=== PATIENT | female | born 1970 | race Two or more races ===

== ENCOUNTER 2024-01-09 12:38 | Outpatient (AMB) | payer OTHER, SELFPAY ==
[2024-01-09 12:57] VITALS: BP 124/70; PULSE 89; O2SAT 99; BMI 28.7
--- NOTE | 2024-01-09 12:57 | MHC.OFFVIS ---
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 The patient is a 53-year-old lady with asthma and HIV on retroviral therapy, presenting with worsening cough and shortness of breath. The patient states that she was in her usual state health until several months ago she developed COVID. She actually did not have any respiratory complaints while having COVID just epistaxis. Afterwards though the patient started developing shortness breath in addition to right-sided pleuritic chest discomfort. It was very uncomfortable for her with moderate to severe pain. The patient was evaluated in the ER. She did have a CTA back in 10/19/2023 that ruled out any parenchymal or pleural-based disease. Denied any pulmonary vascular disease. No active disease noted although she did have some minimal emphysema. She has been on Flovent in addition to that she has been rescue inhaler. She is required multiple courses of prednisone and she does have diabetes she is concerned that her sugars have been very elevated. The patient also states that she has been having this dry cough. Mainly affects her at nighttime. Very uncomfortable. She has been on lisinopril now for many yearr, even prior to her cough. Although, she states every time she does take the lisinopril she describes a scratchy sensation in the back of the throat and therefore dangerous for the possibility of development of lisinopril induced angioedema which can happen any time. The patient will be switched from an ROSEY inhibitor to an ARB at this time. In addition to that the patient has been prescribed amlodipine for her blood pressure but she does not use it because of lower extremity edema. 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 Chronic cough Asthma Social History (Updated 01/09/24 @ 13:03 by OLGA Gutierrez) Patient Tobacco Use Status: Current everyday Tobacco user Tobacco use type: Cigarette Review of Systems Const Denies fever(s) Eyes Reports no additional complaints ENT Reports nasal congestion, Denies throat swelling and Denies tongue swelling Card Denies chest pain Resp Reports cough and Reports wheezing GI Reports no additional complaints Musc Reports no additional complaints Skin/Breast Denies rash Aller/Immun Denies throat swelling, Denies tongue swelling and Reports wheezing Physical Exam Vital Signs: Last Vital Signs Pulse 89 01/09/24 12:57 BP 124/70 01/09/24 12:57 Pulse Ox 99 01/09/24 12:57 Oxygen Delivery Method Room Air 01/09/24 12:57 BMI result Body Mass Index 28.7 Const General: comfortable HEENT Head: Yes normocephalic Neck Neck: Yes supple Chest Chest palpation & inspection: normal inspection of the chest Resp Effort & Inspection: normal respiratory effort and prolonged expiratory phase Auscultation: wheezes Cardio Heart sounds: S1 normal heart sound present and S2 normal heart sound present GI Palpation (GI): Soft to palpation Skin General skin exam: no rashes or lesions noted Extrem General: Yes no clubbing, cyanosis or edema Assessment & Plan Assessment & Plan (1) Asthma: Code(s): J45.909 - Unspecified asthma, uncomplicated Category: Medical Qualifiers: Asthma severity: moderate Asthma persistence: persistent Asthma complication type: uncomplicated Qualified Code(s): J45.40 - Moderate persistent asthma, uncomplicated (2) Chronic cough: Code(s): R05.3 - Chronic cough Category: Medical (3) 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, unspecified Category: Medical Plan stop Flovent start Trelegy MEEK as needed stop Lisinopril due to scratchy throat while taking it start Losartan benzonates as needed F/U 2-3 months Medications: New losartan 50 mg PO DAILY 30 tabs 5RF 30 days albuterol sulfate 2.5 mg (3 mL) inhalation Q6H PRN 180 mL 11RF shortness of breath or wheezing 30 days albuterol sulfate 90 mcg/actuation 2 inhalations inhalation Q6H PRN 18 grams 12RF shortness of breath or wheezing 30 days J44.9 - Chronic obstructive pulmonary disease, unspecified bhveuwqvwah-[id number]-bfhotklh 200-62.5-25 mcg (Trelegy Ellipta) 1 inh inhalation DAILY 60 ea 12RF 30 days benzonatate 200 mg PO BID PRN 60 caps 3RF cough 30 days Patient Instructions: Coding Level of Care Code New Pt Level 4 (20730) Diagnoses Moderate persistent asthma without complication J45.40 Asthma severity: moderate Asthma persistence: persistent Asthma complication type: uncomplicated Chronic cough R05.3 [id number] syndrome U09.9 Time Spent (min) 38
== END 2024-01-09 13:22 | disposition home or self-care (01) ==
PROVIDERS: PCP Internal Medicine; Visit Provider Hospitalist
DX: J45.40 Moderate persistent asthma, uncomplicated (principal); R05.3 Chronic cough; U09.9 Post COVID-19 condition, unspecified
CPT/HCPCS: 99204

== ENCOUNTER → 2024-01-09 12:38 | Outpatient (BNVA) | payer OTHER, SELFPAY | PROVIDERS: PCP Internal Medicine; Visit Provider Hospitalist | DX: J45.40 Moderate persistent asthma, uncomplicated (principal); R05.3 Chronic cough; U09.9 Post COVID-19 condition, unspecified | CPT/HCPCS: 99202 ==

== ENCOUNTER 2024-04-13 14:50 | Outpatient (AMB) | payer OTHER, SELFPAY ==
--- NOTE | 2024-04-13 15:29 | MHC.OFFVIS ---
Vital Signs 04/13/24 15:31 Height 5 ft 2 in Weight 158 lb BMI 28.9 BP 124/70 Blood Pressure Location Lt brachial Position Sitting Pulse 88 Pulse Source Pulse Oximeter Pulse Oximetry (%) 98 Oxygen Delivery Method Room Air Intake Visit Reasons: Asthma [employer] Head Required: No Allergies No Known Allergies [No Known Allergies*] Allergy (Unverified 04/13/24 15:33) HPI Comments Details: The patient is a 53-year-old lady with asthma and HIV on retroviral therapy, presenting with worsening cough and shortness of breath. The patient states that she was in her usual state health until several months ago she developed COVID. She actually did not have any respiratory complaints while having COVID just epistaxis. Afterwards though the patient started developing shortness breath in addition to right-sided pleuritic chest discomfort. It was very uncomfortable for her with moderate to severe pain. The patient was evaluated in the ER. She did have a CTA back in 10/19/2023 that ruled out any parenchymal or pleural-based disease. Denied any pulmonary vascular disease. No active disease noted although she did have some minimal emphysema. She has been on Flovent in addition to that she has been rescue inhaler. She is required multiple courses of prednisone and she does have diabetes she is concerned that her sugars have been very elevated. The patient also states that she has been having this dry cough. Mainly affects her at nighttime. Very uncomfortable. She has been on lisinopril now for many yearr, even prior to her cough. Although, she states every time she does take the lisinopril she describes a scratchy sensation in the back of the throat and therefore dangerous for the possibility of development of lisinopril induced angioedema which can happen any time. The patient will be switched from an ROSEY inhibitor to an ARB at this time. In addition to that the patient has been prescribed amlodipine for her blood pressure but she does not use it because of lower extremity edema. 04/13/2024 the patient is here for a pulmonary follow-up visit. Overall she is doing a lot better. Her cough has significantly improved after stopping days inhibitor. The additional inhaler therapy also has been affecting beneficial. She has not been having as much as chest tightness wheezing. She has not had to use her rescue inhaler often. Typically less than 2 times a week. She did well with the stopping the ROSEY inhibitor. She needs to make sure she gets her blood pressure medications controlled and taking care of managed by her primary care. She will continue with the current respiratory therapy follow-up sometime in the spring to make sure that her asthma symptoms continued to be controlled. We can also consider decreasing or deescalating her inhaler therapy then. [facility] Medical History (Updated 01/09/24 @ 22:46 by Jorje Chavez MD) HIV (human immunodeficiency virus infection) [id number] syndrome Chronic cough Asthma Social History (Updated 01/09/24 @ 13:03 by OLGA Gutierrez) Patient Tobacco Use Status: Current everyday Tobacco user Tobacco use type: Cigarette Review of Systems Const Denies fever(s) Eyes Reports no additional complaints ENT Reports nasal congestion, Denies throat swelling and Denies tongue swelling Card Denies chest pain Resp Reports cough and Denies wheezing GI Reports no additional complaints Musc Reports no additional complaints Skin/Breast Denies rash Aller/Immun Denies throat swelling, Denies tongue swelling and Denies wheezing Physical Exam Vital Signs: Last Vital Signs Pulse 88 04/13/24 15:31 BP 124/70 04/13/24 15:31 Pulse Ox 98 04/13/24 15:31 Oxygen Delivery Method Room Air 04/13/24 15:31 BMI result Body Mass Index 28.9 Const General: comfortable HEENT Head: Yes normocephalic Neck Neck: Yes supple Chest Chest palpation & inspection: normal inspection of the chest Resp Effort & Inspection: normal respiratory effort and No prolonged expiratory phase Auscultation: clear to auscultation bilaterally and no wheezes Cardio Heart sounds: S1 normal heart sound present and S2 normal heart sound present GI Palpation (GI): Soft to palpation Skin General skin exam: no rashes or lesions noted Extrem General: Yes no clubbing, cyanosis or edema Assessment & Plan Assessment & Plan (1) Asthma: Code(s): J45.909 - Unspecified asthma, uncomplicated Category: Medical Qualifiers: Asthma complication type: uncomplicated Asthma persistence: persistent Asthma severity: moderate Qualified Code(s): J45.40 - Moderate persistent asthma, uncomplicated (2) Chronic cough: Code(s): R05.3 - Chronic cough Category: Medical (3) [id number] syndrome: 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
[2024-04-13 15:31] VITALS: BP 124/70; PULSE 88; O2SAT 98; BMI 28.9
== END 2024-04-13 15:54 | disposition home or self-care (01) ==
PROVIDERS: PCP Internal Medicine; Visit Provider Hospitalist
DX: J45.40 Moderate persistent asthma, uncomplicated (principal); R05.3 Chronic cough; U09.9 Post COVID-19 condition, unspecified
CPT/HCPCS: 99214

== ENCOUNTER → 2024-04-13 14:50 | Outpatient (BNVA) | payer OTHER, SELFPAY | PROVIDERS: PCP Internal Medicine; Visit Provider Hospitalist | DX: J45.40 Moderate persistent asthma, uncomplicated (principal); R05.3 Chronic cough; U09.9 Post COVID-19 condition, unspecified; B20 Human immunodeficiency virus [HIV] disease | CPT/HCPCS: 99212 ==

== ENCOUNTER 2024-10-16 15:03 | Outpatient (AMB) | payer OTHER, SELFPAY ==
--- NOTE | 2024-10-16 15:15 | A.OFFVIS_ITS ---
Vital Signs 10/16/24 15:16 Height 5 ft 2 in Weight 157 lb 10.088 oz BMI 28.8 BP 128/76 Blood Pressure Location Rt brachial Position Sitting Pulse 104 H Pulse Source Pulse Oximeter Pulse Oximetry (%) 98 Oxygen Delivery Method Room Air Intake Visit Reasons: Asthma Allergies amlodipine Allergy (Mild, Verified 10/16/24 15:20) Swelling lisinopril Allergy (Mild, Verified 10/16/24 15:20) Cough HPI Comments Details: The patient is a 54-year-old lady with asthma and HIV on retroviral therapy, presenting with worsening cough and shortness of breath. The patient states that she was in her usual state health until several months ago she developed COVID. She actually did not have any respiratory complaints while having COVID just epistaxis. Afterwards though the patient started developing shortness breath in addition to right-sided pleuritic chest discomfort. It was very uncomfortable for her with moderate to severe pain. The patient was evaluated in the ER. She did have a CTA back in 10/19/2023 that ruled out any parenchymal or pleural-based disease. Denied any pulmonary vascular disease. No active disease noted although she did have some minimal emphysema. She has been on Flovent in addition to that she has been rescue inhaler. She is required multiple courses of prednisone and she does have diabetes she is concerned that her sugars have been very elevated. The patient also states that she has been having this dry cough. Mainly affects her at nighttime. Very uncomfortable. She has been on lisinopril now for many yearr, even prior to her cough. Although, she states every time she does take the lisinopril she describes a scratchy sensation in the back of the throat and therefore dangerous for the possibility of development of lisinopril induced angioedema which can happen any time. The patient will be switched from an ROSEY inhibitor to an ARB at this time. In addition to that the patient has been prescribed amlodipine for her blood pressure but she does not use it because of lower extremity edema. 04/13/2024 the patient is here for a pulmonary follow-up visit. Overall she is doing a lot better. Her cough has significantly improved after stopping days inhibitor. The additional inhaler therapy also has been affecting beneficial. She has not been having as much as chest tightness wheezing. She has not had to use her rescue inhaler often. Typically less than 2 times a week. She did well with the stopping the ROSEY inhibitor. She needs to make sure she gets her blood pressure medications controlled and taking care of managed by her primary care. She will continue with the current respiratory therapy follow-up sometime in the spring to make sure that her asthma symptoms continued to be controlled. We can also consider decreasing or deescalating her inhaler therapy then. 10/16/2024 the patient is here for a pulmonary follow-up visit. She is doing significantly better since she stopped the ROSEY inhibitor. She continues on the Breo and the Incruse with good effect. She has not required her rescue inhaler nor any prednisone. She has not had any even Lizeth studies at this time but at this point she does not need any. The patient also improved from her chest discomfort as she was having issues with costochondritis. That also has improved. She continues with allergy medicine. She should continue for now. And will follow-up in a year's time. When she returns in a year will plan to do a chest x-ray. If she has any issues prior to the next year's appointment she will call for an earlier assessment. [facility] Medical History (Updated 01/09/24 @ 22:46 by Jorje Chavez MD) HIV (human immunodeficiency virus infection) [id number] syndrome Chronic cough Asthma Social History (Updated 10/16/24 @ 15:18 by Genevieve Alas CMA) Patient Tobacco Use Status: Current everyday Tobacco user Tobacco use type: Cigarette Cigarettes Per Day: 8 Review of Systems Const Denies fever(s) Eyes Reports no additional complaints ENT Reports nasal congestion, Denies throat swelling and Denies tongue swelling Card Denies chest pain Resp Reports cough and Denies wheezing GI Reports no additional complaints Musc Reports no additional complaints Skin/Breast Denies rash Aller/Immun Denies throat swelling, Denies tongue swelling and Denies wheezing Physical Exam Vital Signs: Last Vital Signs Pulse 104 H 10/16/24 15:16 BP 128/76 10/16/24 15:16 Pulse Ox 98 10/16/24 15:16 Oxygen Delivery Method Room Air 10/16/24 15:16 BMI result Body Mass Index 28.8 Const General: comfortable HEENT Head: Yes normocephalic Neck Neck: Yes supple Chest Chest palpation & inspection: normal inspection of the chest Resp Effort & Inspection: normal respiratory effort and No prolonged expiratory phase Auscultation: clear to auscultation bilaterally and no wheezes Cardio Heart sounds: S1 normal heart sound present and S2 normal heart sound present GI Palpation (GI): Soft to palpation Skin General skin exam: no rashes or lesions noted Extrem General: Yes no clubbing, cyanosis or edema Assessment & Plan Assessment & Plan (1) Asthma: Code(s): J45.909 - Unspecified asthma, uncomplicated Category: Medical Qualifiers: Asthma complication type: uncomplicated Asthma persistence: persistent Asthma severity: moderate Qualified Code(s): J45.40 - Moderate persistent asthma, uncomplicated (2) Chronic cough: Code(s): R05.3 - Chronic cough Category: Medical Plan continue Breo/Incruse MEEK as needed benzonates as needed CXR next year F/U 12 months Coding Level of Care Code Est Pt Level 4 (57420) Diagnoses Moderate persistent asthma without complication J45.40 Asthma complication type: uncomplicated Asthma persistence: persistent Asthma severity: moderate Chronic cough R05.3 Time Spent (min) 16
[2024-10-16 15:16] VITALS: BP 128/76; PULSE 104; O2SAT 98; BMI 28.8
--- OUTSIDE RECORDS SUMMARY | 2024-10-16 17:58 | XMS_ITS | Data Portability ---
Author Organization [facility] Address [address] [place] [address] Assessment No assessment recorded. Plan of Treatment Reminders Order Date Submit Date Provider Last Modified By Organization Details Last Modified Time Details Appointments None recorded. Lab None recorded. Referral None recorded. Procedures None recorded. Surgeries None recorded. Imaging None recorded. Medication Orders azithromyci n 250 mg tablet 2022 023 SHEA [id number], [address] [place], [address], 3 08:39:54 prednisone 20 mg tablet 2022 023 [email or web address] [id number], [address] [place], [address], 3 09:59:58 Patient TargetsNo targets recorded. Patient Instructions Encounter Date Encounter Id Patient Instructions Last Modified By Organization Details Last Modified Time 12/07/2022 [id number] walking pneumonia: care instructions Not available 12/07/2022 10:03:33 asthma attack: care instructions Not available 12/07/2022 10:03:33 Reason for Referral None Reported. Problems Name Problem SNOMED Code Status Onset Date Resolution Date Notes Provider Name and Address Organization Details Recorded Time Asthma 479770931 Active 2022 Asha Razia null, PA - [facility] 3 08:17:51 Hypertensive disorder 65880917 Active 2022 Asha Needham null, PA - [facility] 3 08:18:21 Diabetes mellitus 35149602 Active 2022 Asha Razia null, PA - [facility] 3 08:18:25 Environmental allergy 238369648 Active 2022 STEVEN Johnston [facility] 3 08:18:35 Problem Notes None recorded. Procedures Surgical History Date Name Laterality Status Provider Name and Address Organization Details Recorded Time hysterectomy completed Asha HARRIS - [facility] 12/07/2022 08:19:11 Imaging Results None recorded. Procedure Notes None recorded. Medical Equipment None Reported. Allergies No known drug allergies Medications Name Sig Start Date Stop Date Status Note LastModified by Organization Details LastModified Time prednisone 10 mg tablet PLEASE SEE ATTACHED FOR DETAILED DIRECTIONS active Not Available Not Available N ot Available ammonium lactate 12 % lotion APPLY TO SOLES OF FEET DAILY. AT NIGHT WEAR SOCKS TO BED active Not Available Not Available No t Available azithromycin 250 mg tablet TAKE 2 TABLETS (500 MG) BY ORAL ROUTE ONCE DAILY FOR 1 DAY THEN 1 TABLET (250 MG) BY ORAL ROUTE ONCE DAILY FOR 4 DAYS 2022 active Not Available Not Available Not Avai lable prednisone 20 mg tablet Take 2 tablets every day by oral route for 5 days. 2022 active Not Available Not Available Not Avai lable sulfamethoxa zole 800 mg-trimethop rim 160 mg tablet TAKE 1 TABLET BY MOUTH THREE TIMES PER WEEK active Not Available Not Available No t Available peg-electrol yte solution 420 gram oral solution MIX AND DRINK 1 GLASS DIRECTED EVERY 15 TO 30 MINUTES UNTIL FINISHED active Not Available Not Available No t Available lisinopril 10 mg tablet TAKE 1 TABLET BY MOUTH EVERY DAY active Not Available Not Available No t Available polymyxin B sulfate 10,000 unit-trimeth oprim 1 mg/mL eye drops INSTILL 1 DROP INTO AFFECTED EYE EVERY 6 HOURS active Not Available Not Available No t Available montelukast 10 mg tablet TAKE 1 TABLET BY MOUTH EVERYDAY AT BEDTIME active Not Available Not Available No t Available pravastatin 20 mg tablet TAKE 1 TABLET BY MOUTH EVERY DAY IN THE EVENING active Not Available Not Available No t Available fluticasone propionate 50 mcg/actuatio n nasal spray,suspen karyna USE 2 SPRAYS IN EACH NOSTRIL DAILY NEEDED active Not Available Not Available No t Available doxycycline hyclate 100 mg tablet TAKE 1 TABLET BY MOUTH TWICE A DAY WITH FOOD active Not Available Not Available No t Available loratadine 10 mg tablet TAKE 1 TABLET BY MOUTH EVERY DAY active Not Available Not Available No t Available amoxicillin 875 mg-potassium clavulanate 125 mg tablet TAKE 1 TABLET BY MOUTH EVERY 12 HOURS FOR 10 DAYS active Not Available Not Available Not Available rosuvastatin 40 mg tablet TAKE 1 TABLET BY MOUTH EVERY DAY active Not Available Not Available No t Available Flovent HFA 110 mcg/actuatio n aerosol inhaler TAKE 1 PUFF BY MOUTH TWICE A DAY active Not Available Not Available Not Available Claritin active Not Available Not Avai lable Not Available Singulair active Not Available Not Gillian ilable Not Available lisinopril active Not Available Not Av ailable Not Available metformin active Not Available Not Gillian ilable Not Available gabapentin active Not Available Not Av ailable Not Available FreeStyle Lite Strips USE DIRECTED 3 TIMES A DAY active Not Available Not Available Not Available Flovent Diskus 100 mcg/actuatio n powder for inhalation Inhale 1 puff twice a day by inhalation route. active Not Available Not Available No t Available Invokamet 150 mg-1,000 mg tablet TAKE 1 TABLET TWICE A DAY BY ORAL ROUTE FOR 90 DAYS. active Not Available Not Available No t Available Triumeq 600 mg-50 mg-300 mg tablet TAKE 1 TABLET BY MOUTH EVERY DAY active Not Available Not Available No t Available Trulicity 1.5 mg/0.5 mL subcutaneous pen injector INJECT 0.5ML (1 PEN) INTO THE SKIN EVERY WEEK active Not Available Not Available N ot Available Trulicity 0.75 mg/0.5 mL subcutaneous pen injector Inject by subcutaneou s route. active Not Available Not Available No t Available Tresiba FlexTouch U-100 insulin 100 unit/mL (3 mL) subcutaneous pen INJECT 15 UNITS EVERY DAY BY SUBCUTANEOU S ROUTE FOR 30 DAYS. active Not Available Not Available No t Available BD Page 2nd Gen Pen Needle 32 gauge x 5/32 ONCE PER DAY SC INJECTIONS. E11.65 active Not Available Not Available No t Available Proair Digihaler 90 mcg/actuatio n aerosol powder breath act, sensor Inhale 2 puffs every 4 hours by inhalation route. active Not Available Not Available No t Available Flowflex COVID-19 Antigen Home Test kit USE DIRECTED active Not Available Not Available No t Available albuterol 90 mcg-budesoni de 80 mcg/actuatio n HFA aerosol inhaler Inhale by inhalation route. active Not Available Not Available No t Available Vitals Date Recorded Body height Body mass index (BMI) Body weight Oxygen saturation Oxygen saturation in Arterial blood by Pulse oximetry Heart rate Respiratory rate Pain severity - 0-10 verbal numeric rating [Score] - Reported Body temperature Systolic blood pressure Diastolic blood pressure Provider Name and Address Organization Details Last Updated DateTime 3 149.86 cm 31.1 kg/m2 89053.2 2 g 100 % 100 % 86 /min 20 /min 8 98 [degF] 123 mm[Hg] 62 mm[Hg] Asha Randle PA - [facility] 3 08:21:13 Social History Question Answer Notes LastModified by Organizat ion Details LastModified Time Tobacco Smoking Status Never Smoker STEVEN Johnston [facility] 12/07/2022 08:18:49 What Is Your Level Of Alcohol Consumption? None Information not available 12/07/2022 Have You Had Direct Contact, Or Contact During Intimacy, With Monkeypox Rash, Scabs, Or Body Fluids From A Person With Monkeypox? No Information not available 12/07/2022 Do You Use Any Illicit Or Recreational Drugs? No Information not available 12/07/2022 Have You Recently Traveled Abroad? No Information not available 12/07/2022 Do You Or Have You Ever Used Any Other Forms Of Tobacco Or Nicotine? No Information not available 12/07/2022 Sex: Unknown Functional Status None recorded. Mental Status None recorded. Family History Relationship Description Onset Age of this Age Resolved Age Notes LastModified by Organization Details LastModified Time Father No current problems or disability Not available 12/07 08:18:43 Mother No current problems or disability Not available 12/07 08:18:43 Medical History No medical history recorded. Gynecological History Statement/Question Response Date of LMP Is there any chance of ? No Obstetrics History GPAL:G 0 P 0 0 0 0 Immunizations Vaccine Type Date Status Note Provider Nam e and Address Organization Details Recorded Time Influenza, split virus, quadrivalent, preservative 0 completed Asha riggs PA Ramya [facility] 12/07/2022 08:16:07 MMR 9 completed Asha Razia null, PA - [facility] 12/07/2022 08:16:07 COVID-19, mRNA, LNP-S, PF, 100 mcg/0.5mL dose or 50 mcg/0.25mL dose 2 completed Asha Razia null, PA - [facility] 12/07/2022 08:16:07 COVID-19, mRNA, LNP-S, PF, 100 mcg/0.5mL dose or 50 mcg/0.25mL dose 1 completed Asha Razia null, PA - [facility] 12/07/2022 08:16:07 pneumococcal polysaccharide PPV23 8 completed Asha Needham null, PA - [facility] 12/07/2022 08:16:07 Tdap 8 completed Asha Razia null, PA - [facility] 12/07/2022 08:16:07 Tdap 8 completed Asha Needham null, PA - [facility] 12/07/2022 08:16:07 Pneumococcal conjugate PCV 13 6 completed Asha Razia null, PA - [facility] 12/07/2022 08:16:07 Influenza, split virus, trivalent, preservative 2 completed Asha Razia null, PA - [facility] 12/07/2022 08:16:07 Influenza, split virus, trivalent, preservative 6 completed Asha Razia null, PA - [facility] 12/07/2022 08:16:07 Influenza, split virus, trivalent, preservative 4 completed Asha Razia null, PA - [facility] 12/07/2022 08:16:07 Influenza, split virus, trivalent, preservative 2 completed Asha Razia null, PA - [facility] 12/07/2022 08:16:07 Influenza, split virus, trivalent, preservative 3 completed Asha Needham null, PA - [facility] 12/07/2022 08:16:07 Influenza, split virus, trivalent, PF 5 completed Asha Razia null, PA - [facility] 12/07/2022 08:16:07 Td (adult), 2 Lf tetanus toxoid, preservative free, adsorbed 7 completed Asha Needham null, PA - [facility] 12/07/2022 08:16:07 Hep B, adolescent or pediatric 5 completed Asha Razia null, PA - [facility] 12/07/2022 08:16:07 Hep B, adolescent or pediatric 5 completed Asha Needham null, PA - [facility] 12/07/2022 08:16:07 Hep B, adolescent or pediatric 5 completed Asha Needham null, PA - [facility] 12/07/2022 08:16:07 Influenza, split virus, quadrivalent, PF 7 completed Asha Razia null, PA - [facility] 12/07/2022 08:16:07 Influenza, split virus, quadrivalent, PF 1 completed Asha Razia null, PA - [facility] 12/07/2022 08:16:07 Influenza, split virus, quadrivalent, PF 2 completed Asha Razia null, PA - [facility] 12/07/2022 08:16:07 Influenza, split virus, quadrivalent, PF 5 completed Asha Needham null, PA - [facility] 12/07/2022 08:16:07 Past Encounters Encounter ID Performer Location Encounter Start Date Encounter Closed Date Diagnosis/Indication Diagnosis SNOMED-CT Code Diagnosis ICD10 Code Diagnosis Note [id number] [facility] [address] [place] [address] 02/28/2020 15:46:43 02/28/2020 16:49:59 [id number] [address] [address] [place] [address] 01/15/2020 08:12:55 01/15/2020 09:13:49 [id number] [address] [facility] [place] [address] 09/02/2020 15:51:24 09/02/2020 17:50:48 [id number] Theron Alfred [place] [address] [address] [place] [address] 12/07/2022 08:10:02 12/07/2022 08:45:01 Community acquired pneumonia 050634744 J18.9 Concerning for pneumonia, . will treat based on clinical presentati on.Startin сергей streroids. Aware that she is Diabetic but benefits outweight the risks and she is aware that she will need to monitor blood sugars.Stefanie ble to give Albuterol neb in office , advised to use Albuterol inhaler at home. Or can use the albuterol nebulizer you have You are being prescribed a Steroid. You must take this with food. While on a Steroid, you should not take Ibuprofen or any other NSAID because this will cause stomach irritation . Please follow up with PCP or Urgent Care in 3-5 days if no improvemen t or if any new symptoms occur that are concerning .Call 911 or go to nearest ER if you develop any shortness of breath, chest pain, severe headache, dizziness, or other concerning symptoms Health Concerns Section Related Observation LastModified by Organization Detai ls LastModified Time None Recorded Concern Status LastModified by Organization Details LastModified Time None Recorded Advance Directives Directive None Recorded Payers Encounter Date Sequence Insurance Name Policy Number Policy James Covered Member ID James Member ID Guarantor Name 01/15/2020 1 [facility]MEDICAID HMO) [id number] Maame I Kev [id number] Maame Kev 02/28/2020 1 [facility]MEDICAID HMO) [id number] Maame I Kev [id number] Maame Kev 09/02/2020 1 [facility] (MEDICAID HMO) [id number] Maame I Kev [id number] Maame Kev 12/07/2022 1 [facility] (MEDICAID HMO) [id number] Maame I Kev [id number] Maame Angulo Notes Date Note Type Note Provider Name and Address Organization Details Recorded Time 12/07/2022 text/html CoughReported bypatient.Quality:p roductive cough Severity:pain with cough; moderate Duration:constant Timing:worsening Context:history of asthma Associated Symptoms:chills;adriane st pain;wheezing;post nasal drip;hurts to breathNotes:Has history asthma. using at home Albuterol. Chest is congested an dhas pain in the lower posterior rib cage. Theron Alfred MD [address] [place], [address], [place] - [facility] 12/07/2022 10:03:37 OBGyn Episode No OBEpisode recorded.
--- OUTSIDE RECORDS SUMMARY | 2024-10-16 17:58 | XMS_ITS | Continuity of Care Document ---
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 Available [facility] 4 07:42:44 Spasm of skeletal muscle of thorax 803692068 Active 2023 Not Available [facility] 4 07:42:44 Neck pain 15497355 Active 2023 RECORDED 02/11/20 12 3:05PM BY AMISHA ROBERTS MA, ANNOTATI ON/ADDEN DUM Not Available [facility] 4 07:42:44 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 Procedures Surgical History Date Name Laterality Status Provider Name and Address Organization Details Recorded Time 08/29/19 25 Diabetic Foot Exam (Monofilament) completed Emma HARRIS-C [address], [place], [address], [facility] 08/29/2024 16:24:35 05/12/20 24 Most Recent Mammogram completed Shani Veliz [facility] 05/15/2024 11:08:09 10/11/19 24 diabetic retinopathy screening completed Shani Veliz [facility] 10/12/2023 08:29:28 05/07/20 23 Mammogram screening completed Angela Honeycutt [facility] 05/10/2023 09:00:40 03/02/20 22 Date of Last Colonoscopy completed Lyla Mccartney [facility] 03/04/2022 10:24:49 03/02/20 22 Colonoscopy completed Lyla Mccartney [facility] 03/04/2022 10:24:39 04/28/20 21 Diabetic Foot Exam (Monofilament) completed UtiliDataden PA-C [address] [facility], [place], [address], [facility] 04/28/2021 16:39:35 02/12/20 21 Diabetic Foot Exam (Monofilament) completed Natacha Connie [facility] 02/11/2021 16:19:55 08/28/19 20 Diabetic Foot Exam (Monofilament) completed Omaira Kenroy [facility] 08/28/2019 16:15:58 02/21/20 19 Diabetic Foot Exam (Monofilament) completed PT PAL PA-C [address] [facility] [address] [facility], [place], [address], [facility] 02/20/2019 16:00:13 05/02/20 17 Colposcopy completed Reina Giraldo [facility] 07/19/2017 14:41:16 05/02/20 17 Colposcopy completed Reina Giraldo [facility] 07/19/2017 14:41:33 Caesarean Section completed Dipika Uriarte [facility] 05/10/2014 15:42:08 Imaging Results None recorded. Procedure Notes None recorded. Medical Equipment None Reported. Allergies Allergen ID Allergen Name Allergen Category Reaction Reaction Severity Criticality Documentation Date Start Date Code Code System Note Provider Name and Address Organization Details Recorded Time 05036 amlodipin e medicatio n edema Not available Not available 02/01/2024 59963 RxNorm swell ing of ankle s TERRI Izquierdo, [facility] 4 11:18:46 26602 lisinopri l medicatio n anaphylax is Not available Not available 10/15/2024 73381 RxNorm Emma Yanez PA-C [address] [address], [place], [address], [facility] 5 14:30:07 Medications Name Sig Start Date Stop Date Status Note LastModified by Organization Details LastModified Time losartan 50 mg tablet Take 1 tablet every day by oral route for 90 days. 2024 active Not Available Not Available Not Avai lable carisopro dol 350 mg tablet Take by oral route for 7 days. 09/09 completed Not Available Not Available Not Available amoxicill in 500 mg capsule TAKE 1 CAPSULE BY MOUTH THREE TIMES A DAY UNTIL GONE 12/11 completed Not Available Not Available Not Available azithromy blanca 250 mg capsule QD X 1 DAY, THEN 1 TAB PO QD X 4 DAYS 03/30 completed RECORDED 03/30/20 12 6:28AM BY ZEE Choudhury MD, MEDICATI ON AUTO-GENESIS CTIVATIO N; Not Available Not Available Not Available fluconazo le 100 mg tablet 07/14 completed Not Available Not Available Not Available clotrimaz ole 10 mg alena FOUR TIMES DAILY 10/13 completed RECORDED 10/14/19 11 1:21PM BY AMISHA ROBERTS MA, OFFICE VISIT; Not Available Not Available Not Available Kristalos e 20 gram oral packet MIX 1 PACKET(S ) EVERY DAY BY ORAL ROUTE FOR 30 DAYS 09/30 completed Not Available Not Available Not Available prednison e 10 mg tablet PLEASE SEE ATTACHED FOR DETAILED DIRECTIO NS 08/31 completed Not Available Not Available Not Available nitrofura ntoin macrocrys ken 50 mg capsule TAKE 1 CAPSULE BY MOUTH EVERY DAY 01/07 completed Not Available Not Available Not Available doxycycli ne hyclate 100 mg capsule TWO TIMES DAILY 01/09 completed RECORDED 01/14/20 10 1:51PM BY ROSS HA PA-C, MEDICATI ON AUTO-GENESIS CTIVATIO N; Not Available Not Available Not Available albuterol sulfate 2.5 mg/3 mL (0.083 %) solution for nebulizat ion USE 1 VIAL VIA NEBULIZE R EVERY 6 HOURS NEEDED FOR SHORTNES S OF BREATH OR WHEEZING FOR 30 DAYS active Not Available Not Available No t Available ammonium lactate 12 % lotion APPLY TO SOLES OF FEET DAILY. AT NIGHT WEAR SOCKS TO BED active Not Available Not Available No t Available cetirizin e 10 mg tablet Take 1 tablet every day by oral route. 04/16 completed Not Available Not Available Not Available azithromy blanca 250 mg tablet TAKE 2 TABLETS BY MOUTH TODAY, THEN TAKE 1 TABLET DAILY FOR 4 DAYS 12/31 completed Not Available Not Available Not Available ibuprofen 800 mg tablet TAKE 1 TABLET BY MOUTH EVERY 8 HOURS NEEDED FOR PAIN 05/29 completed Not Available Not Available Not Available Glucagon Emergency Kit 1 mg solution for injection TAKE 1 MG NEEDED BY INJECTIO N ROUTE FOR 90 DAYS. active Not Available Not Available No t Available tizanidin e 4 mg tablet TAKE 0.5 TABLETS TWICE A DAY BY ORAL ROUTE FOR 30 DAYS, FOR MUSCLE SPASMS. 08/29 completed Not Available Not Available Not Available fluconazo le 150 mg tablet TAKE 1 TABLET BY MOUTH NEEDED FOR ACTIVE VAGINAL INFECTIO N 09/09 completed Not Available Not Available Not Available benzonata te 200 mg capsule take 1 capsule three times daily by mouth as needed 11/22 completed Not Available Not Available Not Available albuterol sulfate 1.25 mg/3 mL solution for nebulizat ion USE 1 VIAL VIA NEBULIZE R EVERY 4 HOURS (SHORTNE SS OF BREATH OR WHEEZING ) FOR 5 DAYS 01/22 completed Not Available Not Available Not Available fluocinon elaine 0.05 % topical gel 1 APPLICAT ION TWICE A DAY TO SCALP 01/07 completed Not Available Not Available Not Available fluconazo le 200 mg tablet TAKE 1 TABLET EVERY WEEK BY ORAL ROUTE FOR 30 DAYS. active Not Available Not Available No t Available glipizide ER 10 mg tablet, extended release 24 hr Take 1 tablet twice a day by oral route for 30 days. 2013 active Not Available Not Available Not Avai labkiana FreeStyle Lancets 28 gauge USE 1 LANCET 3 TIMES A DAY active Not Available Not Available No t Available ondansetr on HCl 4 mg tablet Take 1 tablet every 8 hours by oral route as needed. 10/10 completed for nausea Not Available Not Available Not Available prednison e 20 mg tablet TAKE 3 TABLETS BY MOUTH EVERY DAY X3 DAYS THEN TAKE 2 TABLETS X3 DAYS THEN TAKE 1 TABLET X3 DAYS 09/09 completed Not Available Not Available Not Available naproxen 250 mg tablet 09/09 completed Not Available Not Available Not Available permethri n 5 % topical cream Apply 1 applicat ion every day by topical route as directed . 02/06 completed Not Available Not Available Not Available penicilli n V potassium 500 mg tablet Take 1 tablet every 12 hours by oral route for 10 days. 04/05 completed Not Available Not Available Not Available Advair Diskus 100 mcg-50 mcg/dose powder for inhalatio n Inhale 1 puff every day by inhalati on route. 12/05 completed Not Available Not Available Not Available metronida zole 500 mg tablet TAKE 1 TABLET BY MOUTH TWICE A DAY 12/24 completed Not Available Not Available Not Available amlodipin e 5 mg tablet TAKE 1 TABLET BY MOUTH EVERY DAY 01/31 completed Not Available Not Available Not Available ciproflox acin 500 mg tablet TAKE 1 TABLET BY MOUTH TWICE A DAY FOR 7 DAYS active Not Available Not Available No t Available Tamiflu 75 mg capsule Take 1 capsule twice a day by oral route for 5 days. 11/09 completed Not Available Not Available Not Available sulfameth oxazole 800 mg-trimet hoprim 160 mg tablet TAKE 1 TABLET BY MOUTH THREE TIMES A WEEK 07/13 completed Not Available Not Available Not Available peg-elect rolyte solution 420 gram oral solution MIX AND DRINK 1 GLASS DIRECTED EVERY 15 TO 30 MINUTES UNTIL FINISHED 04/30 completed Not Available Not Available Not Available omeprazol e 40 mg capsule,d elayed release TAKE 1 CAPSULE( S) EVERY DAY BY ORAL ROUTE FOR 30 DAYS. 06/16 completed Not Available Not Available Not Available tramadol 50 mg tablet TAKE 1 TABLET EVERY 6 HOURS BY ORAL ROUTE DIRECTED FOR 4 DAYS. 08/31 completed Not Available Not Available Not Available triamcino lone acetonide 0.1 % topical cream APPLY THIN COAT TO AFFECTED AREA TWICE A DAY 07/13 completed Not Available Not Available Not Available amoxicill in 500 mg tablet TAKE 1 CAPSULE BY MOUTH THREE TIMES A DAY 01/19 completed Not Available Not Available Not Available lamivudin e 150 mg-zidovu dine 300 mg tablet BID 10/13 completed RECORDED 10/14/19 11 1:21PM BY AMISHA ROBERTS MA, OFFICE VISIT; Not Available Not Available Not Available oxycodone -acetamin ophen 5 mg-325 mg tablet TAKE 1 TABLET BY MOUTH EVERY 6 HOURS NEEDED FOR 7 DAYS 08/31 completed Not Available Not Available Not Available terbinafi ne HCl 250 mg tablet TAKE 1 TABLET BY MOUTH EVERY DAY 05/29 completed Not Available Not Available Not Available ofloxacin 0.3 % ear drops INSTILL 10 DROPS (1.5 MG) INTO AFFECTED EAR(S) BY OTIC ROUTE 2 TIMES PER DAY 2013 active Not Available Not Available Not Avai lable Fluticaso ne Propionat e (Inhal) 50 mcg/BLIST inhl powd Inhale 2 puffs every day by inhalati on route. 2012 active Not Available Not Available Not Avai lable prednisol one acetate 1 % eye drops,xiao pension 02/11 completed Not Available Not Available Not Available metoclopr amide 5 mg tablet Take 1 tablet twice a day by oral route for 30 days. 04/30 completed Not Available Not Available Not Available methocarb deepali 750 mg tablet TAKE 1 TABLET BY MOUTH EVERY 6 HOURS NEEDED FOR 14 DAYS 11/07 completed Not Available Not Available Not Available imiquimod 5 % topical cream packet PLEASE SEE ATTACHED FOR DETAILED DIRECTIO NS active Not Available Not Available No t Available diazepam 2 mg tablet THREE TIMES DAILY 10/13 completed RECORDED 10/14/19 11 1:21PM BY AMISHA ROBERTS MA, OFFICE VISIT; Not Available Not Available Not Available benzonata te 100 mg capsule Take 1 capsule 3 times a day by oral route as needed for 5 days. 07/14 completed Not Available Not Available Not Available econazole nitrate 1 % topical cream APPLY TO THE AFFECTED AND SURROUND ING AREAS OF SKIN BY TOPICAL ROUTE 2 TIMES PER DAY 10/02 completed Not Available Not Available Not Available erythromy blanca 5 mg/gram (0.5 %) eye ointment APPLY 1 CM RIBBON INTO THE LOWER CONJUNCT IVAL SAC(S) IN THE AFFECTED EYE(S) BY OPHTHALM IC ROUTE 3 TIMES PER DAY 02/11 completed Not Available Not Available Not Available mirtazapi ne 30 mg tablet QHS / HS 02/23 completed RECORDED 02/24/20 11 9:18AM BY AMISHA ROBERTS MA, OFFICE VISIT; Not Available Not Available Not Available Banophen 25 mg tablet TAKE 1 TO 2 TABLETS BY MOUTH AT BEDTIME NEEDED active Not Available Not Available No t Available neomycin- polymyxin -dexameth 3.5 mg/mL-10, 000 unit/mL-0 .1% eye drops INSTILL 1 DROP INTO BOTH EYES 4 TIMES A DAY 10/15 completed Not Available Not Available Not Available nitrofura ntoin macrocrys ken 100 mg capsule TAKE 1 CAPSULE BY MOUTH TWICE A DAY 06/20 completed Not Available Not Available Not Available clotrimaz ole-betam ethasone 1 %-0.05 % topical cream APPLY TO THE AFFECTED AND SURROUND ING AREAS OF SKIN BY TOPICAL ROUTE 2 TIMES PER DAY IN THE MORNING AND EVENING FOR 2 WEEKS. DO NOT USE ON FACE active Not Available Not Available No t Available lisinopri l 10 mg tablet TAKE 1 TABLET BY MOUTH EVERY DAY 01/22 completed Not Available Not Available Not Available prednison e 50 mg tablet Take 1 tablet every day by oral route for 5 days. 11/09 completed Not Available Not Available Not Available naproxen sodium 220 mg tablet Take 2 tablets every 4-6 hours by oral route as needed. 12/08 completed OTC for costalco ndritis Not Available Not Available Not Available polymyxin B sulfate 10,000 unit-trim ethoprim 1 mg/mL eye drops INSTILL 1 DROP INTO AFFECTED EYE EVERY 6 HOURS 04/30 completed Not Available Not Available Not Available nystatin- triamcino lone 100,000 unit/g-0. 1 % topical cream APPLY TO THE AFFECTED AREA(S) BY TOPICAL ROUTE 2 TIMES PER DAY IN THEMORNI NG AND EVENING 2014 active Not Available Not Available Not Avai lable Advair Diskus 500 mcg-50 mcg/dose powder for inhalatio n TWO TIMES DAILY 2014 active RECORDED 11/20/19 14 4:13PM BY STEVEN ZHAO, OFFICE VISIT; Not Available Not Available Not Available hydrocodo ne-homatr opine 5 mg-1.5 mg/5 mL oral syrup Take 5 mL as needed by oral route at bedtime. 2014 active Not Available Not Available Not Avai lable betametha sone dipropion ate 0.05 % topical cream APPLY SPARINGL Y TO AFFECTED AREA EVERY DAY active Not Available Not Available No t Available docusate sodium 100 mg capsule TAKE 1 CAPSULE BY MOUTH 2 TIMES A DAY NEEDED FOR CONSTIPA TION 09/09 completed Not Available Not Available Not Available gabapenti n 300 mg capsule TAKE 1 CAPSULE BY MOUTH EVERY DAY FOR 90 DAYS active Not Available Not Available No t Available sertralin e 25 mg tablet Take 1 tablet twice a day by oral route. active Not Available Not Available No t Available Banophen 25 mg capsule TAKE 2 CAPS BY MOUTH AT BEDTIME 04/28 completed Not Available Not Available Not Available Cortispor in 3.5 mg/mL-10, 000 unit/mL-1 % ear solution INSTILL 4 DROPS INTO AFFECTED EAR(S) BY OTIC ROUTE 4 TIMES PER DAY 2013 active Not Available Not Available Not Avai lable monteluka st 10 mg tablet Take 1 tablet every day by oral route as needed for 90 days. active 08/29/24 pt states she has not needed this due to well controll ed asthma Not Available Not Available Not Available ammonium lactate 12 % topical cream APPLY 1 APPLICAT ION TWICE A DAY BY TOPICAL ROUTE NEEDED FOR 14 DAYS. 02/11 completed Not Available Not Available Not Available pravastat in 20 mg tablet Take 1 tablet every day by oral route for 90 days. 06/09 completed Not Available Not Available Not Available lisinopri l 5 mg tablet TAKE 1 TABLET BY MOUTH EVERY DAY 2014 active Not Available Not Available Not Avai lable Nasonex 50 mcg/actua tion [place] DAILY 01/28 completed Not Available Not Available Not Available ibuprofen 600 mg tablet TAKE 1 TABLET BY MOUTH 4 TIMES A DAY WITH FOOD 01/07 completed Not Available Not Available Not Available polyethyl jacki glycol 3350 17 gram/dose oral powder 17 grams two times daily. Hold dose for diarrhea . 06/16 completed Not Available Not Available Not Available levofloxa blanca 750 mg tablet Take 1 tablet every day by oral route for 5 days. 07/14 completed Not Available Not Available Not Available methylpre dnisolone 4 mg tablets in a dose pack TAKE 6 TABLETS ON DAY 1 DIRECTED ON PACKAGE AND DECREASE BY 1 TAB EACH DAY FOR A TOTAL OF 6 DAYS 01/18 completed Not Available Not Available Not Available ondansetr on 4 mg disintegr ating tablet PLACE 1 TABLET UNDER THE TONGUE 3 TIMES A DAY DIRECTED FOR 3 DAYS. 03/25 completed Not Available Not Available Not Available fluticaso ne propionat e 50 mcg/actua tion nasal spray,xiao pension USE 2 SPRAYS IN EACH NOSTRIL DAILY NEEDED 2022 active Not Available Not Available Not Avai lable metformin ER 500 mg tablet,ex tended release 24 hr TAKE 4 TABLETS BY MOUTH EVERY DAY 07/28 completed Not Available Not Available Not Available doxycycli ne hyclate 100 mg tablet TAKE 1 TABLET BY MOUTH TWICE A DAY WITH FOOD 12/31 completed Not Available Not Available Not Available loratadin e 10 mg tablet Take 1 tablet as needed by oral route for 30 days. active Not Available Not Available No t Available fluticaso ne propionat e 110 mcg/actua tion HFA aerosol inhaler TAKE 1 PUFF BY MOUTH TWICE A DAY active Not Available Not Available No t Available naproxen 500 mg tablet TAKE 1 TABLET BY MOUTH TWICE A DAY NEEDED FOR 14 DAYS 05/29 completed Not Available Not Available Not Available diazepam 5 mg tablet TAKE 1 TABLET BY MOUTH THREE TIMES A DAY NEEDED 08/16 completed Not Available Not Available Not Available metoclopr amide 10 mg tablet AT BEDTIME active RECORDED 11/24/19 14 3:44PM BY AMISHA ROBERTS MA, OFFICE VISIT;DR BETAHNY Liu Not Available Not Available Not Available amoxicill in 875 mg-potass ium clavulana te 125 mg tablet TAKE 1 TABLET BY MOUTH EVERY 12 HOURS FOR 14 DAYS 12/22 completed Not Available Not Available Not Available AcipHex 20 mg tablet,de layed release Take 1 tablet every day by oral route. 02/06 completed Not Available Not Available Not Available Ventolin HFA 90 mcg/actua tion aerosol inhaler TAKE 2 PUFFS BY MOUTH EVERY 6 HOURS NEEDED SHORTNES S OF BREATH OR WHEEZING active Not Available Not Available No t Available oxycodone 5 mg tablet TAKE 1 TABLET BY MOUTH EVERY 6 HOURS NEEDED 06/17 completed Not Available Not Available Not Available albuterol (refill) 90 mcg/actua tion aerosol inhaler Inhale 2 puffs every 4-6 hours by inhalati on route as needed. 2013 active Not Available Not Available Not Avai lable Actonel 35 mg tablet Take 1 tablet every week by oral route. 05/13 completed Not Available Not Available Not Available insulin lispro (U-100) 100 unit/mL subcutane ous pen Inject 5 units 3 times a day by subcutan eous route with meal(s). 2023 active Not Available Not Available Not Avai lable Mucinex 600 mg tablet, extended release Take 1 tablet every 12 hours by oral route as needed for 10 days. 05/24 completed Not Available Not Available Not Available azithromy blanca 500 mg tablet QD 02/25 completed RECORDED 03/01/20 07 9:41AM BY FIONA CORREA, MEDICATI ON AUTO-GENESIS CTIVATIO N; Not Available Not Available Not Available cyclobenz aprine 5 mg tablet PLEASE TAKE ONE TABLE DAILY NEEDED FOR 15 DAYS 01/31 completed Not Available Not Available Not Available atazanavi r 200 mg capsule QD active RECORDED 11/24/19 14 3:44PM BY AMISHA ROBERTS MA, OFFICE VISIT; Not Available Not Available Not Available Senna Plus 8.6 mg-50 mg tablet 06/16 completed Not Available Not Available Not Available rosuvasta tin 40 mg tablet TAKE 1 TABLET BY MOUTH EVERY DAY active Not Available Not Available No t Available tiotropiu m bromide 18 mcg capsule with inhalatio n device Inhale 1 capsule every day by inhalati on route for 30 days. 2014 active Not Available Not Available Not Avai lable metformin ER 500 mg tablet,ex tended release 24hr (osmotic) Take 4 tablets every day by oral route for 30 days. 2013 active Not Available Not Available Not Avai lable nitrofura ntoin monohydra te/macroc rystals 100 mg capsule Take 1 capsule twice a day by oral route for 7 days. 12/04 completed Not Available Not Available Not Available abacavir 600 mg-lamivu dine 300 mg tablet Take 1 tablet every day by oral route. active Not Available Not Available No t Available Flovent HFA 220 mcg/actua tion aerosol inhaler TAKE 1 PUFF TWICE A DAY active Not Available Not Available No t Available Tinactin 1 % topical spray APPLY TO AFFECTED AREA TWICE A DAY (OVER THE COUNTER NOT COVERED) active Not Available Not Available No t Available Asmanex Twisthale r 220 mcg/actua tion(60 doses) breath activated inhalr INHALE 2 PUFFS BY MOUTH DAILY active changed to Flovent HFA Not Available Not Available Not Available Asmanex Twisthale r 220 mcg/actua tion(14 doses) breath activated inhalr BID 05/13 completed Not Available Not Available Not Available omeprazol e DAILY 07/15 completed Not Available Not Available Not Available hydroxyzi ne HCl ONE TO TWO TIMES DAILY, NEEDED FOR ITCHINES S 11/19 completed RECORDED 11/20/19 14 3:04PM BY JEREMY PARKER, OFFICE VISIT;W[facility] CAUSE SEDATION . Not Available Not Available Not Available Tylenol as needed 09/09 completed Not Available Not Available Not Available Hycotuss Expectora nt Q6 HRS PRN COUGH 02/06 completed RECORDED 02/07/20 10 3:07PM BY OJ ALAN, ANNOTATI ON/HÉCTOR DUM;THIS ORDER DISCONTI NUED PER MEDI-SPA N. Not Available Not Available Not Available FreeStyle Lancets THREE TIMES DAILY 2013 active RECORDED 11/24/19 14 4:28PM BY EVENS CHINO MD, OFFICE VISIT; Not Available Not Available Not Available Freestyle System DAILY 06/04 completed RECORDED 06/16/20 10 3:48PM BY EVENS CHINO MD, MEDICATI ON AUTO-GENESIS CTIVATIO N; Not Available Not Available Not Available FreeStyle Test THREE TIMES DAILY 2013 active RECORDED 11/24/19 14 4:28PM BY EVENS CHINO MD, OFFICE VISIT; Not Available Not Available Not Available Levemir U-100 Insulin 100 unit/mL subcutane ous solution Inject 10 units by subcutan eous route.In crease by 5 units every 3 days for fasting blood sugar >120. 02/08 completed Not Available Not Available Not Available olopatadi ne 0.2 % eye drops Instill 1 drop twice a day by ophthalm ic route. 02/06 completed Not Available Not Available Not Available Pulmicort Flexhaler 180 mcg/actua tion breath activated TAKE 1 PUFF TWICE A DAY DIRECTED active changed to Flovent HFA Not Available Not Available Not Available FreeStyle Lite Strips USE 1 STRIP 3 TIMES A DAY active Not Available Not Available No t Available FreeStyle Lite Meter DIRECTED 04/30 completed RECORDED 05/06/20 11 1:22PM BY AMISHA ROBERTS MA, MEDICATI ON AUTO-GENESIS CTIVATIO N; Not Available Not Available Not Available FreeStyle Shapleigh Lite kit USE DIRECTED . *NOT COVERED* active Not Available Not Available No t Available diclofena c 1 % topical gel APPLY 2 GRAMS TO THE AFFECTED AREA(S) BY TOPICAL ROUTE 4 TIMES PER DAY active Not Available Not Available No t Available naproxen sodium ER (CR) 500 mg tablet,ex tended release 24 hr mphase Take 2 tablets twice a day by oral route as needed. 10/13 completed Not Available Not Available Not Available lactulose 20 gram/30 mL oral solution Take 15 mL every day by oral route. 02/24 completed Not Available Not Available Not Available Invokana 100 mg tablet TAKE 1 TABLET(S ) EVERY DAY BY ORAL ROUTE FOR 30 DAYS. 2015 active Not Available Not Available Not Avai lable Invokana 300 mg tablet TAKE 1 TABLET BY MOUTH EVERY DAY 07/28 completed Not Available Not Available Not Available Invokamet 50 mg-1,000 mg tablet 12/15 completed Not Available Not Available Not Available Invokamet 150 mg-1,000 mg tablet TAKE 1 TABLET TWICE A DAY BY ORAL ROUTE FOR 90 DAYS. active Not Available Not Available No t Available Triumeq 600 mg-50 mg-300 mg tablet TAKE 1 TABLET BY MOUTH EVERY DAY active Not Available Not Available No t Available Trulicity 1.5 mg/0.5 mL subcutane ous pen injector INJECT 0.5ML (1 PEN) INTO THE SKIN EVERY WEEK active Not Available Not Available No t Available Trulicity 0.75 mg/0.5 mL subcutane ous pen injector INJECT 0.5 ML EVERY WEEK BY SUBCUTAN EOUS 05/13 completed Not Available Not Available Not Available Arnuity Ellipta 200 mcg/actua tion powder for inhalatio n 11/19 completed Not covered by insuranc e Not Available Not Available Not Available Incruse Ellipta 62.5 mcg/actua tion powder for inhalatio n Inhale 1 puff twice a day by inhalati on route for 30 days. 08/29 completed Not Available Not Available Not Available Breo Ellipta 200 mcg-25 mcg/dose powder for inhalatio n INHALE 1 PUFF EVERY DAY *RINSE MOUTH AFTER EACH USE* active Not Available Not Available No t Available Spiriva Respimat 1.25 mcg/actua tion solution for inhalatio n Inhale 2 puffs every day by inhalati on route. 06/16 completed Not Available Not Available Not Available Tresiba FlexTouch U-100 insulin 100 unit/mL (3 mL) subcutane ous pen INJECT 25 UNITS EVERY DAY BY SUBCUTAN EOUS ROUTE IN THE MORNING FOR 90 DAYS, FOR DIABETES . active Not Available Not Available No t Available BD Page 2nd Gen Pen Needle 32 gauge x 5/32 USE WITH TRESIBA FLEX PEN ONCE DAILY. E11.65 active Not Available Not Available No t Available Trulicity 3 mg/0.5 mL subcutane ous pen injector INJECT 0.5 ML SUBCUTAN EOUSLY EVERY WEEK FOR 84 DAYS 01/19 completed has not filled this consiste ntly due to national shortage Not Available Not Available Not Available Athlete's Foot 2 % topical spray APPLY 1 APPLICAT ORFUL TOPICALL Y DAILY FOR 90 DAYS.*OT C N/C* active Not Available Not Available No t Available Ozempic 1 mg/dose (4 mg/3 mL) subcutane ous pen injector INJECT 1 MG EVERY WEEK BY SUBCUTAN EOUS ROUTE DIRECTED FOR 28 DAYS, FOR DM2. active Not Available Not Available No t Available Flowflex COVID-19 Antigen Home Test kit USE DIRECTED 01/18 completed Not Available Not Available Not Available Paxlovid 300 mg (150 mg x 2)-100 mg tablets in a dose pack TAKE 3 TABLETS BY MOUTH TWICE A DAY DIRECTED FOR 5 DAYS 05/29 completed Not Available Not Available Not Available FreeStOmnigy Catrachita 3 Sensor device USE DIRECTED . 01/31 completed kept getting snagged and coming off Not Available Not Available Not Available Ozempic 0.25 mg or 0.5 mg (2 mg/3 mL) subcutane ous pen injector INJECT 0.5 MG EVERY WEEK BY SUBCUTAN EOUS ROUTE FOR 28 DAYS. active Not Available Not Available No t Available Vitals Date Recorded Body height Provider Name an d Address Organization Details Last Updated DateTime 10/15/2024 157.48 cm Emma Yanez PA-C [address] [facility] [address], [place], [address], [facility] 10/15/2024 14:26:25 Social History Question Answer Notes LastModified by Organizat ion Details LastModified Time Tobacco Smoking Status Current Some Day Smoker has not been smoking the past month November 2022 Jeremy Parker MA null, [facility] 12/31/2022 09:55:36 Do You Have An Advance Directive? Yes HCP [email or web address] Information not available 04/28/2021 What Is Your Level Of Alcohol Consumption? None Information not available 02/03/2015 Is Blood Transfusion Acceptable In An Emergency? Yes Information not available 05/22/2015 What Is Your Level Of Caffeine Consumption? Moderate 1 Serving Of Coffee Daily Information not available 02/03/2015 How Much Tobacco Do You Chew? None Information not available 05/22/2015 Are You Currently Employed? Yes Full-time Information not available 02/03/2015 What Type Of Diet Are You Following? REGULAR Rice Only 1 X Week; Has Increased Water Intake Information not available 08/29/2024 Which Illicit Or Recreational Drugs Have You Used? None Information not available 05/22/2015 Do You Or Have You Ever Used E-cigarettes Or Vape? 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 1-5yearssince [email or web address] Information not available 06/16/2020 Live Alone Or With Others? With Others [email or web address] Information not available 04/30/2022 Do You Take Precautions To Prevent Distracted Driving? Yes Information not available 05/22/2015 How Often Do You Need To Have Someone Help You When You Read Instructions, Pamphlets, Or Other Written Material From Your Doctor Or Pharmacy? Sometimes Due To Language Barrier Information not available 05/22/2015 Have You Served In The ? No Information not available 06/14/2016 Have You Or Anyone In Your Household Had Any Of The Following Symptoms In The Last 14 Days: Sore Throat, Cough, Chills, Body Aches For Unknown Reasons, Shortness Of Breath For Unknown Reasons, Loss Of Smell, Loss Of Taste, Fever At Or Greater Than 100 Degrees Fahrenheit? No Information not available 06/16/2020 Are You Or Anyone In Your Household A Health Care Provider Or Emergency Responder? No Information not available 06/16/2020 To The Best Of Your Knowledge Have You Been In Close Proximity To Any Individual Who Tested Positive For COVID-19? No [email or web address] Information not available 01/07/2021 Have You Recently Traveled To A COVID-19 High Risk Area Or Gathering In The Last 10 Days? No [email or web address] Information not available 10/02/2020 What Was The Date Of Your Most Recent Tobacco Screening? 08/29/2024 Information not available 08/29/2024 How Many Children Do You Have? 2 Maame And Jose Information not available 08/29/2024 What Is Your Current Pack Years? 20-29packyear s Information not available 08/29/2024 Do You Use Protection During Sex? Usually [email or web address] Information not available 04/28/2021 Do You Use Your Seat Belt Or Car Seat Routinely? Yes [email or web address] Information not available 04/28/2021 Seat Belts Used Routinely Yes Information not available 04/28/2021 Are You Sexually Active? Yes Jose Information not available 08/29/2024 Smoke Alarm In Home Yes [email or web address] Information not available 04/28/2021 Do You Have Smoke And Carbon Monoxide Detectors In Your Home? No [email or web address] Information not available 04/28/2021 At What Age Did You Start Smoking Tobacco? 29 Information not available 06/20/2020 Are You Passively Exposed To Smoke? No Information not available 05/22/2015 Do You Or Have You Ever Used Smokeless Tobacco? Never Used Smokeless Tobacco Information not available 06/16/2020 How Much Tobacco Do You Smoke? 0.5 PPD Information not available 08/29/2024 Do You Use Any Illicit Or Recreational Drugs? No Information not available 04/30/2022 Do You Use Sunscreen Routinely? No Information not available 05/22/2015 How Many Years Have You Smoked Tobacco? 15 Information not available 05/22/2015 Do You Or Have You Ever Used Any Other Forms Of Tobacco Or Nicotine? No Information not available 01/20/2024 Sex: Unknown Functional Status Question Answer Note LastModified by Organizat ion Details LastModified Time Are you able to walk? YESWOREST [email or web address] Information not available 04/30/2022 Are you able to care for yourself? Yes Information not available 02/03/2015 What is your exercise level? Moderate daily walking at home on treadmill Information not available 08/29/2024 Mental Status None recorded. Family History Relationship Description Onset Age of this Age Resolved Age Notes LastModified by Organization Details LastModified Time Sister Human immunodefici ency virus infection deceas ed Not available 04/28/2021 15:48:21 Unspecified Relation Malignant tumor of breast mother side [email or web address] Not available 01/07/2016 15:33:08 Brother Diabetes mellitus [email or web address] Not available 03/2016 15:33:08 Brother Hypertensive disorder [email or web address] Not available 03/2016 15:33:08 Brother Primary malignant neoplasm of prostate 59 Not available 2020 15:48:21 Unspecified Relation Malignant tumor of prostate dad side Not available 04/28/2021 15:48:21 Mother Hypertensive disorder [email or web address] Not available 03/2016 15:33:08 Medical History Condition Response Coronary Artery Disease N Gout N Other N Blood Diseases N Kidney Stones N Hyperthyroidism N Breast Cancer N mrsa exposure N Lung Disease N COPD N Depression N Hypothyroidism N Defects or Inherited Disease N Developmental or Behavioral Disorders N Breast Problem N Anesthesia Complications N Headaches/Migraines N Anxiety Disorder N Varicose Veins N Muscle, Joint, or Bone Problems N Obesity N Vision or Eye Problems N Arthritis N Head Injury/Concussion N Polyps N Infertility N Mental Disorder N Congenital Anomalies N Acid Reflux (GERD) N Cancer N Stroke N ADHD N Endometriosis N High Cholesterol N Liver Disease N Fibromyalgia N Headaches N Kidney Disease N Heart Problems N Ear or Hearing Problems N Hospitalizations N Thyroid Problems N GI Problems N Developmental Delay N Acne N Eating Disorder N Skin Problems N Anemia N Constipation N Bladder Problems N Mental Illness N Diabetes Y Ovarian Cancer N Bedwetting N Blood Transfusions N Heart Problems/Murmur N Seizures/Epilepsy N Tuberculosis N AIDS/HIV N Congestive Heart Failure (CHF) N Eczema N Abuse/Domestic Violence N Diverticulitis N Asthma Y Allergies N Reflux/GERD N Hepatitis N Heart Disease N Pulmonary Embolism N Hypertension N Chicken Pox N Autism Spectrum Disorder (ASD) N Osteoporosis N Gynecological History Statement/Question Response If Post Menopausal, Age at Menopause 48 Date of Last Colonoscopy 03/02/2022 Most Recent Bone Density Menses Monthly N Colposcopy 05/02/2017 Date of Last Pap Smear Most Recent Mammogram 05/12/2024 Obstetrics History GPAL:G 0 P 0 0 0 0 Immunizations Vaccine Type Date Status Note Provider Nam e and Address Organization Details Recorded Time Influenza, split virus, trivalent, preservative 6 completed Shani riggs [facility] 08/22/2023 09:54:33 Influenza, split virus, quadrivalent, preservative 0 completed Shani riggs [facility] 08/22/2023 09:54:32 COVID-19, mRNA, LNP-S, PF, 100 mcg/0.5mL dose or 50 mcg/0.25mL dose 1 completed Shani L Veliz null, [facility] 08/22/2023 09:54:33 COVID-19, mRNA, LNP-S, PF, 100 mcg/0.5mL dose or 50 mcg/0.25mL dose 2 completed Shani L Veliz null, [facility] 08/22/2023 09:54:33 Influenza, split virus, trivalent, PF 5 completed Shani L Veliz null, [facility] 08/22/2023 09:54:33 Influenza, split virus, quadrivalent, PF 7 completed Shani L Veliz null, [facility] 08/22/2023 09:54:33 Pneumococcal conjugate PCV 13 6 completed Shani L Veliz null, [facility] 08/22/2023 09:54:33 Influenza, split virus, quadrivalent, PF 2 completed Shani L Veliz null, [facility] 08/22/2023 09:54:33 Tdap 8 completed Shani L Veliz null, [facility] 08/22/2023 09:54:33 Influenza, split virus, quadrivalent, PF 5 completed Shani L Veliz null, [facility] 08/22/2023 09:54:33 Influenza, split virus, quadrivalent, PF 1 completed Shani L Veliz null, [facility] 08/22/2023 09:54:33 zoster recombinant 3 completed Shani L Veliz null, [facility] 08/22/2023 09:54:32 Influenza, split virus, quadrivalent, PF 3 completed Shani L Veliz null, [facility] 08/22/2023 09:54:33 zoster recombinant 4 completed TERRI Meadows, [facility] 09/29/2023 09:57:05 Influenza, MDCK, trivalent, PF 4 completed Erika Wesley LPN null, [facility] 04/18/2024 14:28:24 Pneumococcal conjugate PCV20, polysaccharide [id number] conjugate, adjuvant, PF 4 completed Amisha aponte MA null, [facility] 08/29/2024 14:54:59 Td (adult), 2 Lf tetanus toxoid, preservative free, adsorbed 7 completed Shani Veliz null, [facility] 08/22/2023 09:54:33 MMR 9 completed Shani Veliz null, [facility] 08/22/2023 09:54:32 Influenza, split virus, trivalent, preservative 2 completed Shani Veliz null, [facility] 08/22/2023 09:54:33 Influenza, split virus, trivalent, preservative 3 completed Shani Veliz null, [facility] 08/22/2023 09:54:33 Influenza, split virus, trivalent, preservative 4 completed Shani Veliz null, [facility] 08/22/2023 09:54:33 Hep B, adolescent or pediatric 5 completed Shani Veliz null, [facility] 08/22/2023 09:54:33 Hep B, adolescent or pediatric 5 completed Shani Veliz null, [facility] 08/22/2023 09:54:33 Hep B, adolescent or pediatric 5 completed Shani Veliz null, [facility] 08/22/2023 09:54:33 pneumococcal polysaccharide PPV23 8 completed Shani Veliz null, [facility] 08/22/2023 09:54:33 Tdap 8 completed Shani Veliz null, [facility] 08/22/2023 09:54:33 Influenza, split virus, trivalent, preservative 2 completed Shani Veliz [facility] 08/22/2023 09:54:33 Past Encounters Encounter ID Performer Location Encounter Start Date Encounter Closed Date Diagnosis/Indication Diagnosis SNOMED-CT Code Diagnosis ICD10 Code Diagnosis Note [id number] Emma Yanez PA-C [facility] [address] [place] [address] 10/15/2024 13:00:21 10/15/2024 15:10:53 Essential hypertension 58232112 I10 Uncontroll ed blood pressure due to discontinu ing lisinopril 2 weeks ago. Pt. developed a delayed reaction to med with respirator y symptoms.R ecommend to start ARB , losartan 50 mg daily and test blood pressure at home. If after 2 weeks. still above 140 systolic, go to 100 mg. Pt. has f/u in office in 1 m. Continue DASH diet. Have labs done fasting. Health Concerns Section Related Observation LastModified by Organization Detai ls LastModified Time None Recorded Concern Status LastModified by Organization Details LastModified Time None Recorded Payers Encounter Date Sequence Insurance Name Policy Number Policy James Covered Member ID James Member ID Guarantor Name 10/15/2024 1 [facility] - HEALTH NET PLAN (MEDICAID HMO) [id number] Maame Anguol [id number] Maame Angulo 10/15/2024 2 [place] [facility] Maame Angulo [id number] Maame Angulo Notes Date Note Type Note Provider Name and Address Organization Details Recorded Time 10/15/2024 text/html Hypertension F/UReported bypatient.Associat ed Symptoms:no chest pain; no shortness of breath; no palpitations; no edema; no calf pain with exertion;lighthead edness Lifestyle:limiting /avoiding salt Medications:taking medications as directed; lisinopril was discontinued by pulmonary due to allergic reaction. Pt. was recommended to start ARB, but pulm did not prescribed.Notes:P t. reports blood pressure at home is ranging up to 160s range systolic and high also diastolic. Emma Yanez PA-C [address], [place], [address], [facility] 10/15/2024 14:35:41 OBGyn Episode No OBEpisode recorded.
--- OUTSIDE RECORDS SUMMARY | 2024-10-16 17:59 | XMS_ITS | Data Portability ---
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 [id number] autoEComm erce [address] [facility],[address] [place] [address] 2 12/26/2009 00:00:00 [id number] autoEComm erce [address] [facility],[address] [place] [address] 01/22/2010 00:00:00 [id number] auto[facility]Comm erce [address] [facility],[address] [place] [address] 2 01/27/2010 00:00:00 [id number] autoEComm erce [address] [facility],[address] [place] [address] 2 01/27/2010 00:00:00 [id number] autoEComm erce [address] [facility],[address] [place] [address] 2 01/27/2010 00:00:00 [id number] autoEComm erce [address] [facility],[address] [place] [address] 2 01/27/2010 00:00:00 [id number] auto[facility]Comm erce [address] [facility],[address] [place] [address] 02/03/2010 00:00:00 [id number] autoEComm erce [address] [facility],[address] [place] [address] 2 02/03/2010 00:00:00 [id number] auto[facility]Comm erce [address] [place] [address] 02/03/2010 00:00:00 [id number] autoEComm erce [address] [place] [address] 2 02/03/2010 00:00:00 [id number] auto[facility]Comm erce [address] [place] [address] 2 04/07/2010 00:00:00 [id number] auto[facility]Comm erce [address] [place] [address] 2 04/07/2010 00:00:00 [id number] autoEComm erce [address] [facility] [address] [place] [address] 2 05/04/2010 00:00:00 [id number] autoEComm erce [address] [facility] [address] [place] [address] 2 05/04/2010 00:00:00 [id number] autoEComm erce [address] [facility],[address] [place] [address] 2 07/22/2010 00:00:00 [id number] autoEComm erce [address] [facility] [address] [place] [address] 2 07/22/2010 00:00:00 [id number] autoEComm erce [address] [facility] [address] [place] [address] 2 10/13/2010 00:00:00 [id number] autoEComm erce [address] [place] [address] 2 10/20/2010 00:00:00 [id number] autoEComm erce [address] [facility] [address] [place] [address] 2 10/20/2010 00:00:00 [id number] auto[facility]Comm erce [address] [facility] [address] [place] [address] 2 10/20/2010 00:00:00 [id number] auto[facility]Comm erce [address] [place] [address] 2 11/13/2010 00:00:00 [id number] autoEComm erce [address] [place] [address] 2 11/13/2010 00:00:00 [id number] autoEComm erce [address] [place] [address] 2 11/13/2010 00:00:00 [id number] auto[facility]Comm erce [address] [place] [address] 2 11/13/2010 00:00:00 [id number] autoEComm erce [address] [place] [address] 2 02/23/2011 00:00:00 [id number] autoEComm erce [address] [facility] [address] [place] [address] 2 02/23/2011 00:00:00 [id number] autoEComm erce [address] [facility] [address] [place] [address] 2 02/23/2011 00:00:00 [id number] autoEComm erce [address] [facility] [address] [place] [address] 2 05/06/2011 00:00:00 [id number] autoEComm erce [address] [facility] [address] [place] [address] 2 05/06/2011 00:00:00 [id number] autoEComm erce [address] [facility] [address] [place] [address] 2 05/19/2011 00:00:00 [id number] autoEComm erce [address] [place] [address] 2 05/19/2011 00:00:00 [id number] autoEComm erce [address] [place] [address] 2 06/15/2011 00:00:00 [id number] autoEComm erce [address] [place] [address] 2 06/15/2011 00:00:00 [id number] autoEComm erce [address] [place] [address] 2 06/21/2011 00:00:00 [id number] autoEComm erce [address] [place] [address] 2 06/21/2011 00:00:00 [id number] autoEComm erce [address] [facility] [address] [place] [address] 2 09/29/2011 00:00:00 [id number] autoEComm erce [address] [place] [address] 2 09/29/2011 00:00:00 [id number] autoEComm erce [address] [facility] [address] [place] [address] 2 02/11/2012 00:00:00 [id number] autoEComm erce [address] [facility] [address] [place] [address] 2 02/11/2012 00:00:00 [id number] autoEComm erce [address] [facility] [address] [place] [address] 2 02/11/2012 00:00:00 [id number] autoEComm erce [address] [facility] [address] [place] [address] 2 02/11/2012 00:00:00 [id number] autoEComm erce [address] [facility] [address] [place] [address] 2 03/25/2012 00:00:00 [id number] autoEComm erce [address] [facility] [address] [place] [address] 2 03/25/2012 00:00:00 [id number] autoEComm erce [address] [facility] [address] [place] [address] 2 06/02/2012 00:00:00 [id number] autoEComm erce [address] [facility] [address] [place] [address] 2 06/02/2012 00:00:00 [id number] autoEComm erce [address] [place] [address] 2 09/15/2012 00:00:00 [id number] autoEComm erce [address] [place] [address] 2 09/15/2012 00:00:00 [id number] autoEComm erce [address] [place] [address] 2 12/18/2012 00:00:00 [id number] autoEComm erce [address] [place] [address] 2 12/18/2012 00:00:00 [id number] autoEComm erce [address] [place] [address] 2 12/18/2012 00:00:00 [id number] autoEComm erce [address] [facility] [address] [place] [address] 2 03/19/2013 00:00:00 [id number] autoEComm erce [address] [facility],[address] [place] [address] 2 11/19/2013 00:00:00 [id number] autoEComm erce [address] [facility],[address] [place] [address] 11/19/2013 00:00:00 [id number] autoEComm erce [address] [facility],[address] [place] [address] 11/19/2013 00:00:00 [id number] autoEComm erce [address] [facility],[address] [place] [address] 11/23/2013 00:00:00 [id number] AMBER So Main Office [address] [place] [address] 04/09/2014 11:33:07 04/09/2014 12:00:15 Acute pharyngitis [id number] rapid strep neg. Acute otitis externa 40666243 [id number] Evens Chino MD Main Office [address] [place] [address] 04/25/2014 15:32:29 04/25/2014 16:22:11 Uncontrolled type 2 diabetes mellitus 883637409 Tobacco de pendence syndrome 60369473 Acute otitis externa 39847820 Chronic constipation [id number] Main Office [address] [address] [place] [address] 05/10/2014 15:34:28 05/10/2014 16:18:23 Acute otitis externa [id number] Follow-up encounter [id number] Gail Silva MA Main Office [address] [address] [place] [address] 06/18/2014 10:37:18 06/18/2014 11:07:56 Acute asthma 487774862 Sinusitis 52088273 [id number] Evens Chino MD Main Office [address] [address] [place] [address] 08/02/2014 10:25:35 08/02/2014 11:00:45 Acute asthma 934103749 Cough 72831556 Given ri sk factors (HIV and DM) will cover for bacterial process. Has tolerated and responded well to azithro in the past. Would consider CXR and broader coverage if persistent /worse. Cough syrup provided to help with sleep. Common/ser ious side effects discussed. [id number] Kassie oscar MA Main Office [address] [address] [place] [address] 08/06/2014 09:40:01 08/06/2014 10:16:24 Uncontrolled type 2 diabetes mellitus 596537078 Essential hypertension 73354228 Acute asthma 540863990 Needs infl uenza immunization 999574771 Body mass index 30+ - obesity 199678723 [id number] Kassie oscar MA Main Office [address] [address] [place] [address] 11/01/2014 15:15:39 11/01/2014 16:10:46 Uncontrolled type 2 diabetes mellitus 834552035 Tinea pedis 7778437 [id number] Annette Green Main Office [address] [address] [place] [address] 02/03/2015 15:54:37 02/03/2015 16:45:26 Uncontrolled type 2 diabetes mellitus 823502302 Essential hypertension 54717145 Tinea pedis 6453971 Body mass index 30+ - obesity 681439328 [id number] Evens Chino MD Main Office [address] [address] [place] [address] 04/30/2015 09:58:17 04/30/2015 10:44:30 Acute asthma 136128389 Asthma exacerbati on due to viral infection. Updraft given in the office. Advised to do updrafts with Albuterol every 4-6 hrs at . Start Prednisone taper at 40 mg for 3 days, 30 for 3 days, 20 for 3 days and 10 for 2 days. Pulmicort inhaler at 180 mg 1 puff BID. Return for asthma and reg f/u with PCP next week. Uncontroll ed type 2 diabetes mellitus 830341899 Uncontroll ed DM and viral infection with asthma exacerbati on. Hold Metformin until nausea and vomiting resolve. Test glucose TID. Increase Levemir to 25 u daily if glucose gets above 200 premeal. Nausea and vomiting 32718304 Pepto Bismol. Replace electrolyt es with Gatorade or lemon water as tolerated. If vomiting worsens and weakness and dizziness, go to the ER for IV hydration. [id number] Evens Chino MD Main Office [address] [address] [place] [address] 05/22/2015 15:29:52 05/22/2015 16:16:20 Uncontrolled type 2 diabetes mellitus 713309573 E11.65 Essential hypertension 16182341 I10 Needs infl uenza immunization 270089521 Z23 Acute asthma 648508535 J 45.901 Allergic rhinitis 576615 04 J30.9 [id number] Evens Chino MD Main Office [address] [address] [place] [address] 07/01/2015 15:20:27 07/01/2015 16:00:10 Uncontrolled type 2 diabetes mellitus 870955673 E11.65 Marginaly improved DM since the last visit. Goal A1c is under 7%. Will start Trulicity 0.75 mcg weekly SC injections . Continue Metformin 500 mg 2 BID and Levemir at 12 u daily. PLan on discontinu ing insulin after Trulicity takes an effect. F/u 6 weeks. Continue seeing nutritioni st. Pt. will try to eat 3 small wel balanced meals per day. [id number] Evens Chino MD Main Office [address] [address] [place] [address] 08/13/2015 15:54:04 08/13/2015 16:56:50 Uncontrolled type 2 diabetes mellitus 944407706 E11.65 Improved DM since the last visit. Goal A1c is under 7%. Will try to get Trulicity 0.75 mcg weekly SC injections approved or use Victoza instead. Continue Metformin 500 mg 2 BID and Levemir increase to 20 u daily for now. Plan on discontinu ing insulin after Trulicity takes an effect. F/u 6 weeks. Continue seeing nutritioni st. Pt. will try to eat 3 small well balanced meals per day. Peripheral nerve disease 998900775 G64 Painful peripheral neuropathy due to diabetes. Start Gabapentin at 300 mg daily at HS. F/u 6 weeks. [id number] Evens Chino MD Main Office [address] [address] [place] [address] 09/24/2015 15:18:33 09/24/2015 15:55:32 Uncontrolled type 2 diabetes mellitus 483121242 E11.65 Improving overall diabetic control. Goal A1c is under 7%. Pt. is aware and will continue low rena diet , exercise. Log glucose BID and return in 6 weeks. Trulicity will be resend to pharmacy to start. PLan on discontinu ing Levemir if TRulicity is on board. Disorder o f nervous system due to type 2 diabetes mellitus 242315363 E11.40 Diabetic peripheral neuropathy . Increase Gabapentin to 300 mg BID. F/u 6 weeks. [id number] Evens Chino MD Main Office [address] [place] [address] 11/07/2015 15:17:17 11/07/2015 16:21:32 Disorder of nervous system due to type 2 diabetes mellitus 407959336 E11.40 Diabetic peripheral neuropathy . Continue Gabapentin at 300 mg BID. Uncontroll ed type 2 diabetes mellitus 822222831 E11.65 Improving overall diabetic control. Goal A1c is under 7%. Pt. is aware and will continue low rena diet , exercise. Log glucose BID and return in 8 weeks. Trulicity will be increased to 1.5 mg/0.5 Ml SC injections weekly. Levemir to be discontinu ed at this point. Continue Metformin. SChedule with PCP for f/u. [id number] Evens Chino MD Main Office [address] [address] [place] [address] 12/09/2015 15:24:17 12/09/2015 16:27:12 Essential hypertension 61176934 I10 Depressive disorder 3548 9007 F32.9 Uncontroll ed type 2 diabetes mellitus 433467877 E11.65 Acute sinusitis 37813429 J01.90 [id number] Evens Chino MD Main Office [address] [address] [place] [address] 01/07/2016 15:29:32 01/07/2016 16:03:02 Uncontrolled type 2 diabetes mellitus 035673786 E11.65 Improving overall diabetic control. Goal A1c is under 7%. Pt. is aware and will continue low rena diet , exercise. Log glucose BID and return in 8 weeks. Continue Trulicity 1.5 mg/0.5 Ml SC injections weekly and Metformin. Start INvokana 100 mg daily. Possible side effects reviewed. Continue exercise and lower total calories as per 1500 rena ADA diet. F/u 2 months. Disorder o f nervous system due to type 2 diabetes mellitus 639254696 E11.40 Diabetic peripheral neuropathy symptoms much improved. Continue Gabapentin at 300 mg BID. Body mass index 30+ - obesity 765736410 Z68.30 [id number] Evens Chino MD Main Office [address] [address] [place] [address] 02/09/2016 15:50:38 02/09/2016 17:08:05 Depressive disorder 83191603 F32.9 Disorder o f nervous system due to type 2 diabetes mellitus 428497736 E11.40 [id number] Kj Man MD Main Office [address] [address] [place] [address] 03/03/2016 10:20:07 03/03/2016 11:18:38 Nausea and vomiting 86755430 R11.2 Acute asthma 005827706 J 45.901 25 minute office visit with greater than 50% of the visit face-to-fa ce with the patient and/or family providing counseling and/or coordinati on of care. Cough 24101548 R05 h/o pna -- will check cxr to r/o Essential hypertension 54640978 I10 [id number] Evens Chino MD Main Office [address] [facility] [address] [place] [address] 03/08/2016 15:30:13 03/08/2016 16:03:05 Acute asthma 502406790 J45.901 Asthmatic bronchitis . PT. was started on Z-pack and is doing musch better. Recommend to continue asthma meds and complete Rx for Abx. Disorder o f nervous system due to type 2 diabetes mellitus 382951323 E11.40 Diabetic peripheral neuropathy symptoms much improved. Continue Gabapentin at 300 mg BID. Uncontroll ed type 2 diabetes mellitus 796091692 E11.65 Increase Invokana to 300 mg daily. Continue Metformin and Trulicity the same. Continue diabetic portion control and increase exercise activity. Goal A1c is under 7%. Continue BID glucose testing. BMP prior to next visit. F/u 2 m. [id number] Evens Chino MD Main Office [address] [facility] [address] [place] [address] 05/24/2016 15:23:42 05/24/2016 17:01:31 Disorder of nervous system due to type 2 diabetes mellitus 756893816 E11.40 Diabetic peripheral neuropathy symptoms improved. Continue Gabapentin at 300 mg BID. Uncontroll ed type 2 diabetes mellitus 037693308 E11.65 Continue Invokana at 300 mg daily. Continue Metformin and Trulicity the same. Continue diabetic portion control and increase exercise activity. Goal A1c is under 7%. Continue BID glucose testing. F/u 3 m. [id number] Drea Greenfield Main Office [address] [place] [address] 06/14/2016 15:29:43 06/14/2016 16:18:13 Adult health examination 958305769 Z00.00 Russian as a second language 925350813 Z60.8 Body mass index 25-29 - overweight 584466068 E66.3 Disorder o f nervous system due to type 2 diabetes mellitus [id number] E11.40 Essential hypertension 67450232 I10 Peripheral nerve disease 217175527 G64 Stable on gabapentin Human immunodeficiency virus infection 79995590 B20 Administra tion of pneumococcal vaccine 45366335 Z23 [id number] Mino Neil Main Office 36[address] [facility] [address] [place] [address] 06/22/2016 10:27:58 06/22/2016 10:59:34 Acute pharyngitis 146484196 J02.9 negative rapid strep. Cough 04672906 R05 Influenza- like symptoms 487198877 R68.89 Symptomati c tx, will call with results. Hydration, rest, tylenol/ib uprofen as needed. [id number] Evens Chino MD Main Office [address] [place] [address] 08/13/2016 15:37:57 08/13/2016 16:35:20 Uncontrolled type 2 diabetes mellitus 297255530 E11.65 Continue Invokana at 300 mg daily. Continue Metformin and Trulicity . Restart diabetic portion control and increase exercise activity. Goal A1c is under 7%. Continue BID glucose testing. F/u 3 m. Body mass index 25-29 - overweight 696181157 E66.3 [id number] Fabrice Jimenes MD Main Office [address] [address] 09/30/2016 09:42:58 09/30/2016 11:06:49 Asthma 252076544 J45.31 cont inhalers as dir, will give longer course of steroids d/t tight lungs Sinusitis 22319023 J32.9 Gastroesop hageal reflux disease 084627183 K21.9 Influenza 3632941 J11.1 finish tamiflu as dir Nausea and vomiting 1693 2000 R11.2 hopefully less on ppi, cont prn zofran [id number] Evens Chino MD Main Office [address] [address] 10/04/2016 10:57:28 10/04/2016 12:07:32 Sinusitis 81439441 J32.9 finish abx as dir Asthma 111257084 J45.31 finish pred as dir 25 minute office visit with greater than 50% of the visit face-to-fa ce with the patient and/or family providing counseling and/or coordinati on of care. Gastroesop hageal reflux disease 371484429 K21.9 better on ppi - no more htbn, n/v Influenza 5670211 J11.1 finished tamiflu [id number] Evens Chino MD Main Office [address] [place] [address] 11/09/2016 15:23:48 11/09/2016 16:09:15 Disorder of nervous system due to type 2 diabetes mellitus 218020923 E11.40 Diabetic peripheral neuropathy symptoms improved. Continue Gabapentin at 300 mg qd. Overall diabetic control is on target now. Pt. needs to set up diabetic eye exam. Diabetic p eripheral neuropathy 504953229 E11.40 Body mass index 25-29 - overweight 495804659 E66.3 Z68.25 [id number] Evens Chino MD Main Office [address] [address] [place] [address] 02/09/2017 15:25:42 02/09/2017 16:01:40 Diabetic peripheral neuropathy 569866816 E11.40 stable on Gabapentin . Disorder o f nervous system due to type 2 diabetes mellitus 603293058 E11.40 Diabetic peripheral neuropathy symptoms improved. Continue Gabapentin at 300 mg qd. Overall diabetic control is on target now. Continue current meds. Labs are up to date. F/u 3 m. Body mass index 25-29 - overweight 598286815 E66.3 Z68.25 [id number] Kj Man MD Main Office [address] [address] [place] [address] 03/05/2017 09:54:49 03/05/2017 11:08:53 Acute pharyngitis 534309465 J02.9 Based on symptom score will cover empiricall y for strep. D/C abx if culture is negative. Supportive /symptomat ic tx otherwise advised. [id number] Evens Chino MD Main Office [address] [address] [place] [address] 04/05/2017 15:24:42 04/05/2017 16:19:22 Needs influenza immunization 504564134 Z23 Acute exac erbation of moderate persistent asthma 8231938321 71198 J45.41 [id number] Evens Chino MD Main Office [address] [address] [place] [address] 05/11/2017 15:21:43 05/11/2017 16:19:56 Diabetic peripheral neuropathy 920013517 E11.40 Neuropathy controlled with gabapentin and is stable. F/u 2 m. Body mass index 25-29 - overweight 383027725 Z68.29 Educated to continue proper lifestyle and dietary modificati ons Disorder o f nervous system due to type 2 diabetes mellitus 233087784 E11.40 A1c is not at goal. Increase Trulicity to a higher dose and continue metformin and invokana. [id number] Evens Chino MD Main Office [address] [facility] [address] [place] [address] 07/12/2017 15:14:04 07/12/2017 16:02:19 Essential hypertension 26063212 I10 stable on meds. Upper resp iratory infection 29460485 J06.9 Disorder o f nervous system due to type 2 diabetes mellitus 113798482 E11.40 Trulicity was increased to higher dose and is working better , also helping with weight loss. Continue current therapy and continue weight loss. F/u 3 m. Diabetic p eripheral neuropathy 330209480 E11.40 Neuropathy controlled with gabapentin and is stable. Acute asthma 227723890 J 45.901 exacerbati on due to viral URI. start Prednisone taper as directed. Continue all inhalers as prescribed and nebulizer treatments at every 4-6 hrs. F/u 1-2 weeks. Body mass index 25-29 - overweight 407130777 Z68.29 Educated to continue proper lifestyle and dietary modificati ons. Continue Trulicity as directed. [id number] Sherie flanagan Main Office [address] [address] [place] [address] 07/18/2017 16:26:14 07/18/2017 17:13:25 Pneumonia 806984982 J18.9 see hx, on prednisone but cough and sputum progressin g, has HIV but viral load suppressed , tx as below, if not improving pt to get CXR done, return or to Er if any worsening Acute asthma 113149815 J 45.901 needs longer steroid course, will do sloer taper, 30mg for 3 days then 20 mg for 3-4 days then 10mg, pt is comfortabl e doing this Human immunodeficiency virus infection 68088605 B20 on meds, virus is suppressed [id number] Evens Chino MD Main Office 36[address] [facility] [address] [place] [address] 10/10/2017 15:20:04 10/10/2017 16:21:35 Uncontrolled type 2 diabetes mellitus 758413985 E11.65 Continue Invokana at 300 mg daily. Continue Metformin and Trulicity . Restart diabetic portion control and increase exercise activity. Needs to lose gained weight. F/u 6-8 weeks with log. If A1c persists above 7%, will add small dose of Glimepirid e. Body mass index 25-29 - overweight 534008639 E66.3 Z68.29 Educated to continue proper lifestyle and dietary modificati ons. Continue Trulicity as directed. [id number] Evens Chino MD Main Office 3640 [facility] [address] [place] [address] 12/12/2017 15:16:16 12/12/2017 16:22:54 Disorder of nervous system due to type 2 diabetes mellitus 994772680 E11.40 Continue current therapy (metformin , invokana, and trulicity) and continue weight loss through exercise and dieting. F/u 3 m. Renal diso rder due to type 2 diabetes mellitus 900245864 E11.22 Continue with Lisinopril and complete labs below. Pure hypercholesterolemia 527118231 E78.00 Continue with statin therapy, exercise, and dieting, avoid high lipid diet. Complete labs below. Body mass index 25-29 - overweight 890415942 E66.3 Z68.28 Educated to continue proper lifestyle and dietary modificati ons. Continue Trulicity as directed. [id number] Evens Chino MD Main Office 36[address] [facility] [address] [place] [address] 02/24/2018 15:09:32 02/24/2018 16:33:39 Adult health examination 472823839 Z00.00 Administra tion of viral vaccine 16684416 Z23 Tinea pedis 9321939 B35. 3 Disorder o f nervous system due to type 2 diabetes mellitus 388575345 E11.40 Human immunodeficiency virus infection 17322748 B20 Body mass index 25-29 - overweight 642484368 E66.3 Z68.25 Diabetic p eripheral neuropathy 489355097 G62.9 [id number] Drea Greenfield Main Office 3640 [facility] [address] [place] [address] 09/22/2018 10:55:35 09/22/2018 11:39:18 Disorder of nervous system due to type 2 diabetes mellitus 428479970 E11.40 Continue current therapy (metformin , invokana, and trulicity) and continue weight loss through exercise and dieting. F/u 3 m. 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 is cleared for surgery. Essential hypertension 59460839 I10 stable on meds. Pt. is advised to take BP meds on the am of the procedure. Pre-surger y evaluation 935070093 Z01.818 [id number] Sascha Yanez PA-C Main Office [address] [address] 11/22/2018 15:23:01 11/22/2018 15:49:34 Disorder of nervous system due to type 2 diabetes mellitus 830974585 E11.40 Continue current therapy (metformin , invokana, and trulicity) and continue weight loss through exercise and dieting. Pt. will continue gabapentin at current strength. F/u 3 m. [id number] Drea Greenfield Main Office [address] [address] 02/20/2019 15:21:11 02/20/2019 16:14:55 Disorder of nervous system due to type 2 diabetes mellitus 151379846 E11.40 Stable diabetes. Pt. will have complete labs next week for the ID and microalbum in will be repeated today. Continue current therapy (metformin , invokana, and trulicity) and continue weight loss through exercise and dieting. Pt. will continue gabapentin at current strength. F/u 3 m. Body mass index 25-29 - overweight 246179313 Z68.28 Educated to continue proper lifestyle and dietary modificati ons. Continue Trulicity as directed. Overweight 950691343 E66 .3 [id number] Evens Chino MD Main Office [address] [address] 04/16/2019 15:10:30 04/16/2019 16:31:06 Adult health examination 215090862 Z00.00 Disorder o f nervous system due to type 2 diabetes mellitus 965013230 E11.40 followed by Sascha Yanez PA-C Essential hypertension 72267662 I10 Human immunodeficiency virus infection 52065383 B20 Stable follow by ID Moderate p ersistent asthma 139215801 J45.40 Stable on controller medication s Body mass index 25-29 - overweight 723393675 E66.3 Z68.25 Diabetic p eripheral neuropathy 911596030 G62.9 [id number] Sascha Yanez PA-C Main Office [address] [place] [address] 05/21/2019 15:45:04 05/21/2019 16:20:58 Disorder of nervous system due to type 2 diabetes mellitus 213760285 E11.40 Stable diabetes. Stable labs and microalbum in. Continue current medication s. Continue glucose testing daily. F/u 3 m. Diabetic eye exam scheduled for July. Tinea pedis 8279047 B35. 3 Body mass index 25-29 - overweight 385298215 E66.3 Z68.27 Educated to continue proper lifestyle and dietary modificati ons. Continue Trulicity as directed. [id number] Sascha Yanez PA-C Main Office [address] [place] [address] 08/28/2019 15:55:02 08/28/2019 16:34:28 Disorder of nervous system due to type 2 diabetes mellitus 608297952 E11.40 Stable diabetes with hemoglobin A1C at 7.1%. Stable lab work and microalbum in. Continue current medication s. Continue glucose testing daily. F/u 3 m. Ulcer of right foot 1066 816900 1824841 L97.519 fungal foot ulcer persisting after use of topical antifungal . Will refer to the healthcare representative . [id number] Sascha Yanez PA-C [facility] [address] [address] 12/25/2019 13:37:50 12/25/2019 15:50:46 Disorder of nervous system due to type 2 diabetes mellitus 208932567 E11.40 Possibly worsened diabetic control due to surgery in July and inactivity due to pandemic. We will test A1c again . Pt. is advised to test glucose more than once daily. Asthma 737064445 J45.90 9 stable on current med. [id number] Fabrice Jimenes MD Main Office [address] [place] [address] 02/01/2020 09:01:25 02/05/2020 09:44:24 Urinary tract infectious disease 54445967 N39.0 [id number] Chasity Trujillo Main Office 3640 [facility] [address] [place] [address] 06/16/2020 15:18:39 06/16/2020 16:27:38 Essential hypertension 92468421 I10 BP elevated today, will advise her to come back for BP check with in less pain. Taking meds Lumbago with sciatica 20 2439927 M54.42 Rest, stretching at home, start PT program once a week. Can use otc pain reliever as needed. Reast with pillow under knees or between knees. Likely muscular, call if not better with PT and medication s. Human immunodeficiency virus infection 90763542 B20 followed by ID, stable with supressed VL [id number] Evens Chino MD Tele[facility] [address] [address] [place] [address] 06/20/2020 08:53:11 06/20/2020 10:31:12 Acute exacerbation of moderate persistent asthma 6922947845 26441 J45.41 Exposure t o viral disease 7656995170 67507 Z03.818 [id number] AMBER So Main Office [address] [address] [place] [address] 07/18/2020 08:05:34 07/18/2020 11:10:38 Exposure to viral disease 7275466894 75649 Z03.818 Patient exposed 2 days ago, has runny nose but otherwise asymptomat ic. Explained that recommenda tion is to be tested 5-7 days after exposure if asx. Will get her scheduled for testing on Tuesday. Quarantine until results back no errands or exposure to others. Should she develop resp distress, fever that does not go down with antipyreti cs please go to ED. [id number] Chasity Trujillo Main Office [address] [facility] [address] [place] [address] 10/02/2020 15:19:04 10/02/2020 16:35:03 Tinea corporis 17956353 B35.4 ? xlear patches tinea, will treat topically in spot locations with steroid to reduce itching and oral med once a week If not better pt to call back and would refer to dermatolog y. Severe dry skin 87397187 2 L85.3 will try this moisturize r for 2 weeks to see if this helps, can use prn if helpful [id number] AMBER So [facility] [address] [place] [address] 01/07/2021 12:55:10 01/08/2021 10:51:40 Hordeolum externum of upper eyelid of left eye 2919574101 64303 H00.014 warm compresses , erythromyc in cream and rub into upper lid TID x 7 days. call/. return for worsening or concerns or if not better next week. Continue lubricatin g drops as needed, May use an antihistam ine to help with swelling as needed. Russian as a second language 342783985 Z60.8 video visit conducted in persian [id number] Sascha Yanez PA-C Main Office [address] [place] [address] 02/11/2021 15:30:36 02/11/2021 16:43:37 Uncontrolled type 2 diabetes mellitus 869836665 E11.65 A1C today of 8.5%- worsened since last visit and not within goal. Due to increased stress at home and increased total calories.W ill increase Trulicity to 3.0mg weekly. Patient advised to take fasting blood sugars in additon to post-meal Continue Metformin and Invokana. Restart diabetic portion control, diet, and exercise.F ollow up in 6 weeks with log for the PE. . Essential hypertension 92951660 I10 BP is a bit up today. Possibly due to stress and increased sodium. Advised to lower sodium and return in 6 weeks for retest. Continue acei. Pure hypercholesterolemia 089385088 E78.00 Continue with statin therapy, exercise, and dieting, avoid high lipid diet. Complete labs below. [id number] [facility] [address] [place] [address] 03/18/2021 08:41:50 03/20/2021 15:25:59 Russian as a second language 806907430 Z60.8 phone visit conducted in persian Human immunodeficiency virus infection 69334143 B20 Exposure t o viral disease 3666776688 07095 Z03.818 Quarantine until results back no errands or exposure to others. Should she develop resp distress, fever that does not go down with antipyreti cs please go to ED. Nausea and vomiting 1691999 R11.2 zofran as needed, hydrate as much as possible. [id number] Sascha Yanez PA-C Main Office 3640 [facility] [address] [place] [place] [address] 03/25/2021 13:01:15 03/25/2021 13:51:09 Disorder of nervous system due to type 2 diabetes mellitus 959070649 E11.40 A1c is not on target. Pt. is advised to try harder with her diet and increase physical activity to daily walking over 30 minutes. Repeat A1c in 6-8 weeks. If still over 7%, add basal insulin. Pt. agrees. [id number] Sascha Yanez PA-C Main Office [address] [facility] [address] [place] [address] 04/28/2021 15:47:56 04/28/2021 16:35:52 Adult health examination 668967747 Z00.00 recommend strongly to get COVID vaccine. Updated flu vaccine. Needs infl uenza immunization 490110632 Z23 Screening for malignant neoplasm of colon 221207000 Z12.11 Body mass index 25-29 - overweight 009163871 E66.3 Z68.27 Educated to continue proper lifestyle and dietary modificati ons. Trulicity increased to max dose to help weight loss. Disorder o f nervous system due to type 2 diabetes mellitus 048041544 E11.40 A1c is not on target. Pt. is advised to try harder with her diet and increase physical activity to daily walking over 30 minutes. Goal A1c is under 7%. She did not start trulicity at 3 mg yet. F/u 3 m. Human immunodeficiency virus infection 33230280 B20 continue current meds. F/u with ID. Essential hypertension 59896120 I10 stable on meds, but feels anxious today. Advised to test daily for 2 weeks at and;let me know if over 135/85. Continue lisinopril 10 mg. Moderate p ersistent asthma 268064433 J45.40 stable on current medication s. Overweight 565427400 E66 .3 Diabetic p eripheral neuropathy 737669167 E11.40 Neuropathy controlled with gabapentin and is stable. Pure hypercholesterolemia 906423016 E78.00 Continue with statin therapy, exercise, and dieting, avoid high lipid diet. Complete labs below. [id number] Sascha Yanez PA-C Main Office 3640 [facility] [address] [place] [address] 07/28/2021 15:49:32 07/28/2021 16:18:33 Disorder of nervous system due to type 2 diabetes mellitus 606383780 E11.40 A1c is not on target. We will add basal insulin , Tresiba at 15 u daily and continue the rest of other antidiabet ics. invokana and metformin we will put in fixed combinatio n to decrease pill burden. Pt. will continue trying to lower total calories. Repeat BMP and f/u 3 m. [id number] Kj Man MD Tele[facility] 3640 [facility] [address] [facility] [place] [address] 12/11/2021 10:28:22 12/14/2021 08:26:30 Moderate persistent asthma 472907293 J45.41 Appears to be having an asthma flare precipitat ed by allergies rather than infection at this time. Will increase allergy therapy options and try a short prednisone taper which she reports responding to and tolerating well in the past. Advised to monitor blood sugar closely and call if >300 consistent ly. Allergic rhinitis 318448 04 J30.9 Diabetic p eripheral neuropathy 295981518 E11.40 Continiue current regime and increase insulin dosing should sugars spike with prednisone . Overdue for f/u with will arrange [facility]. [id number] Sherie flanagan Main Office 3640 [facility] [address] [facility] [place] [address] 01/22/2022 09:02:45 01/22/2022 10:03:01 Cellulitis of periorbital region of right eye 5016502113 41000 L03.213 day 2 of symptoms, treat with augmentin as well as eyedrops. normal eye movements, if worse or not improving in 48 hours need reevaluati on. Acute conjunctivitis 537 65558 H10.31 Allergic rhinitis 335483 04 J30.9 start a daily allergy med [id number] AMBER So Main Office 3640 [facility] [address] [place] [address] 04/30/2022 14:25:43 04/30/2022 15:27:51 Adult health examination 424728656 Z00.00 UTD. Needs infl uenza immunization 596579593 Z23 Body mass index 25-29 - overweight 389669286 E66.3 Z68.27 Educated to continue proper lifestyle and dietary modificati ons. Trulicity increased to max dose to help weight loss. Disorder o f nervous system due to type 2 diabetes mellitus 022544571 E11.40 A1c is not on target. Pt. is advised to try harder with her diet and increase physical activity to daily walking over 30 minutes. Goal A1c is under 7%. She did not start trulicity at 3 mg yet. F/u 3 m. Human immunodeficiency virus infection 97604761 B20 continue current meds. F/u with ID. Essential hypertension 27297831 I10 stable on meds, but feels anxious today. Advised to test daily for 2 weeks at and;let me know if over 135/85. Continue lisinopril 10 mg. Moderate p ersistent asthma 341065413 J45.40 stable on current medication s. Overweight 285953080 E66 .3 Diabetic p eripheral neuropathy 691371497 E11.40 Neuropathy controlled with gabapentin and is stable. Pure hypercholesterolemia 591505934 E78.00 Continue with statin therapy, exercise, and dieting, avoid high lipid diet. Complete labs below. Peripheral nerve disease 029171648 G64 [id number] Sascha Yanez PA-C Main Office 3640 [facility] [address] [place] [address] 06/09/2022 14:51:51 06/09/2022 15:43:16 Diabetic peripheral neuropathy 495651383 E11.40 Neuropathy controlled with gabapentin and is stable. Disorder o f nervous system due to type 2 diabetes mellitus 422024619 E11.40 A1c is not on target. A1c is 9%. Pt. had a lot of persona; stress in the past couple of months. Travelled to [place] and did not take her meds regularly . Now back home and is eating better and is taking her meds. Increase Tresiba to 15 u daily , continue Invokamet, increase Trulicity to 3 mg weekly. F/u A1c in 6 weeks. Essential hypertension 22876253 I10 stable on meds, but feels anxious today. Advised to test daily for 2 weeks at and;let me know if over 135/85. Continue lisinopril 10 mg. Pure hypercholesterolemia 175323383 E78.00 Switch to rosuvastat in 40 mg. [id number] Sascha Yanez PA-C Main Office 3640 [facility] [address] [place] [address] 07/23/2022 13:39:46 07/23/2022 14:07:52 Disorder of nervous system due to type 2 diabetes mellitus 207150581 E11.40 stable mild neuropathy , pt. sees new healthcare representative in September. Essential hypertension 57818463 I10 stable on meds, continue low sodium diet. Uncontroll ed type 2 diabetes mellitus 877990645 E11.65 Glucose control improving . Pt. will continue current meds and have repeat A1c in 6-8 weeks. F/u 3m. Mixed hyperlipidemia 267 092611 E78.2 continue current meds, low fat low carb diet and repeat lipids after holidays. Long-term current use of insulin 377328677 Z79.4 [id number] Drea Searsvedo Main Office 3640 [facility] [address] [place] [address] 12/31/2022 09:23:49 12/31/2022 11:02:53 Transition of care from emergency department to self-care 0998250828 38079 Z76.89 Pneumonia 194600019 J18. 9 She has HIV, she tells me she had lab work done last week and is undetectab le with good CD4 count.Give n high risk will tx with levaquin. Unlikely PCP given good viral load per pt. Will get CXR given how long she has had sx.Advise Tylenol otc per package instructio n for pain or fever q6h. Throat Lozenges, salt water gargle, adequate hydration enforced, saline sprays, humidifier use enforced.R est advised. Exacerbati on of intermittent asthma 824670510 J45.21 Will have to start medrol, benefit out weigh risk, advised to monitor glucose due to DM.Cw flovent. advised nebulizer every 4hr for 1-2 days till she can kick this. Discussed it can cause tachy/jitt eriness.ED precaution discussed. Cough 77838116 R05.9 Advises she can do honey but be cautious due to DM. Impacted c erumen of bilateral ears 2833098133 267886 H61.23 Asthma 890395292 J45.90 9 Will start montelukas t as well.Follo w up in 2 weeks. [id number] AMBER So Main Office [address] [place] [address] 01/18/2023 10:27:08 01/18/2023 11:08:24 Moderate persistent asthma 042601760 J45.40 sx improved, using nebs, inhalers and singulair, finished medrol dose pack. she is feeling better Pneumonia 452071379 J18. 9 sx improved, took levaquin as directed Abnormal a nal Papanicolaou smear 559328862 R85.619 biopsy on tuesday. Human immunodeficiency virus infection 50562881 B20 continue current meds. F/u with ID. [id number] Sascha Yanez PA-C Main Office [address] [place] [address] 03/23/2023 15:19:01 03/23/2023 16:14:42 Disorder of nervous system due to type 2 diabetes mellitus 522402834 E11.40 stable mild neuropathy , pt. sees healthcare representative . Check all labs fasting plus urine and return in 6 weeks for PE and DM. Lower invokamet to one tab daily due to nausea. Consider Mounjaro to replace Trulicity if A1c is still high, particular ly 8 or over. continue gabapentin . Essential hypertension 44754892 I10 stable on meds, continue low sodium diet. Mixed hyperlipidemia 267 438661 E78.2 continue current meds, low fat low carb diet and repeat lipids. Screening for malignant neoplasm of breast 000609626 Z12.39 [id number] Sascha Yanez PA-C Main Office [address] [place] [address] 05/11/2023 14:20:02 05/11/2023 15:15:44 Adult health examination 719874066 Z00.00 Vaccines UTD including new COVID booster and flu. Recommend Prevnar 20 and Shingrix, pt will contact [facility] pharmacy. Disorder o f nervous system due to type 2 diabetes mellitus 728220497 E11.40 HgbA1c is 7.7% today, down from 8.3% in 2021. Well controlled on meds. Continue Trulicity, Invokamet, and Tresiba as directed. Continue low carb/low fat diet, reduce fatty foods and processed foods. Increased exercise 3-4x/week as tolerated. Diabetic p eripheral neuropathy 821487762 E11.40 Stable mild neuropathy on Gabapentin , she is following podiatry. Human immunodeficiency virus infection 84788114 B20 Stable, continue current meds. F/u with ID. Long-term current use of insulin 601207298 Z79.4 Mixed hyperlipidemia 267 137446 E78.2 Elevated fasting lipids, continue Rosuvastat in as directed, encouraged to follow low fat diet and increase physical exercise. Will repeat lipids in 3 months. Moderate p ersistent asthma 770659468 J45.40 Stable on meds. Administra tion of pneumococcal vaccine 81848417 Z23 Varicella vaccination 68 784373 Z23 Essential hypertension 90155319 I10 elevated today and on last visit on lisinopril 10 mg. Add amlodipine 5 mg daily. Check blood pressure at home and return in 4-6 weeks with meter for f/u. [id number] Sascha Yanez PA-C Main Office [address] [facility] [address] [place] [address] 06/17/2023 14:56:57 06/17/2023 15:24:43 Essential hypertension 63769346 I10 Blood pressure is on target after addition of amlodipine . Continue low sodium diet , bp testing weekly. F/u with PCP in 3 m. Repeat bmp before next visit. Administra tion of pneumococcal vaccine 24788339 Z23 Mixed hyperlipidemia 267 726737 E78.2 Elevated fasting lipids, continue Rosuvastat in as directed, encouraged to follow low fat diet and increase physical exercise. Will repeat lipids in 3 months. repeat lipids prior to next visit. Disorder o f nervous system due to type 2 diabetes mellitus 812503115 E11.40 HgbA1c is 7.7% today, down from 8.3% in 2021. Well controlled on meds. Continue Trulicity, Invokamet, and Tresiba as directed. Continue low carb/low fat diet, reduce fatty foods and processed foods. Increased exercise 3-4x/week as tolerated. [id number] Yeison Yanez PA-C Main Office [address] [address] [place] [address] 07/07/2023 10:36:54 07/07/2023 11:56:22 Cough 83175571 R05.9 cont albuterol inhaler, nebulizerc ont herb or mucinexals o rec prn tessalonch sita cxrsee belownegat aria for flu Fatigue 17073567 R53.83 had f/c at home, but no temp taken - had n/v - ? dehydratio n - check labsrec push fluids Exacerbati on of moderate persistent asthma 089206114 J45.41 Pneumonia 661690701 J18. 9 recommend probiotics while on abx [id number] Yeison Yanez PA-C Main Office [address] [address] [place] [address] 07/14/2023 15:27:00 07/14/2023 16:26:12 Pneumonia 574003614 J18.9 resolved p abx Exacerbati on of moderate persistent asthma 457720289 J45.41 resolved p pred pulsecont meds, inhalers as dir [id number] AMBER So Main Office [address] [address] [place] [address] 08/16/2023 12:40:00 08/16/2023 13:29:42 Spasm of skeletal muscle of thorax 446344956 M62.838 visible rotation of torso and neck to the left with elevated right shoulder, + palpable muscle spasm and exquisite tenderness to palpation. Will rx prednisone burst x 10 days, soma TID as needed- no driving or alcohol with med, tramadol for severe pain- no driving or alcohol with med. Recommend taking meds, applying heating pad/ moist heat x 20 mins and then trying to gently stretch as tolerated. massage as tolerated, topical icy/ hot like med has been helpful initially. Will check thoracic spine XR Neck pain 53886207 M54.2 will check neck XR, she has pain, rotation to the left and cannot fully extend the neck. meds as above/ [id number] Sascha Yanez PA-C Main Office [address] [address] [place] [address] 08/24/2023 10:19:43 08/24/2023 11:04:22 Costal chondritis 17591341 M94.0 Unknown cause for costocondr itis with severe pain. Other acute etiologies were ruled out at [facility]. Start prednisone pulse pack 20 mg 2 daily for 5 days and check glucose 3-4 times daily Increase hydration. Repeat A1c. Cyclobenza angelica 5 mg 2-3 times daily, not recommende d to drive while on this medication . Heat, oxycodone. F/u if needed in 1-2 weeks. [id number] Andrew Painting MD Main Office [address] [address] [place] [address] 08/31/2023 13:31:05 08/31/2023 14:01:20 Costal chondritis 91546076 M94.0 x3 weeks of costal chondritis pain located in the neck, back, and under the breasts- has seen JT 08/16/23, VM 08/24/23, and was seen at [facility] 08/12/23- Unknown cause for costocondr itis with severe pain- was seen at [facility] and other acute etiologies were ruled out- has tried prednisone , gabapentin , cyclobenza angelica, and tramadol with little relief-daniel l refer to pain management and provide topical diclofenac as pt finds some relief [id number] Sascha Yanez PA-C Main Office [address] [address] [place] [address] 09/09/2023 14:40:34 09/09/2023 15:58:47 Mixed hyperlipidemia 679176255 E78.2 Elevated fasting lipids, continue Rosuvastat in as directed, encouraged to follow low fat diet and increase physical exercise. Will repeat lipids in 3 months. repeat lipids prior to next visit. Disorder o f nervous system due to type 2 diabetes mellitus 527165467 E11.40 HgbA1c is very high due to prednisone tapers and severe costochond ritis pain and back spasms.Rec om. to increase Tresiba to 20 u and begin premeal Humalog injections 8 u TID. Continue other medication s as previously . F/u 4 weeks. Increase hydration. Essential hypertension 67694301 I10 Blood pressure is on target after addition of amlodipine . Continue low sodium diet , bp testing weekly. F/u with PCP in 3 m. Repeat bmp before next visit. Neuropathy due to type 2 diabetes mellitus 0076651904 40556 E11.40 increase gabapentin to 600 mg at HS and continue 300 in the am. [id number] STEVEN BARONE Main Office [address] [place] [address] 09/29/2023 09:43:39 09/29/2023 10:40:13 Costal chondritis 84473626 M94.0 x2 months of costal chondritis pain located in the neck, back, and under the breasts- Unknown cause for costocondr itis with severe pain- cardiopulm onary work up was negative; was evaluated in the ED in prior hospital visit- has tried prednisone , oxycodone, gabapentin , cyclobenza angelica, and tramadol with no relief-tesha iment gel provides temporary relief Chest wall pain 64492887 6 R07.89 - recently seen by pain management ; does not qualify for steroid injections due to uncontroll ed diabetes-p ain triggers with elevation of upper extremitie s, sneezing, deep breaths, coughing, and light touch to the upper/mid back, neck, and chest-ekg; NSR-will further evaluate with CT of chest Multiple joint pain 3567 8005 M25.50 [id number] Sascha Yanez PA-C Main Office [address] [facility] [address] [place] [address] 10/07/2023 15:02:30 10/07/2023 15:57:05 Disorder of nervous system due to type 2 diabetes mellitus 752230205 E11.40 HgbA1c is very high due to prednisone tapers and severe costochond ritis pain and back spasms.Rec om. to increase Tresiba to 25 u and begin premeal Humalog injections 12 u TID. Continue other medication s as previously . F/u 4 weeks. Increase hydration. Costal chondritis 218657 04 M94.0 Pt continues to have severe pain in her R. neck, arms and chest. Unable to function. today pain is 10 out of 10 with high blood pressure and severe hyperglyce lucrecia. CT of the chest is not approved by the insurance. Pt previously evaluated by [facility] and were unable to identify etiology of pts pain. Also seen at [facility] ER for the same. Pt has ongoing 10/10 pain with uncontroll ed blood pressure in the 140's over 80's. Pts blood sugar uncontroll ed with A1C at 9.5% due to prednisone tapers to alleviate pain. Prednisone has not relived any of pts pain. CT ordered at last visit was denied by insurance. Pt has been on prednisone for the pain which has been increasing her blood sugars. Pt rec to go to the ER due to ongoing pain. [facility] ER notified of pts arrival. Pt at increased stroke risk due to elevated blood pressure, uncontroll ed pain, and uncontroll ed diabetes. Essential hypertension 11891514 I10 Blood pressure elevated in office at 148/83 likely due to ongoing pain. Pt reporting to [facility] ER. Pt at increased stroke risk due to elevated blood pressure. [facility] ER notified of pts arrival. [id number] STEVEN BARONE Main Office [address] [place] [address] 10/12/2023 11:53:40 10/13/2023 13:44:39 [id number] Drea Greenfield Main Office [address] [place] [address] 10/14/2023 08:31:26 10/14/2023 09:04:00 Transition of care from emergency department to self-care [id number] 13807 Z76.89 reviewed hospital documentat ion Essential hypertension 95185964 I10 BP in office initially elevated at 149/83 then 132/78-gabrielle n likely contributi ng to elevated BP reading Costal chondritis 491240 04 M94.0 -was evaluated at [facility]; CT scan was negative-x 2 months of constant pain along right side of ribs that radiated across to the left breast and to the back; was seen in office multiple dates since 08/2023-was discharged with naproxen and methocarba mol; pt reports of having significan t relief [id number] Sascha Yanez PA-C Main Office [address] [place] [address] 11/08/2023 14:43:04 11/08/2023 15:22:39 Disorder of nervous system due to type 2 diabetes mellitus 408380922 E11.40 Improving diabetic control since chest pain decreased few weeks ago. Recom to continue current treatment and return in 6 weeks with glucose log. Repeat A1c then. Essential hypertension 31660447 I10 Stable hypertensi on , continue low sodium diet and medication s. Diabetic p eripheral neuropathy 095140800 E11.40 Stable mild neuropathy on Gabapentin , she is following podiatry. Moderate p ersistent asthma 181682337 J45.40 Pt. still has cough variant asthma. Would like to see Dr. Chavez again for full PFTs. She will continue current medication s. [id number] Drea Greenfield Main Office [address] [facility] [address] [place] [address] 12/09/2023 14:34:10 12/09/2023 15:08:24 Peritonsillar cellulitis 925705524 J36 x4 days of sore throat L>R, left ear pain, muffled hearing, odynophagi a, left sided neck swelling-d enies of any trismus, fever, chest pain, or difficulty /changes in breathing- PE revealed, unilateral neck swelling (L), erythemato us posterior oropharynx , enlarged tonsils, lungs were CTA b/l-will provide x14 day course of augmentin- pt will call the office if no improvemen ts or worsening, pt understand s ED precaution s-in office strep test is negative [id number] Sascha Yanez PA-C Main Office [address] [address] [place] [address] 12/23/2023 12:56:03 12/23/2023 15:30:16 Disorder of nervous system due to type 2 diabetes mellitus 184314058 E11.40 Improving diabetic control . Pt. is advised to continue current treatment and repeat A1c. F/u 3 m. [id number] Kj Man MD Telehealt h [address] [facility] [address] [place] [address] 01/20/2024 14:03:16 01/20/2024 15:18:46 Disorder of nervous system due to type 2 diabetes mellitus 773821259 E11.40 Poor control secondary to recent steroid therapy and dulaglutid e 3mg not being available. Will transition to semaglutid e and titrate dose as tolerated. Has PCP follow up scheduled next week. Hopefully we can obtain insurance approval today. [id number] ANDRADE MARTIN MD Main Office [address] [address] [place] [address] 01/23/2024 08:40:52 01/23/2024 09:12:58 Thoracic back pain 654475055 M54.6 Rib pain 571017554 R07.8 1 - pt diagnosed with costochond ritis, located on the right side involving ribs 4 and 5- this is an on-going problem> cardiac work-up negative> neck and thoracic x-ray negative> CT chest negative- to help with the pain pt given naproxen 500mg BID for 2 weeks- will try cyclobenza angelica however if that does work will switch to metoclopra mide> pt has muscle spasm in right neck and this will help Neck pain 99122601 M54.2 Costal chondritis 312969 04 M94.0 [id number] Sascha Yanez PA-C Main Office [address] [address] [place] [address] 02/01/2024 11:03:20 02/01/2024 11:43:40 Disorder of nervous system due to type 2 diabetes mellitus 292220742 E11.40 Improving diabetic control . Pt. is advised to continue Ozempic 0.5 mg weekly and continue Tresiba 12 u and lispro lower to 5 u premeal. F/u 6 weeks. Hopefully if back pain improves, we will be able to stop insulin injections . Uncontroll ed type 2 diabetes mellitus 935929715 E11.65 see above Cervical radiculopathy 84225092 M54.12 Increase gabapentin to 300 mg TID, Tizanidine 4 mg half po PRN only. [id number] Sascha Yanez PA-C Main Office [address] [address] [place] [address] 03/16/2024 11:14:18 03/16/2024 11:55:21 Disorder of nervous system due to type 2 diabetes mellitus 179039535 E11.40 Slightly improved A1c, but pt is on;y o starting dose and has a lot of constipati on. Recommend to start metamucil , increase fluids and add MiraLax powder 17 gm daily. diabetic control . Pt. is advised to increase Ozempic to 0.5 mg weekly after she start moving bowels regularly. Tresiba 15 u and lispro lower to 5 u premeal. F/u 6 weeks. PT. is also not using Catrachita 3 as recommende d. ADvised to start using CGM regularly . Essential hypertension 31144943 I10 Stable hypertensi on , continue low sodium diet and medication s. [id number] Sascha Yanez PA-C Main Office [address] [address] [place] [address] 04/18/2024 14:17:27 04/18/2024 15:13:09 Disorder of nervous system due to type 2 diabetes mellitus 011679127 E11.40 Last A1c 8.9%. Increase Ozempic to 1 mg weekly. Continue Tresiba 18 u, lispro 8 u premeal, and Invokamet. Discussed decreasing lispro to 5 u if postmeal readings fall below 100. Patient does not want to use CGM. Advised her to test 6 times daily, before meals and 2 hours after meals. Recommend to increase fluids and continue MiraLax PRN to avoid constipati on. F/u in 6 weeks. Diabetic p eripheral neuropathy 782963677 E11.40 Stable mild neuropathy on Gabapentin , she is following podiatry. Long-term current use of insulin 772759246 Z79.4 Essential hypertension 43456019 I10 Stable hypertensi on , continue low sodium diet and medication s. Body mass index 25-29 - overweight 557070294 E66.3 Z68.27 Educated to continue proper lifestyle and dietary modificati ons. On Ozempic. [id number] Fabrice Jimenes MD Main Office [address] [facility] [address] [place] [address] 04/21/2024 09:50:46 04/21/2024 10:30:59 COVID-19 308016508 U07.1 We discussed SE's and she will stay home and OOW until next Tuesday. She can return to work on the as long as she is substantia lly better. [id number] Sascha Yanez PA-C Main Office [address] [place] [address] 05/29/2024 13:51:57 05/29/2024 14:40:42 Disorder of nervous system due to type 2 diabetes mellitus 610947347 E11.40 Improved diabetic control with the addition of Ozempic in place of trulicity. Pt. is advised to continue 0.5 mg weekly dose, lower tresiba to 12 u due to occasional mild hypoglycem ia. For now continue lispro at 8, but if glucose improves further, pt. can try 5 u premeal. F/u 3-4 m. Recheck all labs fasting prior to PE. Mixed hyperlipidemia 267 472905 E78.2 Elevated fasting lipids, continue Rosuvastat in as directed, encouraged to follow low fat diet and increase physical exercise. Will repeat lipids in 3 months. repeat lipids prior to next visit. Eczema 32233934 L30.9 [id number] Sascha Yanez PA-C Main Office [address] [facility] [address] [place] [address] 07/13/2024 14:50:53 07/13/2024 15:35:09 Disorder of nervous system due to type 2 diabetes mellitus 727210408 E11.40 Improved diabetic control with the addition of FuiexwrK0d is 6.5%. WE will increase Ozempic to 1 mg weekly and lower Tresiba to 10 u , lispro to 5 u TID. If glucose continues declining, d/c insulins and continue frequent testing. Pt. is back next month for the PE. Essential hypertension 55735746 I10 Stable hypertensi on , continue low sodium diet and medication s. Long-term current use of insulin 522747910 Z79.4 Mixed hyperlipidemia 267 020240 E78.2 Elevated fasting lipids, continue Rosuvastat in as directed, encouraged to follow low fat diet and increase physical exercise. Will repeat lipids in 3 months. repeat lipids prior to next visit. Vitamin D deficiency 347 73760 E55.9 Eczema 91117887 L30.9 begin using topical steroid cream and hypoallerg enic moisturize r twice daily. [id number] Sascha Yanez PA-C Main Office [address] [facility] [address] [place] [address] 08/29/2024 14:41:00 08/29/2024 16:10:44 Adult health examination 536058143 Z00.00 Vaccines UTD including new COVID booster, flu Prevnar 20 and Shingrix. UTD on all other age recommende d screenings . Disorder o f nervous system due to type 2 diabetes mellitus 983069060 E11.40 Improved diabetic control with the addition of Ozempic. A1c is 6.5%. Pt is currently taking Ozempic to 1 mg weekly and Tresiba 10u , lispro 5 u TID. If glucose continues declining, d/c insulins and continue frequent testing. Repeat labs ordered. F/u 3 m. Essential hypertension 74219880 I10 Stable hypertensi on, continue low sodium diet and medication s. Long-term current use of insulin 891395837 Z79.4 Continue Insulin. Mixed hyperlipidemia 267 252224 E78.2 Elevated fasting lipids, continue Rosuvastat in as directed, encouraged to follow low fat diet and increase physical exercise. Will repeat lipids in 3 months. repeat lipids prior to next visit. Moderate p ersistent asthma 936141182 J45.40 Pt. still has cough variant asthma. Would like to see Dr. Chavez again for full PFTs. She will continue current medication s. Human immunodeficiency virus infection 24756822 B20 Stable, continue current meds. F/u with ID. Patient has had two new flares of condylomat a looking to be removed Eczema 29624913 L30.9 begin using topical steroid cream and hypoallerg enic moisturize r twice daily. Diabetic p eripheral neuropathy 338403524 E11.40 Stable mild neuropathy on Gabapentin , she is following podiatry. Body mass index 25-29 - overweight 120947211 E66.3 Z68.27 Educated to continue proper lifestyle and dietary modificati ons. On Ozempic. Allergic rhinitis 083193 04 J30.9 Well controlled at this time. Cervical radiculopathy 52970316 M54.12 Gabapentin script refilled. Tizanidine 4 mg half po PRN only. Abnormal a nal Papanicolaou smear 700265438 R85.619 Patient is being scheduled for colposcopy due to recent abnormal pap smear findings. The office will reach out to her [employer] OPERATOR for the original pap smear results. She will continue monitoring with [employer] OPERATOR. [id number] Sascha Yanez PA-C [facility] [address] [address] 10/15/2024 13:00:21 10/15/2024 15:10:53 Essential hypertension 73601555 I10 Uncontroll ed blood pressure due to [...] LastModified Time None Recorded Advance Directives Directive Y: HCP Payers Encounter Date Sequence Insurance Name Policy Number Policy James Covered Member ID James Member ID Guarantor Name 04/21/2024 1 [facility] [employer] PLAN (MEDICAID HMO) [id number] Maame I Kev [id number] Maamesofie Angulo 04/21/2024 2 [place] Maame I Kev [id number] Maamesofie Angulo 05/29/2024 1 [facility] [employer] PLAN (MEDICAID HMO) [id number] Maame I Kev [id number] Maame Kev 05/29/2024 2 [place] Maame I Kev [id number] Maame Kev 07/13/2024 1 [facility] [employer] [facility] PLAN (MEDICAID HMO) [id number] Maame I Kev [id number] Maame Kev 07/13/2024 2 [place] Maame I Kev [id number] Maame Kev 08/29/2024 1 [facility] [employer] [facility] PLAN (MEDICAID HMO) [id number] Maame I Kev [id number] Maame Kev 08/29/2024 2 [place] Maame I Kev [id number] Maamesofie Angulo 10/15/2024 1 [facility] [employer] [facility] PLAN (MEDICAID HMO) [id number] Maame I Kev [id number] Maame Kev 10/15/2024 2 [place] Maame I Kev [id number] Maame Angulo Notes Date Note Type Note Provider Name and Address Organization Details Recorded Time 09/21/202 4 text/html Yesterday started feeling body aches when at work. Also had diarrhea, n/v. Also YUAN, sore throat. Had chills but no fever. She had COVID twice in the past but has never taken paxlovid. She had the initial COVID vaccines but no boosters. She lives with her who is well but works in a school so has exposures there. Fabrice Jimenes MD [address], [address], [facility] 04/21/2024 10:28:00 4 text/html Diabetes F/UReported bypatient.Review finger sticks:fastin-120 Context:seeing eye doctor regularly; checking feet regularly; not missing doses of medications; no side effects from medications;not taking aspirin daily Associated Symptoms:no weight gain; no weight loss; no dizziness; no sweats; no headaches; no increased thirst; no increased urination; no blurred visionNotes:HgA1c is 6.8%. Meds: Ozempic 0.5 mg weekly. Pt. had initially a lot of constipation. Now takes miralax daily and reports 1-2 normal consistency bowel movements daily. Tresiba 15 u , sipro 8 u before meals, Invokamet max dose. Pt. had blood sugar of 60 this afternoon. Reports no hypoglycemic symptoms with it. Most other readings are between 90s and 140 range premeal. Diabetic eye exam in September, no retinopathy.Went to healthcare representative last month, at [address] [place] [address] Yanez SHARMAINE [address] [address], [place], [address], [facility] 05/29/2024 15:13:29 4 text/html Diabetes F/UReported bypatient.Review finger sticks:fastin-120 Context:seeing eye doctor regularly; checking feet regularly; not missing doses of medications; no side effects from medications;not taking aspirin daily Associated Symptoms:no weight gain; no weight loss; no dizziness; no sweats; no headaches; no increased thirst; no increased urination; no blurred visionNotes:HgA1c is 6.6% today. Meds: Ozempic 0.5 mg weekly, Tresiba 20 u, lispro 8 u before meals. Gabapentin 300 mg TID for the neuropathy. Diabetic eye exam in September, no retinopathy.Went to healthcare representative last month, at [address] [place] [address] 54 year old female for DM f/u. C/o itchy rash in the back of her upper neck and buttock area. Usually happens in winter. Pt. responds to topical steroid cream and moisturizers. Sascha Yanez PA-C [address] [facility] [address], [place], [address], [facility] 07/13/2024 15:58:17 5 text/html 54 year old female for annual wellness visit. Feeling well overall with no new complaints. She reports 2 new anal condyloma that need to be surgically removed - in the works for scheduling, next visit in October. Her Dr wants to ensure sugars are controlled. She has a podiatry appointment upcoming in September and appointment in October. Denies any change in vision, N/V/D, abdominal pain, increase in thirst or urination or SOB. Last Pap Smear last was done 1 month ago -Abnormal findings; needs a colposcopyMammogram normal last year, next due in May.Colonoscopy was normal in 2021 with 10 year recall advised.Vaccines: Tdap is up to date. Pt. received flu vaccine. Has 2 pneumonia vaccines, shingrix. DM with peripheral neuropathy. Stable A1c at 6.5% last month.Stable hypertension and hyperlipidemia on medications.HIV, undetected on meds, followed by ID. H/o anal condyloma. Procedure in 2023 by uro/grain spouter.Moderate persistent asthma, stable on medications. Sascha Yanez PA-C [address] [facility] [address], [place], [id number], [facility] [place] 08/29/2024 16:25:54 5 text/html Hypertension F/UReported bypatient.Associated Symptoms:no chest pain; no shortness of breath; no palpitations; no edema; no calf pain with exertion;lightheadedness Lifestyle:limiting/avoid ing salt Medications:taking medications as directed; lisinopril was discontinued by pulmonary due to allergic reaction. Pt. was recommended to start ARB, but pulm did not prescribed.Notes:Pt. reports blood pressure at home is ranging up to 160s range systolic and high also diastolic. Sascha Yanez PA-C [address] [address], [place], [id number], [facility] [place] 14:35:41 OBGyn Episode No OBEpisode recorded.
--- OUTSIDE RECORDS SUMMARY | 2024-10-16 17:59 | XMS_ITS | Data Portability ---
Author Organization TERRI HERNANDEZ MD [facility], Main Office Address [address] [place] [address] Assessment No assessment recorded. Plan of Treatment Reminders Order Date Submit Date Provider Last Modified By Organization Details Last Modified Time Details Appointments B20 FOLLOW UP 2024 02:40P Derick Jonas MD Not available Not available Not available Lab CBC w/ diff 2023 024 [email or web address] [facility] (Centralized Electronic Ordering - All Locations), Patient Can Go To The Location Of Their Choice, [facility] 10/13/2023 12:19:13 electrol ytes panel, blood 2023 024 [email or web address] [facility] (Centralized Electronic Ordering - All Locations), Patient Can Go To The Location Of Their Choice, [facility] 10/13/2023 12:19:13 ALT (alanine aminotra nsferase ), serum or plasma 2023 024 [facility] (Centralized Electronic Ordering - All Locations), Patient Can Go To The Location Of Their Choice, [id number] 10/13/2023 12:19:13 AST/SGOT (asparta te aminotra nsferase ), serum or plasma 2023 024 [email or web address] [facility] (Centralized [facility] Ordering - All Locations), Patient Can Go To The Location Of Their Choice, [id number] 10/13/2023 12:19:14 CT + NG DNA, PCR, unspecif ied specimen 2023 024 [email or web address] [facility] (Centralized Electronic Ordering - All Locations), Patient Can Go To The Location Of Their Choice, [id number] 10/13/2023 12:19:14 creatini ne w/ estimate d GFR (eGFR), serum or plasma 2023 024 [facility] (Centralized Electronic Ordering - All Locations), Patient Can Go To The Location Of Their Choice, 10/13/2023 12:19:14 HIV-1 RNA, quantita tive, PCR, serum or plasma 2023 024 [email or web address] [facility] (Centralized Electronic Ordering - All Locations), Patient Can Go To The Location Of Their Choice, 10/13/2023 12:19:14 RPR (rapid plasma reagin), serum 2023 024 [email or web address] [facility] (Centralized Electronic Ordering - All Locations), Patient Can Go To The Location Of Their Choice, 10/13/2023 12:19:14 T-cell regulato ry subsets panel, blood 2023 024 [email or web address] [facility] (Centralized Electronic Ordering - All Locations), Patient Can Go To The Location Of Their Choice, 10/13/2023 12:19:14 HBsAg (hepatit is B surface Ag), serum 2023 024 [email or web address] [facility] (Centralized Electronic Ordering - All Locations), Patient Can Go To The Location Of Their Choice, 10/13/2023 12:19:14 hepatiti s C virus Ab, serum 2023 024 [email or web address] [facility] ([facility]ized [facility] Ordering - All Locations), Patient Can Go To The Location Of Their Choice, 10/13/2023 12:19:14 CBC w/ diff 2022 023 [facility] ([facility]ized [facility] Ordering - All Locations), Patient Can Go To The Location Of Their Choice, 07/18/2023 10:21:22 electrol ytes panel, blood 2022 023 [email or web address] [facility] (Centralized Electronic Ordering - All Locations), Patient Can Go To The Location Of Their Choice, 07/18/2023 10:21:22 ALT (alanine aminotra nsferase ), serum or plasma 2022 023 [email or web address] [facility] (Centralized Electronic Ordering - All Locations), Patient Can Go To The Location Of Their Choice, 07/18/2023 10:21:23 AST/SGOT (asparta te aminotra nsferase ), serum or plasma 2022 023 [email or web address] [facility] (Centralized Electronic Ordering - All Locations), Patient Can Go To The Location Of Their Choice, 07/18/2023 10:21:23 CT + NG DNA, PCR, unspecif ied specimen 2022 023 [employer]™ [facility] (Centralized Electronic Ordering - All Locations), Patient Can Go To The Location Of Their Choice, 07/18/2023 10:21:23 creatini ne w/ estimate d GFR (eGFR), serum or plasma 2022 023 [employer]™ [facility] (Centralized [facility] Ordering - All Locations), Patient Can Go To The Location Of Their Choice, 07/18/2023 10:21:23 HIV-1 RNA, quantita tive, PCR, serum or plasma 2022 023 [employer]™ [facility] ([facility]ized [facility] Ordering - All Locations), Patient Can Go To The Location Of Their Choice, 07/18/2023 10:21:24 RPR (rapid plasma reagin), serum 2022 023 [employer]™ [facility] (Centralized Electronic Ordering - All Locations), Patient Can Go To The Location Of Their Choice, 07/18/2023 10:21:24 T-cell regulato ry subsets panel, blood 2022 023 [employer]™ [facility] ([facility]ized [facility] Ordering - All Locations), Patient Can Go To The Location Of Their Choice, 07/18/2023 10:21:24 HBsAg (hepatit is B surface Ag), serum 2022 023 [email or web address] [facility] ([facility]ized [facility] Ordering - All Locations), Patient Can Go To The Location Of Their Choice, 07/18/2023 10:21:24 CBC w/ diff 2022 023 [email or web address] [facility] ([facility] Ordering - All Locations), Patient Can Go To The Location Of Their Choice, 07/11/2023 16:54:49 electrol ytes panel, blood 2022 023 [email or web address] [facility] ([facility] Ordering - All Locations), Patient Can Go To The Location Of Their Choice, 07/11/2023 16:54:49 ALT (alanine aminotra nsferase ), serum or plasma 2022 023 SHEA [facility] (Centralized Electronic Ordering - All Locations), Patient Can Go To The Location Of Their Choice, 04/09/2023 15:30:28 AST/SGOT (asparta te aminotra nsferase ), serum or plasma 2022 023 SHEA [facility] (Centralized Electronic Ordering - All Locations), Patient Can Go To The Location Of Their Choice, 04/09/2023 15:30:30 CT + NG DNA, PCR, unspecif ied specimen 2022 023 [employer]™ [facility] ([facility]ized [facility] Ordering - All Locations), Patient Can Go To The Location Of Their Choice, 07/11/2023 16:54:49 creatini ne w/ estimate d GFR (eGFR), serum or plasma 2022 023 [email or web address] [facility] ([facility] Ordering - All Locations), Patient Can Go To The Location Of Their Choice, 07/11/2023 16:54:50 hepatiti s C virus Ab, serum 2022 023 SHEA [facility] ([facility] Ordering - All Locations), Patient Can Go To The Location Of Their Choice, 04/14/2023 04:06:25 HIV-1 RNA, quantita tive, PCR, serum or plasma 2022 023 [email or web address] [facility] (Centralized Electronic Ordering - All Locations), Patient Can Go To The Location Of Their Choice, [id number] 07/11/2023 16:54:50 RPR (rapid plasma reagin), serum 2022 023 [email or web address] [facility] ([facility] Ordering - All Locations), Patient Can Go To The Location Of Their Choice, [id number] 07/11/2023 16:54:50 T-cell regulato ry subsets panel, blood 2022 023 [email or web address] [facility] (Centralized [facility] Ordering - All Locations), Patient Can Go To The Location Of Their Choice, [id number] 07/11/2023 16:54:50 Referral None recorded . Procedures None recorded . Surgeries None recorded . Imaging None recorded . Medication Orders Triumeq 600 mg-50 mg-300 mg tablet 2023 024 [id number] [address] [place], [address], 07/04/2024 15:16:05 Bactrim DS 800 mg-160 mg tablet 2023 024 [facility], [address] [place], [address], 07/04/2024 15:16:06 Benadryl Allergy 25 mg tablet 2023 024 [facility], [address] [place], [address], 07/04/2024 15:16:06 Triumeq 600 mg-50 mg-300 mg tablet 2023 024 [facility] #[facility], [address] [place], [address], 01/19/2024 12:34:55 Bactrim DS 800 mg-160 mg tablet 2023 024 [facility], [address] [place], [address], 01/19/2024 12:34:54 tizanidi ne 4 mg tablet 2023 024 [email or web address] [facility]acy #1291, [address] [place], [address], 10/28/2023 17:32:26 Triumeq 600 mg-50 mg-300 mg tablet 2023 024 [facility], [address] [place], [address], 10/06/2023 12:32:11 Bactrim DS 800 mg-160 mg tablet 2023 024 [facility], [address] [place], [address], 10/06/2023 12:32:10 fluconaz ole 150 mg tablet 2022 023 [facility], [address] [place], [address], 07/08/2023 15:11:33 fluconaz ole 100 mg tablet 2022 023 [facility] [address] [place], [address], 07/08/2023 15:11:33 Triumeq 600 mg-50 mg-300 mg tablet 2022 023 [facility] [address] [place], [address], 07/08/2023 15:01:50 Bactrim DS 800 mg-160 mg tablet 2022 023 [facility], [address] [place], [address], 07/08/2023 15:01:50 fluconaz ole 150 mg tablet 2022 023 [facility], [address] [place], [address], 04/08/2023 15:58:38 Triumeq 600 mg-50 mg-300 mg tablet 2022 023 [facility], [address] [place], [address], 04/08/2023 15:48:36 Bactrim DS 800 mg-160 mg tablet 2022 023 [facility], [address] [place], [address], 04/08/2023 15:54:04 Patient TargetsNo targets recorded. Patient InstructionsNo instructions recorded. Reason for Referral None Reported. Results Created Date Observation Date Name Description Value Unit Range Abnormal Flag Note LastModifiedBy Organization Detail LastModifiedTime 04/09/2004/09/2023 ALT ALT 17 U/L (0-33) Not Available [facility] (Centralized Electronic Ordering - All Locations) Patient Can Go To The Location Of Their Choice, [facility] 04/09/2023 15:30:22 04/09/20 23 04/09/2023 AST AST 17 U/L (0-32) Not Available [facility] (Centralized Electronic Ordering - All Locations) Patient Can Go To The Location Of Their Choice, [facility] 04/09/2023 15:30:30 04/09/2004/13/2023 HIV-1 RNA QUANT IFICA TION, PLASM A HIV-1 RNA quantificati on, plas <20 cp/mL (notde ) abnormal Less than 20 HIV-1 RNA is detec rochelle but the level is less than the lower quant ifica tion limit of this assay . Possi ble cause s inclu de: very low viral load (1-19 copie s/ml) , very early HIV-1 infec tion (less than 3 weeks from expos ure), or the absen ce of infec tion (limi tatio n of assay ). Clini rena corre latio n is recom jasmin d. Resul t repor rochelle to the PENDING [facility]. Testi ng perfo rmed by real time PCR utili zing CHAVEZ 6800 HIV-1 test. To preve nt error s in diagn osis, test resul ts shoul d be inter prete d in the archie xt of clini rena findi ngs and other labor atory data. Rare polym orphi sms exist that could lead to false -nega tive or false -posi tive resul ts. If resul ts obtai rony do not match the clini rena findi ngs, addit ional testi ng anabelle holliday be consi dered . Not Available [facility] (Centralized Electronic Ordering - All Locations) Patient Can Go To The Location Of Their Choice, 04/13/2023 12:39:56 04/09/2004/13/2023 HIV-1 RNA QUANT IFICA TION, PLASM A hivqts LOG value not calcul ated logcp /mL Not Available [facility] (Centralized Electronic Ordering - All Locations) Patient Can Go To The Location Of Their Choice, 04/13/2023 12:39:56 04/09/2004/14/2023 ANTI- HEPAT ITIS C anti-hepatit is C (neg) Non React aria Refer ence range : Non React aria (NOTE ) HCV antib cristel alone does not diffe renti ate betwe en previ ously resol alonso infec tion and activ e infec tion. Equiv ocal and React aria HCV antib cristel resul ts shoul d be follo wed up with an HCV RNA test to suppo rt the diagn osis of activ e HCV infec tion. Test perfo rmed by [facility], [address], [facility] [place] [address] Not Available [facility] (Centralized Electronic Ordering - All Locations) Patient Can Go To The Location Of Their Choice, 04/14/2023 04:06:22 01/17/2001/18/2024 T-KEVIN L ACTIV ATION , CD8 SUBSE TS absolute cd 3 3190 /uL 622-24 02 above high normal Not Available [facility] ([facility]) [address] [facility], [place], [address], 01/26/2024 12:06:33 01/17/20 24 01/18/2024 T-KEVIN L ACTIV ATION , CD8 SUBSE TS % cd 3 pos. lymph. 72.5 % 57.5-8 6.2 Not Available [facility] ([facility]) [address] [facility], [place], [address], 01/26/2024 12:06:33 01/17/20 24 01/18/2024 T-KEVIN L ACTIV ATION , CD8 SUBSE TS abs.cd8+hla- dr+lymph 906 /uL 0-117 above high normal This test was devel oped and its perfo rmanc e nirmal cteri stics deter mined by [facility]. It has not been clear ed or appro alonso by the Food and Drug Admin istra tion. Not Available [facility] ([facility]) [address] [facility], [place], [address], 01/26/2024 12:06:33 01/17/20 24 01/18/2024 T-KEVIN L ACTIV ATION , CD8 SUBSE TS % cd8+hla-dr+ lymphs 20.6 % 0.0-4. 9 above high normal This test was devel oped and its perfo rmanc e nirmal cteri stics deter mined by [facility]. It has not been clear ed or appro alonso by the Food and Drug Admin istra tion. Not Available [facility] ([facility]) [address] [facility], [place], [address], 01/26/2024 12:06:33 01/17/20 24 01/18/2024 T-KEVIN L ACTIV ATION , CD8 SUBSE TS % cd3+cd25+ lymphs 17.4 % 4.9-25 .9 This test was devel oped and its perfo rmanc e nirmal cteri stics deter mined by [facility]. It has not been clear ed or appro alonso by the Food and Drug Admin istra tion. Not Available [facility] ([facility]) [address] [facility], [place], [address], 01/26/2024 12:06:33 01/17/20 24 01/18/2024 T-KEVIN L ACTIV ATION , CD8 SUBSE TS abs.cd3+cd25 + lymphs 766 /uL 79-535 above high normal This test was devel oped and its perfo rmanc e nirmal cteri stics deter mined by [facility]. It has not been clear ed or appro alonso by the Food and Drug Admin istra tion. Not Available [facility] ([facility]) [address] [place], [address], 01/26/2024 12:06:33 01/17/20 24 01/18/2024 T-KEVIN L ACTIV ATION , CD8 SUBSE TS % cd8+cd38+ lymphs 9.4 % 0.0-17 .7 This test was devel oped and its perfo rmanc e nirmal cteri stics deter mined by [facility]. It has not been clear ed or appro alonso by the Food and Drug Admin istra tion. Not Available [facility] ([facility]) [address] [facility], [place], [address], 01/26/2024 12:06:33 01/17/20 24 01/18/2024 T-KEVIN L ACTIV ATION , CD8 SUBSE TS abs.cd8+cd38 + lymphs 414 /uL 0-381 above high normal This test was devel oped and its perfo rmanc e nirmal cteri stics deter mined by [facility]. It has not been clear ed or appro alonso by the Food and Drug Admin istra tion. Not Available [facility] ([facility]) [address] [facility], [place], [address], 01/26/2024 12:06:33 01/17/20 24 01/18/2024 T-KEVIN L ACTIV ATION , CD8 SUBSE TS WBC 8.9 x10e3 /uL 3.4-10 .8 Not Available [facility] ([facility]) [address] [place], [address], 01/26/2024 12:06:33 01/17/20 24 01/18/2024 T-KEVIN L ACTIV ATION , CD8 SUBSE TS RBC 4.48 x10e6 /uL 3.77-5 .28 Not Available [facility] ([facility]) [address] [place], [address], 01/26/2024 12:06:33 01/17/20 24 01/18/2024 T-KEVIN L ACTIV ATION , CD8 SUBSE TS hemoglobin 12.5 g/dL 11.1-1 5.9 Not Available [facility] ([facility]) [address] [facility], [place], [address], 01/26/2024 12:06:33 01/17/20 24 01/18/2024 T-KEVIN L ACTIV ATION , CD8 SUBSE TS hematocrit 39.0 % 34.0-4 6.6 Not Available [facility] ([facility]) [address] [place], [address], 01/26/2024 12:06:33 01/17/20 24 01/18/2024 T-KEVIN L ACTIV ATION , CD8 SUBSE TS MCV 87 fL 79-97 Not Available [facility] ([facility]) [address] [facility], [place], [address], 01/26/2024 12:06:33 01/17/20 24 01/18/2024 T-KEVIN L ACTIV ATION , CD8 SUBSE TS MCH 27.9 pg 26.6-3 3.0 Not Available [facility] ([facility]) [address] [place], [address], 01/26/2024 12:06:33 01/17/20 24 01/18/2024 T-KEVIN L ACTIV ATION , CD8 SUBSE TS MCHC 32.1 g/dL 31.5-3 5.7 Not Available [facility] ([facility]) [address] [place], [address], 01/26/2024 12:06:33 01/17/20 24 01/18/2024 T-KEVIN L ACTIV ATION , CD8 SUBSE TS RDW 13.2 % 11.7-1 5.4 Not Available [facility] ([facility]) [address] [place], [address], 01/26/2024 12:06:33 01/17/20 24 01/18/2024 T-KEVIN L ACTIV ATION , CD8 SUBSE TS platelets 312 x10e3 /uL 150-45 0 Not Available [facility] ([facility]) [address] [facility], [place], [address], 01/26/2024 12:06:33 01/17/20 24 01/18/2024 T-KEVIN L ACTIV ATION , CD8 SUBSE TS neutrophils 41 % not estab. Not Available [facility] ([facility]) [address] [facility], [place], [address], 01/26/2024 12:06:33 01/17/20 24 01/18/2024 T-KEVIN L ACTIV ATION , CD8 SUBSE TS lymphs 50 % not estab. Not Available [facility] ([facility]) [address] [facility], [place], [address], 01/26/2024 12:06:33 01/17/20 24 01/18/2024 T-KEVIN L ACTIV ATION , CD8 SUBSE TS monocytes 7 % not estab. Not Available [facility] ([facility]) [address] [facility], [place], [address], 01/26/2024 12:06:33 01/17/20 24 01/18/2024 T-KEVIN L ACTIV ATION , CD8 SUBSE TS eos 1 % not estab. Not Available [facility] ([facility]) [address] [facility], [place], [address], 01/26/2024 12:06:33 01/17/20 24 01/18/2024 T-KEVIN L ACTIV ATION , CD8 SUBSE TS basos 1 % not estab. 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 0 Not Available [facility] ([facility]) [address] [place], [address], 01/26/2024 12:06:33 01/17/20 24 01/18/2024 T-KEVIN L ACTIV ATION , CD8 SUBSE TS lymphs (absolute) 4.4 x10e3 /uL 0.7-3. 1 above high normal Not Available [facility] ([facility]) [address] [place], [address], 01/26/2024 12:06:33 01/17/20 24 01/18/2024 T-KEVIN L ACTIV ATION , CD8 SUBSE TS monocytes(ab solute) 0.7 x10e3 /uL 0.1-0. 9 Not Available [facility] ([facility]) [address] [place], [address], 01/26/2024 12:06:33 01/17/20 24 01/18/2024 T-KEVIN L ACTIV ATION , CD8 SUBSE TS eos (absolute) 0.1 x10e3 /uL 0.0-0. 4 Not Available [facility] ([facility]) [address] [place], [address], 01/26/2024 12:06:33 01/17/20 24 01/18/2024 T-KEVIN L ACTIV ATION , CD8 SUBSE TS baso (absolute) 0.1 x10e3 /uL 0.0-0. 2 Not Available [facility] ([facility]) [address] [place], [address], 01/26/2024 12:06:33 01/17/20 24 01/18/2024 T-KEVIN L ACTIV ATION , CD8 SUBSE TS immature granulocytes 0 % not estab. Not Available [facility] ([facility]) [address] [facility], [place], [address], 01/26/2024 12:06:33 01/17/20 24 01/18/2024 T-KEVIN L ACTIV ATION , CD8 SUBSE TS immature grans (abs) 0.0 x10e3 /uL 0.0-0. 1 Not Available [facility] ([facility]) [address] [facility], [place], [address], 01/26/2024 12:06:33 01/17/20 24 01/18/2024 T-KEVIN L ACTIV ATION , CD8 SUBSE TS NRBC COSTING MANAGER Not Available [facility] ([facility]) [address] [facility], [place], [address], 01/26/2024 12:06:33 01/17/20 24 01/18/2024 T-KEVIN L ACTIV ATION , CD8 SUBSE TS hematology comments: COSTING MANAGER Not Available [facility] ([facility]) [address] [facility], [place], [address], 01/26/2024 12:06:33 01/17/20 24 01/26/2024 T-KEVIN L ACTIV ATION , CD8 SUBSE TS absolute cd 4 helper COMMEN T /uL Unabl e to calcu late resul t since non-n umeri c resul t obtai rony for compo nent test. Not Available [facility] ([facility]) [address] [facility], [place], [address], 01/26/2024 12:06:33 01/17/20 24 01/26/2024 T-KEVIN L ACTIV ATION , CD8 SUBSE TS % cd 4 pos. lymph. COMMEN T % [facility] was unabl e to colle ct suffi cient speci men to perfo rm the follo wing test( s), and is provi ding the patie nt with re-co llect ion instr uctio ns. Not Available [facility] ([facility]) [address] [facility], [place], [address], 01/26/2024 12:06:33 01/17/20 24 01/26/2024 T-KEVIN L ACTIV ATION , CD8 SUBSE TS absolute cd 8 (supp) COMMEN T /uL Unabl e to calcu late resul t since non-n umeri c resul t obtai rony for compo nent test. Not Available [facility] ([facility]) [address] [facility], [place], [address], 01/26/2024 12:06:33 01/17/20 24 01/26/2024 T-KEVIN L ACTIV ATION , CD8 SUBSE TS % cd 8 pos. lymph. COMMEN T % [facility] was unabl e to colle ct suffi cient speci men to perfo rm the follo wing test( s), and is provi ding the patie nt with re-co llect ion instr uctio ns. Not Available [facility] ([facility]) [address] [facility], [place], [address], 01/26/2024 12:06:33 01/17/20 24 01/26/2024 T-KEVIN L ACTIV ATION , CD8 SUBSE TS cd4/cd8 ratio COMMEN T Unabl e to calcu late resul t since non-n umeri c resul t obtai rony for compo nent test. Not Available [facility] ([facility]) [address] [facility], [place], [address], 01/26/2024 12:06:33 01/17/20 24 01/18/2024 ELECT ROLYT E PANEL sodium 141 mmol/ L 134-14 4 Not Available [facility] ([facility]) [address] [facility], [place], [address], 01/26/2024 12:06:33 01/17/20 24 01/18/2024 ELECT ROLYT E PANEL potassium 3.7 mmol/ L 3.5-5. 2 Not Available [facility] ([facility]) [address] [place], [address], 01/26/2024 12:06:33 01/17/20 24 01/18/2024 ELECT ROLYT E PANEL chloride 104 mmol/ L 96-106 Not Available [facility] ([facility]) [address] [place], [address], 01/26/2024 12:06:33 01/17/20 24 01/18/2024 ELECT ROLYT E PANEL carbon dioxide, total 18 mmol/ L 20-29 below low normal Not Available [facility] ([facility]) [address] [facility], [place], [address], 01/26/2024 12:06:33 01/17/20 24 01/18/2024 CHLAM YDIA/ GC AMPLI FICAT ION chlamydia trachomatis, ROBERT Negati ve negati ve Not Available [facility] ([facility]) [address] [place], [address], 01/26/2024 12:06:33 01/17/20 24 01/18/2024 CHLAM YDIA/ GC AMPLI FICAT ION neisseria gonorrhoeae, ROBERT Negati ve negati ve Not Available [facility] ([facility]) [address] [place], [address], 01/26/2024 12:06:33 01/17/20 24 01/19/2024 HIV-1 /HIV- 2 QUALI TATIV E RNA HIV-1 RNA Non Reacti ve non reacti ve Not Available [facility] ([facility]) [address] [place], [address], 01/26/2024 12:06:34 01/17/20 24 01/19/2024 HIV-1 /HIV- 2 QUALI TATIV E RNA HIV-2 RNA Non Reacti ve non reacti ve Not Available [facility] ([facility]) [address] [facility], [place], [address], 01/26/2024 12:06:34 01/17/20 24 01/18/2024 HCV ANTIB CRISTEL hep C virus Ab Non Reacti ve non reacti ve HCV antib cristel alone does not diffe renti ate betwe en previ ously resol alonso infec tion and activ e infec tion. Equiv ocal and React aria HCV antib cristel resul ts shoul d be follo wed up with an HCV RNA test to suppo rt the diagn osis of activ e HCV infec tion. Not Available [facility] ([facility]) [address] [facility], [place], [address], 01/26/2024 12:06:34 01/17/20 24 01/18/2024 CREAT ININE creatinine 0.61 mg/dL 0.57-1 .00 Not Available [facility] ([facility] Lab) [address] [place], [address], 01/26/2024 12:06:34 01/17/20 24 01/18/2024 CREAT ININE eGFR 107 mL/mi n/1.7 3 >59 Not Available [facility] ([facility]) [address] [place], [address], 01/26/2024 12:06:34 01/17/20 24 01/18/2024 AST (SGOT ) AST (SGOT) 17 IU/L 0-40 Not Available [facility] ([facility]) [address] [place], [address], 01/26/2024 12:06:35 01/17/20 24 01/18/2024 ALT (SGPT ) ALT (SGPT) 12 IU/L 0-32 Not Available [facility] ([facility]) [address] [facility], [place], [address], 01/26/2024 12:06:35 01/17/20 24 01/18/2024 RPR RPR Non Reacti ve non reacti ve Not Available [facility] ([facility]) [address] [facility], [place], [address], 01/26/2024 12:06:35 01/17/20 24 01/18/2024 HBSAG SCREE N HBsAg screen Negati ve negati ve Not Available [facility] ([facility]) [address] [facility], [place], [address], 01/26/2024 12:06:36 01/17/20 24 01/26/[address] PROBL EM request problem COMMEN T [facility] was unabl e to colle ct suffi cient speci men to perfo rm the follo wing test( s), and is provi ding the patie nt with re-co llect ion instr uctio ns. TEST: 64103 6 % CD 4 Pos. Lymph . Panel : 33548 0 92018 8 % CD 8 Pos. Lymph . Panel : 95037 0 Not Available [facility] ([facility]) [address] [facility], [place], [address], 01/26/2024 12:06:36 07/03/20 24 07/04/2024 AST (SGOT ) AST (SGOT) 20 IU/L 0-40 normal Not Available [facility] ([facility]) [address] [facility], [place], [address], 07/04/2024 12:06:13 07/03/20 24 07/04/2024 ALT (SGPT ) ALT (SGPT) 15 IU/L 0-32 normal Not Available [facility] ([facility]) [address] [place], [address], 07/04/2024 12:06:14 07/03/20 24 07/04/2024 HBSAG SCREE N HBsAg screen Negati ve negati ve Not Available [facility] ([facility]) [address] [place], [address], 07/04/2024 12:06:14 10/07/19 24 08/16/2023 XR, cervi rena spine , 4 or 5 view No observ ation record ed. [email or web address] Not Available 10/06 16:28:03 10/14/19 24 08/12/2023 XR, chest , 2 view No observ ation record ed. [email or web address] Not Available 10/13 12:57:14 Result Notes None recorded. Problems Name Problem SNOMED Code Status Onset Date Resolution Date Notes Provider Name and Address Organization Details Recorded Time Gastroeso phageal reflux disease [id number] Active 2013 Esophageal reflux; snomeddesc ription: Gastroesop hageal reflux disease; Report Immunity to Registry: Yes; Gastroeso phageal reflux disease; snomeddesc ription: Gastroesop hageal reflux disease; Report Immunity to Registry: Yes; Not Available formerly [facility] 4 06:58:51 Asthma [id number] Active 2013 Asthma; snomeddesc ription: Asthma; Report Immunity to Registry: Yes; Not Available formerly [facility] 4 06:58:51 Smoker 36548078 Active 2013 Smoker; snomeddesc ription: Smoker; Report Immunity to Registry: Yes; Not Available formerly [facility] 4 06:58:51 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; snomeddesc ription: Gastropare sis syndrome; Report Immunity to Registry: Yes; Gastropar esis; snomeddesc ription: Gastropare sis syndrome; Report Immunity to Registry: Yes; Not Available formerly [facility] 4 06:58:51 Hypertens aria disorder [id number] Active 2015 Hypertensi ve disorder; snomeddesc ription: Hypertensi ve disorder; Report Immunity to Registry: Yes; Not Available formerly [facility] 4 06:58:51 Essential hypertens ion 13422952 Active 2015 Essential (primary) hypertensi on; snomeddesc ription: Hypertensi ve disorder; Report Immunity to Registry: Yes; Not Available formerly [facility] 4 06:58:51 Human immunodef iciency virus infection 11136506 Active 2021 Human immunodefi ciency virus [HIV] disease; snomeddesc ription: Human immunodefi ciency virus infection; Report Immunity to Registry: Yes; Notes: [id number] neg; 09/2021 genosure; Human immunodefi ciency virus infection; snomeddesc ription: Human immunodefi ciency virus infection; Report Immunity to Registry: Yes; Notes: [id number] neg; 09/2021 genosure; Not Available formerly [facility] 4 06:58:51 Herpes simplex 75797322 Active 2019 Herpes simplex without mention of complicati on; snomeddesc ription: Herpes simplex; Report Immunity to Registry: Yes; Notes: HSV 1 and 2 serology pos 2007; Herpes simplex; snomeddesc ription: Herpes simplex; Report Immunity to Registry: Yes; Notes: HSV 1 and 2 serology pos 2007; Not Available formerly [facility] 4 06:58:51 Tobacco dependenc e syndrome 15975185 Active 2013 Tobacco use disorder; snomeddesc ription: Smoker; Report Immunity to Registry: Yes; Not Available formerly [facility] 4 06:58:51 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; snomeddesc ription: Vaginal intraepith elial neoplasia grade 1; Report Immunity to Registry: Yes; Mild vaginal dysplasia; snomeddesc ription: Vaginal intraepith elial neoplasia grade 1; Report Immunity to Registry: Yes; Not Available formerly [facility] 4 06:58:52 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 Procedures Surgical History None recorded. Imaging Results Imaging Date Name Status LastModified by [facility] Details LastModified Time 08/16/2023 XR, cervical spine, 4 or 5 view completed Information not available 10/07/2023 16:28:03 08/12/2023 XR, chest, 2 view completed Information not available 10/14/2023 12:57:14 Procedure Notes None recorded. Medical Equipment None Reported. Allergies No known drug allergies Medications Name Sig Start Date Stop Date Status Note LastModified by Organization Details LastModified Time losartan 50 mg tablet TAKE 1 TABLET BY MOUTH EVERY DAY active Not Available Not Available No t Available amoxicill in 500 mg capsule 500 MG Quantity : 21; Duration : 7; 0 refill(s ) 11/24 completed Duration : 7; VACCINE_ IND: no; Not Available Not Available Not Available fluconazo le 100 mg tablet TAKE 1 TABLET BY MOUTH EVERY DAY FOR 7 DAYS active Not Available Not Available No t Available hydrocort isone 0.5 % topical cream apply in affected area daily as neede 08/24 completed VACCINE_ IND: no; SU_FULL_ NAME: Roshni Strongrachna thapa; Not Available Not Available Not Available prednison e 10 mg tablet PLEASE SEE ATTACHED FOR DETAILED DIRECTIO NS active Not Available Not Available No t Available nitrofura ntoin macrocrys ken 50 mg capsule 50 MG Quantity : 30; Duration : 30; 0 refill(s ) 03/03 completed Duration : 30; VACCINE_ IND: no; Not Available Not Available Not Available albuterol sulfate 2.5 mg/3 mL (0.083 %) solution for nebulizat ion USE 1 VIAL VIA NEBULIZE R EVERY 6 HOURS NEEDED FOR SHORTNES S OF BREATH OR WHEEZING FOR 30 DAYS active Not Available Not Available No t Available Remeron 30 mg tablet 30 mg Quantity : 30; 3 refill(s ) 02/07 completed Frequenc y: qd; VACCINE_ IND: no; SU_FULL_ NAME: Roshni Strongrachna l; Not Available Not Available Not Available ammonium lactate 12 % lotion APPLY TO SOLES OF FEET DAILY. AT NIGHT WEAR SOCKS TO BED active Not Available Not Available No t Available Pneumovax -23 25 mcg/0.5 mL injection solution - Quantity : 1; 0 refill(s ) 12/21 completed Frequenc y: x1; VACCINE_ IND: no; VACCINE_ NAME: pneumzain ccal polysacc haride PPV23; SU_FULL_ NAME: Roshni thapa; Not Available Not Available Not Available azithromy blanca 250 mg tablet TAKE 2 TABLETS BY MOUTH TODAY, THEN TAKE 1 TABLET DAILY FOR 4 DAYS active Not Available Not Available No t Available ibuprofen 800 mg tablet TAKE 1 TABLET BY MOUTH EVERY 8 HOURS NEEDED FOR PAIN active Not Available Not Available No t Available Glucagon Emergency Kit 1 mg solution for injection TAKE 1 MG NEEDED BY INJECTIO N ROUTE FOR 90 DAYS. active Not Available Not Available No t Available tizanidin e 4 mg tablet TAKE 0.5 TABLETS TWICE A DAY BY ORAL ROUTE FOR 30 DAYS, FOR MUSCLE SPASMS. active Not Available Not Available No t Available fluconazo le 150 mg tablet TAKE 1 TABLET BY MOUTH NEEDED FOR ACTIVE VAGINAL INFECTIO N active Not Available Not Available No t Available benzonata te 200 mg capsule TAKE ONE CAPSULE BY MOUTH 3 TIMES A DAY NEEDED 06/04 completed Duration : 10; VACCINE_ IND: no; Not Available Not Available Not Available valacyclo vir 1 gram tablet TAKE 1 TABLET BY MOUTH EVERY DAY 12/21 completed Duration : 30; VACCINE_ IND: no; Not Available Not Available Not Available albuterol sulfate 1.25 mg/3 mL solution for nebulizat ion USE 1 VIAL VIA NEBULIZE R EVERY 4 HOURS (SHORTNE SS OF BREATH OR WHEEZING ) FOR 5 DAYS active Not Available Not Available No t Available fluocinon elaine 0.05 % topical gel 0.05% Quantity : 60; Duration : 30; 0 refill(s ) 08/12 completed Duration : 30; VACCINE_ IND: no; Not Available Not Available Not Available FreeStyle Lancets 28 gauge USE 1 LANCET 3 TIMES A DAY active Not Available Not Available No t Available ondansetr on HCl 4 mg tablet TAKE 1 TABLET BY MOUTH EVERY 8 HOURS NEEDED FOR NAUSEA 11/15 completed Duration : 5; VACCINE_ IND: no; Not Available Not Available Not Available prednison e 20 mg tablet TAKE 3 TABLETS BY MOUTH EVERY DAY X3 DAYS THEN TAKE 2 TABLETS X3 DAYS THEN TAKE 1 TABLET X3 DAYS active Not Available Not Available No t Available naproxen 250 mg tablet TAKE 1-2 TABLETS BY MOUTH TWICE A DAY FOR MODERATE PAIN SCALE 4-6 active Not Available Not Available No t Available amlodipin e 5 mg tablet TAKE 1 TABLET BY MOUTH EVERY DAY active Not Available Not Available No t Available Tamiflu 75 mg capsule TAKE ONE CAPSULE BY MOUTH TWICE A DAY FOR 5 DAYS 03/08 completed Duration : 5; VACCINE_ IND: no; Not Available Not Available Not Available sulfameth oxazole 800 mg-trimet hoprim 160 mg tablet Take 1 tablet 3 times a week by oral route. active Not Available Not Available No t Available omeprazol e 40 mg capsule,d elayed release TAKE 1 CAPSULE( S) EVERY DAY BY ORAL ROUTE FOR 30 DAYS. 10/07 completed Duration : 30; VACCINE_ IND: no; Not Available Not Available Not Available tramadol 50 mg tablet TAKE 1 TABLET EVERY 6 HOURS BY ORAL ROUTE DIRECTED FOR 4 DAYS. active Not Available Not Available No t Available triamcino lone acetonide 0.1 % topical cream APPLY THIN COAT TO AFFECTED AREA TWICE A DAY active Not Available Not Available No t Available amoxicill in 500 mg tablet TAKE 1 CAPSULE BY MOUTH THREE TIMES A DAY active Not Available Not Available No t Available oxycodone -acetamin ophen 5 mg-325 mg tablet TAKE 1 TABLET BY MOUTH EVERY 6 HOURS NEEDED FOR 7 DAYS active Not Available Not Available No t Available terbinafi ne HCl 250 mg tablet TAKE 1 TABLET BY MOUTH EVERY DAY active Not Available Not Available No t Available metoclopr amide 5 mg tablet 5 MG TABLET; Quantity : 60; Duration : 30; 0 refill(s ) 02/23 completed Duration : 30; VACCINE_ IND: no; Not Available Not Available Not Available methocarb deepali 750 mg tablet TAKE 1 TABLET BY MOUTH EVERY 6 HOURS NEEDED FOR MUSCLE SPASM active Not Available Not Available No t Available imiquimod 5 % topical cream packet PLEASE SEE ATTACHED FOR DETAILED DIRECTIO NS active Not Available Not Available No t Available Flagyl 500 mg tablet 500 mg Quantity : 14; Duration : 7; 0 refill(s ) 02/10 completed Frequenc y: bid; Duration : 7; VACCINE_ IND: no; SU_FULL_ NAME: Roshni Gill l; Not Available Not Available Not Available benzonata te 100 mg capsule TAKE 1 CAPSULE BY MOUTH THREE TIMES A DAY FOR 5 DAYS active Not Available Not Available No t Available econazole nitrate 1 % topical cream 1% Quantity : 15; Duration : 30; 0 refill(s ) 05/13 completed Duration : 30; VACCINE_ IND: no; Not Available Not Available Not Available erythromy blanca 5 mg/gram (0.5 %) eye ointment 5 MG/GRAM Quantity : 3; Duration : 10; 0 refill(s ) 08/28 completed Duration : 10; VACCINE_ IND: no; Not Available Not Available Not Available Banophen 25 mg tablet 1-2 tablets po qhs PRN active Not Available Not Available No t Available nitrofura ntoin macrocrys ken 100 mg capsule macrocry stals 100 mg Quantity : 14; Duration : 7; 0 refill(s ) 08/12 completed Duration : 7; VACCINE_ IND: no; Not Available Not Available Not Available lisinopri l 10 mg tablet TAKE 1 TABLET BY MOUTH EVERY DAY active Not Available Not Available No t Available betametha sone dipropion ate 0.05 % topical cream active Not Available Not Available Not Available docusate sodium 100 mg capsule TAKE 1 CAPSULE BY MOUTH 2 TIMES A DAY NEEDED FOR CONSTIPA TION active Not Available Not Available No t Available gabapenti n 300 mg capsule TAKE 1 CAPSULE BY MOUTH THREE TIMES A DAY active Not Available Not Available No t Available Banophen 25 mg capsule 25 mg Quantity : 60; Duration : 30; 0 refill(s ) 08/12 completed Duration : 30; VACCINE_ IND: no; Not Available Not Available Not Available monteluka st 10 mg tablet TAKE 1 TABLET BY MOUTH EVERYDAY AT BEDTIME active Not Available Not Available No t Available pravastat in 20 mg tablet SODIUM 20 MG TAB; Quantity : 90; Duration : 90; 0 refill(s ) 08/25 completed Duration : 90; VACCINE_ IND: no; Not Available Not Available Not Available Pepcid 20 mg tablet 1 tab po qd 02/07 completed VACCINE_ IND: no; SU_FULL_ NAME: Roshni thapa; Not Available Not Available Not Available polyethyl jacki glycol 3350 17 gram/dose oral powder - Quantity : 238; Duration : 30; 0 refill(s ) 10/07 completed Duration : 30; VACCINE_ IND: no; Not Available Not Available Not Available levofloxa blanca 750 mg tablet TAKE 1 TABLET BY MOUTH EVERY DAY FOR 5 DAYS active Not Available Not Available No t Available methylpre dnisolone 4 mg tablets in a dose pack TAKE 6 TABLETS ON DAY 1 DIRECTED ON PACKAGE AND DECREASE BY 1 TAB EACH DAY FOR A TOTAL OF 6 DAYS active Not Available Not Available No t Available fluticaso ne propionat e 50 mcg/actua tion nasal spray,xiao pension USE 2 SPRAYS IN EACH NOSTRIL DAILY NEEDED active Not Available Not Available No t Available metformin ER 500 mg tablet,ex tended release 24 hr HCL ER 500 MG TABLET; Quantity : 240; Duration : 60; 0 refill(s ) 11/24 completed Duration : 60; VACCINE_ IND: no; Not Available Not Available Not Available doxycycli ne hyclate 100 mg tablet TAKE 1 TABLET BY MOUTH TWICE A DAY WITH FOOD active Not Available Not Available No t Available loratadin e 10 mg tablet 10 MG TABLET; Quantity : 30; Duration : 30; 0 refill(s ) 08/25 completed Duration : 30; VACCINE_ IND: no; Not Available Not Available Not Available fluticaso ne propionat e 110 mcg/actua tion HFA aerosol inhaler INHALE 1 PUFF BY MOUTH TWICE A DAY active Not Available Not Available No t Available naproxen 500 mg tablet TAKE 1 TABLET BY MOUTH TWICE A DAY NEEDED FOR 14 DAYS active Not Available Not Available No t Available diazepam 5 mg tablet TAKE 1 TABLET BY MOUTH THREE TIMES A DAY active Not Available Not Available No t Available metoclopr amide 10 mg tablet TAKE 1 TAB DAILY FOR NAUSEA AND VOMITING NEEDED 10/16 completed Duration : 30; VACCINE_ IND: no; Not Available Not Available Not Available amoxicill in 875 mg-potass ium clavulana te 125 mg tablet TAKE 1 TABLET BY MOUTH EVERY 12 HOURS FOR 14 DAYS active Not Available Not Available No t Available Ventolin HFA 90 mcg/actua tion aerosol inhaler TAKE 2 PUFFS BY MOUTH EVERY 6 HOURS NEEDED SHORTNES S OF BREATH OR WHEEZING active Not Available Not Available No t Available oxycodone 5 mg tablet TAKE 1 TABLET BY MOUTH EVERY 6 HOURS active Not Available Not Available No t Available insulin lispro (U-100) 100 unit/mL subcutane ous pen INJECT 8 UNITS 3 TIMES A DAY BY SUBCUTAN EOUS ROUTE FOR 30 DAYS. active Not Available Not Available No t Available cyclobenz aprine 5 mg tablet PLEASE TAKE ONE TABLE DAILY NEEDED FOR 15 DAYS active Not Available Not Available No t Available Reyataz 200 mg capsule 200 mg Quantity : 60; 3 refill(s ) 02/07 completed Frequenc y: qd; VACCINE_ IND: no; SU_FULL_ NAME: Roshni Strongrachna thapa; Not Available Not Available Not Available rosuvasta tin 40 mg tablet TAKE 1 TABLET BY MOUTH EVERY DAY active Not Available Not Available No t Available nitrofura ntoin monohydra te/macroc rystals 100 mg capsule TAKE 1 CAPSULE BY MOUTH TWICE A DAY FOR 7 DAYS 02/19 completed Duration : 7; VACCINE_ IND: no; Not Available Not Available Not Available Epzicom 600 mg-300 mg tablet 600 mg-300 mg Quantity : 30; 3 refill(s ) 02/07 completed VACCINE_ IND: no; SU_FULL_ NAME: Roshni Strongrachna thapa; Not Available Not Available Not Available Flovent HFA 220 mcg/actua tion aerosol inhaler 220 MCG Quantity : 12; Duration : 30; 0 refill(s ) 03/03 completed Duration : 30; VACCINE_ IND: no; Not Available Not Available Not Available albuterol Quantity : ; 0 refill(s ) 06/09 completed VACCINE_ IND: no; Not Available Not Available Not Available Singulair Quantity : ; 0 refill(s ) 06/09 completed VACCINE_ IND: no; Not Available Not Available Not Available lisinopri l Quantity : ; 0 refill(s ) 06/09 completed VACCINE_ IND: no; Not Available Not Available Not Available pravastat in Quantity : ; 0 refill(s ) 06/09 completed VACCINE_ IND: no; Not Available Not Available Not Available metformin Quantity : ; 0 refill(s ) 11/03 completed VACCINE_ IND: no; Not Available Not Available Not Available Chantix Quantity : ; 0 refill(s ) 04/09 completed VACCINE_ IND: no; Not Available Not Available Not Available FreeStyle Lite Strips USE 1 STRIP 3 TIMES A DAY active Not Available Not Available No t Available Engerix-B (PF) 20 mcg/mL intramusc ular suspensio n 20 mcg/mL Quantity : ; 0 refill(s ) 2017 active VACCINE_ IND: yes; VACCINE_ NAME: Hep B, adult; SU_FULL_ NAME: Roshni thapa; VIS_DATE : 20:59:16 .0; Not Available Not Available Not Available Havrix (PF) 1,440 NIELS unit/mL intramusc ular suspensio n 1440 units/mL preserva tive free Quantity : 1; 0 refill(s ) 02/24 completed VACCINE_ IND: no; VACCINE_ NAME: Hep A, adult; SU_FULL_ NAME: Roshni thapa; Not Available Not Available Not Available FreeStyle [place] Lite kit USE DIRECTED . *NOT COVERED* active Not Available Not Available No t Available diclofena c 1 % topical gel APPLY 2 GRAMS TO THE AFFECTED AREA(S) BY TOPICAL ROUTE 4 TIMES PER DAY active Not Available Not Available No t Available Prevnar 13 (PF) 0.5 mL intramusc ular syringe - Quantity : ; 0 refill(s ) 12/21 completed VACCINE_ IND: yes; VACCINE_ NAME: Pneumoco ccal conjugat e PCV 13; SU_FULL_ NAME: Roshni thapa; VIS_DATE : 19:00:45 .0; Not Available Not Available Not Available Flulaval 45 mcg (15 mcg x 3)/0.5 mL intramusc ular suspensio n - Quantity : ; Duration : 30; 0 refill(s ) 04/13 completed Duration : 30; VACCINE_ IND: yes; VACCINE_ NAME: Influenz a, seasonal , injectab le; SU_FULL_ NAME: Roshni Hannah; VIS_DATE : 04:00:00 .0; Not Available Not Available Not Available Chantix Starting Month Box 0.5 mg (11)-1 mg (42) tablets in dose pack 0.5 mg-1 mg Quantity : 30; 0 refill(s ) 08/07 completed Frequenc y: qd; VACCINE_ IND: no; SU_FULL_ NAME: Roshni thapa; Not Available Not Available Not Available BD Insulin Syringe Ultra-Fin e 1 mL 31 gauge x 5/16 USE DAILY 08/23 completed Duration : 30; VACCINE_ IND: no; Not Available Not Available Not Available Invokana 300 mg tablet 300 MG TABLET; Quantity : 30; Duration : 30; 0 refill(s ) 08/28 completed Duration : 30; VACCINE_ IND: no; Not Available Not Available Not Available Invokamet [...] 0.5 ML EVERY WEEK BY SUBCUTAN EOUS 03/08 completed Duration : 30; VACCINE_ IND: no; Not Available Not Available Not Available Arnuity Ellipta 200 mcg/actua tion powder for inhalatio n furoate 200 mcg Quantity : 90; Duration : 90; 0 refill(s ) 08/12 completed Duration : 90; VACCINE_ IND: no; Not Available Not Available Not Available Incruse Ellipta 62.5 mcg/actua tion powder for inhalatio n INAHLE ONCE DAILY FOR 30 DAYS active Not Available Not Available No t Available Breo Ellipta 200 mcg-25 mcg/dose powder for inhalatio n INHALE 1 PUFF EVERY DAY *RINSE MOUTH AFTER EACH USE* active Not Available Not Available No t Available Tresiba FlexTouch U-100 insulin 100 unit/mL (3 mL) subcutane ous pen INJECT 15 UNITS EVERY DAY BY SUBCUTAN EOUS ROUTE IN THE MORNING FOR 90 DAYS, FOR DIABETES . active Not Available Not Available No t Available Fluvirin 45 mcg (15 mcg x 3)/0.5 mL intramusc ular suspensio n trivalen t Quantity : ; 0 refill(s ) 2015 active VACCINE_ IND: yes; VACCINE_ NAME: Influenz a, seasonal , injectab le; SU_FULL_ NAME: Bridget thapa, Roshni; Not Available Not Available Not Available Shingrix (PF) 50 mcg/0.5 mL intramusc ular suspensio n, kit adjuvant ed Quantity : 1; Duration : 1; 1 refill(s ) 08/26 completed Frequenc y: x1; Duration : 1; VACCINE_ IND: no; VACCINE_ NAME: zoster recombin ant; SU_FULL_ NAME: Roshni thapa; Not Available Not Available Not Available Afluria Quad 60 mcg (15 mcg x 4)/0.5 mL IM suspensio n quadriva lent Quantity : ; 0 refill(s ) 2017 active VACCINE_ IND: yes; VACCINE_ NAME: influenz a, injectab le, quadriva lent; SU_FULL_ NAME: Roshni thapa; VIS_DATE : 04:00:00 .0; Not Available Not Available Not Available BD Page 2nd Gen Pen Needle 32 gauge x 5/32 USE WITH TRESIBA FLEX PEN ONCE DAILY. E11.65 active Not Available Not Available No t Available Afluria Quad 60 mcg (15 mcg x 4)/0.5 mL intramusc ular susp. quadriva lent Quantity : ; 0 refill(s ) 2018 active VACCINE_ IND: yes; VACCINE_ NAME: influenz a, injectab le, quadriva lent; SU_FULL_ NAME: Roshni thapa; VIS_DATE : 21:16:57 .0; Not Available Not Available Not Available Afluria Quad 60 mcg (15 mcg x 4)/0.5 mL intramusc ular susp. quadriva lent Quantity : ; 0 refill(s ) 2019 active VACCINE_ IND: yes; VACCINE_ NAME: influenz a, injectab le, quadriva lent; SU_FULL_ NAME: Roshni thapa; VIS_DATE : 19:31:21 .0; Not Available Not Available Not Available Trulicity 3 mg/0.5 mL subcutane ous pen injector INJECT 0.5 ML SUBCUTAN EOUSLY EVERY WEEK FOR 84 DAYS active Not Available Not Available No t Available Athlete's Foot 2 % topical spray APPLY 1 APPLICAT ORFUL TOPICALL Y DAILY FOR 90 DAYS.*OT C N/C* active Not Available Not Available No t Available Ozempic 1 mg/dose (4 mg/3 mL) subcutane ous pen injector active Not Available Not Available Not Available Prevnar 20 (PF) 0.5 mL intramusc ular syringe - Quantity : 1; Duration : 1; 0 refill(s ) 08/26 completed Frequenc y: x1; Duration : 1; VACCINE_ IND: no; VACCINE_ NAME: Pneumoco ccal conjugat e PCV20, polysacc haride [id number] conjugat e, adjuvant , PF; SU_FULL_ NAME: Roshni thapa; Not Available Not Available Not Available Flowflex COVID-19 Antigen Home Test kit USE DIRECTED active Not Available Not Available No t Available Paxlovid 300 mg (150 mg x 2)-100 mg tablets in a dose pack TAKE 3 TABLETS BY MOUTH TWICE A DAY DIRECTED FOR 5 DAYS active Not Available Not Available No t Available FreeStyle Catrachita 3 Sensor device USE DIRECTED . active Not Available Not Available No t Available Ozempic 0.25 mg or 0.5 mg (2 mg/3 mL) subcutane ous pen injector INJECT 0.5 MG EVERY WEEK BY SUBCUTAN EOUS ROUTE FOR 28 DAYS. active Not Available Not Available No t Available Vitals Date Recorded Body height Heart rate Respiratory rate Body temperature Body mass index (BMI) Body weight Systolic blood pressure Diastolic blood pressure Provider Name and Address Organization Details Last Updated DateTime 4 157.48 cm 104 /min 14 /min 98.3 [degF] 29.1 kg/m2 77003.1 9 g 146 mm[Hg] 86 mm[Hg] Julee JONAS MD [facility] 4 12:08:08 Date Recorded Body height Heart rate Respiratory rate Body temperature Body mass index (BMI) Body weight Oxygen saturation Oxygen saturation in Arterial blood by Pulse oximetry Systolic blood pressure Diastolic blood pressure Provider Name and Address Organization Details Last Updated DateTime 4 157.48 cm 97 /min 14 /min 98.5 [degF] 29.4 kg/m2 10026.3 7 g 98 % 98 % 136 mm[Hg] 78 mm[Hg] Julee JONAS MD [facility] 4 12:04:10 Date Recorded Body height Respiratory rate Heart rate Body temperature Body mass index (BMI) Body weight Oxygen saturation Oxygen saturation in Arterial blood by Pulse oximetry Systolic blood pressure Diastolic blood pressure Provider Name and Address Organization Details Last Updated DateTime 4 157.48 cm 14 /min 100 /min 98.6 [degF] 28.5 kg/m2 51146.4 1 g 98 % 98 % 132 mm[Hg] 78 mm[Hg] Julee JONAS MD [facility] 4 14:55:28 Date Recorded Body height Heart rate Body temperature Body mass index (BMI) Body weight Oxygen saturation Oxygen saturation in Arterial blood by Pulse oximetry Systolic blood pressure Diastolic blood pressure Provider Name and Address Organization Details Last Updated DateTime 3 157.48 cm 98 /min 98.3 [degF] 28.2 kg/m2 80391.2 2 g 98 % 98 % 130 mm[Hg] 82 mm[Hg] Jennifer JONAS MD [facility] 3 14:41:14 Date Recorded Body height Body mass index (BMI) Body weight Body temperature Heart rate Respiratory rate Systolic blood pressure Diastolic blood pressure Provider Name and Address Organization Details Last Updated DateTime 3 157.48 cm 29.1 kg/m2 63061.1 9 g 98.2 [degF] 95 /min 10 /min 120 mm[Hg] 82 mm[Hg] Gieska Beltran JONAS MD [facility] 15:30:58 Social History Question Answer Notes LastModified by Organizat ion Details LastModified Time Tobacco Smoking Status Former Smoker Jennifer TERRI Duran MD [facility] 04/08/2023 15:32:14 What Type Of Diet Are You Following? REGULAR [email or web address] Information not available 04/08/2023 What Is Your Current Pack Years? 10packyears [email or web address] Information not available 04/08/2023 What Is Your Relationship Status? [email or web address] Information not available 04/08/2023 At What Age Did You Start Smoking Tobacco? 30 [email or web address] Information not available 04/08/2023 Have You Recently Traveled Abroad? No [email or web address] Information not available 04/08/2023 Do You Have Any Dietary Restrictions? No [email or web address] Information not available 04/08/2023 Sex: Female Functional Status None recorded. Mental Status None recorded. Family History Nothing Reported Notes:Diabetes, Response Pro perty: Yes; , Heart disease (CAD), Response Property: Yes; , Hypertension, Response Property: Yes; Medical History Condition Response AIDS/HIV Y High Cholesterol Y Gynecological HistoryNo gynecological history recorded. Obstetrics History GPAL:G 0 P 0 0 0 0 Immunizations Vaccine Type Date Status Note Provider Nam e and Address Organization Details Recorded Time Hep B, adult 8 completed Not Available formerly [facility] 09/21/2023 06:54:25 Influenza, split virus, quadrivalent, preservative 8 completed Not Available formerly [facility] 09/21/2023 06:54:25 Influenza, split virus, quadrivalent, preservative 0 completed Not Available formerly [facility] 09/21/2023 06:54:25 Influenza, split virus, quadrivalent, preservative 9 completed Not Available formerly [facility] 09/21/2023 06:54:25 Past Encounters Encounter ID Performer Location Encounter Start Date Encounter Closed Date Diagnosis/Indication Diagnosis SNOMED-CT Code Diagnosis ICD10 Code Diagnosis Note [id number] Roshni Jonas MD Main Office [address] [place] [id number] 04/08/2023 15:28:55 04/21/2023 06:02:12 Human immunodeficiency virus infection 14701287 B20 HIV Continue Triumeq 1 tab po qd. compliance reviewed to keep viral suppressio n, prevent viral resistance and prevent transmissi on. will keep same regimen. Continue Bactrim DS TIW for OI prophylaxi s in setting of low CD4. She is aware of new regimens. labs: HIV VL needs to be repeated; she reports she is not vomiting; off metformin. She will discuss DM management and meds with PCP.flu vaccine prescribed ;shingrix vaccine prescribed .COVID19 booster recommende d plan of care reviewed. question and concerns reviewed Candidal vulvovaginitis 24087448 B37.31 episodic. fluconazol e 150mg po x1 PRN. if recurrent, she could consider suppressio n tx with qw fluconazol e 100mg. DM control reviewed. [id number] Roshni Jonas MD Main Office [address] [place] [phone] 07/08/2023 14:05:08 07/08/2023 15:12:28 Human immunodeficiency virus infection 99056293 B20 HIV Continue Triumeq 1 tab po qd. compliance reviewed to keep viral suppressio n, prevent viral resistance and prevent transmissi on. will keep same regimen.Co ntinue Bactrim DS TIW for OI prophylaxi s in setting of low CD4.labsSh e will discuss DM management and meds with PCP.prevna r 20 recommende d.COVID19 booster recommende dplan of care reviewed. question and concerns reviewed Candidal vulvovaginitis 15969778 B37.31 episodic. fluconazol e 100 mg po x3-7 days prn for active infection. suppressio n tx with qw fluconazol e 150DM control reviewed.a void ETOH [id number] Roshni Jonas MD Main Office [address] [place] [id number] 10/06/2023 11:57:48 10/06/2023 12:44:33 Human immunodeficiency virus infection 33096033 B20 HIVContinu e Triumeq 1 tab po qd. compliance reviewed to keep viral suppressio n, prevent viral resistance and prevent transmissi on. will keep same regimen.Co ntinue Bactrim DS TIW for OI prophylaxi s in setting of low CD4.labspl an of care reviewed. question and concerns reviewed Spasm of back muscles 20 7549829 M62.830 hydrationt izanidine 4mg 1/2 tab po qidwatch for sedation.w arm compresses sf/u [place]CP [place] [id number] Roshni Jonas MD Main Office [address] [place] [address] 01/19/2024 11:49:26 01/19/2024 12:29:42 Human immunodeficiency virus infection 06233859 B20 HIVContinu e Triumeq 1 tab po qd. compliance reviewed to keep viral suppressio n, prevent viral resistance and prevent transmissi on. will keep same regimen.Co ntinue Bactrim DS TIW for OI prophylaxi s in setting of low CD4. will discontinu e if it goes above 200.labs done 12/2023; awaiting resultspla n of care reviewed. question and concerns reviewed Costal chondritis 620367 04 M94.0 costochond ritis.hydr ationtylen ol or NSAIDStiza nidine prnwatch for sedation.w arm compresses sf/u PCP for further workup and instructio ns [id number] Roshni Jonas MD Main Office [address] [place] [address] 07/04/2024 14:42:15 07/04/2024 15:35:28 Human immunodeficiency virus infection 85693733 B20 HIVContinu e Triumeq 1 tab po qd. compliance reviewed to keep viral suppressio n, prevent viral resistance and prevent transmissi on. will keep same regimen for now.abacav ir data and and cardiac data reviewed. she would be willing to switch regimen at some point. she will keep same regimen now; willing to consider clinical trials; Cabenuva reviewed as an option.jose ht need resistance test.Shalonda nue Bactrim DS TIW for OI prophylaxi s in setting of low CD4. will discontinu e if it goes above 200.awaiti ng lab resultspla n of care reviewed. question and concerns reviewedpn eumonia vaccine recommende dwill review on next appointmen tdeclines COVID19 vaccine. Dry skin dermatitis 4939 49149 L85.3 skin hydrationl ubriderm Health Concerns Section Related Observation LastModified by Organization Detai ls LastModified Time None Recorded Concern Status LastModified by Organization Details LastModified Time None Recorded Advance Directives Directive None Recorded Payers Encounter Date Sequence Insurance Name Policy Number Policy James Covered Member ID James Member ID Guarantor Name 04/08/2023 1 [facility] (HMO) [id number] Maame I Kev [id number] Maame I Kev 07/08/2023 1 [facility] (MEDICAID REPLACEMENT - HMO) [id number] Maame I Kev [id number] Maame I Kev 10/06/2023 1 [facility] (MEDICAID REPLACEMENT - HMO) [id number] Maame I Kev [id number] Maame I Ekv 01/19/2024 1 [facility] (MEDICAID REPLACEMENT - HMO) [id number] Maame I Kev [id number] Maame I Kev 07/04/2024 1 [facility] (MEDICAID REPLACEMENT - HMO) [id number] Maame I Kev [id number] Maame I Kev Notes Date Note Type Note Provider Name and Address Organization Details Recorded Time 04/08/2023 text/html F/u HIV. on Triumeq 1 tab po qdcompliant.no concerns. denies missing doses.happy w regimendetected VL due to chronic vomiting which she associates to metformin; she stopped metformin 2 months ago, and she has stopped vomiting, so will repeat HIV VL06/2022 HIV PE=981 while she was taking a MTV which she stopped.11/2022 HIV VL 89 YZ2=686tidd repeat HIV VL on Bactrim DS tiw for OI prophylaxis which has been below 200; CD4 220 (5%) med list reviewed Followed at [facility] for [facility]; removal of abnormal cells; being followed.has been struggling with DM management, and some issues with compliance with DM tx; she is thinking about changing provider. Roshni Jonas MD [address] [place] [address], [phone], TERRI - ROSHNI JONAS MD [facility] 04/08/2023 21:29:10 07/08/2023 text/html F/u HIV.on Trium eq 1 tab po qdcompliant.no concerns. denies missing doses.04/2023 HIV VL nondetceted. AST/aLt wnl. HCV neg06/2022 HIV OT=360 while she was taking a MTV which she stopped.11/2022 HIV VL 89 MO6=528na n/v/d w triumeq.on Bactrim DS tiw for OI prophylaxis which has been below 200; CD4 220 (5%)med list reviewedDM. stopped metformin by choice , and she has stopped vomiting. followed by PCP. she is certain n/v is from Metformin.she is checking her blood sugar which is about 100-130. AiC 7.1.started prednisone for asthma flare uphad shingles and flu vaccinedeclines COVID. Roshni Jonas MD [address] [place] [address], [phone], TERRI JONAS MD [facility] 07/09/2023 00:15:23 10/06/2023 text/html F/u HIV.on Trium eq 1 tab po qdcompliant.no concerns. denies missing doses.04/2023 HIV VL nondetceted. AST/aLt wnl. HCV neg06/2022 HIV JA=186 while she was taking a MTV which she stopped.11/2022 HIV VL 89 DI9=047vo n/v/d w triumeq.on Bactrim DS tiw for OI prophylaxis which has been below 200; CD4 220 (5%)med list reviewedDM. not controlled.muscle spams on pupper back on has been with back/chest pain since aug 2023; treated by PCP and ER; was referred to pain management, but was not seen. was on 3 doses of prednisone as well. has been on lidocaine patch, NSAIDS, opiates. BLANCA nl; x ray nl per report. tender on palpation chest and back. no trauma hx. no herniated discs per her report. PCP evaluation, and pt says she might be referred for cardiology or MRI. no PE hx. no SOB. no palipitations.on reglan for vomiting. Roshni Jonas MD [address] [place] [address], [phone], TERRI JONAS MD [facility] 10/06/2023 13:04:00 01/19/2024 text/html F/u HIV.on Trium eq 1 tab po qdcompliant.no concerns. denies missing doses.lab drawn 2 days ago at [facility]. pending04/2023 HIV VL nondetceted. AST/aLt wnl. HCV neg06/2022 HIV FQ=391 while she was taking a MTV which she stopped.11/2022 HIV VL 89 XD2=078mj n/v/d w triumeq.on Bactrim DS tiw for OI prophylaxis which has been below 200; CD4 220 (5%)med list reviewednausea and vomiting improved off metformin.DM. not controlled. off metformin due to side effects; she will re-start lower dose; trulicity not taken due to shortage.muscle spams on upper back on ; muscle spasm used. MRI ok per pt report. dx costochondritis.on losartan for BP. tolerating ok.has gained some weight. Roshni Jonas MD [address] [place] [address], [phone], TERRI JONAS MD [facility] 01/19/2024 12:35:02 07/04/2024 text/html F/u HIV.on Trium eq 1 tab po qdcompliant.no concerns. denies missing doses.no hx of SC nor CAD. HBP.lab drawn yesterday; labs pending.med list [id number] HBV s ag neg; AST/ALT wnl ; creatinine04/2023 HIV VL nondetceted. AST/aLt wnl. HCV neg06/2022 HIV MD=292 while she was taking a MTV which she stopped.11/2022 HIV VL 89 TV9=423su n/v/d w triumeq.on Bactrim DS tiw for OI prophylaxis which has been below 200; CD4 220 (5%)med list reviewedon ozempic for DM; followed by EndocrinologyCostocho nditis improved on tx.off steroid since November 2023had COVID19 last month: had vomiting/ diarrhea. she was tx.had flu and shingles vaccineskin itchiness. has had before when it gets cold. scratching. benadryl has helped in the past; she has been using a cream which is not working; she cannot remember the cream's name Roshni Jonas MD [address] [place] [address], [phone], TERRI JONAS MD [facility] 07/04/2024 18:28:18 OBGyn Episode No OBEpisode recorded.
--- OUTSIDE RECORDS SUMMARY | 2024-10-16 18:00 | XMS_ITS | Clinical Summary ---
Author Organization [address] [place] [address] Address [address] [place] [address] Phone Care Team Providers Care Board Certified Behavioral Analyst Name Role Phone Evens Chino MD Primary Care Provider [phone] Allergies No known active allergies Medications ammonium lactate (LAC-HYDRIN) 12 % lotion Apply to soles of feet daily. At night wear socks to bed 3 Active albuterol sulfate (ProAir RespiClick) 90 mcg/actuation aerosol powdr breath activated Inhale into the lungs. Active diphenhydrAMINE (BENADRYL) 25 mg tablet Take 1 tablet (25 mg total) by mouth every 8 (eight) hours if needed. Active fluticasone HFA (FLOVENT HFA) 110 mcg/actuation inhaler Inhale 1 Puff into the lungs 2 times daily. Active gabapentin (NEURONTIN) 300 mg capsule Take 1 capsule (300 mg total) by mouth 2 (two) times a day. Active canagliflozin-m etformin (Invokamet) 150-1,000 mg tablet Take by mouth. Activ e lisinopriL (PRINIVIL,ZESTR IL) 10 mg tablet Take 1 tablet (10 mg total) by mouth 1 (one) time each day. Active loratadine (CLARITIN) 10 mg tablet Take 1 tablet (10 mg total) by mouth 1 (one) time each day. Active montelukast (SINGULAIR) 10 mg tablet Take 1 Tablet by mouth at bedtime. Active pravastatin (PRAVACHOL) 20 mg tablet Take 1 tablet (20 mg total) by mouth 1 (one) time each day. Active insulin degludec (Tresiba FlexTouch U-100) 100 unit/mL (3 mL) injection pen Inject into the skin. Active dulaglutide (Trulicity) 1.5 mg/0.5 mL pen injector injection Inject into the skin. Active tolnaftate (Tinactin) 1 % spray Apply topically 2 (two) times a day. 130 g 5 11/02/19 Active Active Problems Problem Noted Date Diagnosed Date Allergic rhinitis 07/30/2022 Chronic constipation 07/30/2022 Depressive disorder 07/30/2022 Diabetic peripheral neuropathy 07/30/2022 Disorder of nervous system due to type 2 diabete s mellitus 07/30/2022 Essential hypertension 07/30/2022 Human immunodeficiency virus 07/30/2022 Moderate persistent asthma 07/30/2022 Over weight 07/30/2022 Peripheral nerve disease 07/30/2022 Pure hypercholesterolemia 07/30/2022 Tinea pedis 07/30/2022 Ulcer of right foot 07/30/2022 Encounters Date Type Department Care Team Description 10/02/2024 2:45 PM EST Office Visit Orthopedic Surgery - [address] [phone] Demetrius Horton DPM Controlled type 2 diabetes with neuropathy (CMS/HCC) (Primary Dx); Pain in both feet; Hammertoes of both feet; Tinea pedis of both feet; Dermatophytosis, nail from Last 3 Months Medical History Medical History Date Comments Tinea pedis 07/30/2022 DX:Tinea pedis Diabetic peripheral neuropat hy (CMS/HCC) 07/30/2022 DX:Diabetic peripheral neuro ranjana (HCC) Disorder of nervous system d ue to type 2 diabetes mellitus (CMS/HCC) 07/30/2022 DX:Disorder of nerv ous system due to type 2 diabetes mellitus (HCC) Pure hypercholesterolemia 07/30/2022 DX:Pur e hypercholesterolemia Over weight 07/30/2022 DX:Over weight Depressive disorder 07/30/2022 DX:Depressiv e disorder Peripheral nerve disease 07/30/2022 DX:Elvira pheral nerve disease Essential hypertension 07/30/2022 DX:Essent ial hypertension Allergic rhinitis 07/30/2022 DX:Allergic rh initis Moderate persistent asthma 07/30/2022 DX:Mo derate persistent asthma Chronic constipation 07/30/2022 DX:Chronic constipation Human immunodeficiency virus (CMS/HCC) 07/30/2022 DX:Human immunodeficiency vi sharee (HCC) Ulcer of right foot (CMS/HCC) 07/30/2022 DX :Ulcer of right foot (HCC) Social History Tobacco Use Types Packs/Day Years Used Date Smoking Tobacco: Never Assessed Comments Unknown Sex and Gender Information Value Date Recorded Sex Assigned at Not on file Legal Sex Female 5:41 PM EST Gender Identity Not on file Sexual Orientation Not on file Obstetrics History Last Filed Vital Signs Vital Sign Reading Time Taken Comments Blood Pressure - - Pulse - - Temperature - - Respiratory Rate - - Oxygen Saturation - - Inhaled Oxygen Concentration - - Weight 73 kg (161 lb) 05/31/2024 2:49 PM EDT Height 157.5 cm (5' 2 ) 05/31/2024 2:49 PM EDT Body Mass Index 29.45 05/31/2024 2:49 PM EDT Plan of Treatment Upcoming Encounters Date Type Department Care Team (Late st Contact Info) Description 12/04/2024 2:30 PM EDT Office Visit Orthopedic Surgery - [place] [address] [phone] Demetrius Horton, SUSY [address] [address] Health Maintenance Due Date Last Done Comments Breast Cancer Screening 1971 Diabetes: Annual GFR (Glomerular Filtration Rate) 1971 Meningococcal ACWY Vaccine (1 - Risk 2-dose series) 1973 Diabetes: Annual Foot Exam 1981 Diabetes: Annual Retina Eye Exam 1981 Hepatitis A Vaccines (1 of 2 - Risk 2-dose series) 1990 Hepatitis B Vaccines (1 of 3 - 19+ 3-dose series) 1990 05/07/2005, 12/18/2004, 11/19/2004 Cervical Cancer Screening: Pap Smear 1992 MMR Vaccines (2 of 2 - Risk 2-dose series) 08/25/1999 07/28/1999 COVID-19 Vaccine (3 - Moderna risk series) 09/22/2021 08/25/2021, 07/28/2021 Cholesterol Screening (Lipid Panel) 07/03/2022 Colorectal Cancer Screening: Colonoscopy 07/03/2022 Depression Screening 07/03/2022 Hepatitis C Screening 07/03/2022 Social Influencers of Health Screening 07/03/2022 Diabetes: Annual Urine Albumin-Creatinine Ratio (uACR) 08/31/2023 Diabetes: Blood Sugar Control Test (HGBA1C) 08/31/2023 Hypertension/CHF/CAD Annual BMP Blood Test 09/14/2023 DTaP,Tdap,and Td Vaccines (4 - Td or Tdap) 02/25/2028 02/24/2018, 03/18/2008, 12/20/1996 Zoster Vaccines Completed 08/18/2023, 05/13/2023 Influenza Vaccine Completed 03/30/2024, , 04/30/2022, Additional history exists Pneumococcal Vaccine: 50+ Years Completed 07/27/2024, 06/14/2016, 03/18/2008 Pneumococcal Vaccine: Pediatrics (0 to 5 Years) and At-Risk Patients (6 to 64 Years) Completed 07/27/2024, 06/14/2016, 03/18/2008 HIB Vaccines Aged Out No longer eligi ble based on patient's age to complete this topic HPV Vaccines Aged Out No longer eligi ble based on patient's age to complete this topic IPV Vaccines Aged Out No longer eligi ble based on patient's age to complete this topic Meningococcal B Vacine Aged Out No lo nger eligible based on patient's age to complete this topic RSV Immunization Patients Under 20 months Aged Out No longer eligible based on patient's age to complete this topic Varicella Vaccines Aged Out No longer eligible based on patient's age to complete this topic Insurance [facility] Care Teams Board Certified Behavioral Analyst Relationship Specialty Start Date End Date Evens Chino MD [address] [place] [address] PCP - General 06/30/22
--- OUTSIDE RECORDS SUMMARY | 2024-10-16 18:00 | XMS_ITS | Encounter Summary ---
Author Organization [facility] Address [id number] [place] [id number] Care Team Providers Care Belt Back Operator Name Role Phone Evens Chino MD Primary Care Provider [phone] Reason for Visit * Reason Comments DM Foot Care Encounter Details Date Type Department Care Team (Late st Contact Info) Description 10/02/2024 2:45 PM EST Office Visit Orthopedic Surgery [place] [address] [phone] Demetrius Horton DPM [address] [id number] Controlled type 2 diabetes with neuropathy (CMS/HCC) (Primary Dx); Pain in both feet; Hammertoes of both feet; Tinea pedis of both feet; Dermatophytosis, nail Social History Tobacco Use Types Packs/Day Years Used Date Smoking Tobacco: Never Assessed Comments Unknown Sex and Gender Information Value Date Recorded Sex Assigned at Not on file Legal Sex Female 5:41 PM EST Gender Identity Not on file Sexual Orientation Not on file documented as of this encounter Ordered Prescriptions Prescription Sig Dispense Quantity Refills Last Filled Start Date End Date tolnaftate (Tinactin) 1 % spray Apply topically 2 (two) times a day. 130 g 10/02/2024 documented in this encounter Progress Notes * Demetrius Horton DPM - 10/02/2024 2:45 PM ESTAddended by: DEMETRIUS HORTON on: 10/02/2024 06:40 PM Modules accepted: Orders * Demetrius Horton DPM - 10/02/2024 2:45 PM EST Referring MD: Matti Last PCP visit: 07/14/2024 IDENTIFIER: @TITLE@ Kev is a 54 y.o. year old female who presents for consultation. CC: Bilateral foot pain HPI: 53-year-old diabetic female returns office chief complaint of ulcerations bilateral feet. Patient continues to have a breakdown of skin between the toes. Patient notes her feet continually sweat and she has continued blistering and scaliness to the bottoms of the feet. Patient notes that she has been having some itchiness between the toes as well as the plantar aspect of the foot. Patient notes her nails continue be thickened misshapened discolored and causing pain with and without shoe gear. Patient's FBS this AM was 104 Recent A1C is %. 6.8 ROS: GENERAL: Pt denies nausea, fever, vomiting, chills, or shortness of breath. Pt in NAD. CARDIOLOGY: pt denies chest pain, palpitations LUNGS: pt denies shortness of breath MUSCULOSKELETAL: See HPI, otherwise no joint pain or swelling, back pain, or muscle pain. SKIN: see HPI, otherwise no lesions, rash or itching NEURO: No persistent headache, weakness or numbness The remainder of the review of systems is noncontributory PAST MEDICAL HISTORY: Patient Active Problem List Diagnosis Allergic rhinitis Chronic constipation Depressive disorder Diabetic peripheral neuropathy (CMS/HCC) Disorder of nervous system due to type 2 diabetes mellitus (CMS/HCC) Essential hypertension Human immunodeficiency virus (CMS/HCC) Moderate persistent asthma Over weight Peripheral nerve disease Pure hypercholesterolemia Tinea pedis Ulcer of right foot (CMS/HCC) SOCIAL HISTORY: Social History Tobacco Use Smoking status: Not on file Smokeless tobacco: Not on file Substance Use Topics Alcohol use: Not on file ACTIVE MEDICATIONS: No outpatient medications have been marked as taking for the 10/02/24 encounter (Office Visit) with Demetrius Horton DPM. ALLERGIES: @ALL@ PHYSICAL EXAM: There were no vitals taken for this visit. PODIATRIC EXAMINATION: GENERAL: Patient appears well nourished, with NAD. VASCULAR: Dorsalis pedis pulses are 2/4 bilaterally and Posterior tibial pulses are 2/4 bilaterally. Capillary filling time within normal limits the digits. No pallor on elevation or rubor on dependency. Positive hair growth. No varicosities. Denies rest pain or claudication pain. NEUROLOGICAL: Sharp/dull sensation diminished, protective sensation diminished on [place]. Multipleperipheral neuropathies bilaterally ORTHOPEDIC: Good muscle strength 5/5 of all flexors and extensors. Dorsi flexion of ankle ,10 degrees, plantar flexion WNL. No muscle atrophy. Continued pain at the medial eminence that is moderate in size with a slight HAV deformity. Curvature to digits 2 through 5 bilaterally with no reducibility. Palpable dorsal exostoses across the tarsometatarsal joint bilaterally DERMATOLOGICAL:.Continued hyperkeratotic lesions to the submetatarsal 2 position of bilateral foot.Normal skin temperature, normal skin turgor. New breakdown between the fourth fifth digit bilaterally with subcutaneous tissue showing 3. Nails are elongated dystrophic discolored x10 with subungual debris. Continued breakdown of skin between the fourth and fifth digit of the left foot. Increased annular scaling to the plantar aspect of the feet bilaterally with itchiness and increased breakdown of skin with blistering and pustules BIOMECHANICS: STJ ROM wnl, MTJ ROM wnl, 1st MPJ ROM wnl. IMPRESSION: 1. Controlled type 2 diabetes with neuropathy (CMS/HCC) 2. Pain in both feet 3. Hammertoes of both feet 4. Tinea pedis of both feet 5. Dermatophytosis, nail PLAN: Pt was seen and examined, history reviewed. Patient was once again educated on keeping tighter glucose control. Patient is now off of the steroids and should continue to focus on consistent and constant sugar below 120 mg/dL in order to drop her A1c and decrease chances for ulceration infection Patient instructed to continue with topical analgesics to help with symptoms associated with diabetic neuropathy. Patient also understands that keeping her sugar under control will help limit the amount of tingling numbness she experiences Patient has increased curvature of the digits with retrograde pressure of the digits bilaterally which is causing thickening of the nails. Patient educated on using hammertoe crutches daily in order to limit breakdown Patient continues to have breakdown of skin between the toes as well as annular scaling to the plantar aspect of the feet. Patient is suffering with an extreme case of tinea pedis. Patient instructedto start using drying powder between the toes Nail debridement performed to nails 1-5 bilateral as nails were described to be causing pain and difficulty for walking while in shoegear at their previous length. They were debrided in thickness andlength, with no incident. Clinical evidence of mycosis is documented which required active treatment. Patient expressed immediate relief. Patient is to RTC in 9 weeks Demetrius Horton DPM documented in this encounter Plan of Treatment Upcoming Encounters Date Type Department Care Team (Late st Contact Info) Description 12/04/2024 2:30 PM EDT Office Visit Orthopedic Surgery - [place] [id number] 175 [facility] [address] [place] [phone] Demetrius Horton DPM [address] [id number] documented as of this encounter Visit Diagnoses Diagnosis Controlled type 2 diabetes with neuropathy (CMS/HCC)- Primary Type II or unspecified type diabetes mellitus with neurological manifestations, not stated as uncontrolled Pain in both feet Hammertoes of both feet Tinea pedis of both feet Dermatophytosis, nail Dermatophytosis of nail documented in this encounter Care Teams Belt Back Operator Relationship Specialty Start Date End Date Evens Chino MD [address] [facility] [address] [place] [address] PCP - General 06/30/22 documented as of this encounter
== END 2024-10-16 15:41 | disposition home or self-care (01) ==
LOC: HO.HPS 15:04
PROVIDERS: PCP Internal Medicine; Visit Provider Hospitalist
DX: J45.40 Moderate persistent asthma, uncomplicated (principal); R05.3 Chronic cough
CPT/HCPCS: 99214

== ENCOUNTER → 2024-10-16 15:03 | Outpatient (BNVA) | payer OTHER, SELFPAY | PROVIDERS: PCP Internal Medicine; Visit Provider Hospitalist | DX: J45.40 Moderate persistent asthma, uncomplicated (principal); R05.3 Chronic cough; F17.210 Nicotine dependence, cigarettes, uncomplicated | CPT/HCPCS: 99212 ==

== ENCOUNTER 2025-06-21 09:34 | Outpatient (AMB) | payer OTHER, SELFPAY ==
[2025-06-21 09:56] VITALS: BP 130/78; PULSE 93; O2SAT 98; BMI 27.0
--- NOTE | 2025-06-21 09:56 | A.OFFVIS_ITS ---
Vital Signs 06/21/25 09:56 Height 5 ft 2 in Weight 147 lb 11.355 oz BMI 27.0 BP 130/78 Blood Pressure Location Lt brachial Position Sitting Pulse 93 Pulse Source Pulse Oximeter Pulse Oximetry (%) 98 Oxygen Delivery Method Room Air Intake Visit Reasons: Hosp F/U [facility] ok per MR Equipment Operator Required: No Accompanied by: Self / Same As Patient Allergies amlodipine Allergy (Mild, Verified 06/21/25 09:58) Swelling lisinopril Allergy (Mild, Verified 06/21/25 09:58) Cough HPI Comments Details: The patient is a 54-year-old lady with asthma and HIV on retroviral therapy, presenting with worsening cough and shortness of breath. The patient states that she was in her usual state health until several months ago she developed COVID. She actually did not have any respiratory complaints while having COVID just epistaxis. Afterwards though the patient started developing shortness breath in addition to right-sided pleuritic chest discomfort. It was very uncomfortable for her with moderate to severe pain. The patient was evaluated in the ER. She did have a CTA back in 10/19/2023 that ruled out any parenchymal or pleural-based disease. Denied any pulmonary vascular disease. No active disease noted although she did have some minimal emphysema. She has been on Flovent in addition to that she has been rescue inhaler. She is required multiple courses of prednisone and she does have diabetes she is concerned that her sugars have been very elevated. The patient also states that she has been having this dry cough. Mainly affects her at nighttime. Very uncomfortable. She has been on lisinopril now for many yearr, even prior to her cough. Although, she states every time she does take the lisinopril she describes a scratchy sensation in the back of the throat and therefore dangerous for the possibility of development of lisinopril induced angioedema which can happen any time. The patient will be switched from an ROSEY inhibitor to an ARB at this time. In addition to that the patient has been prescribed amlodipine for her blood pressure but she does not use it because of lower extremity edema. 06/21/2025 The patient is here for a sick visit. She started developing URI like symptoms. But, worsened with cough and chest tightness. Moderate in severity, Nebulizer only partially helpful. She did go to an urgent care and placed on Prednisone and a Zpack. But, she is not better and her phlegm is now grenish in color. Does have significant rhonchi and wheezing on exam. 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 Chronic cough Asthma Social History Patient Tobacco Use Status: Current everyday Tobacco user Tobacco use type: Cigarette Cigarettes Per Day: 8 Review of Systems Const Denies fever(s) Eyes Reports no additional complaints ENT Reports nasal congestion, Denies throat swelling and Denies tongue swelling Card Denies chest pain Resp Reports change in phlegm color, Reports chest congestion, Reports cough and Reports wheezing GI Reports no additional complaints Musc Reports no additional complaints Skin/Breast Denies rash Aller/Immun Denies throat swelling, Denies tongue swelling and Reports wheezing Physical Exam Vital Signs: Last Vital Signs Pulse 93 06/21/25 09:56 BP 130/78 06/21/25 09:56 Pulse Ox 98 06/21/25 09:56 Oxygen Delivery Method Room Air 06/21/25 09:56 BMI result Body Mass Index 27.0 Const General: comfortable HEENT Head: Yes normocephalic Neck Neck: Yes supple Chest Chest palpation & inspection: normal inspection of the chest Resp Effort & Inspection: normal respiratory effort Auscultation: rhonchi, wheezes and diminished lung sounds Cardio Heart sounds: S1 normal heart sound present and S2 normal heart sound present GI Palpation (GI): Soft to palpation Skin General skin exam: no rashes or lesions noted Extrem General: Yes no clubbing, cyanosis or edema Assessment & Plan Assessment & Plan (1) Asthma: Code(s): J45.909 - Unspecified asthma, uncomplicated Category: Medical Qualifiers: Asthma severity: moderate Asthma persistence: persistent Asthma complication type: with acute exacerbation Qualified Code(s): J45.41 - Moderate persistent asthma with (acute) exacerbation (2) Chronic cough: Code(s): R05.3 - Chronic cough Category: Medical (3) Bronchitis: Code(s): J40 - Bronchitis, not specified as acute or chronic Category: Medical Plan start Levaquin Prednisone taper Cough medicine continue Breo/Incruse MEEK as needed benzonates as needed F/U 12 months Medications: New dextromethorphan-guaifenesin 60-1,200 mg ER (Mucinex DM) 1 tab PO Q12H 20 tabs 0RF 10 days levofloxacin 500 mg PO DAILY 14 tabs 0RF 14 days prednisone PO daily; Take 2 daily x 7 days, then 1 tab daily x 7 days 21 tabs 0RF 14 days Refilled albuterol sulfate 2.5 mg (3 mL) inhalation Q6H PRN 180 mL 11RF shortness of breath or wheezing 30 days albuterol sulfate 90 mcg/actuation 2 inhalations inhalation Q6H PRN 18 grams 12RF shortness of breath or wheezing 30 days J44.9 - Chronic obstructive pulmonary disease, unspecified Coding Level of Care Code Est Pt Level 4 (60071) Diagnoses Moderate persistent asthma with acute exacerbation J45.41 Asthma severity: moderate Asthma persistence: persistent Asthma complication type: with acute exacerbation Chronic cough R05.3 Bronchitis J40 Time Spent (min) 16
--- OUTSIDE RECORDS SUMMARY | 2025-06-21 10:09 | XMS_ITS | Continuity of Care Document ---
Author Organization TERRI HERNANDEZ MD [facility], Main Office Address [address] [place] [address] Assessment No assessment recorded. Plan of Treatment Reminders Order Date Submit Date Provider Last Modified By Organization Details Last Modified Time Details Appointments [facility] 2024 03:00P Derick Jonas MD Not available Not available Not available [facility] 2025 03:00P Derick Jonas MD Not available Not available Not available B20 FOLLOW UP 2025 03:00P Derick Jonas MD Not available Not available Not available [facility] 2025 03:00P Derick Jonas MD Not available Not available Not available [facility] 2025 03:00P Derick Jonas MD Not available Not available Not available B20 FOLLOW UP 2025 03:00P Derick Jonas MD Not available Not available Not available [facility] 2025 03:00P Derick Jonas MD Not available Not available Not available Lab CBC w/ diff 2024 025 [email or web address] [facility] (Centralized Electronic Ordering - All Locations), Patient Can Go To The Location Of Their Choice, [id number] 05/20/2025 08:47:14 ALT (alanine aminotran sferase), serum or plasma 2024 025 [email or web address] [facility] (Centralized Electronic Ordering - All Locations), Patient Can Go To The Location Of Their Choice, [id number] 05/20/2025 08:47:14 AST/SGOT (aspartat e aminotran sferase), serum or plasma 2024 025 [email or web address] [facility] (Centralized Electronic Ordering - All Locations), Patient Can Go To The Location Of Their Choice, [facility] 05/20/2025 08:47:14 creatinin e w/ estimated GFR (eGFR), serum or plasma 2024 025 [email or web address] [facility] (Centralized Electronic Ordering - All Locations), Patient Can Go To The Location Of Their Choice, [facility] 05/20/2025 08:47:14 HIV-1 RNA, quantitat aria, PCR, serum or plasma 2024 [email or web address] [facility] (Centralized Electronic Ordering - All Locations), Patient Can Go To The Location Of Their Choice, [id number] 05/20/2025 08:47:15 RPR (rapid plasma reagin), serum 2024 025 [email or web address] [facility] (Centralized Electronic Ordering - All Locations), Patient Can Go To The Location Of Their Choice, [facility] 05/20/2025 08:47:15 cd4 T-cells, blood 2024 [email or web address] [facility] (Centralized Electronic Ordering - All Locations), Patient Can Go To The Location Of Their Choice, [facility] 05/20/2025 08:47:15 Referral None recorded. Procedures None recorded. Surgeries None recorded. Imaging None recorded. Medication Orders Bactrim DS 800 mg-160 mg tablet 2024 [facility]/Pharmacy #[id number], [address] [facility], [place], [address], 05/06/2025 15:58:48 Cabenuva 600 mg/3 mL-900 mg/3 mL IM suspensio n, extended release [facility] [address], [place], [address], 05/06/2025 16:47:49 Patient TargetsNo targets recorded. Patient InstructionsNo instructions recorded. Reason for Referral None Reported. Problems Name Problem SNOMED Code Status Onset Date Resolution Date Notes Provider Name and Address Organization Details Recorded Time Gastroeso phageal reflux disease 884925602 Active 2013 Esophageal reflux; snomeddesc ription: Gastroesop hageal reflux disease; Report Immunity to Registry: Yes; Gastroeso phageal reflux disease; snomeddesc ription: Gastroesop hageal reflux disease; Report Immunity to Registry: Yes; Not Available [facility] 4 06:58:51 Asthma 656708108 Active 2013 Asthma; snomeddesc ription: Asthma; Report Immunity to Registry: Yes; Not Available [facility] 4 06:58:51 Smoker 95137984 Active 2013 Smoker; snomeddesc ription: Smoker; Report Immunity to Registry: Yes; Not Available [facility] 4 06:58:51 Tobacco dependenc e syndrome 62892893 Active 2013 Tobacco use disorder; snomeddesc ription: Smoker; Report Immunity to Registry: Yes; Not Available [facility] 4 06:58:51 Hypertens aria disorder 69040280 Active 2015 Hypertensi ve disorder; snomeddesc ription: Hypertensi ve disorder; Report Immunity to Registry: Yes; Not Available [facility] 4 06:58:51 Essential hypertens ion 18766513 Active 2015 Essential (primary) hypertensi on; snomeddesc ription: Hypertensi ve disorder; Report Immunity to Registry: Yes; Not Available [facility] 4 06:58:51 Gastropar esis syndrome 519679084 Active 2018 Gastropare sis syndrome; snomeddesc ription: Gastropare sis syndrome; Report Immunity to Registry: Yes; Gastropar esis; snomeddesc ription: Gastropare sis syndrome; Report Immunity to Registry: Yes; Not Available [facility] 4 06:58:51 Herpes simplex 51917211 Active 2019 Herpes simplex without mention of complicati on; snomeddesc ription: Herpes simplex; Report Immunity to Registry: Yes; Notes: HSV 1 and 2 serology pos 2007; Herpes simplex; snomeddesc ription: Herpes simplex; Report Immunity to Registry: Yes; Notes: HSV 1 and 2 serology pos 2007; Not Available [facility] 4 06:58:51 Human immunodef iciency virus infection 66963588 Active 2021 Human immunodefi ciency virus [HIV] disease; snomeddesc ription: Human immunodefi ciency virus infection; Report Immunity to Registry: Yes; Notes: [id number] neg; 09/2021 genosure; Human immunodefi ciency virus infection; snomeddesc ription: Human immunodefi ciency virus infection; Report Immunity to Registry: Yes; Notes: [id number] neg; 09/2021 genosure; Not Available [facility] 4 06:58:51 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 4 12:34:31 Problem Notes None recorded. Medical Equipment None Reported. Allergies Allergen ID Allergen Name Allergen Category Reaction Reaction Severity Criticality Documentation Date Start Date Code Code System Note Provider Name and Address Organization Details Recorded Time 1443 lisinopri l medicatio n itching Not available Not available 04/10/2025 10880 RxNorm Roshni Jonas MD [address] [place], [place] [address]m[place], [address], TERRI JONAS MD [facility] 5 14:57:54 1444 amlodipin e medicatio n swelling Not available Not available 04/10/2025 90913 RxNorm Roshni Jonas MD [address] [place] [address], [place], [address] , [facility] - ROSHNI JONAS MD [facility] 14:58:45 Medications Name Sig Start Date Stop Date [...] qd; VACCINE_ IND: no; SU_FULL_ NAME: Roshni thpaa; Not Available Not Available Not Available ammonium lactate 12 % lotion APPLY TO SOLES OF FEET DAILY. AT NIGHT WEAR SOCKS TO BED active Not Available Not Available No t Available Pneumovax -23 25 mcg/0.5 mL injection solution - Quantity : 1; 0 refill(s ) 12/21 completed Frequenc y: x1; VACCINE_ IND: no; VACCINE_ NAME: pneumoco ccal polysacc haride PPV23; SU_FULL_ NAME: Roshni [...] e 20 mg tablet TAKE 3 TABLETS (60 MG TOTAL) BY MOUTH 1 (ONE) TIME EACH DAY FOR 5 DAYS. SEE INSTRUCT IONS. active Not Available Not Available No t Available naproxen 250 mg tablet TAKE 1-2 TABLETS BY MOUTH TWICE A DAY FOR MODERATE PAIN SCALE 4-6 active Not Available Not Available No t Available metronida zole 500 mg tablet TAKE 1 TABLET BY MOUTH TWICE A DAY FOR BV active Not Available Not Available No t [...] TABLET BY MOUTH THREE TIMES A WEEK active Not Available Not Available No t Available omeprazol e 40 mg capsule,d elayed release TAKE 1 CAPSULE BY MOUTH EVERY DAY active Not Available Not Available No t Available tramadol 50 mg tablet TAKE 1 [...] Not Available No t Available benzonata te 100 mg capsule TAKE [...] INTO BOTH EYES 4 TIMES A DAY active Not Available Not [...] completed VACCINE_ IND: no; SU_FULL_ NAME: Roshni Martrachna thapa; Not Available Not Available Not Available [...] mg tablet,ex tended release 24 hr TAKE 1 TABLET BY MOUTH EVERY DAY active Not Available Not Available No t Available doxycycli ne hyclate 100 mg tablet [...] BY MOUTH EVERY 8 HOURS NEEDED FOR SPASM. DO NOT TAKE AT SAME TIME OXYCODON E active Not Available Not Available No t Available metoclopr amide 10 mg tablet TAKE 1 TAB DAILY FOR NAUSEA AND VOMITING NEEDED active Not Available Not Available No t Available amoxicill in 875 mg-potass ium clavulana te 125 mg tablet TAKE 1 TABLET BY MOUTH EVERY 12 HOURS FOR 7 DAYS active Not Available Not Available No t Available Ventolin HFA 90 mcg/actua tion aerosol inhaler INHALE 2 PUFFS BY MOUTH 4 (FOUR) TIMES A DAY. active Not Available Not Available No t Available oxycodone 5 mg tablet PLEASE SEE ATTACHED FOR DETAILED DIRECTIO NS active Not Available Not Available No t Available neomycin- polymyxin -hydrocor t 3.5 mg-10,000 unit/mL-1 % ear drops,xiao p INSTILL 4 DROPS INTO THE AFFECTED EARS THREE TIMES DAILY FOR 1 WEEK. active Not Available Not Available No t [...] completed VACCINE_ IND: no; SU_FULL_ NAME: Roshni Gill elier; Not Available Not Available Not Available Flovent HFA 220 mcg/actua tion aerosol inhaler 220 MCG Quantity : 12; Duration : 30; 0 refill(s ) 03/03 completed Duration : 30; VACCINE_ IND: no; Not Available Not Available Not Available Tinactin 1 % topical spray APPLY TO AFFECTED AREA TWICE A DAY (OVER THE COUNTER NOT COVERED) active Not Available Not Available No t Available albuterol Quantity : ; 0 refill(s [...] Not Available Not Available Not Available FreeStyle Lookeba Lite kit USE DIRECTED . *NOT COVERED* [...] powder for inhalatio n INHALE 1 PUFF BY MOUTH DAILY active Not Available Not Available No t Available Tresiba FlexTouch U-100 insulin 100 unit/mL (3 mL) subcutane ous pen INJECT 20 UNITS EVERY DAY BY SUBCUTAN EOUS ROUTE IN THE MORNING FOR 90 DAYS, FOR DIABETES . active Not Available Not Available No t Available Fluvirin [id number] 45 mcg (15 mcg x 3)/0.5 mL intramusc ular suspensio n trivalen t Quantity : ; 0 refill(s ) 2015 active VACCINE_ IND: yes; VACCINE_ NAME: Influenz a, seasonal , injectab le; SU_FULL_ NAME: Roshni Hannah; Not Available Not Available Not Available Shingrix (PF) 50 mcg/0.5 mL intramusc ular suspensio n, kit adjuvant ed Quantity : 1; Duration : 1; 1 refill(s ) 08/26 completed Frequenc y: x1; Duration : 1; VACCINE_ IND: no; VACCINE_ NAME: zoster recombin ant; SU_FULL_ NAME: Roshni thapa; Not Available Not Available Not Available [facility] 60 mcg (15 mcg x 4)/0.5 mL IM suspensio n quadriva lent Quantity : ; 0 refill(s ) 2017 active VACCINE_ IND: yes; VACCINE_ NAME: influenz a, injectab le, quadriva lent; SU_FULL_ NAME: Roshni thapa; VIS_DATE : 04:00:00 .0; Not Available Not Available Not Available [facility] 60 mcg (15 mcg x 4)/0.5 mL intramusc ular susp. quadriva lent Quantity : ; 0 refill(s ) 2018 active VACCINE_ IND: yes; VACCINE_ NAME: influenz a, injectab le, quadriva lent; SU_FULL_ NAME: Roshni thapa; VIS_DATE : 21:16:57 .0; Not Available Not Available Not Available [facility] Quad 60 mcg (15 mcg x 4)/0.5 [...] Not Available Not Available No t Available Cabenuva 600 mg/3 mL-900 mg/3 mL IM suspensio n, extended release INJECT 6 ML INTRAMUS CULARLY ONCE MONTHLY FOR 2 DOSES, THEN EVERY OTHER MONTH THEREAFT ER 2024 active Not Available Not Available Not Avai lable Prevnar 20 (PF) 0.5 mL intramusc ular syringe - Quantity : 1; Duration : 1; 0 refill(s ) 08/26 completed Frequenc y: x1; Duration : 1; VACCINE_ IND: no; VACCINE_ NAME: Pneumoco ccal conjugat e PCV20, polysacc haride [id number] conjugat e, adjuvant , PF; SU_FULL_ NAME: [...] Available Not Available No t Available Ozempic 2 mg/dose (8 mg/3 mL) subcutane ous pen injector INJECT 2 MG SUBCUTAN EOUSLY ONE TIME PER WEEK active Not Available Not Available No t Available FreeStyle Catrachita 3 Sensor device USE DIRECTED . active Not Available Not Available No t Available Ozempic 0.25 mg or 0.5 mg (2 mg/3 mL) subcutane ous pen injector INJECT 0.5 MG EVERY WEEK BY SUBCUTAN EOUS ROUTE FOR 28 DAYS. active Not Available Not Available No t Available Page 2nd Gen Pen Needle 32 gauge x USE WITH TRESIBA FLEX PEN ONCE DAILY. active Not Available Not Available No t Available Vitals Date Recorded Body height Provider Name an d Address Organization Details Last Updated DateTime 05/06/2025 157.48 cm Chasity Brian JONAS MD [facility] 05/06/2025 15:10:04 Date Recorded Heart rate Body temperature Body mass index (BMI) Body weight Systolic And Diastolic Provider Name and Address Organization Details Last Updated DateTime 05/06/2025 102 /min 98.4 [degF] 27.6 kg/m2 20051.4 5 g 149/80 mm[Hg] Julee Reyescodie JONAS MD [facility] 15:16:22 Social History Question Answer Notes LastModified by Organizat ion Details LastModified Time Tobacco Smoking Status Former Smoker TERRI Rene MD [facility] 04/08/2023 15:32:14 What Type Of Diet Are You Following? REGULAR [email or web address] Information not available 04/08/2023 What Is Your Current Pack Years? 10packyears [email or web address] Information not available 04/08/2023 What Is Your Relationship Status? [email or web address] Information not available 04/08/2023 At What Age Did You Start Smoking Tobacco? 30 [email or web address] Information not available 04/08/2023 Have You Recently Traveled Abroad? No [email or web address] Information not available 04/08/2023 Do You Have Any Dietary Restrictions? No [email or web address] Information not available 04/08/2023 Sex: Female Functional Status None recorded. Mental Status None recorded. Family History Nothing Reported Notes:Diabetes, Response Pro perty: Yes; , Heart disease (CAD), Response Property: Yes; , Hypertension, Response Property: Yes; Medical History Condition Response Coronary Artery Disease N Gout N Other N Blood Diseases N Kidney Stones N Hyperthyroidism N Blood Transfusion N Breast Cancer N Depression N COPD N Lung Disease N Hypothyroidism N Developmental or Behavioral Disorders N Defects or Inherited Disease N Breast Problem N Difficulty Swallowing N Anesthesia Complications N Meniere's disease N Anxiety Disorder N Muscle, Joint, or Bone Problems N Obesity N Vision or Eye Problems N Arthritis N Polyps N Infertility N Mental Disorder N Cancer N Varicosities N Stroke N Endometriosis N Bladder or Kidney Problems N High Cholesterol Y Liver Disease N Headaches N Fibromyalgia N Kidney Disease N Allergies/Hayfever N Heart Problems N Ear or Hearing Problems N Hospitalizations N Thyroid Problems N GI Problems N ADD/ADHD N Skin Problems N Eating Disorder N Anemia N MRSA exposure N Constipation Y Mental Illness N Ovarian Cancer N Diabetes Y Bedwetting N Seizures/Epilepsy N Tuberculosis N AIDS/HIV Y Congestive Heart Failure (CHF) N Eczema Y Diverticulitis N Abuse/Domestic Violence N Asthma Y Reflux/GERD N Hepatitis N Heart Disease N Pulmonary Embolism N Chronic Ear Infections N Pre-Eclampsia N Hypertension N Chicken Pox Y Autism Spectrum Disorder (ASD) N Osteoporosis N Thrombophilias N Gynecological HistoryNo gynecological history recorded. Obstetrics History GPAL:G 0 P 0 0 0 0 Immunizations Vaccine Type Date Status Note Provider Nam e and Address Organization Details Recorded Time Hep B, adult 8 completed Not Available [facility] 09/21/2023 06:54:25 Influenza, split virus, quadrivalent, preservative 8 completed Not Available [facility] 09/21/2023 06:54:25 Influenza, split virus, quadrivalent, preservative 0 completed Not Available [facility] 09/21/2023 06:54:25 Influenza, split virus, quadrivalent, preservative 9 completed Not Available [facility] 09/21/2023 06:54:25 Past Encounters Encounter ID Performer Location Encounter Start Date Encounter Closed Date Diagnosis/Indication Diagnosis SNOMED-CT Code Diagnosis ICD10 Code Diagnosis IMO Codes Diagnosis Note [id number] Roshni Jonas MD Main Office [address] [place] [phone] 04/10/2025 14:22:17 04/10/2025 15:24:17 Human immunodeficiency virus infection 46633089 B20 HIVContinu e Triumeq 1 tab po qd. compliance reviewed- will stop today but wontSTART Cabenuva 900/600 IM QMx2, then QOM.admini stered in office: well tolerated. WIll have to follow VL in setting of partial cabotegrav ir susceptibi lity. pt is aware if archive test results and importance of compliance with on time injection within the 14 day window period.she will stop the Triumeq that day that she gets Cabenuva administer ed in office.pt reports she is able to come in within the window period.oth er options reviewed such as clinical trial options and Sunlenca- can be added later if she develops some resistance to the cabenuvapo tential side effects reviewed w pt: injection site reactions, n/v/d. avoid massaging injected area.goal of tc to keep viral suppressio n, prevent viral resistance and prevent transmissi on.History of CD4 below 200;10/2024 - latest CD4= 320. Will D/c Bactrim if repeat CD4 is above 200- will repeat lab request at this next visit.Cont inue Bactrim DS TIW for OI prophylaxi s in setting of low CD4. 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 WIll have to follow VL in setting of partial cabotegrav ir susceptibi lity. pt is aware if archive test results and importance of compliance with on time injection within the 14 day window period.pt reports she is able to come in within the window period.pot ential side effects reviewed w pt: injection site reactions, n/v/d. avoid massaging injected area.goal of tx to keep viral suppressio n, prevent viral resistance and prevent transmissi on.labs on next appointmen t History of CD4 below 200;10/2024 - latest CD4= 320. Will D/c Bactrim if repeat CD4 is above 200- will repeat lab request at this next visit.Cont inue Bactrim DS TIW for OI prophylaxi s in setting of low CD4. will discontinu e if it goes above 200.labsAl ready rec'd flu and shingles vaccine; asking for Rx for HPV and Prevnar 20Declines GC/chlamyd ia testing; uses condoms Gastroesop hageal reflux disease 835448749 K21.9 Omeprazole qd prn reviewedpt off reglan for a month; she will call if she needs a refillHear tburn improved. Human genie lloma virus infection 841462219 B97.7 Had surgery to remove condyloma in November; reports they removed 2.gardasil prescribed to try to minimize new infection, and slow progressio n; pharmacy would not provide vaccine d/t age; asked for written Rx; aware she may have to pay for itgoal of vaccinatio n reviewed; and education provided.i nsurance might cover due to age prescripti on Health Concerns Section Related Observation LastModified by Organization Detai ls LastModified Time None Recorded Concern Status LastModified by Organization Details LastModified Time None Recorded Payers Encounter Date Sequence Insurance Name Policy Number Policy James Covered Member ID James Member ID Guarantor Name 05/06/2025 1 [facility] - [facility] (MEDICAID REPLACEMENT - HMO) [id number] Maame Angulo [id number] Maame Angulo 05/06/2025 2 [place] [facility] Maame Angulo [id number] Maame Angulo Notes Date Note Type Note Provider Name and Address Organization Details Recorded Time 05/06/2025 text/html ROS as noted in the HPI F/u HIV. She will continue Cabenuva IM today. 2nd dose today.Reports she had some discomfort/pain at injection site after last dose, in particular, the rilpivirine site; she is aware that Rilpivirine causes more discomfort than cabo. Tylenol helpedStands for several hours at workWas also Dx w/renal stones ~1 week prior to Cabenuva injection; was still having back pain from renal stones. Had hematuria; x-ray showed stones. Better now.so she is not sure if pain was related to cabenuva or kidney stones, or both. Hoping this injection will not be as painful; as her back does not currently hurt. over last month- not taking the reglan to help with the gastroparesis- feels that the metformin was also contributed to the nauseahas been on reglan in the past for n/v, and has tolerated well; takes PRN rarely when needed. needs refill - does have gerd and takes omeprazole med list reviewed diabetes is well controlled, has been on Ozempic, but rec'd letter from insurance that they won't cover it any longer. Still taking insulin and metformin; will see PCP in [place] and inform them of insurance issue; may need Rx for alternative medication if PCP can't get them to cover it still. States diabetes is good. Hx asthma; using Proventil/ProAir MDI Q4-6 hrs PRN, also has BreoElipta, uses daily. Recent increase in wheezing d/t change in weather. 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 Some nasal congestion past few days; denies fever/chills or coughing up sputum. on Bactrim DS twice for OI prophylaxis which has been below 200; CD4 320 (5%) med list reviewed Has had HPV on anal/rectal area in the past and she had surgery for condylamata at rectum in November; reports they removed 2 lesions. Going back for F/U appt soon. no new labs, no issues with n/v/d- no abdomen pain Is sexually active; uses condoms 10/2024 ALT 44; AST 37; RPR nr; eGFR=97; HIV VL nondetected; QR9=078 07/2024 HBV s ag neg; AST/ALT wnl ; creatinine 12/2023 HIV nondetected; RPR NR 04/2023 HIV VL nondetceted. AST/aLt wnl. HCV neg F/u HIV. She will start Cabenuva IM today. she is willing and able to come in for injection. she will stop Triumeq today. on Triumeq 1 tab po qd -took last dose on 04/09/2025 willing to switch regimen to avoid taking tablets, convenience, vomiting hx. compliant.no concerns. denies missing doses. over last month- not taking the reglan to help with the gastroparesis- feels that the metformin was also contributed to the nausea has been on reglan in the past for n/v, and has tolerated well; takes PRN rarely when needed. needs refill - does have gerd and takes omeprazole med list reviewed diabetes is well controlled on Bactrim DS twice for OI prophylaxis which has been below 200; CD4 320 (5%) med list reviewed on ozempic for DM; followed by Endocrinology [facility] Had HPV on anal/rectal area in the past. discussed possible switch to cabenuva injections- medication approved- will discuss at visit today regarding starting injections and then every other month aware that there is a window before or after the of the month made aware that the medication needs to be taken within window- she is aware that archive resistance test indicates some mutation present for Cabotegravir, full susceptibility for Rilpivirine; no full resistance present. aware of nodule formation after injections- no rubbing the nodule but can apply ice discussed side effects no new labs, no issues with n/v/d- no abdoemn pain 10/2024 ALT 44; AST 37; RPR nr; eGFR=97; HIV VL nondetected; PM6=020 07/2024 HBV s ag neg; AST/ALT wnl ; creatinine 12/2023 HIV nondetected; RPR NR 04/2023 HIV VL nondetceted. AST/aLt wnl. HCV neg Roshni Jonas MD [address] [place] [address], [id number], [facility] - ROSHNI JONAS MD [facility] 05/06/2025 17:28:34 OBGyn Episode No OBEpisode recorded.
--- OUTSIDE RECORDS SUMMARY | 2025-06-21 10:10 | XMS_ITS | Continuity of Care Document ---
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 DUSTIN POWERS MA, JESI ON/ADDEN DUM Emmakashif Yanez PA-C [address] [facility] [address], [place], [address] , [facility] 6 16:02:23 Uncontro lled type 2 diabetes mellitus [id number] Completed 201202/19/2014 RECORDED 03/19/20 13 3:53PM BY AMISHA ROBERTS MA, JESI ON/ADDEN DUM Evens Chino MD [address] [facility] [address], [place], [address] , [facility] 8 16:19:18 Type 2 diabetes mellitus without complica tion [id number] Completed 201202/19/2014 RECORDED 03/19/20 13 3:53PM BY AMISHA ROBERTS MA, ANNOTATI ON/ADDEN DUM Emma Mahin SCHMID [address], [place], [address] , [facility] 6 16:02:22 Essentia l hyperten karyna [id number] Completed 201202/19/2014 RECORDED 03/19/20 13 3:52PM BY AMISHA ROBERTS MA, ANNOTATI ON/ADDEN DUM Amisha oscar MA [facility] 6 15:35:39 Tobacco dependen ce syndrome [id number] Completed 201202/19/2014 IMPRESSI ON: PLANS TO START CHANTIX TOMORROW 3; RECORDED 03/19/20 13 4:36PM BY EVENS CHINO MD, ANNOTATI ON/ADDEN DUM Emma Mahin SCHMID [address], [place], [address] , [facility] 6 16:02:22 Uncontro lled type 2 diabetes mellitus [id number] Completed 201203/11/2014 RECORDED 03/19/20 13 3:53PM BY AMISHA ROBERTS MA, ANNOTATI ON/ADDEN DUM Evens Chino MD [address], [place], [address] , [facility] 8 16:19:18 Type 2 diabetes mellitus without complica tion [id number] Completed 201203/11/2014 RECORDED 03/19/20 13 3:53PM BY AMISHA ROBERTS MA, ANNOTATI ON/ADDEN DUM Emma Mahin SCHMID [address], [place], [address] , [facility] 6 16:02:22 Acute sinusiti s [id number] Completed 201302/19/2014 RECORDED 11/20/19 14 3:01PM BY JESI MONTEJO ON/ADDEN DUM TERRI Avitia, [facility] 6 15:32:53 Tobacco dependen ce syndrome [id number] Completed 201308/02/2014 RECORDED 11/20/19 14 3:03PM BY JEREMY PARKER, OFFICE VISIT Emma Yanez PA-C [address] [facility] [address], [place], [address] , [facility] 6 16:02:22 Acute sinusiti s [id number] Completed 201303/11/2014 RECORDED 11/20/19 14 3:01PM BY JESI MONTEJO ON/ADDEN DUM TERRI Avitia, [facility] 6 15:32:53 Acute asthma 187890069 Completed 201302/19/2014 IMPRESSI ON: SECONDAR Y TO URI. HAS BEEN OFF HER MAINTENA NCE MEDS. SHE WILL RESTART THESE. IF DOES NOT IMPROVE SHE WILL CALL FOR PREDNISO NE RX. 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 9 16:23:56 Allergic rhinitis 01898371 Active 2013 BERNICE Chung, [facility] 5 14:09:00 Acute asthma [id number] Completed 201304/16/2019 Evens Chino MD [address] [facility] [address], [place], [address] , [facility] 9 16:23:56 Disorder of breast 43535737 Active 2013 Not Available [facility] 4 07:42:44 Screenin g for malignan t neoplasm of breast Completed 201306/14/2016 TERRI Avitia, [facility] 6 15:34:30 Depressi ve disorder [id number] Completed 201305/11/2023 Emma Yanez PA-C [address], [place], [address] , [facility] 3 15:17:55 Uncontro lled type 2 diabetes mellitus 411574417 Completed 201302/24/2018 Evens Chino MD [address] [facility] [address], [place], [address] , [facility] 8 16:19:18 Contact dermatit is [id number] Completed 201309/30/2016 TERRI Avitia, [facility] 7 10:01:03 Essentia l hyperten karyna 70235394 Active 2013 Erika Wesley LPN null, [facility] 5 14:09:00 Tobacco user [id number] Completed 201302/19/2014 RECORDED 11/24/19 14 3:39PM BY AMISHA ROBERTS MA, ANNOTATI ON/ADDEN DUM Emma Yanez PA-C [address], [place], [address] , [facility] 6 16:02:22 Acute upper respirat ory infectio n [id number] Completed 201302/19/2014 IMPRESSI ON: VIRAL; RECORDED 11/24/19 14 3:39PM BY AMISHA ROBERTS MA, ANNOTATI ON/ADDEN DUM Emma Yanez PA-C [address] [facility] [address], [place], [address] , [facility] 6 16:02:22 Acute asthma [id number] Completed 201303/11/2014 IMPRESSI ON: SECONDAR Y TO [...] ANNOTATI ON/ADDEN DUM Evens Chino MD [address] [facility] [address], [place], [address] , [facility] 9 16:23:56 Tobacco user [id number] Completed 201303/11/2014 RECORDED 11/24/19 14 3:39PM BY AMISHA ROBERTS MA, ANNOTYOGI ON/ADDEN DUM Emma Yanez PA-C [address] [facility] [address], [place], [address] , [facility] 6 16:02:22 Acute upper respirat ory infectio n [id number] Completed 201303/11/2014 IMPRESSI ON: VIRAL; RECORDED 11/24/19 14 3:39PM BY AMISHA ROBERTS MA, ANNOTATI ON/ADDEN DUM Emma Yanez PA-C [address] [facility] [address], [place], [address] , [facility] 6 16:02:22 Mongolian as a second language 320097460 Active 2016 Qatari- speaking Not Available [facility] 4 07:42:44 Diabetic peripher al neuropat hy 661273702 Active 2016 Erika Wesley LPN null, [facility] 5 14:09:00 Body mass index 25-29 - overweig ht 940197343 Active 2016 Not Available [facility] 4 07:42:44 Overweig ht 202599004 Active 2018 BERNICE Chung, [facility] 5 14:09:00 Moderate persiste nt asthma 983430815 Active 2018 BERNICE Chung, [facility] 5 14:09:00 Ulcer of right foot Completed 201905/11/2023 Emma Yanez PA-C [address] [facility] [address], [place], [address] , [facility] 3 14:29:51 Mixed hyperlip idemia 502649155 Active 2021 Emma Yanez PA-C [address] [facility] [address], [place], [address] , [facility] 5 15:31:37 Long-ter m current use of insulin 067402098 Active 2021 Not Available [facility] 4 07:42:44 Pneumoni a 406684862 Active 2022 Not Available [facility] 4 07:42:44 Abnormal anal Papanico laou smear 676124585 Active 2022 Not Available [facility] 4 07:42:44 Spasm of skeletal muscle of thorax 050940067 Active 2023 Not Available [facility] 4 07:42:44 Neck pain 93420896 Active 2023 RECORDED 02/11/20 12 3:05PM BY AMISHA ROBERTS MA, ANNOTATI ON/ADDEN DUM Not Available [facility] 4 07:42:44 Costal chondrit is 87465416 Active 2023 Emma Yanez PA-C [address] [facility] [address], [place], [address] , [facility] 4 11:01:02 Eczema 53505510 Active 2023 Emma Yanez PA-C [address] [facility] [address], [place], [address] , [facility] 4 14:36:23 Cervical radiculo ranjana 54390335 Active 2024 Julianna Saenz [facility] 5 15:43:47 Problem Notes None recorded. Procedures Surgical History Date Name Laterality Status Provider Name and Address Organization Details Recorded Time 08/29/19 25 Diabetic Foot Exam (Monofilament) completed Emma Yanez PA-C [address] [facility] [address], [place], [address], [facility] 08/29/2024 16:24:35 05/12/20 24 Most Recent Mammogram completed Shani Veliz [facility] 05/15/2024 11:08:09 10/11/19 24 diabetic retinopathy screening completed Shani Veliz [facility] 10/12/2023 08:29:28 05/07/20 23 Mammogram screening completed Angela Honeycutt [facility] 05/10/2023 09:00:40 03/02/20 22 Date of Last Colonoscopy completed Lyla Mccartney [facility] 03/04/2022 10:24:49 03/02/20 22 Colonoscopy completed Lyla Mccartney [facility] 03/04/2022 10:24:39 04/28/20 21 Diabetic Foot Exam (Monofilament) completed Emma Yanez PA-C [address] [facility] [address], [place], [address], [facility] 04/28/2021 16:39:35 02/12/20 21 Diabetic Foot Exam (Monofilament) completed Natacha Rosales [facility] 02/11/2021 16:19:55 08/28/19 20 Diabetic Foot Exam (Monofilament) completed Omaira Jasmine [facility] 08/28/2019 16:15:58 02/21/20 19 Diabetic Foot Exam (Monofilament) completed Emma HARRIS-C [address] [facility] [address], [place], [address], [facility] 02/20/2019 16:00:13 05/02/20 17 Colposcopy completed Reina Giraldo [facility] 07/19/2017 14:41:16 05/02/20 17 [facility] 14:41:33 Caesarean Section completed Dipika Uriarte [facility] 05/10/2014 15:42:08 Imaging Results None recorded. Procedure Notes None recorded. Medical Equipment None Reported. Allergies Allergen ID Allergen Name Allergen Category Reaction Reaction Severity Criticality Documentation Date Start Date Code Code System Note Provider Name and Address Organization Details Recorded Time 68797 amlodipin e medicatio n edema Not available Not available 02/01/2024 11677 RxNorm swell ing of ankle s Amisha fair [place] null, [facility] 4 11:18:46 48084 lisinopri l medicatio n anaphylax is Not available Not available 10/15/2024 74885 RxNorm Emmakashif HARRIS-C [address] [address], [place], [address], [facility] 5 14:30:07 Medications Name Sig Start Date Stop Date Status Note LastModified by Organization Details LastModified Time losartan 50 mg tablet TAKE 1 TABLET BY MOUTH EVERY DAY active Not Available Not Available No t Available carisopro dol 350 mg tablet Take by [...] PLEASE SEE ATTACHED FOR DETAILED DIRECTIO NS 05/20 completed Not Available Not Available Not Available [...] DAILY. AT NIGHT WEAR SOCKS TO BED 11/27 completed Not Available Not Available Not Available cetirizin e 10 mg tablet Take [...] DAY FOR 5 DAYS. SEE INSTRUCT IONS. 05/20 completed Not Available Not Available Not Available [...] BY MOUTH TWICE A DAY FOR BV 11/27 completed Not Available Not Available Not Available [...] TABLET BY MOUTH THREE TIMES A WEEK 05/20 completed Not Available Not Available Not Available [...] prednisol one acetate 1 % eye drops,xiao stallworthon 02/11 completed Not Available Not Available Not [...] ne-homatr opine 5 mg-1.5 mg/5 mL oral solution Take 5 mL as needed by oral [...] Not Avai lable Nasonex 50 mcg/actua tion [place] DAILY 01/28 completed Not Available Not Available [...] BY MOUTH EVERY DAY FOR 5 DAYS 05/20 completed Not Available Not Available Not Available methylpre dnisolone 4 mg tablets in a dose pack TAKE 6 TABLETS ON DAY 1 DIRECTED ON PACKAGE AND DECREASE BY 1 TAB EACH DAY FOR A TOTAL OF 6 DAYS 01/18 completed Not Available Not Available Not Available Vitamin D2 1,250 mcg (50,000 unit) capsule Take 1 capsule every week by oral route for 50 days. 2024 active Not Available Not Available Not Avai lable ondansetr on 4 mg disintegr ating tablet [...] TAKE 1 TABLET BY MOUTH EVERY DAY 05/20 completed Not Available Not Available Not Available [...] 1 PUFF BY MOUTH TWICE A DAY 2024 active Not Available Not Available Not Avai lable naproxen 500 mg tablet TAKE 1 TABLET BY MOUTH TWICE A DAY NEEDED FOR 14 DAYS 05/29 completed Not Available Not Available Not Available diazepam 5 mg tablet TAKE 1 TABLET BY MOUTH EVERY 8 HOURS NEEDED FOR SPASM. DO NOT TAKE AT SAME TIME OXYCODON E 03/21 completed Not Available Not Available Not Available metoclopr amide 10 mg tablet TAKE 1 TAB DAILY FOR NAUSEA AND VOMITING NEEDED 05/20 completed Not Available Not Available Not Available amoxicill in 875 mg-potass ium clavulana te 125 mg tablet Take 1 tablet every 12 hours by oral route for 7 days. 11/22 completed Not Available Not Available Not [...] PLEASE SEE ATTACHED FOR DETAILED DIRECTIO NS 03/21 completed Not Available Not Available Not Available neomycin- polymyxin -hydrocor t 3.5 mg-10,000 unit/mL-1 % ear drops,xiao p INSTILL 4 DROPS INTO THE AFFECTED EARS THREE TIMES DAILY FOR 1 WEEK. active Not Available Not Available No t Available albuterol (refill) 90 mcg/actua tion aerosol [...] A DAY (OVER THE COUNTER NOT COVERED) 08/21 /2025 completed Not Available Not Available Not Available Asmanex Twisthale r 220 mcg/actua tion(60 [...] 02/07/20 10 3:07PM BY OJ ALAN, ANNOTATI ON/ADDEN DUM;THIS ORDER DISCONTI NUED PER MEDI-SPA N. [...] Pulmicort Flexhaler 180 mcg/actua tion breath activated Inhale 1 inhalati on twice a day by inhalati on route as directed for 90 days. 04/28 completed Not Available Not Available Not Available FreeStyle Lite Strips USE 1 STRIP 3 TIMES A DAY active Not Available Not Available No t Available FreeStyle Lite Meter DIRECTED 04/30 completed RECORDED 05/06/20 11 1:22PM BY AMISAH ROBERTS MA, MEDICATI ON AUTO-GENESIS CTIVATIO N; Not Available Not Available Not Available FreeStyle Channelview Lite kit USE DIRECTED . *NOT COVERED* [...] TAKE 1 TABLET BY MOUTH EVERY DAY 05/20 completed Not Available Not Available Not Available Trulicity 1.5 mg/0.5 mL subcutane ous [...] (4 mg/3 mL) subcutane ous pen injector Inject 1 mg every week by subcutan eous route as directed for 28 days, for DM2. 06/05 completed Not Available Not Available Not Available Flowflex COVID-19 Antigen Home Test kit USE DIRECTED 01/18 completed Not Available Not Available Not Available Paxlovid 300 mg (150 mg x 2)-100 mg tablets in a dose pack TAKE 3 TABLETS BY MOUTH TWICE A DAY DIRECTED FOR 5 DAYS 05/29 completed Not Available Not Available Not Available Ozempic 2 mg/dose (8 mg/3 mL) subcutane ous pen injector INJECT 2 MG SUBCUTAN EOUSLY ONE TIME PER WEEK 04/23 completed PA denied Not Available Not Available Not Available Mounjaro 2.5 mg/0.5 mL subcutane ous pen injector Inject 2.5 mg every week by subcutan eous route for 30 days. 2024 active Not Available Not Available Not Liu whitney FreeStyle Catrachita 3 Sensor device USE DIRECTED . 01/31 completed kept getting snagged and coming off Not Available Not Available Not Available Ozempic 0.25 mg or 0.5 mg (2 mg/3 mL) subcutane ous pen injector active Not Available Not Available Not Available Page 2nd Gen Pen Needle 32 gauge x USE WITH TRESIBA FLEX PEN ONCE DAILY. active Not Available Not Available No t Available Vitals Date Recorded Body height Body mass index (BMI) Body weight Heart rate Oxygen saturation Body temperature Systolic And Diastolic Systolic And Diastolic Provider Name and Address Organization Details Last Updated DateTime 157.48 cm 27.1 kg/m2 83692.3 9 g 72 /min 96 % 98.2 [degF] 137/80 mm[Hg] 130/88 mm[Hg] Johanna Card [facility] 14:21:54 Social History Question Answer Notes LastModified by Organizat ion Details LastModified Time Tobacco Smoking Status Current Some Day Smoker has not been smoking the past month November 2022 TERRI Montejo, [facility] 12/31/2022 09:55:36 Do You Have An Advance Directive? Yes HCP [email or web address] Information not available 04/28/2021 Is Blood Transfusion Acceptable In An Emergency? Yes Information not available 05/22/2015 What Is Your Level Of Caffeine Consumption? Moderate 1 Serving Of Coffee Daily Information not available 02/03/2015 How Much Tobacco Do You Chew? None Information not available 05/22/2015 What Type Of Diet Are You Following? REGULAR Rice Only 1 X Week; Has Increased Water Intake Information not available 08/29/2024 Which Illicit Or Recreational Drugs Have You Used? None Information not available 05/22/2015 When Did You Quit Smoking? 1-5yearssinc elastcigaret te Information not available 06/16/2020 Live Alone Or [...] Individual Who Tested Positive For COVID-19? No [email or web address] Information not available 01/07/2021 Have You Recently Traveled To A COVID-19 High Risk Area Or Gathering In The Last 10 Days? No [email or web address] Information not available 10/02/2020 What Was The Date Of Your Most Recent Tobacco Screening? 08/29/2024 Information not available 08/29/2024 How Many Children Do You Have? 2 Maame And Jose Information not available 08/29/2024 What Is Your Current Pack Years? 20-29packyea rs Information not available 08/29/2024 Do You Use Protection During Sex? Usually [email or web address] Information not available 04/28/2021 Do You Use Your Seat Belt Or Car Seat Routinely? Yes [email or web address] Information not available 04/28/2021 Seat Belts Used Routinely Yes [email or web address] Information not available 04/28/2021 Are You Sexually Active? Yes Jose Information not available 08/29/2024 Smoke Alarm In Home Yes [email or web address] Information not available 04/28/2021 Do You Have Smoke And Carbon Monoxide Detectors In Your Home? No [email or web address] Information not available 04/28/2021 At What Age Did You Start Smoking Tobacco? 29 Information not available 06/20/2020 Are You Passively Exposed To Smoke? No Information not available 05/22/2015 How Much Tobacco Do You Smoke? 0.5 PPD Information not available 08/29/2024 Do You Use Sunscreen Routinely? No Information not available 05/22/2015 How Many Years Have You Smoked Tobacco? 15 Information not available 05/22/2015 Sex: Unknown Functional Status Question Answer Note LastModified by Organizat ion Details LastModified Time Do you use any illicit or recreational drugs? No Information not available 04/30/2022 Do you or have you ever used any other forms of tobacco or nicotine? No Information not available 01/20/2024 What is your level of alcohol consumption? None Information not available 02/03/2015 Do you or have you ever used smokeless tobacco? Never used smokeless tobacco Information not available 06/16/2020 Are you currently employed? Yes full-time Information not available 02/03/2015 Are you able to walk independently without assistance or assistive devices? [facility]ST [facility] Information not available 04/30/2022 Are you able to care for yourself independently? 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 Never used electronic cigarettes [email or web address] Information not available 04/28/2021 What is your exercise level? Moderate daily walking at home on treadmill Information not available 08/29/2024 Mental Status None recorded. Family History Relationship Description Onset Age of this Age Resolved Age Notes LastModified by Organization Details LastModified Time Sister Human immunodefici ency virus infection deceas ed Not available 04/28/2021 15:48:21 Unspecified Relation Malignant neoplasm of breast mother side angel Not available 01/07/2016 15:33:08 Brother Diabetes mellitus [email or web address] Not available 03/2016 15:33:08 Brother Hypertensive disorder [email or web address] Not available 03/2016 15:33:08 Brother Primary malignant neoplasm of prostate 59 Not available 2020 15:48:21 Unspecified Relation Malignant neoplasm of prostate dad side Not available 04/28/2021 15:48:21 Mother Hypertensive disorder [email or web address] Not available 03/2016 15:33:08 Medical History Condition Response Coronary Artery Disease N Other N Gout N Kidney Stones N Blood Diseases N Hyperthyroidism N Breast Cancer N mrsa exposure N Hypothyroidism N Lung Disease N COPD N Depression N Developmental or Behavioral Disorders N Defects [...] virus, trivalent, preservative 6 completed Shani riggs [facility] 08/22/2023 09:54:33 Influenza, split virus, quadrivalent, preservative 0 completed Shani riggs [facility] 08/22/2023 09:54:32 COVID-19, mRNA, LNP-S, PF, 100 mcg/0.5mL dose or 50 mcg/0.25mL dose 1 completed Shani Veliz null, [facility] 08/22/2023 09:54:33 COVID-19, mRNA, LNP-S, PF, 100 mcg/0.5mL dose or 50 mcg/0.25mL dose 2 completed Shani Veliz null, [facility] 08/22/2023 09:54:33 Influenza, split virus, trivalent, PF 5 completed Shani Veliz null, [facility] 08/22/2023 09:54:33 Influenza, split virus, quadrivalent, PF 7 completed Shani Veliz null, [facility] 08/22/2023 09:54:33 Pneumococcal conjugate PCV 13 6 completed Shani Veliz null, [facility] 08/22/2023 09:54:33 Influenza, split virus, quadrivalent, PF 2 completed Shani Veliz null, [facility] 08/22/2023 09:54:33 Tdap 8 completed Shani Veliz null, [facility] 08/22/2023 09:54:33 Influenza, split virus, quadrivalent, PF 5 completed Shani Veliz null, [facility] 08/22/2023 09:54:33 Influenza, split virus, quadrivalent, PF 1 completed Shani Veliz null, [facility] 08/22/2023 09:54:33 zoster recombinant 3 completed Shani Veliz null, [facility] 08/22/2023 09:54:32 Influenza, split virus, quadrivalent, PF 3 completed Shani Veliz null, [facility] 08/22/2023 09:54:33 zoster recombinant 4 completed Marlen King MA null, [facility] 09/29/2023 09:57:05 Influenza, MDCK, trivalent, PF 4 completed Erika Wesley LPN null, [facility] 04/18/2024 14:28:24 Pneumococcal conjugate PCV20, polysaccharide [id number] conjugate, adjuvant, PF 4 completed Amisha Mathew MA null, [facility] 08/29/2024 14:54:59 zoster recombinant 3 completed Not Available [facility] 06/05/2025 14:16:24 Influenza, recombinant, trivalent, PF 5 completed Not Available [facility] 06/05/2025 14:16:24 Td (adult), 2 Lf tetanus toxoid, preservative free, adsorbed 7 completed Shani riggs, [facility] 08/22/2023 09:54:33 MMR 9 completed Shani Veliz null, [facility] 08/22/2023 09:54:32 Influenza, split virus, trivalent, preservative 2 completed Shani riggs, [facility] 08/22/2023 09:54:33 Influenza, split virus, trivalent, preservative 3 completed Shani riggs, [facility] 08/22/2023 09:54:33 Influenza, split virus, trivalent, preservative 4 completed Shani riggs, [facility] 08/22/2023 09:54:33 Hep B, adolescent or pediatric 5 completed Shani riggs, [facility] 08/22/2023 09:54:33 Hep B, adolescent or pediatric 5 completed Shani riggs, [facility] 08/22/2023 09:54:33 Hep B, adolescent or pediatric 5 completed Shani riggs, [facility] 08/22/2023 09:54:33 pneumococcal polysaccharide PPV23 8 completed Shani riggs [facility] 08/22/2023 09:54:33 Tdap 8 completed Shani riggs [facility] 08/22/2023 09:54:33 Influenza, split virus, trivalent, preservative 2 completed Shani riggs [facility] 08/22/2023 09:54:33 Past Encounters Encounter ID Performer Location Encounter Start Date Encounter Closed Date Diagnosis/Indication Diagnosis SNOMED-CT Code Diagnosis ICD10 Code Diagnosis IMO Codes Diagnosis Note [id number] Kj Man MD Main Office [address] [phone] 05/10/2025 14:44:01 05/10/2025 15:33:59 Pneumonia 889558632 J18.9 [id number] add antibiotic to cover for bacterial pneumonia. continue prednisone 60 mg for 2 more days, then 50 for 2, 40 for 2, 30 for 2, 20 for 2, 1 fro 2. Nebulizer every 4 hrs at home. Discontinu e use of intranasal saline and flonase due to epistaxis. F/u with pulmonary. Exacerbati on of moderate persistent asthma 449395528 J45.41 [id number] see above. [id number] Kj Man MD Main Office [address] [phone] 05/20/2025 15:04:28 05/20/2025 16:35:21 Otitis externa [id number] H60.8X1 [id number] will rx c topical abx drops Respirator y tract congestion 299117680 R09.81 [id number] cont ns spray, rec steam, warm compress neck prn [id number] jK Man MD Main Office [address] [address] 06/05/2025 14:14:45 06/05/2025 14:55:05 Disorder of nervous system due to type 2 diabetes mellitus [id number] E11.40 A1c is improved at 7.1%. Armand is not on pt's formulary. WE will try to get mounjaro covered starting g at 2.5 mg weekly dose and continue insulins and Invokamet for now. Labs reviewed and discussed with pt. Eye exam is neg for retinopath y. 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 F/u 3 m. WE will continue advancing dose of mounjaro if it's covered every 4 weeks. Diabetic p eripheral neuropathy [id number] E11.40 Stable mild neuropathy on Gabapentin , she is following podiatry. Long-term current use of insulin 444897410 Z79.4 Continue Insulin. Health Concerns Section Related Observation LastModified by Organization Detai ls LastModified Time None Recorded Concern Status LastModified by Organization Details LastModified Time None Recorded Payers Encounter Date Sequence Insurance Name Policy Number Policy James Covered Member ID James Member ID Guarantor Name 06/05/2025 2 [place]: [facility] Maame Angulo [id number] Maame Angulo 06/05/2025 1 [facility] [employer] (MEDICAID HMO) [id number] Maame Angulo [id number] Maame Angulo Notes Date Note Type Note Provider Name and Address Organization Details Recorded Time 06/05/2025 text/html Hypertension F/UReported by PatientHPIFor associated symptoms, patient reportsno dizziness,no lightheadedness,no chest pain,no shortness of breath,no palpitations,no edema, andno calf pain with exertion. For lifestyle, patient reportslimiting/isidro iding salt. For medications, patient reportstaking medications as directedandno side effects from medication.stable blood pressure on today's visit after restarting losartan 50 mg. Diabetes F/UReported by PatientHPIFor context, patient reportsnot taking aspirin dailybut reportsseeing eye doctor regularly,checking feet regularly,not missing doses of medications, andno side effects from medications. For review finger sticks, patient reportsfastin-120,pre lunch: 100-130s, andpre dinner: 100-140. For associated symptoms, patient reportsno weight gain,no weight loss,no dizziness,no sweats,no headaches,no increased thirst,no increased urination, andno blurred vision.HgA1c is 7.1%.Meds: Ozempic was not covered by [employer] plan. Pt is on higher dose of insulin Tresiba 20 u, lispro 10 u before each meal TID, Invokamet 150-1000 mg BID. Gabapentin 300 mg TID for the neuropathy. Glucose log showed glucose under 150 range. 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 06/05/2025 14:59:07 OBGyn Episode No OBEpisode recorded.
--- OUTSIDE RECORDS SUMMARY | 2025-06-21 10:10 | XMS_ITS | Clinical Summary ---
Author Organization [address] [facility] Address [address] [place] [address] Phone Care Team Providers Care Production Support Supervisor Name Role Phone Emma Stockton Primary Care Provider [phone] Allergies Active Allergy Reactions Criticality Noted Date Comments Amlodipine Hives,Shortness of breath High 05/07/2025 Lisinopril Hives,Shortness of breath High 05/07/2025 Medications ammonium lactate (LAC-HYDRIN) 12 % lotion Apply to soles of feet daily. At night wear socks to bed 09/14/2022 Active albuterol sulfate (ProAir RespiClick) 90 mcg/actuation [...] (Invokamet) 150-1,000 mg tablet Take by mouth. Active lisinopriL (PRINIVIL,ZESTR IL) 10 mg tablet Take [...] injector injection Inject into the skin. Active albuterol HFA (PROAIR HFA ; PROVENTIL HFA ; VENTOLIN HFA) 90 mcg/actuation inhaler Inhale 2 puffs by mouth 4 (four) times a day. 1 each 05/07/2025 Active Active Problems Problem Noted Date Diagnosed Date Allergic rhinitis 07/30/2022 Chronic constipation 07/30/2022 Depressive disorder 07/30/2022 Diabetic peripheral neuropathy [place] [place], [facility] V28) 07/30/2022 Disorder of nervous system d ue to type 2 diabetes mellitus ([facility], [facility]) 07/30/2022 Essential hypertension 07/30/2022 Human immunodeficiency virus ([facility] V24, [facility] V28) 07/30/2022 Moderate persistent asthma 07/30/2022 Over weight 07/30/2022 Peripheral nerve disease 07/30/2022 Pure hypercholesterolemia 07/30/2022 Tinea pedis 07/30/2022 Ulcer of right foot ([facility] V24, [facility] V28) 1 Encounters Date Type Department Care Team Description 06/12/2025 3:00 PM EST Office Visit Orthopedic Surgery - [place] [address] [phone] Demetrius Horton DPM Controlled type 2 diabetes with neuropathy ([facility] V24, [facility] V28) (Primary Dx); Hammertoes of both feet; Pain in both feet; Eccrine poroma of foot, right; Dermatophytosis, nail 05/07/2025 8:27 PM EDT - 05/07/2025 10:18 PM EDT Emergency [facility] Emergency [address] [place] [phone] Acute bronchitis due to Rhinovirus (Primary Dx) Discharge Disposition: Home or Self Care 04/09/2025 3:00 PM EDT Office Visit Orthopedic Surgery - [place] [address] [place] [phone] Demetrius Horton DPM Controlled type 2 diabetes with neuropathy ([facility]24, [facility] V28) (Primary Dx); Hammertoes of both feet; Pain in both feet; Eccrine poroma of foot, right; Dermatophytosis, nail from Last 3 Months Medical History Medical History Date Comments Tinea pedis 07/30/2022 DX:Tinea pedis Diabetic peripheral neuropat hy ([facility] [place]24, [facility] V28) 07/30/2022 DX:Diabetic peripheral neur opathy (HCC) Disorder of nervous system d ue to type 2 diabetes mellitus ([facility]24, [facility] V28) 07/30/2022 DX:Disorder of nervous syste m due to type 2 diabetes mellitus ([facility]) Pure hypercholesterolemia 07/30/2022 DX:Pur e hypercholesterolemia Over weight 07/30/2022 DX:Over weight Depressive disorder 07/30/2022 DX:Depressiv e disorder Peripheral nerve disease 07/30/2022 DX:Elvira pheral nerve disease Essential hypertension 07/30/2022 DX:Essent ial hypertension Allergic rhinitis 07/30/2022 DX:Allergic rh initis Moderate persistent asthma 07/30/2022 DX:Mo derate persistent asthma Chronic constipation 07/30/2022 DX:Chronic constipation Human immunodeficiency virus ([facility] V24, [facility] V28) 07/30/2022 DX:Human immunodeficiency vi sharee ([facility]) Ulcer of right foot ([facility], [facility] V28) 07/30/2022 DX:Ulcer of right foot ([facility]) Social History Tobacco Use Types Packs/Day Years Used Date Smoking Tobacco: Never Assessed Comments No Sex and Gender Information Value Date Recorded Sex Assigned at Not on file Legal Sex Female 5:41 PM EST Gender Identity Not on file Sexual Orientation Not on file Obstetrics History Last Filed Vital Signs Vital Sign Reading Time Taken Comments Blood Pressure 145/95 05/07/2025 8:20 PM EDT Pulse 110 05/07/2025 8:20 PM EDT Temperature 37.6 C (99.7 F) 05/07/2025 8:20 PM EDT Respiratory Rate 20 05/07/2025 8:20 PM EDT Oxygen Saturation 96% 05/07/2025 8:20 PM EDT Inhaled Oxygen Concentration - - Weight 67.6 kg (149 lb) 05/07/2025 8:20 PM EDT Height 144.8 cm (4' 9 ) 05/07/2025 8:20 PM EDT Body Mass Index 32.24 05/07/2025 8:20 PM EDT Plan of Treatment Upcoming Encounters Date Type Department Care Team (Late st Contact Info) Description 08/14/2025 2:45 PM EST Office Visit Orthopedic Surgery - [place] [address] [phone] Demetrius Horton, SUSY [address] [address] Health Maintenance Due Date Last Done Comments Colorectal Cancer Screening: Colonoscopy 1971 Diabetes: Annual GFR (Glomerular Filtration Rate) 1971 Meningococcal ACWY Vaccine (1 - Risk 2-dose series) 1973 Diabetes: Annual Foot Exam 1981 Diabetes: Annual Retina Eye Exam 1981 Hepatitis A Vaccines (1 of 2 - Risk 2-dose series) 1990 Cervical Cancer Screening: Pap Smear 1992 MMR Vaccines (2 of 2 - Risk 2-dose series) 08/25/1999 07/28/1999 Hepatitis B Vaccines (2 of 3 - 19+ 3-dose series) 01/17/2018 12/20/2017, 05/07/2005, 12/18/2004, Additional history exists RSV Immunization Adult Patients (1 - Risk 50-74 years 1-dose series) 2021 COVID-19 Vaccine (3 - Moderna risk series) 09/22/2021 08/25/2021, 07/28/2021 Cholesterol Screening (Lipid Panel) 07/03/2022 Hepatitis C Screening 07/03/2022 Social Influencers of Health Screening 07/03/2022 Diabetes: Annual Urine Albumin-Creatinine Ratio (uACR) 08/31/2023 Diabetes: Blood Sugar Control Test (HGBA1C) 08/31/2023 Hypertension/CHF/CAD Annual BMP Blood Test 09/14/2023 Depression Screening 08/01/2024 Breast Cancer Screening 05/07/2025 05/07/2023 DTaP,Tdap,and Td Vaccines (4 - Td or Tdap) 02/25/2028 02/24/2018, 03/18/2008, 12/20/1996 Zoster Vaccines Completed 08/18/2023, 05/13/2023 Pneumococcal Vaccine: 50+ Years Completed 07/27/2024, 06/14/2016, 03/18/2008 Influenza Vaccine Completed 03/31/2025, , 05/06/2023, Additional history exists HIB Vaccines Aged Out No longer eligi ble based on patient's age to complete this topic HPV Vaccines Aged Out No longer eligi ble based on patient's age to complete this topic IPV Vaccines Aged Out No longer eligi ble based on patient's age to complete this topic Meningococcal B Vaccine Aged Out No l onger eligible based on patient's age to complete this topic RSV Immunization Patients Under 20 months Aged Out No longer eligible based on patient's age to complete this topic Varicella Vaccines Aged Out No longer eligible based on patient's age to complete this topic Procedures Procedure Name Priority Date/Time Associated Diagnosis Comments XR CHEST 2 VIEWS STAT 05/07/2025 9:49 PM EDT RESPIRATORY VIRUS PANEL MOLECULAR STUDY STAT 05/07/2025 8:48 PM EDT from Last 3 Months Results * XR Chest 2 Views (05/07/2025 9:49 PM EDT) Anatomical Region Laterality Modality Body Radiographic Keshia ging 05/08/2025 9:08 AM EDT Impressions 05/08/2025 9:08 AM EDT No acute findings. -------- FINAL REPORT -------- Dictated By: Kenneth Claros Dictated Date: 05/08/2025 09:08 ET Assigned Physician: Kenneth Claros Reviewed and Electronically Signed By: Kenneth Claros Signed Date: 05/08/2025 09:08 ET Workstation ID: [id number] Transcribed By: Self Edit Transcribed Date: 05/08/2025 09:08 ET Narrative 05/08/2025 9:08 AM EDT PROCEDURE: PA and lateral radiographs of the chest. HISTORY: acute pain. COMPARISON: 08/12/2023. FINDINGS: Mild S-shaped lower thoracic and lumbar scoliosis. Lungs, pleural spaces, pulmonary vasculature, and cardiomediastinal contours are normal. Procedure Note Kenneth Claros MD - 05/08/2025 PROCEDURE: PA and lateral radiographs of the chest. HISTORY: acute pain. COMPARISON: 08/12/2023. FINDINGS: Mild S-shaped lower thoracic and lumbar scoliosis. Lungs, pleural spaces,pulmonary vasculature, and cardiomediastinal contours are normal. IMPRESSION: No acute findings. -------- FINAL REPORT -------- Dictated By: Kenneth Claros Dictated Date: 05/08/2025 09:08 ET Assigned Physician: Kenneth Claros Reviewed and Electronically Signed By: Kenneth Claros Signed Date: 05/08/2025 09:08 ET Workstation ID: [id number] Transcribed By: Self Edit Transcribed Date: 05/08/2025 09:08 ET Nayla HARRIS IMG XR PROCEDURES Final Result * (ABNORMAL) Respiratory virus panel molecular study (05/07/2025 8:48 PM EDT) Adenovirus Detection by PCR Not Detected Not Detected LAB MICROBIOLOGY METHOD 05/07/2025 9:55 PM EDT [facility] Influenza A PCR Not Detected Not Detected LAB MICROBIOLOGY METHOD 05/07/2025 9:55 PM EDT [facility] Influenza B PCR Not Detected Not Detected LAB MICROBIOLOGY METHOD 05/07/2025 9:55 PM EDT [facility] Coronavirus 229E Not Detected Not Detected LAB MICROBIOLOGY METHOD 05/07/2025 9:55 PM EDT [facility] Coronavirus HKU1 Not Detected Not Detected LAB MICROBIOLOGY METHOD 05/07/2025 9:55 PM EDT [facility] Coronavirus OC43 Not Detected Not Detected LAB MICROBIOLOGY METHOD 05/07/2025 9:55 PM EDT [facility] Coronavirus NL63 Not Detected Not Detected LAB MICROBIOLOGY METHOD 05/07/2025 9:55 PM EDT [facility] Parainfluenza Virus 1 Not Detected Not Detected LAB MICROBIOLOGY METHOD 05/07/2025 9:55 PM EDT [facility] Parainfluenza Virus 2 Not Detected Not Detected LAB MICROBIOLOGY METHOD 05/07/2025 9:55 PM EDT [facility] Parainfluenza Virus 3 Not Detected Not Detected LAB MICROBIOLOGY METHOD 05/07/2025 9:55 PM EDT [facility] Parainfluenza Virus 4 Not Detected Not Detected LAB MICROBIOLOGY METHOD 05/07/2025 9:55 PM EDT [facility] RSV PCR Not Detected Not Detected LAB MICROBIOLOGY METHOD 05/07/2025 9:55 PM EDT [facility] Human Metapneumovirus A and B Not Detected Not Detected LAB MICROBIOLOGY METHOD 05/07/2025 9:55 PM EDT [facility] Rhinovirus/Entero virus Detected(A ) Not Detected LAB MICROBIOLOGY METHOD 05/07/2025 9:55 PM EDT [facility] Bordetella pertussis Not Detected Not Detected LAB MICROBIOLOGY METHOD 05/07/2025 9:55 PM EDT [facility] Bordetella parapertussis Not Detected Not Detected LAB MICROBIOLOGY METHOD 05/07/2025 9:55 PM EDT [facility] Mycoplasma pneumo by PCR Not Detected Not Detected LAB MICROBIOLOGY METHOD 05/07/2025 9:55 PM EDT [facility] Chlamydia pneumoniae Not Detected Not Detected LAB MICROBIOLOGY METHOD 05/07/2025 9:55 PM EDT [facility] SARS COV-2 Not Detected Not Detected LAB MICROBIOLOGY METHOD 05/07/2025 9:55 PM EDT [facility] Swab Both anterior nares / Unknown Non-blood Collection / Unknown 05/07/2025 8:48 PM EDT 05/07/2025 8:56 PM EDT Narrative [facility] - 05/07/2025 9:55 PM EDT Testing was performed using the [employer] Respiratory Pathogen PCR Assay. All results must be correlated with the clinical findings. Results should not be used as the sole basis for diagnosis. False Negative results may occur from the presence of sequence variants in the region targeted by the assay or the presence of inhibitors. Results may be affected by concurrent antiviral/antimicrobial therapy or levels of organisms that are below the limit of detection. Nayla HARRIS LAB MICROBIOLOGY - [facility] AL ORDERABLES Final Result [facility] [address] [place] [address], from Last 3 Months Insurance [facility] [employer] [facility] Care Teams Production Support Supervisor Relationship Specialty Start Date End Date Emma Stock[place] [address] [phone] PCP - General Physician Deburr Technician 05/07/25
--- OUTSIDE RECORDS SUMMARY | 2025-06-21 10:10 | XMS_ITS | Continuity of Care Document ---
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 Available [facility] 4 07:42:44 Costal chondrit is 61096067 Active 2023 Emma Paulsonden PA-C [address], [place], [address] , [facility] 4 11:01:02 Eczema 97369623 Active 2023 Emma Yanez PA-C [address], [place], [address] , [facility] 4 14:36:23 Cervical radiculo ranjana 85976724 Active 2024 Julianna Saenz [facility], [facility] 5 15:43:47 Problem Notes None recorded. Procedures Surgical History Date Name Laterality Status Provider Name and Address Organization Details Recorded Time 08/29/19 25 Diabetic Foot Exam (Monofilament) completed Emma Yanez PA-C [address] [facility] [address], [place], [address], [facility] 08/29/2024 16:24:35 05/12/20 24 Most Recent Mammogram completed Shani Veliz [facility] 05/15/2024 11:08:09 10/11/19 24 diabetic retinopathy screening completed Shani Veliz [facility] 10/12/2023 08:29:28 05/07/20 23 Mammogram screening completed Angela Honeycutt [facility] 05/10/2023 09:00:40 03/02/20 22 Date of Last Colonoscopy completed Lyla Mccartney [facility] 03/04/2022 10:24:49 03/02/20 22 Colonoscopy completed Lyla Mccartney [facility] 03/04/2022 10:24:39 04/28/20 21 Diabetic Foot Exam (Monofilament) completed Emma Paulsonden PA-C [address], [place], [address], [facility] 04/28/2021 16:39:35 02/12/20 21 Diabetic Foot Exam (Monofilament) completed Natacha Rosales [facility] 02/11/2021 16:19:55 08/28/19 20 Diabetic Foot Exam (Monofilament) completed Omaira Beltranr [facility] 08/28/2019 16:15:58 02/21/20 19 Diabetic Foot Exam (Monofilament) completed Emma HARRIS-C [address] [facility] [address], [place], [address], [facility] 02/20/2019 16:00:13 05/02/20 17 Colposcopy completed Reina Giraldo [facility] 07/19/2017 14:41:16 05/02/20 17 Colposcopy completed Reina Giraldo [facility] 07/19/2017 14:41:33 Caesarean Section completed Dipika Uriarte [facility] 05/10/2014 15:42:08 Imaging Results None recorded. Procedure Notes None recorded. Medical Equipment None Reported. Allergies Allergen ID Allergen Name Allergen Category Reaction Reaction Severity Criticality Documentation Date Start Date Code Code System Note Provider Name and Address Organization Details Recorded Time 02337 amlodipin e medicatio n edema Not available Not available 02/01/2024 42571 RxNorm swell ing of ankle s TERRI Izquierdo, [facility] 4 11:18:46 07002 lisinopri l medicatio n anaphylax is Not available Not available 10/15/2024 57766 RxNorm Emma Mahin PA-C [address] [facility] [address], [place], [address], [facility] 5 14:30:07 Medications Name Sig Start Date [...] active Not Available Not Available Not Avai devonte FreeStyle Lancets 28 gauge USE 1 LANCET [...] Not Avai lable Nasonex 50 mcg/actua tion [place] DAILY 01/28 completed Not Available Not Available [...] A DAY (OVER THE COUNTER NOT COVERED) 03/21 completed Not Available Not Available Not [...] Not Available Not Available Not Available FreeStyle Patterson Lite kit USE DIRECTED . *NOT COVERED* [...] inhalatio n 11/19 completed Not covered by [facility] Not Available Not Available Not Available [...] Available Not Available Not Avai lable FreeStyle Catrachita 3 Sensor device USE DIRECTED . 01/31 completed kept getting snagged and coming off Not Available Not Available Not Available Ozempic 0.25 mg or 0.5 mg (2 mg/3 mL) subcutane ous pen injector active Not Available Not Available Not Available Page 2nd Gen Pen Needle 32 gauge x /32 USE WITH TRESIBA FLEX PEN ONCE DAILY. active Not Available Not Available No t Available Vitals Date Recorded Body height Body mass index (BMI) Body weight Heart rate Oxygen saturation Body temperature Systolic And Diastolic Provider Name and Address Organization Details Last Updated DateTime 5 157.48 cm 27.4 kg/m2 25508.8 6 g 91 /min 100 % 98 [degF] 146/74 mm[Hg] Ross Altamirano MA [facility] 16:04:10 Social History Question Answer Notes LastModified by Organizat ion Details LastModified Time Tobacco Smoking Status Current Some Day Smoker has not been smoking the past month November 2022 TERRI Montejo, [facility] 12/31/2022 09:55:36 Do You Have An Advance Directive? Yes HCP natasha Information not available 04/28/2021 Is Blood Transfusion [...] Individual Who Tested Positive For COVID-19? No [email or web address] Information not available 01/07/2021 Have You Recently Traveled To A COVID-19 High Risk Area Or Gathering In The Last 10 Days? No [email or web address] Information not available 10/02/2020 What Was The Date Of Your Most Recent Tobacco Screening? 08/29/2024 Information not available 08/29/2024 How Many Children Do You Have? 2 Maame And Jose Information not available 08/29/2024 What Is Your Current Pack Years? 20-29patru lebron Information not available 08/29/2024 Do You Use Protection During Sex? Usually [email or web address] Information not available 04/28/2021 Do You Use Your Seat Belt Or Car Seat Routinely? Yes [email or web address] Information not available 04/28/2021 Seat Belts Used Routinely Yes [email or web address] Information not available 04/28/2021 Are You Sexually Active? Yes Jose Information not available 08/29/2024 Smoke Alarm In Home Yes [email or web address] Information not available 04/28/2021 Do You Have Smoke And Carbon Monoxide Detectors In Your Home? No [email or web address] Information not available 04/28/2021 At What Age [...] independently without assistance or assistive devices? YESWOREST [email or web address] Information not available 04/30/2022 Are you able to care for yourself independently? 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 Never used electronic cigarettes Information not available 04/28/2021 What is your exercise level? Moderate daily walking at home on treadmill Information not available 08/29/2024 Mental Status None recorded. Family History Relationship Description Onset Age of this Age Resolved Age Notes LastModified by Organization Details LastModified Time Sister Human immunodefici ency virus infection deceas ed Not available 04/28/2021 15:48:21 Unspecified Relation Malignant neoplasm of breast mother side [email or web address] Not available [...] split virus, trivalent, preservative 6 completed Shani Veliz null, [facility] 08/22/2023 09:54:33 Influenza, split virus, quadrivalent, preservative 0 completed Shani Levynett null, [facility] 08/22/2023 09:54:32 COVID-19, mRNA, LNP-S, PF, 100 mcg/0.5mL dose or 50 mcg/0.25mL dose 1 completed Shani Veliz null, [facility] 08/22/2023 09:54:33 COVID-19, mRNA, LNP-S, PF, 100 mcg/0.5mL dose or 50 mcg/0.25mL dose 2 completed Shani Veliz null, [facility] 08/22/2023 09:54:33 Influenza, split virus, trivalent, PF 5 completed Shani Veliz null, [facility] 08/22/2023 09:54:33 Influenza, split virus, quadrivalent, PF 7 completed Shani Veliz null, [facility] 08/22/2023 09:54:33 Pneumococcal conjugate PCV 13 6 completed Shani Veliz null, [facility] 08/22/2023 09:54:33 Influenza, split virus, quadrivalent, PF 2 completed Shani Veliz null, [facility] 08/22/2023 09:54:33 Tdap 8 completed Shani Veliz null, [facility] 08/22/2023 09:54:33 Influenza, split virus, quadrivalent, PF 5 completed Shani Veliz null, [facility] 08/22/2023 09:54:33 Influenza, split virus, quadrivalent, PF 1 completed Shani Veliz null, [facility] 08/22/2023 09:54:33 zoster recombinant 3 completed Shani Veliz null, [facility] 08/22/2023 09:54:32 Influenza, split virus, quadrivalent, PF 3 completed Shani Veliz null, [facility] 08/22/2023 09:54:33 zoster recombinant 4 completed Marlen King MA null, [facility] 09/29/2023 09:57:05 Influenza, MDCK, trivalent, PF 4 completed Erika Wesley LPN null, [facility] 04/18/2024 14:28:24 Pneumococcal conjugate PCV20, polysaccharide [id number] conjugate, adjuvant, PF 4 completed Amisha Mathew MA null, [facility] 08/29/2024 14:54:59 zoster recombinant 3 completed Not Available [facility] 06/05/2025 14:16:24 Influenza, recombinant, trivalent, PF 5 completed Not Available [facility] 06/05/2025 14:16:24 Td (adult), 2 Lf tetanus toxoid, preservative free, adsorbed 7 completed Shani riggs, [facility] 08/22/2023 09:54:33 MMR 9 completed Shani riggs, [facility] 08/22/2023 09:54:32 Influenza, split virus, trivalent, preservative 2 completed Shani Veliz null, [facility] 08/22/2023 09:54:33 Influenza, split virus, trivalent, preservative 3 completed Shani Veliz null, [facility] 08/22/2023 09:54:33 Influenza, split virus, trivalent, preservative 4 completed Shani riggs, [facility] 08/22/2023 09:54:33 Hep B, adolescent or pediatric 5 completed Shani riggs, [facility] 08/22/2023 09:54:33 Hep B, adolescent or pediatric 5 completed Shani riggs, [facility] 08/22/2023 09:54:33 Hep B, adolescent or pediatric 5 completed Shani riggs, [facility] 08/22/2023 09:54:33 pneumococcal polysaccharide PPV23 8 completed Shani riggs, [facility] 08/22/2023 09:54:33 Tdap 8 completed Shani riggs, [facility] 08/22/2023 09:54:33 Influenza, split virus, trivalent, preservative 2 completed Shani riggs [facility] 08/22/2023 09:54:33 Past Encounters Encounter ID Performer Location Encounter Start Date Encounter Closed Date Diagnosis/Indication Diagnosis SNOMED-CT Code Diagnosis ICD10 Code Diagnosis IMO Codes Diagnosis Note [id number] Kj Man MD Main Office [address] [facility] [address] [facility] [place] [address] 05/10/2025 14:44:01 05/10/2025 15:33:59 Pneumonia 911005984 J18.9 [id number] add antibiotic to cover for bacterial pneumonia. continue prednisone 60 mg for 2 more days, then 50 for 2, 40 for 2, 30 for 2, 20 for 2, 1 fro 2. Nebulizer every 4 hrs at home. Discontinu e use of intranasal saline and flonase due to epistaxis. F/u with pulmonary. Exacerbati on of moderate persistent asthma 890584926 J45.41 [id number] see above. [id number] Kj Man MD Main Office [address] [facility] [address] [facility] [place] [address] 05/20/2025 15:04:28 05/20/2025 16:35:21 Otitis externa 2605178 H60.8X1 4480943 will rx c topical abx drops Respirator y tract congestion 178978711 R09.81 2244545 cont ns spray, rec steam, warm compress neck prn Health Concerns Section Related Observation LastModified by Organization Detai ls LastModified Time None Recorded Concern Status LastModified by Organization Details LastModified Time None Recorded Payers Encounter Date Sequence Insurance Name Policy Number Policy James Covered Member ID James Member ID Guarantor Name 05/20/2025 2 [place] [facility] Maame Angulo [id number] Maamesofie Angulo 05/20/2025 1 [facility] [employer] - HEALTH NET PLAN (MEDICAID HMO) [id number] Maame Angulo [id number] Maame Angulo Notes Date Note Type Note Provider Name and Address Organization Details Recorded Time 05/20/2025 text/html ROS as noted in the HPI 54 year old HIV positive female with moderate persistent asthma, type II diabetes and hypertension for ER f/u. Seen at [facility] ER on 05/07 with worsening cough , congestion and wheezing. Chest xray did not show pneumonia. Pt was positive for rhinovirus. Started on prednisone 60 mg daily for 5 days. Pt reports no sign improvement in cough and is wheezing. Uses nebulizer at home. Reports epistaxis last couple of days after starting using nasal saline and flonase. Pt does not have pulmonary jade until later this month. 05.20.25 - here for 10 day f/urx'd by c levaquin 750mg qd x 5 days, and continued pred taperin general, feeling better - no further wheezingbut still has R ear pain and mild STstill has head congestiontakes bp medsused to take flonase - stopped d/t nosebleeds Yeison Yanez PA-C [address] [facility] [address], [place], [address], [place] [facility] 05/20/2025 19:37:23 OBGyn Episode No OBEpisode recorded.
--- OUTSIDE RECORDS SUMMARY | 2025-06-21 10:10 | XMS_ITS | Continuity of Care Document ---
Author Organization TERRI HERNANDEZ MD [facility], Main Office Address [address] [place] [address] Assessment No assessment recorded. Plan of Treatment [...] Go To The Location Of Their Choice, 04/17/2025 12:43:29 ALT (alanine aminotran sferase), serum or plasma 2024 025 [email or web address] [facility] (Centralized Electronic Ordering - All Locations), Patient Can Go To The Location Of Their Choice, 04/17/2025 12:43:30 AST/SGOT (aspartat e aminotran sferase), serum or plasma 2024 025 [email or web address] [facility] (Centralized Electronic Ordering - All Locations), Patient Can Go To The Location Of Their Choice, [id number] 04/17/2025 12:43:30 CT + NG DNA, PCR, unspecifi ed specimen 2024 025 [email or web address] [facility] (Centralized Electronic Ordering - All Locations), Patient Can Go To The Location Of Their Choice, [id number] 04/17/2025 12:43:30 creatinin e w/ estimated GFR (eGFR), serum or plasma 2024 025 [email or web address] [facility] (Centralized Electronic Ordering - All Locations), Patient Can Go To The Location Of Their Choice, [id number] 04/17/2025 12:43:30 HIV-1 RNA, quantitat aria, PCR, serum or plasma 2024 025 [email or web address] [facility] (Centralized Electronic Ordering - All Locations), Patient Can Go To The Location Of Their Choice, [id number] 04/17/2025 12:43:30 RPR (rapid plasma reagin), serum 2024 025 [email or web address] [facility] (Centralized Electronic Ordering - All Locations), Patient Can Go To The Location Of Their Choice, [id number] 04/17/2025 12:43:30 cd4 T-cells, blood 2024 025 [email or web address] [facility] (Centralized Electronic Ordering - All Locations), Patient Can Go To The Location Of Their Choice, [id number] 04/17/2025 12:43:30 Referral None recorded. Procedures None recorded. Surgeries None recorded. Imaging None recorded. Medication Orders omeprazol e 40 mg capsule,d elayed release [address] [id number], [address] [place], [address], 04/10/2025 14:56:34 Bactrim DS 800 mg-[address] [id number], [address] [place], [address], 04/10/2025 14:56:33 Cabenuva 600 mg/3 mL-900 mg/3 mL IM suspensio n, extended release [address] , [address], [place], [address], 04/10/2025 16:37:16 Patient TargetsNo targets recorded. Patient InstructionsNo instructions recorded. Reason for Referral None Reported. Problems Name Problem SNOMED Code Status Onset Date Resolution Date Notes Provider Name and Address Organization Details Recorded Time Gastroeso phageal reflux disease 704015654 Active 2013 Esophageal reflux; snomeddesc ription: Gastroesop hageal reflux disease; Report Immunity to Registry: Yes; Gastroeso phageal reflux disease; snomeddesc ription: Gastroesop hageal reflux disease; Report Immunity to Registry: Yes; Not Available [facility] 4 06:58:51 Asthma 842196659 Active 2013 Asthma; snomeddesc ription: Asthma; Report Immunity to Registry: Yes; Not Available [facility] 4 06:58:51 Smoker 41631774 Active 2013 Smoker; snomeddesc ription: Smoker; Report Immunity to Registry: Yes; Not Available [facility] 4 06:58:51 Tobacco dependenc e syndrome 08078788 Active 2013 Tobacco use disorder; snomeddesc ription: Smoker; Report Immunity to Registry: Yes; Not Available [facility] 4 06:58:51 Hypertens aria disorder 00369895 Active 2015 Hypertensi ve disorder; snomeddesc ription: Hypertensi ve disorder; Report Immunity to Registry: Yes; Not Available [facility] 4 06:58:51 Essential hypertens ion 10197914 Active 2015 Essential (primary) hypertensi on; snomeddesc ription: Hypertensi ve disorder; Report Immunity to Registry: Yes; Not Available [facility] 4 06:58:51 Gastropar esis syndrome 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 Active 2018 Gastropare sis syndrome; snomeddesc ription: Gastropare sis syndrome; Report Immunity to Registry: Yes; Gastropar esis; snomeddesc ription: Gastropare sis syndrome; Report Immunity to Registry: Yes; Not Available [facility] 4 06:58:51 Herpes simplex 93170413 Active 2019 Herpes simplex without mention of complicati on; snomeddesc ription: Herpes simplex; Report Immunity to Registry: Yes; Notes: HSV 1 and 2 serology pos 2007; Herpes simplex; snomeddesc ription: Herpes simplex; Report Immunity to Registry: Yes; Notes: HSV 1 and 2 serology pos 2007; Not Available [facility] 4 06:58:51 Human immunodef iciency virus infection 27260476 Active 2021 Human immunodefi ciency virus [HIV] disease; snomeddesc ription: Human immunodefi ciency virus infection; Report Immunity to Registry: Yes; Notes: [id number] neg; 09/2021 genosure; Human immunodefi ciency virus infection; snomeddesc ription: Human immunodefi ciency virus infection; Report Immunity to Registry: Yes; Notes: [id number] neg; 09/2021 genosure; Not Available [facility] 4 06:58:51 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; snomeddesc ription: Vaginal intraepith elial neoplasia grade 1; Report Immunity to Registry: Yes; Mild vaginal dysplasia; snomeddesc ription: Vaginal intraepith elial neoplasia grade 1; Report Immunity to Registry: Yes; Not Available [facility] 4 06:58:52 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 Medical Equipment None Reported. Allergies Allergen ID Allergen Name Allergen Category Reaction Reaction Severity Criticality Documentation Date Start Date Code Code System Note Provider Name and Address Organization Details Recorded Time 1443 lisinopri l medicatio n itching Not available Not available 04/10/2025 61319 RxNorm Roshni Jonas MD [address] [facility] [place], [address], TERRI JONAS MD [facility] 14:57:54 1444 amlodipin e medicatio n swelling Not available Not available 04/10/2025 [id number] RxNorm Roshni Jonas MD [address] [place], [address], TERRI JONAS MD [facility] 14:58:45 Medications Name Sig Start Date Stop [...] thapa; Not Available Not Available Not Available ammonium [...] Not Available Not Available Not Available [employer]Style [place] Lite kit USE DIRECTED . *NOT COVERED* [...] qd; VACCINE_ IND: no; SU_FULL_ NAME: Roshni Gill elier; Not Available Not Available Not Available BD [...] Pneumoco ccal conjugat e PCV20, polysacc haride [id number] conjugat e, adjuvant , PF; SU_FULL_ NAME: [...] Vitals Date Recorded Body height Heart rate Body temperature Body mass index (BMI) Body weight Systolic And Diastolic Provider Name and Address Organization Details Last Updated DateTime 157.48 cm 103 /min 98.3 [degF] 28.3 kg/m2 26560.8 2 g 144/78 mm[Hg] Julee JONAS MD [facility] 14:40:06 Social History Question Answer Notes LastModified by Organizat ion Details LastModified Time Tobacco Smoking Status Former Smoker TERRI Rene MD [facility] 04/08/2023 15:32:14 What Type Of Diet Are You Following? REGULAR [email or web address] Information not available 04/08/2023 What Is Your Current Pack Years? 10packyears [email or web address] Information not available 04/08/2023 What Is Your Relationship Status? [email or web address] Information not available 04/08/2023 At What Age Did You Start Smoking Tobacco? 30 [email or web address] Information not available 04/08/2023 Have You Recently Traveled Abroad? No [email or web address] Information not available 04/08/2023 Do You Have Any Dietary Restrictions? No Information not available 04/08/2023 Sex: Female Functional Status None recorded. Mental Status None recorded. Family History Nothing Reported Notes:Diabetes, Response Pro perty: Yes; , Heart disease (CAD), Response Property: Yes; , Hypertension, Response Property: Yes; Medical History Condition Response Coronary Artery Disease N Other N Gout N Kidney Stones N Blood Diseases N Hyperthyroidism N Blood Transfusion N COPD N Depression N Anxiety Disorder N Muscle, Joint, or Bone Problems N Obesity N Vision or Eye Problems N Arthritis N Infertility N Polyps N Mental Disorder N Cancer N Stroke N Varicosities N Fibromyalgia N Headaches N Kidney Disease N Heart Problems N Ear or Hearing Problems N Hospitalizations N Skin Problems N Eating Disorder N MRSA exposure N Constipation Y Tuberculosis N AIDS/HIV Y Asthma Y Hepatitis N Pulmonary Embolism N Chronic Ear Infections N Chicken Pox Y Autism Spectrum Disorder (ASD) N Thrombophilias N Breast Cancer N Hypothyroidism N Lung Disease N Defects or Inherited Disease N Developmental or Behavioral Disorders N Breast Problem N Difficulty Swallowing N Anesthesia Complications N Meniere's disease N Endometriosis N Bladder or Kidney Problems N High Cholesterol Y Liver Disease N Allergies/Hayfever N Thyroid Problems N GI Problems N ADD/ADHD N Anemia N Mental Illness N Ovarian Cancer N Diabetes Y Bedwetting N Seizures/Epilepsy N Congestive Heart Failure (CHF) N Eczema Y Diverticulitis N Abuse/Domestic Violence N Reflux/GERD N Heart Disease N Pre-Eclampsia N Hypertension N Osteoporosis N Gynecological HistoryNo gynecological history recorded. Obstetrics History GPAL:G 0 P 0 0 0 0 Immunizations Vaccine Type Date Status Note Provider Nam e and Address Organization Details Recorded Time Hep B, adult 8 completed Not Available [facility] 09/21/2023 06:54:25 Influenza, split virus, quadrivalent, preservative 8 completed Not Available [facility] 09/21/2023 06:54:25 Influenza, split virus, quadrivalent, preservative 0 completed Not Available [facility] 09/21/2023 06:54:25 Influenza, split virus, quadrivalent, preservative 9 completed Not Available [facility] 09/21/2023 06:54:25 Past Encounters Encounter ID Performer Location Encounter Start Date Encounter Closed Date Diagnosis/Indication Diagnosis SNOMED-CT Code Diagnosis ICD10 Code Diagnosis IMO Codes Diagnosis Note [id number] Roshni Jonas MD Main Office [address] [place] [phone] 04/10/2025 14:22:17 04/10/2025 15:24:17 Human immunodeficiency virus infection 74872372 B20 HIVContinu e Triumeq 1 tab po [...] goes above 200.labs Gastroesop hageal reflux disease 182330917 K21.9 Omeprazole qd prn reviewedpt off reglan for a month; she will call if she needs a refill Human genie lloma virus infection 142517609 B97.7 will ask on next appointmen t [...] Member ID James Member ID Guarantor Name 04/10/2025 1 [facility] (MEDICAID REPLACEMENT - O) [id number] Maame Angulo [id number] Maame Angulo 04/10/2025 2 [place] [facility] Maame Angulo [id number] Maame Angulo Notes Date Note Type Note Provider Name and Address Organization Details Recorded Time 04/10/2025 text/html ROS as noted in the HPI F/u HIV. 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 discussed possible switch to cabenuva injections- medication approved- will discuss at visit today regarding starting injections and then every other monthaware that there is a window before or after the 10th of the month made aware that the medication needs to be taken within window- she is aware that archive resistance test indicates some mutation present for Cabotegravir, full susceptibility for Rilpivirine; no full resistance present.aware of nodule formation after injections- no rubbing the nodule but can apply icediscussed side effects no new labs,no issues with n/v/d- no abdomen pain 10/2024 ALT 44; AST 37; RPR nr; eGFR=97; HIV VL nondetected; BE7=021 07/2024 HBV s ag neg; AST/ALT wnl ; creatinine 12/2023 HIV nondetected; RPR NR 04/2023 HIV VL nondetceted. AST/aLt wnl. HCV neg F/u HIV. She will start Cabenuva IM today.she is willing and able to come in [...] regarding starting injections and then every other monthaware that there is a window before or after the of the month made aware that the medication needs to be taken within window- she is aware that archive resistance test indicates some mutation present for Cabotegravir, full susceptibility for Rilpivirine; no full resistance present.aware of nodule formation after injections- no rubbing the nodule but can apply icediscussed side effects no new labs,no issues with n/v/d- no abdoemn pain 10/2024 ALT 44; AST 37; RPR nr; eGFR=97; HIV VL nondetected; EN7=382 07/2024 HBV s ag neg; AST/ALT wnl ; creatinine 12/2023 HIV nondetected; RPR NR 04/2023 HIV VL nondetceted. AST/aLt wnl. HCV neg Roshni Jonas MD [address] [place] [address], [phone], [place] - ROSHNI JONAS MD [facility] 04/10/2025 17:57:52 OBGyn Episode No OBEpisode recorded.
--- OUTSIDE RECORDS SUMMARY | 2025-06-21 10:11 | XMS_ITS | Data Portability ---
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 00:00:00 [id number] [facility] [address] [facility],[address] [place] [address] 03/08/2006 00:00:00 [id number] [facility] [address] [facility],[address] [place] [address] 10/17/2006 00:00:00 [id number] [facility] [address] [facility],[address] [place] [address] 10/17/2006 00:00:00 [id number] [facility] [address] [facility],[address] [place] [address] 10/17/2006 00:00:00 [id number] [facility] [address] [facility] [address] [place] [address] 12/20/2006 00:00:00 [id number] [facility] [address] [facility],[address] [place] [address] 01/06/2007 00:00:00 [id number] [facility] [address] [facility],[address] [place] [address] 01/06/2007 00:00:00 [id number] [facility] [address] [facility],[address] [place] [address] 01/06/2007 00:00:00 [id number] [facility] [address] [facility],[address] [place] [address] 02/20/2007 00:00:00 [id number] [facility] [address] [facility],[address] [place] [address] 02/20/2007 00:00:00 [id number] [facility] [address] [facility],[address] [place] [address] 02/24/2007 00:00:00 [id number] [facility] [address] [facility],[address] [place] [address] 12/19/2007 00:00:00 [id number] [facility] [address] [facility],[address] [place] [address] 12/19/2007 00:00:00 [id number] [facility] [address] [facility],[address] [place] [address] 01/12/2008 00:00:00 [id number] [facility] [address] [facility],[address] [place] [address] 03/18/2008 00:00:00 [id number] [facility] [address] [facility],[address] [place] [address] 03/18/2008 00:00:[address] [id number] [address] [address] [place] [address] 08/31/2008 00:00:00 [id number] [facility] [address] [place] [address] 10/31/2008 00:00:00 [id number] [facility] [address] [place] [address] 11/15/2008 00:00:00 [id number] [facility] [address] [place] [address] 11/15/2008 00:00:00 [id number] [facility] [address] [facility] [address] [place] [address] 11/15/2008 00:00:00 [id number] [facility] er[facility] [address] [facility],[address] [place] [address] 11/15/2008 00:00:00 [id number] [facility] [address] [facility],[address] [place] [address] 12/05/2008 00:00:00 [id number] [facility] erce [address] [facility],[address] [place] [address] 12/05/2008 00:00:00 [id number] [facility] [address] [facility],[address] [place] [address] 03/04/2009 00:00:00 [id number] [facility] [address] [facility] [address] [place] [address] 03/04/2009 00:00:00 [id number] [facility] [address] [facility],[address] [place] [address] 08/16/2009 00:00:00 [id number] [facility] erce [address] [facility],[address] [place] [address] 09/24/2009 00:00:00 [id number] [facility] [address] [facility],[address] [place] [address] 09/24/2009 00:00:00 [id number] [facility]ce [address] [place] [address] 12/26/2009 00:00:00 [id number] [facility] [address] [place] [address] 12/26/2009 00:00:00 [id number] auto[facility] erce [address] [place] [address] 01/22/2010 00:00:00 [id number] [facility]ce [address] [place] [address] 01/27/2010 00:00:00 [id number] auto[facility] erce [address] [place] [address] 01/27/2010 00:00:00 [id number] [facility] [address] [facility] [address] [place] [address] 01/27/2010 00:00:00 [id number] [facility] erce [address] [facility] [address] [place] [address] 01/27/2010 00:00:00 [id number] [facility]ce [address] [facility] [address] [place] [address] 02/03/2010 00:00:00 [id number] [facility]ce [address] [facility] [address] [place] [address] 02/03/2010 00:00:00 [id number] [facility]ce [address] [place] [address] 02/03/2010 00:00:00 [id number] [facility] [address] [place] [address] 02/03/2010 00:00:00 [id number] [facility]ce [address] [facility] [address] [place] [address] 04/07/2010 00:00:00 [id number] [facility] [address] [place] [address] 04/07/2010 00:00:00 [id number] [facility]ce [address] [place] [address] 05/04/2010 00:00:00 [id number] [facility]ce [address] [place] [address] 05/04/2010 00:00:00 [id number] [facility]ce [address] [place] [address] 07/22/2010 00:00:00 [id number] auto[facility]Comm erce [address] [facility] [address] [place] [address] 07/22/2010 00:00:00 [id number] [facility]Comm erce [address] [facility] [address] [place] [address] 10/13/2010 00:00:00 [id number] [facility] [address] [facility] [address] [place] [address] 10/20/2010 00:00:00 [id number] [facility] erce [address] [facility] [address] [place] [address] 10/20/2010 00:00:00 [id number] [facility] erce [address] [facility] [address] [place] [address] 10/20/2010 00:00:00 [id number] [facility]ce [address] [place] [address] 11/13/2010 00:00:00 [id number] [facility]ce [address] [place] [address] 11/13/2010 00:00:00 [id number] [facility] [address] [facility] [address] [place] [address] 11/13/2010 00:00:00 [id number] [facility]ce [address] [facility] [address] [place] [address] 11/13/2010 00:00:00 [id number] [facility]ce [address] [place] [address] 02/23/2011 00:00:00 [id number] [facility] [address] [place] [address] 02/23/2011 00:00:00 [id number] [facility] [address] [place] [address] 02/23/2011 00:00:00 [id number] [facility]ce [address] [place] [address] 05/06/2011 00:00:00 [id number] [facility] [address] [place] [address] 05/06/2011 00:00:00 [id number] [facility] erce [address] [place] [address] 05/19/2011 00:00:00 [id number] [facility] erce [address] [place] [address] 05/19/2011 00:00:00 [id number] [facility] erce [address] [place] [address] 06/15/2011 00:00:00 [id number] [facility] [address] [place] [address] 06/15/2011 00:00:00 [id number] [facility]ce [address] [place] [address] 06/21/2011 00:00:00 [id number] auto[facility] erce [address] [place] [address] 06/21/2011 00:00:00 [id number] [facility] erce [address] [place] [address] 09/29/2011 00:00:00 [id number] [facility]ce [address] [place] [address] 09/29/2011 00:00:00 [id number] auto[facility] erce [address] [place] [address] 02/11/2012 00:00:00 [id number] [facility] erce [address] [place] [address] 02/11/2012 00:00:00 [id number] auto[facility] erce [address] [place] [address] 02/11/2012 00:00:00 [id number] auto[facility]Comm erce [address] [facility] [address] [place] [address] 02/11/2012 00:00:00 [id number] auto[facility]Comm erce [address] [facility] [address] [place] [address] 03/25/2012 00:00:00 [id number] autoEComm erce [address] [facility] [address] [place] [address] 03/25/2012 00:00:00 [id number] auto[facility]Comm erce [address] [facility] [address] [place] [address] 06/02/2012 00:00:00 [id number] auto[facility]Comm erce [address] [facility] [address] [place] [address] 06/02/2012 00:00:00 [id number] auto[facility]Comm erce [address] [facility] [address] [place] [address] 09/15/2012 00:00:00 [id number] [facility] erce [address] [facility] [address] [place] [address] 09/15/2012 00:00:00 [id number] auto[facility] erce [address] [facility] [address] [place] [address] 12/18/2012 00:00:00 [id number] [facility] erce [address] [facility] [address] [place] [address] 12/18/2012 00:00:00 [id number] [facility] erce [address] [facility],[address] [place] [address] 12/18/2012 00:00:00 [id number] [facility] [address] [facility] [address] [place] [address] 03/19/2013 00:00:00 [id number] [facility] [address] [facility] [address] [place] [address] 11/19/2013 00:00:00 [id number] [facility] [address] [place],[address] [place] [address] 11/19/2013 00:00:00 [id number] [facility] erce [address] [facility],[address] [place] [address] 11/19/2013 00:00:00 [id number] [facility] erce [address] [facility],[address] [place] [address] 11/23/2013 00:00:00 [id number] Marisa Perez [facility] Main Office [address] [facility] [address] [place], [place] [address] 04/09/2014 11:33:07 04/09/2014 12:00:15 Acute pharyngitis 023974204 rapid strep neg. Acute otitis externa 14955262 [id number] Evens Chino MD Main Office [address] [facility] [address] [place], [place] [address] 04/25/2014 15:32:29 04/25/2014 16:22:11 Uncontrolled type 2 diabetes mellitus 224755652 Tobacco de pendence syndrome 79499959 Acute otitis externa 24538711 Chronic constipation 486278156 [id number] Josseline Villatoro [facility] Main Office [address] [facility] [address] [place] [address] 05/10/2014 15:34:28 05/10/2014 16:18:23 Acute otitis externa 27633210 Follow-up encounter [id number] Fabrice Jimenes MD Main Office [address] [facility] [address] [place] [address] 06/18/2014 10:37:18 06/18/2014 11:07:56 Acute asthma 170039394 Sinusitis 80580262 [id number] Kj Man MD Main Office [address] [address] [place] [address] 08/02/2014 10:25:35 08/02/2014 11:00:45 Acute asthma 141898597 Cough 57622950 Given risk factors (HIV and DM) will cover for bacterial process. Has tolerated and responded well to azithro in the past. Would consider CXR and broader coverage if persistent /worse. Cough syrup provided to help with sleep. Common/ser ious side effects discussed. [id number] Evens Chino MD Main Office [address] [address] [place] [address] 08/06/2014 09:40:01 08/06/2014 10:16:24 Uncontrolled type 2 diabetes mellitus 537851911 Essential hypertension 76736491 Acute asthma 194809059 Needs infl uenza immunization 735869675 Body mass index 30+ - obesity 625709288 [id number] Evens Chino MD Main Office [address] [address] [place] [address] 11/01/2014 15:15:39 11/01/2014 16:10:46 Uncontrolled type 2 diabetes mellitus 351264981 Tinea pedis 6992737 [id number] Evens Chino MD Main Office [address] [address] [place] [address] 02/03/2015 15:54:37 02/03/2015 16:45:26 Uncontrolled type 2 diabetes mellitus 507591481 Essential hypertension 30501619 Tinea pedis 6441054 Body mass index 30+ - obesity 719055652 [id number] Sascha Yanez PA-C Main Office [address] [address] [place] [address] 04/30/2015 09:58:17 04/30/2015 10:44:30 Acute asthma 366442416 Asthma exacerbati on due to viral infection. [...] week. Uncontroll ed type 2 diabetes mellitus 452434816 Uncontroll ed DM and viral infection with asthma exacerbati on. Hold Metformin until nausea and vomiting resolve. Test glucose TID. Increase Levemir to 25 u daily if glucose gets above 200 premeal. Nausea and vomiting 23887851 Pepto Bismol. Replace electrolyt es with Gatorade or lemon water as tolerated. If vomiting worsens and weakness and dizziness, go to the ER for IV hydration. [id number] Evens Chino MD Main Office [address] [address] 05/22/2015 15:29:52 05/22/2015 16:16:20 Uncontrolled type 2 diabetes mellitus 091309461 E11.65 Essential hypertension 33319596 I10 Needs infl uenza immunization 536376871 Z23 Acute asthma 183962833 J 45.901 Allergic rhinitis 497023 04 J30.9 [id number] Sascha Yanez PA-C Main Office [address] [address] 07/01/2015 15:20:27 07/01/2015 16:00:10 Uncontrolled type 2 diabetes mellitus 603424458 E11.65 Marginaly improved DM since the last visit. Goal A1c is under 7%. Will start Trulicity 0.75 mcg weekly SC injections . Continue Metformin 500 mg 2 BID and Levemir at 12 u daily. PLan on discontinu ing insulin after Trulicity takes an effect. F/u 6 weeks. Continue seeing nutritionOriginal st. Pt. will try to eat 3 small wel balanced meals per day. [id number] Sascha Yanez PA-C Main Office [address] [address] 08/13/2015 15:54:04 08/13/2015 16:56:50 Uncontrolled type 2 diabetes mellitus 595728659 E11.65 Improved DM since the last visit. [...] balanced meals per day. Peripheral nerve disease 654375441 G64 Painful peripheral neuropathy due to diabetes. Start Gabapentin at 300 mg daily at HS. F/u 6 weeks. [id number] Sascha Yanez PA-C Main Office [address] [address] [place] [address] 09/24/2015 15:18:33 09/24/2015 15:55:32 Uncontrolled type 2 diabetes mellitus 283386154 E11.65 Improving overall diabetic control. Goal A1c is under 7%. Pt. is aware and will continue low rena diet , exercise. Log glucose BID and return in 6 weeks. Trulicity will be resend to pharmacy to start. PLan on discontinu ing Levemir if TRulicity is on board. Disorder o f nervous system due to type 2 diabetes mellitus 718910096 E11.40 Diabetic peripheral neuropathy . Increase Gabapentin to 300 mg BID. F/u 6 weeks. [id number] Sascha Yanez PA-C Main Office [address] [place] [address] 11/07/2015 15:17:17 11/07/2015 16:21:32 Disorder of nervous system due to type 2 diabetes mellitus 671930494 E11.40 Diabetic peripheral neuropathy . Continue Gabapentin at 300 mg BID. Uncontroll ed type 2 diabetes mellitus 272349949 E11.65 Improving overall diabetic control. Goal A1c is under 7%. Pt. is aware and will continue low rena diet , exercise. Log glucose BID and return in 8 weeks. Trulicity will be increased to 1.5 mg/0.5 Ml SC injections weekly. Levemir to be discontinu ed at this point. Continue Metformin. SChedule with PCP for f/u. [id number] Evens Chino MD [address] Office [address] [address] 12/09/2015 15:24:17 12/09/2015 16:27:12 Essential hypertension 15462958 I10 Depressive disorder 3548 9007 F32.9 Uncontroll ed type 2 diabetes mellitus 483598282 E11.65 Acute sinusitis 83108723 J01.90 [id number] Sascha Yanez PA-C Main Office [address] [place] [address] 01/07/2016 15:29:32 01/07/2016 16:03:02 Uncontrolled type 2 diabetes mellitus 151102028 E11.65 Improving overall diabetic control. Goal A1c [...] system due to type 2 diabetes mellitus 547383282 E11.40 Diabetic peripheral neuropathy symptoms much improved. Continue Gabapentin at 300 mg BID. Body mass index 30+ - obesity 564842866 Z68.30 [id number] Evens Chino MD Main Office [address] [address] 02/09/2016 15:50:38 02/09/2016 17:08:05 Depressive disorder 42461058 F32.9 Disorder o f nervous system due to type 2 diabetes mellitus 975468076 E11.40 [id number] Yeison Yanez PA-C Main Office [address] [address] 03/03/2016 10:20:07 03/03/2016 11:18:38 Nausea and vomiting 06040621 R11.2 Acute asthma 332807016 J 45.901 25 minute office visit with greater than 50% of the visit face-to-fa ce with the patient and/or family providing counseling and/or coordinati on of care. Cough 12324755 R05 h/o pna -- will check cxr to r/o Essential hypertension 07602963 I10 [id number] Sascha Yanez PA-C Main Office [address] [address] 03/08/2016 15:30:13 03/08/2016 16:03:05 Acute asthma 854356802 J45.901 Asthmatic bronchitis . PT. was started on Z-pack and is doing musch better. Recommend to continue asthma meds and complete Rx for Abx. Disorder o f nervous system due to type 2 diabetes mellitus 797461625 E11.40 Diabetic peripheral neuropathy symptoms much improved. Continue Gabapentin at 300 mg BID. Uncontroll ed type 2 diabetes mellitus 542113194 E11.65 Increase Invokana to 300 mg daily. Continue Metformin and Trulicity the same. Continue diabetic portion control and increase exercise activity. Goal A1c is under 7%. Continue BID glucose testing. BMP prior to next visit. F/u 2 m. [id number] Sascha Yanez PA-C Main Office [address] [address] [place] [address] 05/24/2016 15:23:42 05/24/2016 17:01:31 Disorder of nervous system due to type 2 diabetes mellitus 975468819 E11.40 Diabetic peripheral neuropathy symptoms improved. Continue Gabapentin at 300 mg BID. Uncontroll ed type 2 diabetes mellitus 425845618 E11.65 Continue Invokana at 300 mg daily. Continue Metformin and Trulicity the same. Continue diabetic portion control and increase exercise activity. Goal A1c is under 7%. Continue BID glucose testing. F/u 3 m. [id number] Evens Chino MD Main Office [address] [address] [place] [address] 06/14/2016 15:29:43 06/14/2016 16:18:13 Adult health examination 410125119 Z00.00 Citizen Of [place] as a second language 216490891 Z60.8 Body mass index 25-29 - overweight 952080190 E66.3 Disorder o f nervous system due to type 2 diabetes mellitus 245258208 E11.40 Essential hypertension 41023374 I10 Peripheral nerve disease 047411945 G64 Stable on gabapentin Human immunodeficiency virus infection 91096724 B20 Administra tion of pneumococcal vaccine 09589796 Z23 [id number] AMBER So Main Office [address] [place] [address] 06/22/2016 10:27:58 06/22/2016 10:59:34 Acute pharyngitis 379064362 J02.9 negative rapid strep. Cough 35797427 R05 Influenza- like symptoms 125410758 R68.89 Symptomati c tx, will call with results. Hydration, rest, tylenol/ib uprofen as needed. [id number] Sascha Yanez PA-C Main Office [address] [address] [place] [address] 08/13/2016 15:37:57 08/13/2016 16:35:20 Uncontrolled type 2 diabetes mellitus 496303242 E11.65 Continue Invokana at 300 mg daily. Continue Metformin and Trulicity . Restart diabetic portion control and increase exercise activity. Goal A1c is under 7%. Continue BID glucose testing. F/u 3 m. Body mass index 25-29 - overweight 068531487 E66.3 [id number] Yeison Yanez PA-C Main Office [address] [address] 09/30/2016 09:42:58 09/30/2016 11:06:49 Asthma 020505815 J45.31 cont inhalers as dir, will give longer course of steroids d/t tight lungs Sinusitis 40927562 J32.9 Gastroesop hageal reflux disease 670237324 K21.9 Influenza 4305597 J11.1 finish tamiflu as dir Nausea and vomiting 1693 1999 R11.2 hopefully less on ppi, cont prn zofran [id number] Yeison Yanez PA-C Main Office [address] [address] 10/04/2016 10:57:28 10/04/2016 12:07:32 Sinusitis 50611590 J32.9 finish abx as dir Asthma 658285769 J45.31 finish pred as dir 25 minute office visit with greater than 50% of the visit face-to-fa ce with the patient and/or family providing counseling and/or coordinati on of care. Gastroesop hageal reflux disease 685449736 K21.9 better on ppi - no more htbn, n/v Influenza 1378356 J11.1 finished tamiflu [id number] Sascha Yanez PA-C Main Office [address] [address] 11/09/2016 15:23:48 11/09/2016 16:09:15 Disorder of nervous system due to type 2 diabetes mellitus 977809087 E11.40 Diabetic peripheral neuropathy symptoms improved. Continue Gabapentin at 300 mg qd. Overall diabetic control is on target now. Pt. needs to set up diabetic eye exam. Diabetic p eripheral neuropathy 563991023 E11.40 Body mass index 25-29 - overweight 043032212 E66.3 Z68.25 [id number] Sascha Yanez PA-C Main Office [address] [place] [address] 02/09/2017 15:25:42 02/09/2017 16:01:40 Diabetic peripheral neuropathy 196921523 E11.40 stable on Gabapentin . Disorder o f nervous system due to type 2 diabetes mellitus 605815919 E11.40 Diabetic peripheral neuropathy symptoms improved. Continue Gabapentin at 300 mg qd. Overall diabetic control is on target now. Continue current meds. Labs are up to date. F/u 3 m. Body mass index 25-29 - overweight 562111405 E66.3 Z68.25 [id number] Kj Man MD Main Office [address] [address] [place] [address] 03/05/2017 09:54:49 03/05/2017 11:08:53 Acute pharyngitis 998665373 J02.9 Based on symptom score will cover empiricall y for strep. D/C abx if culture is negative. Supportive /symptomat ic tx otherwise advised. [id number] Evens Chino MD Main Office [address] [address] [place] [address] 04/05/2017 15:24:42 04/05/2017 16:19:22 Needs influenza immunization 010681122 Z23 Acute exac erbation of moderate persistent asthma 6163815845 08030 J45.41 [id number] Sascha Yanez PA-C Main Office [address] [address] [place] [address] 05/11/2017 15:21:43 05/11/2017 16:19:56 Diabetic peripheral neuropathy 666396908 E11.40 Neuropathy controlled with gabapentin and is stable. F/u 2 m. Body mass index 25-29 - overweight 667436712 Z68.29 Educated to continue proper lifestyle and dietary modificati ons Disorder o f nervous system due to type 2 diabetes mellitus 006442026 E11.40 A1c is not at goal. Increase Trulicity to a higher dose and continue metformin and invokana. [id number] Sascha Yanez PA-C Main Office [address] [place] [address] 07/12/2017 15:14:04 07/12/2017 16:02:19 Essential hypertension 43253266 I10 stable on meds. Upper resp iratory infection 58131681 J06.9 Disorder o f nervous system due to type 2 diabetes mellitus 537555673 E11.40 Trulicity was increased to higher dose and is working better , also helping with weight loss. Continue current therapy and continue weight loss. F/u 3 m. Diabetic p eripheral neuropathy 368727402 E11.40 Neuropathy controlled with gabapentin and is stable. Acute asthma 842762910 J 45.901 exacerbati on due to viral URI. start Prednisone taper as directed. Continue all inhalers as prescribed and nebulizer treatments at every 4-6 hrs. F/u 1-2 weeks. Body mass index 25-29 - overweight 327011223 Z68.29 Educated to continue proper lifestyle and dietary modificati ons. Continue Trulicity as directed. [id number] Sherie flanagan MD Main Office [address]40 [facility] [address] [facility] [place] [address] 07/18/2017 16:26:14 07/18/2017 17:13:25 Pneumonia 853584593 J18.9 see hx, on prednisone but cough and sputum progressin g, has HIV but viral load suppressed , tx as below, if not improving pt to get CXR done, return or to Er if any worsening Acute asthma 639997786 J 45.901 needs longer steroid course, will do sloer taper, 30mg for 3 days then 20 mg for 3-4 days then 10mg, pt is comfortabl e doing this Human immunodeficiency virus infection 63047772 B20 on meds, virus is suppressed [id number] Sascha Yanez PA-C Main Office [address]40 [facility] [address] [place] [address] 10/10/2017 15:20:04 10/10/2017 16:21:35 Uncontrolled type 2 diabetes mellitus 999648501 E11.65 Continue Invokana at 300 mg daily. Continue Metformin and Trulicity . Restart diabetic portion control and increase exercise activity. Needs to lose gained weight. F/u 6-8 weeks with log. If A1c persists above 7%, will add small dose of Glimepirid e. Body mass index 25-29 - overweight 888138304 E66.3 Z68.29 Educated to continue proper lifestyle and dietary modificati ons. Continue Trulicity as directed. [id number] Yanez PA-C Main Office [address] [address] [place] [address] 12/12/2017 15:16:16 12/12/2017 16:22:54 Disorder of nervous system due to type 2 diabetes mellitus 284476216 E11.40 Continue current therapy (metformin , invokana, and trulicity) and continue weight loss through exercise and dieting. F/u 3 m. Renal diso rder due to type 2 diabetes mellitus 534016307 E11.22 Continue with Lisinopril and complete labs below. Pure hypercholesterolemia 949991332 E78.00 Continue with statin therapy, exercise, and dieting, avoid high lipid diet. Complete labs below. Body mass index 25-29 - overweight 691658215 E66.3 Z68.28 Educated to continue proper lifestyle and dietary modificati ons. Continue Trulicity as directed. [id number] Evens Chino MD Main Office [address] [address] [place] [address] 02/24/2018 15:09:32 02/24/2018 16:33:39 Adult health examination 159822609 Z00.00 Administra tion of viral vaccine 53940989 Z23 Tinea pedis 1267465 B35. 3 Disorder o f nervous system due to type 2 diabetes mellitus 870255619 E11.40 Human immunodeficiency virus infection 79099548 B20 Body mass index 25-29 - overweight 940647897 E66.3 Z68.25 Diabetic p eripheral neuropathy 738077892 G62.9 [id number] Sherie flanagan MD Main Office [address] [place] [address] 09/22/2018 10:55:35 09/22/2018 11:39:18 Disorder of nervous system due to type 2 diabetes mellitus 591907095 E11.40 Continue current therapy (metformin , invokana, and trulicity) and continue weight loss through exercise and dieting. F/u 3 m. Implantati on cyst of iris 90485953 H21.329 Pt. is cleared for surgery. Essential hypertension 77373248 I10 stable on meds. Pt. is advised to take BP meds on the am of the procedure. Pre-surger y evaluation 927576491 Z01.818 [id number] Kj Man MD Main Office [address] [address] [place] [address] 11/22/2018 15:23:01 11/22/2018 15:49:34 Disorder of nervous system due to type 2 diabetes mellitus 469367532 E11.40 Continue current therapy (metformin , invokana, and trulicity) and continue weight loss through exercise and dieting. Pt. will continue gabapentin at current strength. F/u 3 m. [id number] Evens Chino MD Main Office [address] [address] [place] [address] 02/20/2019 15:21:11 02/20/2019 16:14:55 Disorder of nervous system due to type 2 diabetes mellitus 706491585 E11.40 Stable diabetes. Pt. will have complete labs next week for the ID and microalbum in will be repeated today. Continue current therapy (metformin , invokana, and trulicity) and continue weight loss through exercise and dieting. Pt. will continue gabapentin at current strength. F/u 3 m. Body mass index 25-29 - overweight 392786151 Z68.28 Educated to continue proper lifestyle and dietary modificati ons. Continue Trulicity as directed. Overweight 257652547 E66 .3 [id number] Evens Chino MD Main Office [address] [address] [place] [address] 04/16/2019 15:10:30 04/16/2019 16:31:06 Adult health examination 905835131 Z00.00 Disorder o f nervous system due to type 2 diabetes mellitus 350991455 E11.40 followed by Sascha Yanez PA-C Essential hypertension 03451454 I10 Human immunodeficiency virus infection 77031318 B20 Stable follow by ID Moderate p ersistent asthma 698689605 J45.40 Stable on controller medication s Body mass index 25-29 - overweight 457039962 E66.3 Z68.25 Diabetic p eripheral neuropathy 855602227 G62.9 [id number] Evens Chino MD Main Office [address] [address] [place] [address] 05/21/2019 15:45:04 05/21/2019 16:20:58 Disorder of nervous system due to type 2 diabetes mellitus 321045481 E11.40 Stable diabetes. Stable labs and microalbum in. Continue current medication s. Continue glucose testing daily. F/u 3 m. Diabetic eye exam scheduled for July. Tinea pedis 8763175 B35. 3 Body mass index 25-29 - overweight 806127617 E66.3 Z68.27 Educated to continue proper lifestyle and dietary modificati ons. Continue Trulicity as directed. [id number] Evens Chino MD Main Office [address] [place] [address] 08/28/2019 15:55:02 08/28/2019 16:34:28 Disorder of nervous system due to type 2 diabetes mellitus 288661264 E11.40 Stable diabetes with hemoglobin A1C at 7.1%. Stable lab work and microalbum in. Continue current medication s. Continue glucose testing daily. F/u 3 m. Ulcer of right foot 1066 187988 2760100 L97.519 fungal foot ulcer persisting after use of topical antifungal . Will refer to the [employer] . [id number] Evens Chino MD [address] [address] 12/25/2019 13:37:50 12/25/2019 15:50:46 Disorder of nervous system due to type 2 diabetes mellitus 063303647 E11.40 Possibly worsened diabetic control due to surgery in July and inactivity due to pandemic. We will test A1c again . Pt. is advised to test glucose more than once daily. Asthma 136916485 J45.90 9 stable on current med. [id number] Fabrice Jimenes MD Main Office [address] [place] [address] 02/01/2020 09:01:25 02/05/2020 09:44:24 Urinary tract infectious disease 81354299 N39.0 [id number] Sherie flanagan MD Main Office [address] [place], [place] [address] [address] 06/16/2020 15:18:39 06/16/2020 16:27:38 Essential hypertension 34420634 I10 BP elevated today, will advise her to come back for BP check with in less pain. Taking meds Lumbago with sciatica 20 5838855 M54.42 Rest, stretching at home, start PT program once a week. Can use otc pain reliever as needed. Reast with pillow under knees or between knees. Likely muscular, call if not better with PT and medication s. Human immunodeficiency virus infection 68507917 B20 followed by ID, stable with supressed VL [id number] Evens Chino MD [facility] [address] [address] 06/20/2020 08:53:11 06/20/2020 10:31:12 Acute exacerbation of moderate persistent asthma 5980977304 31657 J45.41 Exposure t o viral disease 1339646582 24125 Z03.818 [id number] Fabrice Jimenes MD Main Office [address] [place] [address] 07/18/2020 08:05:34 07/18/2020 11:10:38 Exposure to viral disease 1269485646 36149 Z03.818 Patient exposed 2 days ago, has runny nose but otherwise asymptomat ic. Explained that recommenda tion is to be tested 5-7 days after exposure if asx. Will get her scheduled for testing on Tuesday. Quarantine until results back no errands or exposure to others. Should she develop resp distress, fever that does not go down with antipyreti cs please go to ED. [id number] Sherie flanagan MD Main Office [address] [place] [address] 10/02/2020 15:19:04 10/02/2020 16:35:03 Tinea corporis 28907585 B35.4 ? xlear patches tinea, will treat topically in spot locations with steroid to reduce itching and oral med once a week If not better pt to call back and would refer to dermatolog y. Severe dry skin 37850810 2 L85.3 will try this moisturize r for 2 weeks to see if this helps, can use prn if helpful [id number] Fabrice Jimenes MD [facility] [address] [place] [address] 01/07/2021 12:55:10 01/08/2021 10:51:40 Hordeolum externum of upper eyelid of left eye 9240996849 81940 H00.014 warm compresses , erythromyc in cream and rub into upper lid TID x 7 days. call/. return for worsening or concerns or if not better next week. Continue lubricatin g drops as needed, May use an antihistam ine to help with swelling as needed. Citizen Of [place] as a second language 150638058 Z60.8 video visit conducted in vietnamese [id number] Sascha Yanez PA-C Main Office [address] [place] [address] 02/11/2021 15:30:36 02/11/2021 16:43:37 Uncontrolled type 2 diabetes mellitus 622121938 E11.65 A1C today of 8.5%- worsened since [...] log for the PE. . Essential hypertension 69145388 I10 BP is a bit up today. Possibly due to stress and increased sodium. Advised to lower sodium and return in 6 weeks for retest. Continue acei. Pure hypercholesterolemia 933200153 E78.00 Continue with statin therapy, exercise, and dieting, avoid high lipid diet. Complete labs below. [id number] [facility] [address] [place] [address] 03/18/2021 08:41:50 03/20/2021 15:25:59 Citizen [place] as a second language 927594764 Z60.8 phone visit conducted in vietnamese Human immunodeficiency virus infection 95701750 B20 Exposure t o viral disease 1602208440 15318 Z03.818 Quarantine until results back no errands or exposure to others. Should she develop resp distress, fever that does not go down with antipyreti cs please go to ED. Nausea and vomiting 1693 1999 R11.2 zofran as needed, hydrate as much as possible. [id number] Sascha Yanez PA-C Main Office [address] [place] [address] 03/25/2021 13:01:15 03/25/2021 13:51:09 Disorder of nervous system due to type 2 diabetes mellitus 043869843 E11.40 A1c is not on target. Pt. is advised to try harder with her diet and increase physical activity to daily walking over 30 minutes. Repeat A1c in 6-8 weeks. If still over 7%, add basal insulin. Pt. agrees. [id number] Kj Man MD Main Office [address] [address] [place] [address] 04/28/2021 15:47:56 04/28/2021 16:35:52 Adult health examination 076560434 Z00.00 recommend strongly to get COVID vaccine. Updated flu vaccine. Needs infl uenza immunization 453316388 Z23 Screening for malignant neoplasm of colon 409742739 Z12.11 Body mass index 25-29 - overweight 359152051 E66.3 Z68.27 Educated to continue proper lifestyle and dietary modificati ons. Trulicity increased to max dose to help weight loss. Disorder o f nervous system due to type 2 diabetes mellitus 737686504 E11.40 A1c is not on target. Pt. is advised to try harder with her diet and increase physical activity to daily walking over 30 minutes. Goal A1c is under 7%. She did not start trulicity at 3 mg yet. F/u 3 m. Human immunodeficiency virus infection 26475108 B20 continue current meds. F/u with ID. Essential hypertension 88353350 I10 stable on meds, but feels anxious today. Advised to test daily for 2 weeks at and;let me know if over 135/85. Continue lisinopril 10 mg. Moderate p ersistent asthma 485601771 J45.40 stable on current medication s. Overweight 193720037 E66 .3 Diabetic p eripheral neuropathy 336161950 E11.40 Neuropathy controlled with gabapentin and is stable. Pure hypercholesterolemia 063905814 E78.00 Continue with statin therapy, exercise, and dieting, avoid high lipid diet. Complete labs below. [id number] Fabrice Jimenes MD Main Office 3640 [facility] [address] [place] [address] 07/28/2021 15:49:32 07/28/2021 16:18:33 Disorder of nervous system due to type 2 diabetes mellitus 341605544 E11.40 A1c is not on target. We will add basal insulin , Tresiba at 15 u daily and continue the rest of other antidiabet ics. invokana and metformin we will put in fixed combinatio n to decrease pill burden. Pt. will continue trying to lower total calories. Repeat BMP and f/u 3 m. [id number] Kj Man MD [facility] 3640 [facility] [address] [place] [address] 12/11/2021 10:28:22 12/14/2021 08:26:30 Moderate persistent asthma 374774230 J45.41 Appears to be having an asthma flare precipitat ed by allergies rather than infection at this time. Will increase allergy therapy options and try a short prednisone taper which she reports responding to and tolerating well in the past. Advised to monitor blood sugar closely and call if >300 consistent ly. Allergic rhinitis 406927 04 J30.9 Diabetic p eripheral neuropathy 565105561 E11.40 Continiue current regime and increase insulin dosing should sugars spike with prednisone . Overdue for f/u with VM will arrange [facility]. [id number] Sherie flanagan MD Main Office [address] [place] [address] 01/22/2022 09:02:45 01/22/2022 10:03:01 Cellulitis of periorbital region of right eye 4082887493 84922 L03.213 day 2 of symptoms, treat with augmentin as well as eyedrops. normal eye movements, if worse or not improving in 48 hours need reevaluati on. Acute conjunctivitis 537 05096 H10.31 Allergic rhinitis 470811 04 J30.9 start a daily allergy med [id number] Fabrice Jimenes MD Main Office 3960 [facility] [address] [place] [address] 04/30/2022 14:25:43 04/30/2022 15:27:51 Adult health examination 786962973 Z00.00 HM UTD. Needs infl uenza immunization 630973013 Z23 Body mass index 25-29 - overweight 191262193 E66.3 Z68.27 Educated to continue proper lifestyle and dietary modificati ons. Trulicity increased to max dose to help weight loss. Disorder o f nervous system due to type 2 diabetes mellitus 551510676 E11.40 A1c is not on target. Pt. is advised to try harder with her diet and increase physical activity to daily walking over 30 minutes. Goal A1c is under 7%. She did not start trulicity at 3 mg yet. F/u 3 m. Human immunodeficiency virus infection 70832293 B20 continue current meds. F/u with ID. Essential hypertension 58481993 I10 stable on meds, but feels anxious today. Advised to test daily for 2 weeks at and;let me know if over 135/85. Continue lisinopril 10 mg. Moderate p ersistent asthma 598278048 J45.40 stable on current medication s. Overweight 074605092 E66 .3 Diabetic p eripheral neuropathy 969896929 E11.40 Neuropathy controlled with gabapentin and is stable. Pure hypercholesterolemia 554950291 E78.00 Continue with statin therapy, exercise, and dieting, avoid high lipid diet. Complete labs below. Peripheral nerve disease 294355950 G64 [id number] Andrew Painting MD Main Office [address] [facility] [address] [place] [address] 06/09/2022 14:51:51 06/09/2022 15:43:16 Diabetic peripheral neuropathy 206408953 E11.40 Neuropathy controlled with gabapentin and is stable. Disorder o f nervous system due to type 2 diabetes mellitus 723394705 E11.40 A1c is not on target. A1c is 9%. Pt. had a lot of persona; stress in the past couple of months. Travelled to [place] and did not take her meds regularly . Now back home and is eating better and is taking her meds. Increase Tresiba to 15 u daily , continue Invokamet, increase Trulicity to 3 mg weekly. F/u A1c in 6 weeks. Essential hypertension 08643558 I10 stable on meds, but feels anxious today. Advised to test daily for 2 weeks at and;let me know if over 135/85. Continue lisinopril 10 mg. Pure hypercholesterolemia 611035565 E78.00 Switch to rosuvastat in 40 mg. [id number] Sascha Yanez PA-C Main Office 36[address] [facility] [address] [facility] [place] [address] 07/23/2022 13:39:46 07/23/2022 14:07:52 Disorder of nervous system due to type 2 diabetes mellitus 762430956 E11.40 stable mild neuropathy , pt. sees new [employer] in September. Essential hypertension 71448572 I10 stable on meds, continue low sodium diet. Uncontroll ed type 2 diabetes mellitus 251462843 E11.65 Glucose control improving . Pt. will continue current meds and have repeat A1c in 6-8 weeks. F/u 3m. Mixed hyperlipidemia 267 230044 E78.2 continue current meds, low fat low carb diet and repeat lipids after holidays. Long-term current use of insulin 737669658 Z79.4 [id number] Andrew Painting MD Main Office [address] [facility] [address] [facility] [place] [address] 12/31/2022 09:23:49 12/31/2022 11:02:53 Transition of care from emergency department to self-care 3436858278 37082 Z76.89 Pneumonia 703532384 J18. 9 She has HIV, she tells [...] est advised. Exacerbati on of intermittent asthma [id number] J45.21 Will have to start medrol, benefit out weigh risk, advised to monitor glucose due to DM.Cw flovent. advised nebulizer every 4hr for 1-2 days till she can kick this. Discussed it can cause tachy/jitt eriness.ED precaution discussed. Cough 21487866 R05.9 Advises she can do honey but be cautious due to DM. Impacted c erumen of bilateral ears 5210012549 543101 H61.23 Asthma 320917500 J45.90 9 Will start montelukas t as well.Follo w up in 2 weeks. [id number] Fabrice Jimenes MD Main Office [address] [facility] [address] [place] [address] 01/18/2023 10:27:08 01/18/2023 11:08:24 Moderate persistent asthma 865412303 J45.40 sx improved, using nebs, inhalers and singulair, finished medrol dose pack. she is feeling better Pneumonia 274384390 J18. 9 sx improved, took levaquin as directed Abnormal a nal Papanicolaou smear 781216569 R85.619 biopsy on tuesday. Human immunodeficiency virus infection 25761668 B20 continue current meds. F/u with ID. [id number] Andrew Painting MD Main Office [address] [address] [place] [address] 03/23/2023 15:19:01 03/23/2023 16:14:42 Disorder of nervous system due to type 2 diabetes mellitus 152837860 E11.40 stable mild neuropathy , pt. sees [employer] . Check all labs fasting plus urine and return in 6 weeks for PE and DM. Lower invokamet to one tab daily due to nausea. Consider Mounjaro to replace Trulicity if A1c is still high, particular ly 8 or over. continue gabapentin . Essential hypertension 75675981 I10 stable on meds, continue low sodium diet. Mixed hyperlipidemia 267 848520 E78.2 continue current meds, low fat low carb diet and repeat lipids. Screening for malignant neoplasm of breast 195476714 Z12.39 [id number] Andrew Painting MD Main Office [address] [address] [place] [address] 05/11/2023 14:20:02 05/11/2023 15:15:44 Adult health examination 346359744 Z00.00 Vaccines UTD including new COVID booster and flu. Recommend Prevnar 20 and Shingrix, pt will contact [facility] pharmacy. Disorder o f nervous system due to type 2 diabetes mellitus 733494624 E11.40 HgbA1c is 7.7% today, down from 8.3% in 2021. Well controlled on meds. Continue Trulicity, Invokamet, and Tresiba as directed. Continue low carb/low fat diet, reduce fatty foods and processed foods. Increased exercise 3-4x/week as tolerated. Diabetic p eripheral neuropathy 849859731 E11.40 Stable mild neuropathy on Gabapentin , she is following podiatry. Human immunodeficiency virus infection 99060699 B20 Stable, continue current meds. F/u with ID. Long-term current use of insulin 679634710 Z79.4 Mixed hyperlipidemia 267 122972 E78.2 Elevated fasting lipids, continue Rosuvastat in as directed, encouraged to follow low fat diet and increase physical exercise. Will repeat lipids in 3 months. Moderate p ersistent asthma 720981099 J45.40 Stable on meds. Administra tion of pneumococcal vaccine 53537419 Z23 Varicella vaccination 68 451174 Z23 Essential hypertension 32080576 I10 elevated today and on last visit on lisinopril 10 mg. Add amlodipine 5 mg daily. Check blood pressure at home and return in 4-6 weeks with meter for f/u. [id number] Andrew Painting MD Main Office [address] [place] [address] 06/17/2023 14:56:57 06/17/2023 15:24:43 Essential hypertension 28919794 I10 Blood pressure is on target after addition of amlodipine . Continue low sodium diet , bp testing weekly. F/u with PCP in 3 m. Repeat bmp before next visit. Administra tion of pneumococcal vaccine 73957402 Z23 Mixed hyperlipidemia 267 647686 E78.2 Elevated fasting lipids, continue Rosuvastat in as directed, encouraged to follow low fat diet and increase physical exercise. Will repeat lipids in 3 months. repeat lipids prior to next visit. Disorder o f nervous system due to type 2 diabetes mellitus 961803370 E11.40 HgbA1c is 7.7% today, down from 8.3% in 2021. Well controlled on meds. Continue Trulicity, Invokamet, and Tresiba as directed. Continue low carb/low fat diet, reduce fatty foods and processed foods. Increased exercise 3-4x/week as tolerated. [id number] Kj Man MD Main Office [address] [place] [address] 07/07/2023 10:36:54 07/07/2023 11:56:22 Cough 55494312 R05.9 cont albuterol inhaler, nebulizerc ont herb or mucinexals o rec prn tessalonch sita cxrsee belownegat aria for flu Fatigue 07095790 R53.83 had f/c at home, but no temp taken - had n/v - ? dehydratio n - check labsrec push fluids Exacerbati on of moderate persistent asthma 556988887 J45.41 Pneumonia 599235154 J18. 9 recommend probiotics while on abx [id number] Kj Man MD Main Office [address] [address] [place] [address] 07/14/2023 15:27:00 07/14/2023 16:26:12 Pneumonia 608960078 J18.9 resolved p abx Exacerbati on of moderate persistent asthma 769532490 J45.41 resolved p pred pulsecont meds, inhalers as dir [id number] Fabrice Jimenes MD Main Office [address] [address] [place] [address] 08/16/2023 12:40:00 08/16/2023 13:29:42 Spasm of skeletal muscle of thorax 889434234 M62.838 visible rotation of torso and neck [...] Will check thoracic spine XR Neck pain 74780798 M54.2 will check neck XR, she has pain, rotation to the left and cannot fully extend the neck. meds as above/ [id number] Andrew Painting MD Main Office [address] [address] [place] [address] 08/24/2023 10:19:43 08/24/2023 11:04:22 Costal chondritis 39883652 M94.0 Unknown cause for costocondr itis with severe pain. Other acute etiologies were ruled out at [facility]. Start prednisone pulse pack 20 mg 2 daily for 5 days and check glucose 3-4 times daily Increase hydration. Repeat A1c. Cyclobenza angelica 5 mg 2-3 times daily, not recommende d to drive while on this medication . Heat, oxycodone. F/u if needed in 1-2 weeks. [id number] STEVEN BARONE Main Office [address] [place] [address] 08/31/2023 13:31:05 08/31/2023 14:01:20 Costal chondritis 41703871 M94.0 x3 weeks of costal chondritis pain located in the neck, back, and under the breasts- has seen JT 08/16/23, VM 08/24/23, and was seen at [facility] 08/12/23- Unknown cause for costocondr itis with severe pain- was seen at [facility] and other acute etiologies were ruled out- has tried prednisone , gabapentin , cyclobenza angelica, and tramadol with little relief-daniel l refer to pain management and provide topical diclofenac as pt finds some relief [id number] Andrew Painting MD Main Office [address] [place] [address] [place] [address] 09/09/2023 14:40:34 09/09/2023 15:58:47 Mixed hyperlipidemia 590769832 E78.2 Elevated fasting lipids, continue Rosuvastat in as directed, encouraged to follow low fat diet and increase physical exercise. Will repeat lipids in 3 months. repeat lipids prior to next visit. Disorder o f nervous system due to type 2 diabetes mellitus 708041295 E11.40 HgbA1c is very high due to prednisone tapers and severe costochond ritis pain and back spasms.Rec om. to increase Tresiba to 20 u and begin premeal Humalog injections 8 u TID. Continue other medication s as previously . F/u 4 weeks. Increase hydration. Essential hypertension 95159132 I10 Blood pressure is on target after addition of amlodipine . Continue low sodium diet , bp testing weekly. F/u with PCP in 3 m. Repeat bmp before next visit. Neuropathy due to type 2 diabetes mellitus 3147363452 45442 E11.40 increase gabapentin to 600 mg at HS and continue 300 in the am. [id number] ANDRADE MARTIN MD Main Office [address] [place] [address] [place] [address] 09/29/2023 09:43:39 09/29/2023 10:40:13 Costal chondritis 08799270 M94.0 x2 months of costal chondritis pain located in the neck, back, and under the breasts- Unknown cause for costocondr itis with severe pain- cardiopulm onary work up was negative; was evaluated in the ED in prior hospital visit- has tried prednisone , oxycodone, gabapentin , cyclobenza angelica, and tramadol with no relief-tesha iment gel provides temporary relief Chest wall pain 81320067 6 R07.89 - recently seen by pain management ; does not qualify for steroid injections due to uncontroll ed diabetes-p ain triggers with elevation of upper extremitie s, sneezing, deep breaths, coughing, and light touch to the upper/mid back, neck, and chest-ekg; NSR-will further evaluate with CT of chest Pain of mu ltiple joints 98286955 M25.50 [id number] Sascha Yanez PA-C Main Office [address] [facility] [address] [place] [address] 10/07/2023 15:02:30 10/07/2023 15:57:05 Disorder of nervous system due to type 2 diabetes mellitus 485628454 E11.40 HgbA1c is very high due to prednisone tapers and severe costochond ritis pain and back spasms.Rec om. to increase Tresiba to 25 u and begin premeal Humalog injections 12 u TID. Continue other medication s as previously . F/u 4 weeks. Increase hydration. Costal chondritis 752120 04 M94.0 Pt continues to have severe pain in her R. neck, arms and chest. Unable to function. today pain is 10 out of 10 with high blood pressure and severe hyperglyce lucrecia. CT of the chest is not approved by the insurance. Pt previously evaluated by [facility] and were unable to identify etiology of pts pain. Also seen at [facility] for the same. Pt has ongoing 10/10 [...] to the ER due to ongoing pain. [facility] ER notified of pts arrival. Pt at increased stroke risk due to elevated blood pressure, uncontroll ed pain, and uncontroll ed diabetes. Essential hypertension 91421774 I10 Blood pressure elevated in office at 148/83 likely due to ongoing pain. Pt reporting to [facility] ER. Pt at increased stroke risk due to elevated blood pressure. [facility] ER notified of pts arrival. [id number] Fabrice Jimenes MD Main Office [address] [place] [address] 10/12/2023 11:53:40 10/13/2023 13:44:39 [id number] Fabrice Jimenes MD Main Office [address] [place] [address] 10/14/2023 08:31:26 10/14/2023 09:04:00 Transition of care from emergency department to self-care 6405629107 80397 Z76.89 reviewed hospital documentat ion Essential hypertension 94767628 I10 BP in office initially elevated at 149/83 then 132/78-gabrielle n likely contributi ng to elevated BP reading Costal chondritis 186537 04 M94.0 -was evaluated at [facility]; CT scan was negative-x 2 months of constant pain along right side of ribs that radiated across to the left breast and to the back; was seen in office multiple dates since 08/2023-was discharged with naproxen and methocarba mol; pt reports of having significan t relief [id number] ANDRADE MARTIN MD Main Office [address] [place] [address] 11/08/2023 14:43:04 11/08/2023 15:22:39 Disorder of nervous system due to type 2 diabetes mellitus 741228113 E11.40 Improving diabetic control since chest pain decreased few weeks ago. Recom to continue current treatment and return in 6 weeks with glucose log. Repeat A1c then. Essential hypertension 86795048 I10 Stable hypertensi on , continue low sodium diet and medication s. Diabetic p eripheral neuropathy 967670827 E11.40 Stable mild neuropathy on Gabapentin , she is following podiatry. Moderate p ersistent asthma 355393229 J45.40 Pt. still has cough variant asthma. Would like to see Dr. Chavez again for full PFTs. She will continue current medication s. [id number] Fabrice Jimenes MD Main Office [address] [address] [place] [address] 12/09/2023 14:34:10 12/09/2023 15:08:24 Peritonsillar cellulitis 979701897 J36 x4 days of sore throat L>R, [...] precaution s-in office strep test is negative [id number] Andrew Painting MD Main Office [address] [address] [place] [address] 12/23/2023 12:56:03 12/23/2023 15:30:16 Disorder of nervous system due to type 2 diabetes mellitus 709498758 E11.40 Improving diabetic control . Pt. is advised to continue current treatment and repeat A1c. F/u 3 m. [id number] Kj Man MD Telehealt [address] [address] [place] [address] 01/20/2024 14:03:16 01/20/2024 15:18:46 Disorder of nervous system due to type 2 diabetes mellitus 068352777 E11.40 Poor control secondary to recent steroid therapy and dulaglutid e 3mg not being available. Will transition to semaglutid e and titrate dose as tolerated. Has PCP follow up scheduled next week. Hopefully we can obtain insurance approval today. [id number] ANDRADE MARTIN MD Main Office [address] [address] [place] [address] 01/23/2024 08:40:52 01/23/2024 09:12:58 Thoracic back pain 586369656 M54.6 Rib pain 507485026 R07.8 1 - pt diagnosed with costochond [...] neck and this will help Neck pain 53841124 M54.2 Costal chondritis 090616 04 M94.0 [id number] Kj Man MD Main Office [address] [facility] [address] [place] [address] 02/01/2024 11:03:20 02/01/2024 11:43:40 Disorder of nervous system due to type 2 diabetes mellitus 458858285 E11.40 Improving diabetic control . Pt. is advised to continue Ozempic 0.5 mg weekly and continue Tresiba 12 u and lispro lower to 5 u premeal. F/u 6 weeks. Hopefully if back pain improves, we will be able to stop insulin injections . Uncontroll ed type 2 diabetes mellitus 539703883 E11.65 see above Cervical radiculopathy 05252053 M54.12 Increase gabapentin to 300 mg TID, Tizanidine 4 mg half po PRN only. [id number] Kj Man MD Main Office [address] [facility] [address] [place] [address] 03/16/2024 11:14:18 03/16/2024 11:55:21 Disorder of nervous system due to type 2 diabetes mellitus 786802054 E11.40 Slightly improved A1c, but pt is [...] start using CGM regularly . Essential hypertension 03128648 I10 Stable hypertensi on , continue low sodium diet and medication s. [id number] Kj Man MD Main Office [address] [facility] [address] [facility] [place] [address] 04/18/2024 14:17:27 04/18/2024 15:13:09 Disorder of nervous system due to type 2 diabetes mellitus 325104228 E11.40 Last A1c 8.9%. Increase Ozempic to [...] in 6 weeks. Diabetic p eripheral neuropathy 340885822 E11.40 Stable mild neuropathy on Gabapentin , she is following podiatry. Long-term current use of insulin 335456973 Z79.4 Essential hypertension 85240238 I10 Stable hypertensi on , continue low sodium diet and medication s. Body mass index 25-29 - overweight 581453148 E66.3 Z68.27 Educated to continue proper lifestyle and dietary modificati ons. On Ozempic. [id number] Fabrice Jimenes MD Main Office [address] [address] [place] [address] 04/21/2024 09:50:46 04/21/2024 10:30:59 COVID-19 100915322 U07.1 We discussed SE's and she will stay home and OOW until next Tuesday. She can return to work on the as long as she is substantia lly better. [id number] Kj Man MD Main Office [address] [place] [address] 05/29/2024 13:51:57 05/29/2024 14:40:42 Disorder of nervous system due to type 2 diabetes mellitus 579685339 E11.40 Improved diabetic control with the addition of Ozempic in place of trulicity. Pt. is advised to continue 0.5 mg weekly dose, lower tresiba to 12 u due to occasional mild hypoglycem ia. For now continue lispro at 8, but if glucose improves further, pt. can try 5 u premeal. F/u 3-4 m. Recheck all labs fasting prior to PE. Mixed hyperlipidemia 267 320297 E78.2 Elevated fasting lipids, continue Rosuvastat in as directed, encouraged to follow low fat diet and increase physical exercise. Will repeat lipids in 3 months. repeat lipids prior to next visit. Eczema 68458831 L30.9 [id number] Kj Man MD Main Office [address] [facility] [address] [place] [address] 07/13/2024 14:50:53 07/13/2024 15:35:09 Disorder of nervous system due to type 2 diabetes mellitus 905424267 E11.40 Improved diabetic control with the addition of QksjypuS0f is 6.5%. WE will increase Ozempic to 1 mg weekly and lower Tresiba to 10 u , lispro to 5 u TID. If glucose continues declining, d/c insulins and continue frequent testing. Pt. is back next month for the PE. Essential hypertension 03696425 I10 Stable hypertensi on , continue low sodium diet and medication s. Long-term current use of insulin 404293180 Z79.4 Mixed hyperlipidemia 267 889705 E78.2 Elevated fasting lipids, continue Rosuvastat in as directed, encouraged to follow low fat diet and increase physical exercise. Will repeat lipids in 3 months. repeat lipids prior to next visit. Vitamin D deficiency 347 89310 E55.9 Eczema 82377788 L30.9 begin using topical steroid cream and hypoallerg enic moisturize r twice daily. [id number] Fabrice Jimenes MD Main Office [address] [facility] [address] [place] [address] 08/29/2024 14:41:00 08/29/2024 16:10:44 Adult health examination 306167383 Z00.00 Vaccines UTD including new COVID booster, flu Prevnar 20 and Shingrix. UTD on all other age recommende d screenings . Disorder o f nervous system due to type 2 diabetes mellitus 502543585 E11.40 Improved diabetic control with the addition of Ozempic. A1c is 6.5%. Pt is currently taking Ozempic to 1 mg weekly and Tresiba 10u , lispro 5 u TID. If glucose continues declining, d/c insulins and continue frequent testing. Repeat labs ordered. F/u 3 m. Essential hypertension 72130181 I10 Stable hypertensi on, continue low sodium diet and medication s. Long-term current use of insulin 362523199 Z79.4 Continue Insulin. Mixed hyperlipidemia 267 229569 E78.2 Elevated fasting lipids, continue Rosuvastat in as directed, encouraged to follow low fat diet and increase physical exercise. Will repeat lipids in 3 months. repeat lipids prior to next visit. Moderate p ersistent asthma 504617475 J45.40 Pt. still has cough variant asthma. Would like to see Dr. Chavez again for full PFTs. She will continue current medication s. Human immunodeficiency virus infection 12718165 B20 Stable, continue current meds. F/u with ID. Patient has had two new flares of condylomat a looking to be removed Eczema 37654653 L30.9 begin using topical steroid cream and hypoallerg enic moisturize r twice daily. Diabetic p eripheral neuropathy 127005559 E11.40 Stable mild neuropathy on Gabapentin , she is following podiatry. Body mass index 25-29 - overweight 222210192 E66.3 Z68.27 Educated to continue proper lifestyle and dietary modificati ons. On Ozempic. Allergic rhinitis 000460 04 J30.9 Well controlled at this time. Cervical radiculopathy 07982769 M54.12 Gabapentin script refilled. Tizanidine 4 mg half po PRN only. Abnormal a nal Papanicolaou smear 592165832 R85.619 Patient is being scheduled for colposcopy due to recent abnormal pap smear findings. The office will reach out to her [employer] for the original pap smear results. She will continue monitoring with [employer]. [id number] Fabrice Jimenes MD Telehealt h [address], [place] [address] 10/15/2024 13:00:21 10/15/2024 15:10:53 Essential hypertension 09045496 I10 Uncontroll ed blood pressure due to [...] Continue DASH diet. Have labs done fasting. [id number] Kj Man MD Main Office [address] [facility] [address] [place] [address] 11/08/2024 15:25:01 11/08/2024 16:48:33 Pain of ear 061003766 H92.02 + cerumen impaction Lbut has significan t L cervical LN enlargemen t - wonder if d/t drainage from infection vs drainage from L nares, which is congested == could be eustachian tube dysfxnrec ns spray prn, as well as warm washcloth to L side of neck = if no sig help, consider afrin 1-3 dayswill look at ear p irrigated to make sure does not have underlying OM = + OM = see below Impacted c erumen in left ear 5238414919 443115 H61.22 Acute left otitis media 096208371 H66.92 recommend probiotics while on abx [id number] Fabrice Jimenes MD Main Office [address] [facility] [address] [place] [address] 11/27/2024 14:53:36 11/27/2024 15:41:32 Disorder of nervous system due to type 2 diabetes mellitus 519434021 E11.40 Improved diabetic control with the addition of Ozempic, but not at goal at 7.4%. recommend to advance Ozempic dose to max 2 mg weekly , lower tresiba to 10 u and after 1-2 weeks, hold premeal lispro. continue Invokamet. F/u 3 m. continue gabapentin . Pt. is seen regularly by the [employer] . Essential hypertension 53701623 I10 stable blood pressure after restarting losartan. Continue low sodium diet. Mixed hyperlipidemia 267 038436 E78.2 44489 Discussed results of recent labs. TRG are at 286 from 105 last year. Recom to reduce total carbs , processed foods and repeat lipids in 6 m. [id number] Kj Man MD Main Office [address] [facility] [address] [place] [address] 02/26/2025 10:44:30 02/26/2025 11:39:56 Disorder of nervous system due to type 2 diabetes mellitus 941032955 E11.40 Diabetic control unchanged since the last visit at 7.5%. Glucose log was reviewed with pt. Pt checks only pre meal 3 times daily. All premeal readings are under 150 range.Vicente to test 2 hrs after the meals. Increase lispro to 10 u. Continue Tresiba at 20 u daily and Ozempic 2 mg , invokamet max dose. Recent labs discussed. Stable. Ophthalmol ogy and podiatry notes reviewed and discussed. All stable. F/u 3 m. Diabetic p eripheral neuropathy 018073507 E11.40 Stable mild neuropathy on Gabapentin , she is following podiatry. [id number] Fabrice Jimenes MD Main Office [address] [facility] [address] [facility] [place] [address] 03/21/2025 09:51:53 03/21/2025 10:29:14 Dysuria 57914258 R30.0 64778 x1 week of symptoms>d ysuria, burning sensation, hematuria, and right flank pain-right flank pain that has been radiating/ moving since onset last -d enies of any fever/chil ls-dipstic k negative for leuks/nitr ates-trace blood>will send out for culture, will provide antibiotic s if indicated from culture Kidney stone 08254280 N2 0.0 52733 high suspicion for kidney stones; right side-no known hx of kidney stones-end orses right flank pain that migrates downward upon urination- burning sensation and faint blood with wiping-daniel l check KUB-discus sed conservati ve measuremen ts [id number] Kj Man MD Main Office [address] [facility] [address] [facility] [place] [address] 05/10/2025 14:44:01 05/10/2025 15:33:59 Pneumonia 709580903 J18.9 9490433874 add antibiotic to cover for bacterial pneumonia. continue prednisone 60 mg for 2 more days, then 50 for 2, 40 for 2, 30 for 2, 20 for 2, 1 fro 2. Nebulizer every 4 hrs at home. Discontinu e use of intranasal saline and flonase due to epistaxis. F/u with pulmonary. Exacerbati on of moderate persistent asthma 372424580 J45.41 607415 see above. [id number] Kj Man MD Main Office [address] [facility] [address] [place] [address] 05/20/2025 15:04:28 05/20/2025 16:35:21 Otitis externa 8623067 H60.8X1 3625255 will rx c topical abx drops Respirator y tract congestion 895923567 R09.81 8796906 cont ns spray, rec steam, warm compress neck prn [id number] Kj Man MD Main Office [address] [facility] [address] [place] [address] 06/05/2025 14:14:45 06/05/2025 14:55:05 Disorder of nervous system due to type 2 diabetes mellitus 844278415 E11.40 A1c is improved at 7.1%. Ozempic is not on pt's formulary. WE will try to get mounjaro covered starting g at 2.5 mg weekly dose and continue insulins and Invokamet for now. Labs reviewed and discussed with pt. Eye exam is neg for retinopath y. PT sees [employer] due to neuropathy . F/u 3 m. WE will continue advancing dose of mounjaro if it's covered every 4 weeks. Diabetic p eripheral neuropathy 964044541 E11.40 Stable mild neuropathy on Gabapentin , she is following podiatry. Long-term current use of insulin 658476054 Z79.4 Continue Insulin. Health Concerns Section Related Observation LastModified by Organization Detai ls LastModified Time None Recorded Concern Status LastModified by Organization Details LastModified Time None Recorded Advance Directives Directive Y: HCP Payers Insurance Date Sequence Insurance Name Policy Number Policy James Covered Member ID James Member ID Guarantor Name 06/05/2025 1 [facility] [employer] [facility] NET PLAN (MEDICAID HMO) [id number] Maame Angulo [id number] Maame Angulo 06/05/2025 2 [place] [facility] Maame Angulo [id number] Maame Angulo Notes Date Note Type Note Provider Name and Address Organization Details Recorded Time 02/26/2025 text/html Hypertension F/UReported by PatientHPIFor associated symptoms, patient reportsno dizziness,no lightheadedness,no chest pain,no shortness of breath,no palpitations,no edema, andno calf pain with exertion. For lifestyle, patient reportslimiting/avoid ing salt. For medications, patient reportstaking medications as [...] thirst,no increased urination, andno blurred vision.HgA1c is 7.5 % today. 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 Gabapentin 300 mg TID for the neuropathy.Diabetic eye exam in September, no retinopathy.Went to [facility] in November , followed for Tinea pedis , hammer toe , neuropathy.ROS as noted in the HPI Sascha Yanez PA-C [address], [address] [facility] [place]25 11:44:23 03/21/2025 text/html DysuriaReported by PatientHPIFor quality, patient reportsburning. For associated symptoms, patient reportsblood in the urineandflank pain (right side)but reportsno fever,no rash on genitals, andnormal urine stream. For severity, patient reportssameandmild. For duration, (1 week).ROS as noted in the HPI Maame is a 54yr old F who presents for UTI symptoms x1 week. Reports of having right sided low back pain when urinating, burning sensation, and light blood when wiping. Denies of any pelvic pain, fever/chills. STEVEN BARONE [address] [address], [place], [address], [facility] [place] 03/21/2025 10:30:57 05/10/2025 text/html ROS as noted in the HPI 54 year old HIV positive female with moderate persistent asthma, type II diabetes and hypertension for ER f/u. Seen at [facility] on 05/07 with worsening cough , congestion [...] have pulmonary jade until later this month. Sascha Yanez PA-C [address] [facility] [address], [place], [address], [facility] [place]/10/2025 15:46:11 05/20/2025 text/html ROS as noted in the HPI 54 year old HIV positive female with moderate persistent asthma, type II diabetes and hypertension for ER f/u. Seen at [facility] on 05/07 with worsening cough , congestion [...] have pulmonary jade until later this month. 10.20.25 - here for 10 day f/urx'd by [facility] hobson levaquin 750mg qd x 5 days, and continued pred taperin general, feeling better - no further wheezingbut still has R ear pain and mild STstill has head congestiontakes bp medsused to take flonase - stopped d/t nosebleeds Yeison Yanez PA-C [address] [facility] [address], [place], [address], [facility] [place] 05/20/2025 19:37:23 06/05/2025 text/html Hypertension F/UReported by PatientHPIFor associated symptoms, patient reportsno dizziness,no lightheadedness,no chest pain,no shortness of breath,no palpitations,no edema, andno calf pain with exertion. For lifestyle, patient reportslimiting/avoid ing salt. For medications, patient reportstaking medications as [...] eye exam in September, no retinopathy.Went to [facility] in November , followed for Tinea pedis , hammer toe , neuropathy.ROS as noted in the HPI Sascha Yanez PA-C [address] [address], [place], [address], [facility] [place]05/2025 14:59:07 OBGyn Episode No OBEpisode recorded.
--- OUTSIDE RECORDS SUMMARY | 2025-06-21 10:12 | XMS_ITS | Data Portability ---
Author Organization [facility]EVEN Ott [facility] [address] Address [address] [place] [address] Assessment No assessment recorded. Plan of Treatment Reminders Order Date Submit Date Provider Last Modified By Organization Details Last Modified Time Details Appointments None recorded. Lab None recorded. Referral None recorded. Procedures None recorded. Surgeries None recorded. Imaging None recorded. Medication Orders azithromyci n 250 mg tablet 2022 023 SHEA [id number], [address] [place], [address], 3 08:39:54 prednisone 20 mg tablet 2022 023 [email or web address] [id number], [address] [place], [address], 3 09:59:58 Patient TargetsNo targets recorded. Patient Instructions Encounter Date Encounter Id Patient Instructions Last Modified By Organization Details Last Modified Time 12/07/2022 [id number] walking pneumonia: care instructions Not available 12/07/2022 10:03:33 asthma attack: care instructions Not available 12/07/2022 10:03:33 Reason for Referral None Reported. Problems Name Problem SNOMED Code Status Onset Date Resolution Date Notes Provider Name and Address Organization Details Recorded Time Asthma 397033566 Active 2022 Asha riggs, PA - [facility] 3 08:17:51 Hypertensive disorder 30475978 Active 2022 Asha Razia null, PA - [facility] 3 08:18:21 Diabetes mellitus 12048912 Active 2022 Asha STEVEN Farfan [facility] 3 08:18:25 Environmental allergy 855811454 Active 2022 [facility] 08:18:35 Problem Notes None recorded. Procedures Surgical History Date Name Laterality Status Provider Name and Address Organization Details Recorded Time hysterectomy completed Asha Randle STEVEN - [facility] 12/07/2022 08:19:11 Imaging Results [...] mass index (BMI) Body weight Oxygen saturation Heart rate Respiratory rate Pain severity - 0-10 verbal numeric rating [Score] - Reported Body temperature Systolic And Diastolic Provider Name and Address Organization Details Last Updated DateTime 3 149.86 cm 31.1 kg/m2 97851.2 2 g 100 % 86 /min 20 /min 8 98 [degF] 123/62 mm[Hg] Asha Randle PA - [facility] 3 08:21:13 Social History Question Answer Notes LastModified by [employer] Details LastModified Time Tobacco Smoking Status Never Smoker Asha riggs PA [facility] 12/07/2022 08:18:49 Have You Had Direct Contact, Or Contact During Intimacy, With Monkeypox Rash, Scabs, Or Body Fluids From A Person With Monkeypox? No Information not available 12/07/2022 Have You Recently Traveled Abroad? No Information not available 12/07/2022 Sex: Unknown Functional Status Question Answer Note LastModified by [employer] Details LastModified Time Do you use any illicit or recreational drugs? No Information not available 12/07/2022 Do you or have you ever used any other forms of tobacco or nicotine? No Information not available 12/07/2022 What is your level of alcohol consumption? None Information not available 12/07/2022 Mental Status None recorded. Family History Relationship [...] split virus, quadrivalent, preservative 0 completed Asha Kimper null, PA - [facility] 12/07/2022 08:16:07 MMR 9 completed [...] 08:16:07 pneumococcal polysaccharide PPV23 8 completed Asha Kimper null, PA - [facility] 12/07/2022 08:16:07 Tdap 8 completed Asha Kimper null, PA - [facility] 12/07/2022 08:16:07 Tdap 8 completed Asha Kimper null, PA - [facility] 12/07/2022 08:16:07 Pneumococcal conjugate PCV 13 6 completed Asha Kimper null, PA - [facility] 12/07/2022 08:16:07 Influenza, split virus, trivalent, preservative 2 completed Asha Kimper null, PA - [facility] 12/07/2022 08:16:07 Influenza, split virus, trivalent, preservative 6 completed Asha Kimper null, PA - [facility] 12/07/2022 08:16:07 Influenza, split virus, trivalent, preservative 4 completed Asha Razia null, PA - [facility] 12/07/2022 08:16:07 Influenza, split virus, trivalent, preservative 2 completed Asha Razia null, PA - [facility] 12/07/2022 08:16:07 Influenza, split virus, trivalent, preservative 3 completed Asha Razia null, PA - [facility] 12/07/2022 08:16:07 Influenza, split virus, trivalent, PF 5 completed Asha Kimper null, PA - [facility] 12/07/2022 08:16:07 Td (adult), 2 Lf tetanus toxoid, preservative free, adsorbed 7 completed Asha Razia null, PA - [...] split virus, quadrivalent, PF 2 completed Asha Kimper null, PA - [facility] 12/07/2022 08:16:07 Influenza, split virus, quadrivalent, PF 5 completed Asha Kimper null, PA - [facility] 12/07/2022 08:16:07 Past Encounters Encounter ID Performer Location Encounter Start Date Encounter Closed Date Diagnosis/Indication Diagnosis SNOMED-CT Code Diagnosis ICD10 Code Diagnosis IMO Codes Diagnosis Note [id number] [address] [facility] [address] [place] [address] 02/28/2020 15:46:43 02/28/2020 16:49:59 [id number] [facility] [place] [address] 01/15/2020 08:12:55 01/15/2020 09:13:49 [id number] [address] [facility] [address] 09/02/2020 15:51:24 09/02/2020 17:50:48 [id number] Theron Alfred MD [address] [place] [address] 12/07/2022 08:10:02 12/07/2022 08:45:01 Community acquired pneumonia 238584108 J18.9 Concerning for pneumonia, . will treat based on clinical presentati on.Startbijal rushing streroids. Aware that she is Diabetic but [...] Recorded Advance Directives Directive None Recorded Payers Insurance Date Sequence Insurance Name Policy Number Policy James Covered Member ID James Member ID Guarantor Name 12/07/2022 1 [facility] NET PLAN (MEDICAID HMO) [id number] Maame Angulo [id number] Maame Angulo Notes Date Note Type Note Provider Name and Address Organization Details Recorded Time 12/07/2022 text/html CoughReported by PatientHPIFor quality, patient reportsproductive cough. For severity, patient reportspain with coughbut reportsmoderate. For timing, patient reportsworsening. For context, patient reportshistory of asthma. For associated symptoms, patient reportschills,chest pain,wheezing,post nasal drip, andhurts to breath. For duration, patient reportsconstant.Has history asthma. using at home Albuterol. Chest is congested an dhas pain in the lower posterior rib cage. Theron Alfred MD [address] [place] [address] [place], [address], PA - [facility] 12/07/2022 10:03:37 OBGyn Episode No OBEpisode recorded.
--- OUTSIDE RECORDS SUMMARY | 2025-06-21 10:12 | XMS_ITS | Continuity of Care Document ---
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 ON/ADDEN DUM Evens Chino MD [address] [facility] [address], [place], [address] , [facility] 8 16:19:18 Type 2 diabetes mellitus without complica tion 832723520 Completed 201203/11/2014 RECORDED 03/19/20 13 3:53PM BY KASSIE ROBERTS MA, ANNOTATI ON/ADDEN DUM Sascha Yanez PA-C [address] [facility] [address], [place], [address] , [facility] 6 16:02:22 Acute sinusiti s 89636972 Completed 201302/19/2014 RECORDED 11/20/19 14 3:01PM BY JESI MONTEJO ON/ADDEN DUM [facility] 6 15:32:53 Tobacco dependen ce syndrome 60825737 Completed 201308/02/2014 RECORDED 11/20/19 14 3:03PM BY JEREMY PARKER, OFFICE VISIT Sascha Yanez PA-C [address] [facility] [address], [place], [address] , [facility] 6 16:02:22 Acute sinusiti s 86164950 Completed 201303/11/2014 RECORDED 11/20/19 14 3:01PM BY JESI MONTEJO ON/ADDEN DUM TERRI Avitia, [facility] 6 15:32:53 Acute asthma 068902254 Completed 201302/19/2014 IMPRESSI ON: SECONDAR Y TO [...] ANNOTATI ON/ADDEN DUM Evens Chino MD [address] [facility] [address], [place], [address] , [facility] 9 16:23:56 Allergic rhinitis 23536440 Active 2013 BERNICE Chung, [facility] 5 14:09:00 Acute asthma 970511745 Completed 201304/16/2019 Evens Chino MD [address] [address], [place], [address] , [facility] 9 16:23:56 Disorder of breast 65392804 Active 2013 Not Available [facility] 4 07:42:44 Screenin g for malignan t neoplasm of breast Completed 201306/14/2016 TERRI Avitia, [facility] 6 15:34:30 Depressi ve disorder 47254858 Completed 201305/11/2023 Sascha Yanez PA-C [address] [address], [place], [address] , [facility] 3 15:17:55 Uncontro lled type 2 diabetes mellitus 891703528 Completed 201302/24/2018 Evens Chino MD [address] [facility] [address], [place], [address] , [facility] 8 16:19:18 Contact dermatit is [id number] Completed 201309/30/2016 TERRI Avitia, [facility] 7 10:01:03 Essentia l hyperten karyna 74626125 Active 2013 Erika Wesley LPN null, [facility] 5 14:09:00 Tobacco user [id number] Completed 201302/19/2014 RECORDED 11/24/19 14 3:39PM BY KASSIE ROBERTS MA, JESI ON/ADDEN DUM Sascha Yanez PA-C [address] [facility] [address], [place], [address] , [facility] 6 16:02:22 Acute upper respirat ory infectio n 47849372 Completed 201302/19/2014 IMPRESSI ON: VIRAL; RECORDED 11/24/19 14 3:39PM BY KASSIE ROBERTS MA, JESI ON/ADDEN DUM Sascha Yanez PA-C [address] [facility] [address], [place], [address] , [facility] 6 16:02:22 Acute asthma 183358071 Completed 201303/11/2014 IMPRESSI ON: SECONDAR Y TO [...] JESI ON/ADDEN DUM Evens Chino MD [address] [facility] [address], [place], [address] , [facility] 9 16:23:56 Tobacco user [id number] Completed 201303/11/2014 RECORDED 11/24/19 14 3:39PM BY KASSIE ROBERTS MA, JESI ON/ADDEN DUM Sascha Yanez PA-C [address] [facility] [address], [place], [address] , [facility] 6 16:02:22 Acute upper respirat ory infectio n 34860224 Completed 201303/11/2014 IMPRESSI ON: VIRAL; RECORDED 11/24/19 14 3:39PM BY KASSIE ROBERTS MA, ANNOTATI ON/ADDEN DUM Sascha Yanez PA-C [address] [facility] [address], [place], [address] , [facility] 6 16:02:22 Hong Konger as a second language 855240591 Active 2016 Maltese- speaking Not Available [facility] 4 07:42:44 Diabetic peripher al neuropat hy 792529160 Active 2016 BERNICE Chung, [facility] 5 14:09:00 Body mass index 25-29 - overweig ht 718757704 Active 2016 Not Available [facility] 4 07:42:44 Overweig ht 676076001 Active 2018 BERNICE Chung, [facility] 5 14:09:00 Moderate persiste nt asthma 717357117 Active 2018 BERNICE Chung, [facility] 5 14:09:00 Ulcer of right foot Completed 201905/11/2023 Sascha Yanez PA-C [address] [facility] [address], [place], [address] , [facility] 3 14:29:51 Mixed hyperlip idemia 910267375 Active 2021 Sascha Yanez PA-C [address] [facility] [address], [place], [address] , [facility] 5 15:31:37 Long-ter m current use of insulin 434782206 Active 2021 Not Available [facility] 4 07:42:44 Pneumoni a 563535562 Active 2022 Not Available [facility] 4 07:42:44 Abnormal anal Papanico laou smear 422416146 Active 2022 Not Available [facility] 4 07:42:44 Spasm of skeletal muscle of thorax 755996145 Active 2023 Not Available [facility] 4 07:42:44 Neck pain 45511833 Active 2023 RECORDED 02/11/20 12 3:05PM BY KASSIE ROBERTS MA, ANNOTATI ON/HÉCTOR DUM Not Available [facility] 4 07:42:44 Costal chondrit is 66833555 Active 2023 Sascha Yanez PA-C [address], [place], [address] , [facility] 4 11:01:02 Eczema 41103387 Active 2023 Sascha Yanez PA-C [address], [place], [address] , [facility] 4 14:36:23 Cervical radiculo ranjana 11690264 Active 2024 Julianna Saenz [facility] 5 15:43:47 Problem Notes None recorded. Procedures Surgical History Date Name Laterality Status Provider Name and Address Organization Details Recorded Time 08/29/19 25 Diabetic Foot Exam (Monofilament) completed Sascha Yanez PA-C [address], [place], [address], [facility] 08/29/2024 16:24:35 05/12/20 24 Most Recent Mammogram completed Shani Veliz [facility] 05/15/2024 11:08:09 10/11/19 24 diabetic retinopathy screening completed Shani Veliz [facility] 10/12/2023 08:29:28 05/07/20 23 Mammogram screening completed Angela Honeycutt [facility] 05/10/2023 09:00:40 03/02/20 22 Date of Last Colonoscopy completed Lyla Mccartney [facility] 03/04/2022 10:24:49 03/02/20 22 Colonoscopy completed Lyla Bib [facility] 03/04/2022 10:24:39 04/28/20 21 Diabetic Foot Exam (Monofilament) completed Descomplicaden PA-C [address], [address], [facility] 04/28/2021 16:39:35 02/12/20 21 Diabetic Foot Exam (Monofilament) completed Natacha Connie [facility] 02/11/2021 16:19:55 08/28/19 20 Diabetic Foot Exam (Monofilament) completed Omaira Jasmine [facility] 08/28/2019 16:15:58 02/21/20 19 Diabetic Foot Exam (Monofilament) completed Descomplicaden PA-C [address] [address], [place], [address], [facility] 02/20/2019 16:00:13 05/02/20 17 [facility]2017 14:41:16 05/02/20 17 Colposcopy completed Reina Giraldo [facility] 07/19/2017 14:41:33 Caesarean Section completed Dipika Uriarte [facility] 05/10/2014 15:42:08 Imaging Results None recorded. Procedure Notes None recorded. Medical Equipment None Reported. Allergies Allergen ID Allergen Name Allergen Category Reaction Reaction Severity Criticality Documentation Date Start Date Code Code System Note Provider Name and Address Organization Details Recorded Time 84279 amlodipin e medicatio n edema Not available Not available 02/01/2024 55876 RxNorm swell ing of ankle s [facility] 4 11:18:46 56226 lisinopri l medicatio n anaphylax is Not available Not available 10/15/2024 76386 RxNorm Sascha Yanez PA-C [address] [facility] [address], [facility] [place], [address], [facility] 5 14:30:07 Medications Name Sig Start Date [...] 03/30 completed RECORDED 03/30/20 12 6:28AM BY JK Choudhury MD, MEDICATI ON AUTO-GENESIS CTIVATIO N; [...] Not Avai lable Nasonex 50 mcg/actua tion [place] DAILY 01/28 completed Not Available Not Available [...] 02/07/20 10 3:07PM BY JESI PLASCENCIA ON/HÉCTOR SILVA;THIS ORDER DISCONTI NUED PER MEDI-SPA N. Not [...] Not Available Not Available Not Available FreeStyle Ewing Lite kit USE DIRECTED . *NOT COVERED* [...] TAKE 1 TABLET BY MOUTH EVERY DAY 12/28 /2021 completed Not Available Not Available Not Available [...] inhalatio n 11/19 completed [facility] Not Available Not Available Not Available [...] Updated DateTime 5 157.48 cm 28.3 kg/m2 37582.8 2 g 119 /min 99 % 98.3 [degF] 127/78 mm[Hg] Johanna Card [facility] 10:03:40 Social History Question Answer Notes LastModified by Organizat ion Details LastModified Time Tobacco Smoking Status Current Some Day Smoker has not been smoking the past month November 2022 TERRI Montejo, [facility] [place] 12/31/2022 09:55:36 Do You Have An Advance Directive? Yes HCP [email or web address] Information not available 04/28/2021 Is Blood Transfusion [...] Live Alone Or With Others? With Others [email or web address] Information not available 04/30/2022 Do You Take [...] Individual Who Tested Positive For COVID-19? No [email or web address] Information not available 01/07/2021 Have You Recently [...] Do You Use Protection During Sex? Usually [email or web address] Information not available 04/28/2021 Do You Use Your Seat Belt Or Car Seat Routinely? Yes [email or web address] Information not available 04/28/2021 Seat Belts Used Routinely Yes Information not available 04/28/2021 Are You Sexually Active? Yes Jose Information not available 08/29/2024 Smoke Alarm In Home Yes Information not available 04/28/2021 Do You Have Smoke And Carbon Monoxide Detectors In Your Home? No [email or web address] Information not available 04/28/2021 At What Age [...] e-cigarettes or vape? Never used electronic cigarettes [email or web address] Information not available 04/28/2021 What is your [...] virus, trivalent, preservative 6 completed Shani riggs [facility] 08/22/2023 09:54:33 Influenza, split virus, quadrivalent, preservative 0 completed Shani Veliz [facility] 08/22/2023 09:54:32 COVID-19, mRNA, LNP-S, PF, 100 mcg/0.5mL dose or 50 mcg/0.25mL dose 1 completed Shani Veliz [facility] 08/22/2023 09:54:33 COVID-19, mRNA, LNP-S, PF, 100 mcg/0.5mL dose or 50 mcg/0.25mL dose 2 completed Shani Veliz [facility] 08/22/2023 09:54:33 Influenza, split virus, trivalent, PF 5 completed [facility] 08/22/2023 09:54:33 Influenza, split virus, quadrivalent, PF 7 completed [facility] 08/22/2023 09:54:33 Pneumococcal conjugate PCV 13 6 completed Shani Veliz [facility] 08/22/2023 09:54:33 Influenza, split virus, quadrivalent, PF 2 completed [facility] 08/22/2023 09:54:33 Tdap 8 completed Shani Veliz null, [facility] 08/22/2023 09:54:33 Influenza, split virus, quadrivalent, PF 5 completed Shani Veliz null, [facility] 08/22/2023 09:54:33 Influenza, split virus, quadrivalent, PF 1 completed Shani Veliz null, [facility] 08/22/2023 09:54:33 zoster recombinant 3 completed Shani Veliz null, [facility] 08/22/2023 09:54:32 Influenza, split virus, quadrivalent, PF 3 completed Shani Veliz null, [facility] 08/22/2023 09:54:33 zoster recombinant 4 completed Marlen King MA null, [facility] 09/29/2023 09:57:05 Influenza, MDCK, trivalent, PF 4 completed Erika Wesley LPN null, [facility] 04/18/2024 14:28:24 Pneumococcal conjugate PCV20, polysaccharide [id number] conjugate, adjuvant, PF 4 completed Kassie Mathew MA null, [facility] 08/29/2024 14:54:59 zoster recombinant 3 completed Not Available [facility] 06/05/2025 14:16:24 Influenza, recombinant, trivalent, PF 5 completed Not Available [facility] 06/05/2025 14:16:24 Td (adult), 2 Lf tetanus toxoid, preservative free, adsorbed 7 completed Shani Veliz null, [facility] 08/22/2023 09:54:33 MMR 9 completed Shani Veliz null, [facility] 08/22/2023 09:54:32 Influenza, split virus, trivalent, preservative 2 completed Shani Veliz null, [facility] 08/22/2023 09:54:33 Influenza, split virus, trivalent, preservative 3 completed Shani riggs, [facility] 08/22/2023 09:54:33 Influenza, split virus, trivalent, preservative 4 completed Shani Veliz null, [facility] 08/22/2023 09:54:33 Hep B, adolescent or pediatric 5 completed Shani Jose Alfredo null, [facility] 08/22/2023 09:54:33 Hep B, adolescent or pediatric 5 completed Shani Veliz null, [facility] 08/22/2023 09:54:33 Hep B, adolescent or pediatric 5 completed Shani riggs, [facility] 08/22/2023 09:54:33 pneumococcal polysaccharide PPV23 8 completed Shani riggs, [facility] 08/22/2023 09:54:33 Tdap 8 completed Shani riggs, [facility] 08/22/2023 09:54:33 Influenza, split virus, trivalent, preservative 2 completed Shani riggs, [facility] 08/22/2023 09:54:33 Past Encounters Encounter ID Performer Location Encounter Start Date Encounter Closed Date Diagnosis/Indication Diagnosis SNOMED-CT Code Diagnosis ICD10 Code Diagnosis IMO Codes Diagnosis Note [id number] Kj Man MD Main Office [address] [place] [address] 02/26/2025 10:44:30 02/26/2025 11:39:56 Disorder of nervous system due to type 2 diabetes mellitus 798390923 E11.40 Diabetic control unchanged since the last [...] F/u 3 m. Diabetic p eripheral neuropathy 363309994 E11.40 Stable mild neuropathy on Gabapentin , she is following podiatry. [id number] Fabrice Jimenes MD Main Office [address] [facility] [address] [facility] [place] [address] 03/21/2025 09:51:53 03/21/2025 10:29:14 Dysuria 47521281 R30.0 99571 x1 week of symptoms>d ysuria, burning sensation, hematuria, and right flank pain-right flank pain that has been radiating/ moving since onset last -d enies of any fever/chil ls-dipstic k negative for leuks/nitr ates-trace blood>will send out for culture, will provide antibiotic s if indicated from culture Kidney stone 89639725 N2 0.0 89431 high suspicion for kidney stones; right side-no known hx of kidney stones-end orses right flank pain that migrates downward upon urination- burning sensation and faint blood with wiping-daniel l check KUB-discus sed conservati ve measuremen ts Health Concerns Section Related Observation LastModified by Organization Detai ls LastModified Time None Recorded Concern Status LastModified by Organization Details LastModified Time None Recorded Payers Encounter Date Sequence Insurance Name Policy Number Policy James Covered Member ID James Member ID Guarantor Name 03/21/2025 2 [place]: [facility] Maame Kei Angulo [id number] Maame Angulo 03/21/2025 1 [facility] (MEDICAID HMO) [id number] Maame Angulo [id number] Maame Angulo Notes Date Note Type Note Provider Name and Address Organization Details Recorded Time 03/21/2025 text/html DysuriaReported by PatientHPIFor quality, patient [...] of any pelvic pain, fever/chills. STEVEN BARONE [address] [address], [place], [address], [facility] 03/21/2025 10:30:57 OBGyn Episode No OBEpisode recorded.
--- OUTSIDE RECORDS SUMMARY | 2025-06-21 10:12 | XMS_ITS | Continuity of Care Document ---
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 Lyla Mccartney [facility] 03/04/2022 10:24:49 03/02/20 22 Colonoscopy completed Lyla Mccartney [facility] 03/04/2022 10:24:39 04/28/20 21 Diabetic Foot Exam (Monofilament) completed Emma Paulsonden PA-C [address], [place], [address], [facility] 04/28/2021 16:39:35 02/12/20 21 Diabetic Foot Exam (Monofilament) completed Natacha Rosales [facility] 02/11/2021 16:19:55 08/28/19 20 Diabetic Foot Exam (Monofilament) completed Omaira Jasmine [facility] 08/28/2019 16:15:58 02/21/20 19 Diabetic Foot Exam (Monofilament) completed Emma Yanez PA-C [address], [place], [address], [facility] 02/20/2019 16:00:13 05/02/20 17 Colposcopy completed Reina Giraldo [facility] 07/19/2017 14:41:16 05/02/20 17 Colposcopy completed Reina [facility] 07/19/2017 14:41:33 Caesarean Section completed Dipika Uriarte [facility] 05/10/2014 15:42:08 Imaging Results None recorded. Procedure Notes None recorded. Medical Equipment None Reported. Allergies Allergen ID Allergen Name Allergen Category Reaction Reaction Severity Criticality Documentation Date Start Date Code Code System Note Provider Name and Address Organization Details Recorded Time 98402 amlodipin e medicatio n edema Not available Not available 02/01/2024 84454 RxNorm swell ing of ankle s Amisha fair [place] null, [facility] 4 11:18:46 77093 lisinopri l medicatio n anaphylax is Not available Not available 10/15/2024 26557 RxNorm Emma Yanez PA-C [address], [place], [address], [facility] 5 14:30:07 Medications Name Sig Start [...] Not Avai lable Nasonex 50 mcg/actua tion [place] DAILY 01/28 completed Not Available Not Available [...] Not Available Not Available Not Available [employer] [place] Lite kit USE DIRECTED . *NOT COVERED* [...] inhalatio n 11/19 completed Not covered by [facility] Not Available Not Available Not [...] Updated DateTime 5 157.48 cm 27.1 kg/m2 94472.6 7 g 113 /min 97 % 98.1 [degF] 139/79 mm[Hg] Johanna Card [facility] 14:50:11 Social History Question Answer Notes LastModified by Organizat ion Details LastModified Time Tobacco Smoking Status Current Some Day Smoker has not been smoking the past month November 2022 TERRI Montejo, [facility] 12/31/2022 09:55:36 Do You Have An Advance Directive? Yes HCP Information not available 04/28/2021 Is Blood Transfusion [...] Individual Who Tested Positive For COVID-19? No [email or web address] Information not available 01/07/2021 Have You Recently [...] Do You Use Protection During Sex? Usually [email or web address] Information not available 04/28/2021 Do You Use Your Seat Belt Or Car Seat Routinely? Yes [email or web address] Information not available 04/28/2021 Seat Belts Used Routinely Yes [email or web address] Information not available 04/28/2021 Are You Sexually Active? Yes Jose Information not available 08/29/2024 Smoke Alarm In Home Yes [email or web address] Information not available 04/28/2021 Do You Have Smoke And Carbon Monoxide Detectors In Your Home? 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 Never used electronic cigarettes [email or web address] Information not available 04/28/2021 What is your [...] trivalent, preservative 6 completed Shani Veliz null, [facility] 08/22/2023 09:54:33 Influenza, split virus, quadrivalent, preservative 0 completed Shani Veliz null, [facility] 08/22/2023 09:54:32 COVID-19, mRNA, LNP-S, PF, 100 mcg/0.5mL dose or 50 mcg/0.25mL dose 1 completed Shani Veliz null, [facility] 08/22/2023 09:54:33 COVID-19, mRNA, LNP-S, PF, 100 mcg/0.5mL dose or 50 mcg/0.25mL dose 2 completed Shani Veliz null, [facility] 08/22/2023 09:54:33 Influenza, split virus, trivalent, PF 5 completed Shani Veliz null, [facility] 08/22/2023 09:54:33 Influenza, split virus, quadrivalent, PF 7 completed Shani Veliz null, [facility] 08/22/2023 09:54:33 Pneumococcal conjugate PCV 13 6 completed Shani Veliz null, [facility] 08/22/2023 09:54:33 Influenza, split virus, quadrivalent, PF 2 completed Shani Veliz null, [facility] 08/22/2023 09:54:33 Tdap 8 completed Shani Veliz null, [facility] 08/22/2023 09:54:33 Influenza, split virus, quadrivalent, PF 5 completed Shani Veliz null, [facility] 08/22/2023 09:54:33 Influenza, split virus, quadrivalent, PF 1 completed Shani Veliz null, [facility] 08/22/2023 09:54:33 zoster recombinant 3 completed Shani Veliz null, [facility] 08/22/2023 09:54:32 Influenza, split virus, quadrivalent, PF 3 completed Shani Veliz null, [facility] 08/22/2023 09:54:33 zoster recombinant 4 completed Marlen King MA null, [facility] 09/29/2023 09:57:05 Influenza, MDCK, trivalent, PF 4 completed Erika Wesley LPN null, [facility] 04/18/2024 14:28:24 Pneumococcal conjugate PCV20, polysaccharide FKB325 conjugate, adjuvant, PF 4 completed Amisha Mathew MA null, [facility] 08/29/2024 14:54:59 zoster recombinant 3 completed Not Available [facility] 06/05/2025 14:16:24 Influenza, recombinant, trivalent, PF 5 completed Not Available [facility] 06/05/2025 14:16:24 Td (adult), 2 Lf tetanus toxoid, preservative free, adsorbed 7 completed Shani Veliz null, [facility] 08/22/2023 09:54:33 MMR 9 completed Shani Veliz null, [facility] 08/22/2023 09:54:32 Influenza, split virus, trivalent, preservative 2 completed Shani Veliz null, [facility] 08/22/2023 09:54:33 Influenza, split virus, trivalent, preservative 3 completed Shani Veliz null, [facility] 08/22/2023 09:54:33 Influenza, split virus, trivalent, preservative 4 completed Shani Veliz null, [facility] 08/22/2023 09:54:33 Hep B, adolescent or pediatric 5 completed Shani riggs, [facility] 08/22/2023 09:54:33 Hep B, adolescent or pediatric 5 completed Shani riggs, [facility] 08/22/2023 09:54:33 Hep B, adolescent or pediatric 5 completed Shani riggs, [facility] 08/22/2023 09:54:33 pneumococcal polysaccharide PPV23 8 completed Shani riggs, [facility] 08/22/2023 09:54:33 Tdap 8 completed Shani riggs, [facility] 08/22/2023 09:54:33 Influenza, split virus, trivalent, preservative 2 completed Shani riggs [facility] 08/22/2023 09:54:33 Past Encounters Encounter ID Performer Location Encounter Start Date Encounter Closed Date Diagnosis/Indication Diagnosis SNOMED-CT Code Diagnosis ICD10 Code Diagnosis IMO Codes Diagnosis Note [id number] Kj Man MD Main Office [address] [place] [address] 05/10/2025 14:44:01 05/10/2025 15:33:59 Pneumonia 917708734 J18.9 [id number] add antibiotic to cover for bacterial pneumonia. continue prednisone 60 mg for 2 more days, then 50 for 2, 40 for 2, 30 for 2, 20 for 2, 1 fro 2. Nebulizer every 4 hrs at home. Discontinu e use of intranasal saline and flonase due to epistaxis. F/u with pulmonary. Exacerbati on of moderate persistent asthma 245329852 J45.41 205414 see above. Health Concerns Section Related Observation LastModified by Organization Detai ls LastModified Time None Recorded Concern Status LastModified by Organization Details LastModified Time None Recorded Payers Encounter Date Sequence Insurance Name Policy Number Policy James Covered Member ID James Member ID Guarantor Name 05/10/2025 2 [place] [facility] Maame Angulo [id number] Maame Angulo 05/10/2025 1 [employer] - HEALTH NET PLAN (MEDICAID HMO) [id number] Maame Angulo [id number] Maame Angulo Notes Date Note Type Note Provider Name and Address Organization Details Recorded Time 05/10/2025 text/html ROS as noted in the HPI 54 year old HIV positive female with moderate persistent asthma, type II diabetes and hypertension for ER f/u. Seen at [facility] ER on 05/07 with worsening cough [...] have pulmonary jade until later this month. Emma Yanez PA-C [address] [address], [place], [address], [facility] 05/10/2025 15:46:11 OBGyn Episode No OBEpisode recorded.
--- OUTSIDE RECORDS SUMMARY | 2025-06-21 10:12 | XMS_ITS | Data Portability ---
Author Organization TERRI HERNANDEZ MD [facility], Main Office Address [address] [place] [address] Assessment No assessment recorded. Plan of Treatment [...] Go To The Location Of Their Choice, [id number] 05/20/2025 08:47:14 ALT (alanine aminotran sferase), serum or plasma 2024 025 [email or web address] [facility] (Centralized [facility] Ordering - All Locations), Patient Can Go To The Location Of Their Choice, [address] 05/20/2025 08:47:14 AST/SGOT (aspartat e aminotran sferase), serum or plasma 2024 025 [email or web address] [facility] ([facility] Ordering - All Locations), Patient Can Go To The Location Of Their Choice, [id number] 05/20/2025 08:47:14 creatinin e w/ estimated GFR (eGFR), serum or plasma 2024 025 [email or web address] [facility] ([facility] Ordering - All Locations), Patient Can Go To The Location Of Their Choice, [id number] 05/20/2025 08:47:14 HIV-1 RNA, quantitat aria, PCR, serum or plasma 2024 025 [email or web address] [facility] ([facility] Order[facility] - All Locations), Patient Can Go To The Location Of Their Choice, [id number] 05/20/2025 08:47:15 RPR (rapid plasma reagin), serum 2024 025 [email or web address] [facility] ([facility] Ordering - All Locations), Patient Can Go To The Location Of Their Choice, [id number] 05/20/2025 08:47:15 cd4 T-cells, blood 2024 025 [email or web address] [facility] ([facility] Ordering - All Locations), Patient Can Go To The Location Of Their Choice, [id number] 05/20/2025 08:47:15 CBC w/ diff 2024 025 [email or web address] [facility] ([facility] Ordering - All Locations), Patient Can Go To The Location Of Their Choice, [id number] 04/17/2025 12:43:29 ALT (alanine aminotran sferase), serum or plasma 2024 025 [email or web address] [facility] ([facility] Ordering - All Locations), Patient Can Go To The Location Of Their Choice, [id number] 04/17/2025 12:43:30 AST/SGOT (aspartat e aminotran sferase), serum or plasma 2024 025 [email or web address] [facility] ([facility] Ordering - All Locations), Patient Can Go To The Location Of Their Choice, [facility] 04/17/2025 12:43:30 CT + NG DNA, PCR, unspecifi ed specimen 2024 025 [email or web address] [facility] ([facility] Ordering - All Locations), Patient Can Go To The Location Of Their Choice, [id number] 04/17/2025 12:43:30 creatinin e w/ estimated GFR (eGFR), serum or plasma 2024 025 [email or web address] [facility] ([facility] Ordering - All Locations), Patient Can Go To The Location Of Their Choice, [id number] 04/17/2025 12:43:30 HIV-1 RNA, quantitat aria, PCR, serum or plasma 2024 025 [email or web address] [facility] ([facility] Ordering - All Locations), Patient Can Go To The Location Of Their Choice, [id number] 04/17/2025 12:43:30 RPR (rapid plasma reagin), serum 2024 025 [email or web address] [facility] ([facility] Ordering - All Locations), Patient Can Go To The Location Of Their Choice, [id number] 04/17/2025 12:43:30 cd4 T-cells, blood 2024 025 [email or web address] [facility] ([facility] Ordering - All Locations), Patient Can Go To The Location Of Their Choice, [id number] 04/17/2025 12:43:30 CBC w/ diff 2024 025 [email or web address] [facility] ([facility] Ordering - All Locations), Patient Can Go To The Location Of Their Choice, [id number] 02/12/2025 13:07:21 ALT (alanine aminotran sferase), serum or plasma 2024 025 [email or web address] [facility] ([facility] Ordering - All Locations), Patient Can Go To The Location Of Their Choice, [address] 02/12/2025 13:07:21 AST/SGOT (aspartat e aminotran sferase), serum or plasma 2024 025 [email or web address] [facility] ([facility] Ordering - All Locations), Patient Can Go To The Location Of Their Choice, [facility] 02/12/2025 13:07:21 CT + NG DNA, PCR, unspecifi ed specimen 2024 025 [email or web address] [facility] ([facility] Ordering - All Locations), Patient Can Go To The Location Of Their Choice, [facility] 02/12/2025 13:07:21 creatinin e w/ estimated GFR (eGFR), serum or plasma 2024 025 [email or web address] [facility] ([facility] Order[facility] - All Locations), Patient Can Go To The Location Of Their Choice, [id number] 02/12/2025 13:07:21 HIV-1 RNA, quantitat aria, PCR, serum or plasma 2024 025 [email or web address] [facility] ([facility] Order[facility] - All Locations), Patient Can Go To The Location Of Their Choice, [id number] 02/12/2025 13:07:21 RPR (rapid plasma reagin), serum 2024 025 [email or web address] [facility] ([facility] Order[facility] - All Locations), Patient Can Go To The Location Of Their Choice, [id number] 02/12/2025 13:07:21 cd4 T-cells, blood 2024 025 [email or web address] [facility] ([facility] Order[facility] - All Locations), Patient Can Go To The Location Of Their Choice, [id number] 02/12/2025 13:07:21 CBC w/ diff 2024 025 [email or web address] [facility] ([facility] Order[facility] - All Locations), Patient Can Go To The Location Of Their Choice, [id number] 11/09/2024 08:58:29 ALT (alanine aminotran sferase), serum or plasma 2024 025 [email or web address] [facility] ([facility] Order[facility] - All Locations), Patient Can Go To The Location Of Their Choice, [address] 11/09/2024 08:58:29 AST/SGOT (aspartat e aminotran sferase), serum or plasma 2024 025 [email or web address] [facility] ([facility] Ordering - All Locations), Patient Can Go To The Location Of Their Choice, [address] 11/09/2024 08:58:29 CT + NG DNA, PCR, unspecifi ed specimen 2024 025 [email or web address] [facility] ([facility] Ordering - All Locations), Patient Can Go To The Location Of Their Choice, [facility] 11/09/2024 08:58:29 creatinin e w/ estimated GFR (eGFR), serum or plasma 2024 025 [email or web address] [facility] ([facility] Ordering - All Locations), Patient Can Go To The Location Of Their Choice, [facility] 11/09/2024 08:58:30 HIV-1 RNA, quantitat aria, PCR, serum or plasma 2024 025 [email or web address] [facility] ([facility] Ordering - All Locations), Patient Can Go To The Location Of Their Choice, [facility] 11/09/2024 08:58:30 RPR (rapid plasma reagin), serum 2024 025 [email or web address] [facility] ([facility] Ordering - All Locations), Patient Can Go To The Location Of Their Choice, [facility] 11/09/2024 08:58:30 cd4 T-cells, blood 2024 025 [email or web address] [facility] ([facility] Ordering - All Locations), Patient Can Go To The Location Of Their Choice, [facility] 11/09/2024 08:58:30 Referral None recorded. Procedures None recorded. Surgeries None recorded. Imaging None recorded. Medication Orders Bactrim DS 800 mg-160 mg tablet 2024 [facility] #[id number], [address] [place], [address], 05/06/2025 15:58:48 Cabenuva 600 mg/3 mL-900 mg/3 mL IM suspensio n, extended release [address] , [address], [place], [address], 05/06/2025 16:47:49 omeprazol e 40 mg capsule,d elayed release 2024 [facility] #12[facility], [address] [place], [address], 04/10/2025 14:56:34 Bactrim DS 800 mg-160 mg tablet 2024 025 [id number] [address] [place], [address], 04/10/2025 14:56:33 Cabenuva 600 mg/3 mL-900 mg/3 mL IM suspensio n, extended release [address] , [facility], [place], [address], 04/10/2025 16:37:16 omeprazol e 40 mg capsule,d elayed release 2024 025 [id number], [address] [place], [address], 01/30/2025 16:34:13 Triumeq 600 mg-50 mg-300 mg tablet 2024 025 [facility], [address] [place], [address], 01/30/2025 16:34:12 Bactrim DS 800 mg-160 mg tablet 2024 025 [facility], [address] [place], [address], 01/30/2025 16:34:12 Cabenuva 600 mg/3 mL-900 mg/3 mL IM suspensio n, extended release [address] , [facility], [place], [address], 02/26/2025 20:31:45 metronida zole 500 mg tablet 2024 025 [facility], [address] [place], [address], 10/31/2024 14:46:13 omeprazol e 40 mg capsule,d elayed release 2024 025 [facility], [address] [place], [address], 10/31/2024 14:40:56 Reglan 10 mg tablet 2024 025 [facility]12[facility], [address] [place], [address], 10/31/2024 14:40:54 Triumeq 600 mg-50 mg-300 mg tablet 2024 025 [facility], [address] [place], [address], 10/31/2024 14:40:56 Bactrim DS 800 mg-160 mg tablet 2024 025 [facility], [address] [place], [address], 10/31/2024 14:40:54 Triumeq 600 mg-50 mg-300 mg tablet 2023 024 [facility], [address] [place], [address], 07/04/2024 15:16:05 Bactrim DS 800 mg-160 mg tablet 2023 024 [facility], [address] [place], [address], 07/04/2024 15:16:06 Benadryl Allergy 25 mg tablet 2023 024 [facility], [address] [place], [address], 07/04/2024 15:16:06 Patient TargetsNo targets recorded. Patient InstructionsNo instructions recorded. Reason for Referral None Reported. Results Created Date Observation Date Name Description Value Unit Range Abnormal Flag Note LastModifiedBy Organization Detail LastModifiedTime 07/03/20 24 07/04/2024 AST (SGOT ) AST (SGOT) 20 IU/L 0-40 normal Not Available [facility] ([facility]) [address] [facility], [place], [address], 07/04/2024 12:06:13 07/03/20 24 07/04/2024 ALT (SGPT ) ALT (SGPT) 15 IU/L 0-32 normal Not Available [facility] ([facility]) [address] [facility], [place], [address], 07/04/2024 12:06:14 07/03/20 24 07/04/2024 HBSAG SCREE N HBsAg screen Negati ve negati ve Not Available [facility] ([facility]) [address] [place], [address], 07/04/2024 12:06:14 11/22/19 25 11/24/2024 CHLAM YDIA/ GC AMPLI FICAT ION chlamydia trachomatis, ROBERT Negati ve negati ve Not Available [facility] ([facility]) [address] [place], [address], 11/24/2024 12:06:57 11/22/19 25 11/24/2024 CHLAM YDIA/ GC AMPLI FICAT ION neisseria gonorrhoeae, ROBERT Negati ve negati ve Not Available [facility] ([facility]) [address] [place], [address], 11/24/2024 12:06:57 11/22/19 25 12/08/2024 GENOS URE ARCHI VE(R) pdf . Not Available [employer] [address] [facility], [place], [address], 12/08/2024 12:06:52 11/22/19 25 12/08/2024 GENOS URE ARCHI VE(R) HIV genosure archive COMMEN T Migue gene ampli con adequ ate for seque ncing Not Available [employer] [address], [place], [address], 12/08/2024 12:06:52 11/22/19 25 12/08/2024 GENOS URE ARCHI VE(R) HIV genosure archive COMMEN T The HIV-1 GenoS ure Archi ve(R) for this speci men has been compl eted. HIV-1 Subty pe: B Drug Genot ypic Gener ic Name Brand Name Bipin smirvin Comme nts ----- ----- ----- ----- ----- - ----- ----- ----- --- NRTI [place] vir Ziage n Sensi tive Sabine* : M184V Didan osine Videx Resis tance Possi ble Sabine* : M184V Emtri citab ine Emtri va Resis tant Sabine* : M184V Lamiv udine Epivi r Resis tant Sabine* : M184V Stavu dine Zerit Sensi tive 1 Sabine* : None Tenof ovir Virea d Sensi tive 1 Sabine* : None Zidov udine Retro vir Sensi tive 1 Sabine* : None NNRTI Dorav irine Pifel tro Sensi tive Sabine* : V90I Efavi harriett Susti va Sensi tive Sabine* : None Etrav irine Intel ence Sensi tive Sabine* : V90I, V179I Nevir apine Viram une Sensi tive Sabine* : V179I Rilpi virin e Edura nt Sensi tive Sabine* : None INI Bicte gravi r Bicte gravi r Sensi tive Sabine* : T97T/ A, N155N /H [place] egrav ir [place] egrav ir Resis tance Possi ble Sabine* : T97T/ A, N155N /H Dolut egrav ir Tivic ay Sensi tive Sabine* : T97T/ A, N155N /H Elvit egrav ir Vitek ta Resis tant Sabine* : T97T/ A, N155N /H Ralte gravi r Isent ress Resis tant Sabine* : T97T/ A, N155N /H PI Ataza navir /r Reyat az / r Sensi tive Sabine* : I62I/ V Darun avir/ r Prezi sta / r Sensi tive Sabine* : None Fosam prena vir/r Lexiv a / r Sensi tive Sabine* : None Indin avir/ r Crixi van / r Sensi tive Sabine* : None Lopin avir Kalet ra Sensi tive Sabine* : None Nelfi navir Virac ept Sensi tive Sabine* : None Riton avir Norvi r Sensi tive Sabine* : None Saqui navir /r Invir ase / r Sensi tive Sabine* : I62I/ V Tipra navir /r Aptiv us / r Sensi tive Sabine* : I13V *Sabine = Resis tance Assoc iated Mutat ions obser alonso Summa ry of Mutat ions Obser alonso: RT: R83K, V90I, Q102K , K122E , D123E , I135V , C162Y , D177E , V179I , M184V , R211K , K238K /R, A272P , T286A , V293I , E297K , I309I /V, K323K /R, F346C , K358R , K366R , A400T IN: K14K/ R, S39C, L45V, M50T, V72I, I84M, T97T/ A, L101I , V113I , S119P , T124N , N155N /H, A169V , K211K /R, V234L TN: I13V, K14K/ R, I15V, N37C/ S, R57R/ K, I62I/ V, V77I Asses sment of drug randall ptibi adi is based upon detec rochelle mutat ions and inter prete d using an advan rene propr ietar y algor ithm (vers ion 19). Comme nts: 1 - Asses sment for this drug was deriv ed consi ara g the sensi tizin g effec t of mutat ion M184V . Not Available [email or web address] [address] [place] [address], [place], [address], 12/08/2024 12:06:52 11/22/19 25 12/08/2024 GENOS URE ARCHI VE(R) HIV genosure archive interp Commen t Inter preta tion algor ithms for riton avir- boost ed prote ase inhib itors appro priat e for the follo wing dosag es: AMP/r 600mg /100m g BID; ATV/r 300mg /100m g QD; IDV/r 800mg /200m g BID; LPV/r 400mg /100m g BID; SQV/r 1000m g/100 mg BID; TPV/r 500mg /200m g BID; and DRV/r 600mg /100m g BID. Mixtu res are indic ated by amino acids separ ated by a slash . For more infor matio n on inter preti ng this repor t, pleas e visit [employer] or call [facility] at [phone] betwe en the hours of 6:30a m to 5:00p m PT Monda y throu gh Marycruz y. GenoS ure Archi ve is a DNA seque ncing assay that uses next- gener ation seque ncing to nuria ze the prote ase (najera o acids 1-99) , rever se trans cript ase (najera o acids 1-400 ) and integ rase (najera o acids 1-288 ) codin сергей ruiz ns deriv ed from HIV-1 cell assoc iated DNA. Subty pe is deter mined using the prote ase and rever se trans cript ase seque nce infor matio n. This test was devel oped and its perfo rmanc e nirmal cteri stics deter mined by [employer]. It has not been clear ed or appro alonso by the Food and Drug Admin istra tion. [employer]. is a subsi diary of [employer] atory [employer] ratio n of [employer]i ca [employer] n[employer], using the brand [employer]. The resul ts shoul d not be used as the sole crite lizzie for patie nt manag ement . This docum ent conta ins priva te and confi denti al healt h infor matio n prote cted by state and ena al law. If you have recei alonso this docum ent in error , marc e call [phone] . Not Available [employer] [facility], [place], [address], 12/08/2024 12:06:52 11/22/19 25 11/21/2024 CBC/D /PLT W/ REFLE X LILIA TIN WBC 9.2 x10e3 /uL 3.4-10 .8 normal Not Available [facility] ([facility]) [address] [place], [address], 12/14/2024 14:08:33 11/22/19 25 11/21/2024 CBC/D /PLT W/ REFLE X LILIA TIN RBC 4.85 x10e6 /uL 3.77-5 .28 normal Not Available [facility] ([facility]) [address] [place], [address], 12/14/2024 14:08:33 11/22/19 25 11/21/2024 CBC/D /PLT W/ REFLE X LILIA TIN hemoglobin 13.7 g/dL 11.1-1 5.9 normal Not Available [facility] ([facility]) [address] [place], [address], 12/14/2024 14:08:33 11/22/19 25 11/21/2024 CBC/D /PLT W/ REFLE X LILIA TIN hematocrit 41.8 % 34.0-4 6.6 normal Not Available [facility] ([facility]) [address] [place], [address], 12/14/2024 14:08:33 11/22/19 25 11/21/2024 CBC/D /PLT W/ REFLE X LILIA TIN MCV 86 fL 79-97 normal Not Available [facility] ([facility]) [address] [facility] [place], [address], 12/14/2024 14:08:33 11/22/19 25 11/21/2024 CBC/D /PLT W/ REFLE X LILIA TIN MCH 28.2 pg 26.6-3 3.0 normal Not Available [facility] ([facility]) [address] [facility], [place], [address], 12/14/2024 14:08:33 11/22/19 25 11/21/2024 CBC/D /PLT W/ REFLE X LILIA TIN MCHC 32.8 g/dL 31.5-3 5.7 normal Not Available [facility] ([facility]) [address] [facility], [place], [address], 12/14/2024 14:08:33 11/22/19 25 11/21/2024 CBC/D /PLT W/ REFLE X LILIA TIN RDW 13.9 % 11.7-1 5.4 Not Available [facility] ([facility]) [address] [facility], [place], [address], 12/14/2024 14:08:33 11/22/19 25 11/21/2024 CBC/D /PLT W/ REFLE X LILIA TIN platelets 307 x10e3 /uL 150-45 0 normal Not Available [facility] ([facility]) [address] [place], [address], 12/14/2024 14:08:33 11/22/19 25 11/21/2024 CBC/D /PLT W/ REFLE X LILIA TIN neutrophils 49 % not estab. normal Not Available [facility] ([facility]) [address] [place], [address], 12/14/2024 14:08:33 11/22/19 25 11/21/2024 CBC/D /PLT W/ REFLE X LILIA TIN lymphs 42 % not estab. normal Not Available [facility] ([facility]) [address] [place], [address], 12/14/2024 14:08:33 11/22/19 25 11/21/2024 CBC/D /PLT W/ REFLE X LILIA TIN monocytes 7 % not estab. normal Not Available [facility] ([facility]) [address] [facility], [place], [address], 12/14/2024 14:08:33 11/22/19 25 11/21/2024 CBC/D /PLT W/ REFLE X LILIA TIN eos 1 % not estab. normal Not Available [facility] ([facility]) [address] [facility], [place], [address], 12/14/2024 14:08:33 11/22/19 25 11/21/2024 CBC/D /PLT W/ REFLE X LILIA TIN basos 1 % not estab. normal Not Available [facility] ([facility]) [address] [facility], [place], [address], 12/14/2024 14:08:33 11/22/19 25 11/21/2024 CBC/D /PLT W/ REFLE X LILIA TIN immature cells [employer] Not Available [facility] ([facility] [address] [facility], [place], [address], 12/14/2024 14:08:33 11/22/19 25 11/21/2024 CBC/D /PLT W/ REFLE X LILIA TIN neutrophils (absolute) 4.4 x10e3 /uL 1.4-7. 0 normal Not Available [facility] ([facility]) [address] [place], [address], 12/14/2024 14:08:33 11/22/19 25 11/21/2024 CBC/D /PLT W/ REFLE X LILIA TIN lymphs (absolute) 3.9 x10e3 /uL 0.7-3. 1 above high normal Not Available [facility] ([facility]) [address] [place], [address], 12/14/2024 14:08:33 11/22/19 25 11/21/2024 CBC/D /PLT W/ REFLE X LILIA TIN monocytes(ab solute) 0.6 x10e3 /uL 0.1-0. 9 normal Not Available [facility] ([facility]) [address] [facility], [place], [address], 12/14/2024 14:08:33 11/22/19 25 11/21/2024 CBC/D /PLT W/ REFLE X LILIA TIN eos (absolute) 0.1 x10e3 /uL 0.0-0. 4 normal Not Available [facility] ([facility]) [address] [facility], [place], [address], 12/14/2024 14:08:33 11/22/19 25 11/21/2024 CBC/D /PLT W/ REFLE X LILIA TIN baso (absolute) 0.1 x10e3 /uL 0.0-0. 2 normal Not Available [facility] ([facility]) [address] [facility], [place], [address], 12/14/2024 14:08:33 11/22/19 25 11/21/2024 CBC/D /PLT W/ REFLE X LILIA TIN immature granulocytes 0 % not estab. Not Available [facility] ([facility]) [address] [facility], [place], [address], 12/14/2024 14:08:33 11/22/19 25 11/21/2024 CBC/D /PLT W/ REFLE X LILIA TIN immature grans (abs) 0.0 x10e3 /uL 0.0-0. 1 Not Available [facility] ([facility]) [address] [place], [address], 12/14/2024 14:08:33 11/22/19 25 11/21/2024 CBC/D /PLT W/ REFLE X LILIA TIN NRBC [employer] Not Available [facility] ([facility]) [address] [facility], [place], [address], 12/14/2024 14:08:33 11/22/19 25 11/21/2024 CBC/D /PLT W/ REFLE X LILIA TIN hematology comments: [employer] Not Available [facility] ([facility]) [address] [facility], [place], [address], 12/14/2024 14:08:33 11/22/19 25 11/22/2024 HELPE R T-LYM PH-CD 4 absolute cd 4 helper 320 /uL 359-15 19 below low normal Not Available [facility] ([facility]) [address] [facility], [place], [address], 12/14/2024 14:08:34 11/22/19 25 11/22/2024 HELPE R T-LYM PH-CD 4 % cd 4 pos. lymph. 8.2 % 30.8-5 8.5 below low normal Not Available [facility] ([facility]) [address] [facility], [place], [address], 12/14/2024 14:08:34 11/22/19 25 11/27/2024 RNA PCR GRAPH RFX PRIME /ARCH HIV-1 RNA by PCR <20 copie s/mL HIV-1 RNA not detec rochelle The repor table range for this assay is 20 to 10,00 0,000 copie s HIV-1 RNA/m L. Not Available [employer] [address], [place], [address], 12/14/2024 14:08:35 11/22/19 25 11/27/2024 RNA PCR GRAPH RFX PRIME /ARCH log10 HIV-1 RNA COMMEN T log10 copy/ mL Unabl e to calcu late resul t since non-n umeri c resul t obtai rony for compo nent test. Not Available [employer] [address], [place], [address], 12/14/2024 14:08:35 11/22/19 25 11/27/2024 RNA PCR GRAPH RFX PRIME /ARCH reflex to prime or archive Commen t Refle x to GenoS ure Archi ve indic ated. Not Available [email or web address] [address], [place], [address], 12/14/2024 14:08:35 11/22/19 25 11/28/2024 RNA PCR GRAPH RFX PRIME /ARCH pdf . Not Available [employer] [address], [place], [address], 12/14/2024 14:08:35 11/22/19 25 12/14/2024 RNA PCR GRAPH RFX PRIME /ARCH pdf [employer] Not Available [employer] [address] [facility], [place], [address], 12/14/2024 14:08:35 11/22/1912/14/2024 RNA PCR GRAPH RFX PRIME /ARCH HIV genosure archive COMMEN T Pleas e refer to the follo wing speci men for addit ional lab resul ts. 113-0 48-02 31-0 Not Available [email or web address] [address] [facility], [place], [address], 12/14/2024 14:08:35 11/22/19 25 12/14/2024 RNA PCR GRAPH RFX PRIME /ARCH HIV genosure archive [employer] Not Available [employer] [address] [facility], [place], [address], 12/14/2024 14:08:35 11/22/19 25 12/14/2024 RNA PCR GRAPH RFX PRIME /ARCH HIV genosure archive interp [employer] Not Available [employer] [address], [place], [address], 12/14/2024 14:08:35 11/22/19 25 11/22/2024 GLOM FILT RATE, ESTIM ATED creatinine 0.74 mg/dL 0.57-1 .00 normal Not Available [facility] ([facility]) [address] [place], [address], 12/14/2024 14:08:35 11/22/19 25 11/22/2024 GLOM FILT RATE, ESTIM ATED eGFR 97 mL/mi n/1.7 3 >59 normal Not Available [facility] ([facility]) [address] [place], [address], 12/14/2024 14:08:35 11/22/19 25 11/22/2024 PREP: RPR W/REF VJ TO TITER RPR Non Reacti ve non reacti ve Not Available [facility] ([facility]) [address] [place], [address], 12/14/2024 14:08:36 11/22/19 25 11/22/2024 AST (SGOT ) AST (SGOT) 37 IU/L 0-40 normal Not Available [facility] ([facility]) [address] [place], [address], 12/14/2024 14:08:36 11/22/19 25 11/22/2024 ALT (SGPT ) ALT (SGPT) 44 IU/L 0-32 above high normal Not Available [facility] ([facility]) [address] [place], [address], 12/14/2024 14:08:37 11/22/19 25 11/26/[address] PROBL EM request problem COMMEN T Pleas e refer to the follo wing speci men for addit ional lab resul ts. TEST: 7 Chlam ydia trach omati s, ROBERT Panel : [id number] Neiss eria cassia griffith e, ROBERT Panel : 8 SPEC# [id number] Not Available [facility] ([facility]) [address] [place], [address], 12/14/2024 14:08:37 11/22/19 25 12/14/[address] PROBL EM request problem COMMEN T Pleas e refer to the follo wing speci men for addit ional lab resul ts. TEST: [id number] HIV GenoS ure Archi ve Panel : [id number] 3 113-0 48-02 31-0 Not Available [facility] ([facility]) [address] [facility], [place], [address], 12/14/2024 14:08:38 Result Notes None recorded. Problems Name Problem SNOMED Code Status Onset Date Resolution Date Notes Provider Name and Address Organization Details Recorded Time Gastroeso phageal reflux disease 637850305 Active 2013 Esophageal reflux; snomeddesc ription: Gastroesop hageal reflux disease; Report Immunity to Registry: Yes; Gastroeso phageal reflux disease; snomeddesc ription: Gastroesop hageal reflux disease; Report Immunity to Registry: Yes; Not Available [facility] 4 06:58:51 Asthma 116922889 Active 2013 Asthma; snomeddesc ription: Asthma; Report Immunity to Registry: Yes; Not Available [facility] 4 06:58:51 Smoker 07717250 Active 2013 Smoker; snomeddesc ription: Smoker; Report Immunity to Registry: Yes; Not Available [facility] 4 06:58:51 Tobacco dependenc e syndrome 83314226 Active 2013 Tobacco use disorder; snomeddesc ription: Smoker; Report Immunity to Registry: Yes; Not Available [facility] 4 06:58:51 Hypertens aria disorder 23307469 Active 2015 Hypertensi ve disorder; snomeddesc ription: Hypertensi ve disorder; Report Immunity to Registry: Yes; Not Available [facility] 4 06:58:51 Essential hypertens ion 39797743 Active 2015 Essential (primary) hypertensi on; snomeddesc ription: Hypertensi ve disorder; Report Immunity to Registry: Yes; Not Available [facility] 4 06:58:51 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; snomeddesc ription: Gastropare sis syndrome; Report Immunity to Registry: Yes; Gastropar esis; snomeddesc ription: Gastropare sis syndrome; Report Immunity to Registry: Yes; Not Available [facility] 4 06:58:51 Herpes simplex 88809977 Active 2019 Herpes simplex without mention of complicati on; snomeddesc ription: Herpes simplex; Report Immunity to Registry: Yes; Notes: HSV 1 and 2 serology pos 2008; Herpes simplex; snomeddesc ription: Herpes simplex; Report Immunity to Registry: Yes; Notes: HSV 1 and 2 serology pos 2007; Not Available [facility] 4 06:58:51 Human immunodef iciency virus infection 78662225 Active 2021 Human immunodefi ciency virus [HIV] disease; snomeddesc ription: Human immunodefi ciency virus infection; Report Immunity to Registry: Yes; Notes: [id number] neg; 09/2021 genosure; Human immunodefi ciency virus infection; snomeddesc ription: Human immunodefi ciency virus infection; Report Immunity to Registry: Yes; Notes: [id number] neg; 09/2021 genosure; Not Available [facility] 4 06:58:51 Vaginal intraepit helial neoplasia grade 1 209507839 Active 2022 Vaginal intraepith elial neoplasia grade 1; snomeddesc ription: Vaginal intraepith elial neoplasia grade 1; Report Immunity to Registry: Yes; Mild vaginal dysplasia; snomeddesc ription: Vaginal intraepith elial neoplasia grade 1; Report Immunity to Registry: Yes; Not Available [facility] 4 06:58:52 Candidal vulvovagi nitis 73324238 Active 2023 [facility] [place] [address] , TERRI JONAS MD [facility] 4 12:29:50 Costal chondriti s 04330536 Active 2023 MD [place], [address] , TERRI JONAS MD [facility] 4 12:34:31 Problem Notes None recorded. Medical Equipment None Reported. Allergies Allergen ID Allergen Name Allergen Category Reaction Reaction Severity Criticality Documentation Date Start Date Code Code System Note Provider Name and Address Organization Details Recorded Time 1443 lisinopri l medicatio n itching Not available Not available 04/10/2025 24201 RxNovolodymyr Jonas MD [address] [place], [address], TERRI JONAS MD [facility] 5 14:57:54 1444 amlodipin e medicatio n swelling Not available Not available 04/10/2025 23418 RxNorm Roshni Jonas MD [address] [place], [address], TERRI JONAS MD [facility] 14:58:45 Medications Name Sig Start Date Stop [...] NAME: Hep A, adult; SU_FULL_ NAME: Roshni Gill l; Not Available Not Available Not Available [employer] [place] Lite kit USE DIRECTED . *NOT COVERED* [...] a, seasonal , injectab le; SU_FULL_ NAME: Taerachna thapa Roshni; VIS_DATE : 04:00:00 .0; Not Available Not [...] Pneumoco ccal conjugat e PCV20, polysacc haride [id number] conjugat e, adjuvant , PF; SU_FULL_ NAME: [...] Details Last Updated DateTime 5 157.48 cm 98 /min 14 /min 98.2 [degF] 28.5 kg/m2 55405.4 1 g 126/80 mm[Hg] Julee JONAS MD [facility] 5 14:33:25 Date Recorded Body height Heart rate Body temperature Body mass index (BMI) Body weight Systolic And Diastolic Provider Name and Address Organization Details Last Updated DateTime 5 157.48 cm 94 /min 97.9 [degF] 28.2 kg/m2 18712.2 2 g 132/90 mm[Hg] Julee JONAS MD [facility] 5 14:18:12 Date Recorded Body height Heart rate Body temperature Body mass index (BMI) Body weight Systolic And Diastolic Provider Name and Address Organization Details Last Updated DateTime 5 157.48 cm 103 /min 98.3 [degF] 28.3 kg/m2 31929.8 2 g 144/78 mm[Hg] Julee JONAS MD [facility] 5 14:40:06 Date Recorded Body height Provider Name an d Address Organization Details Last Updated DateTime 05/06/2025 157.48 cm Chasity Castellanosharshad JONAS MD [facility] 05/06/2025 15:10:04 Date Recorded Heart rate Body temperature Body mass index (BMI) Body weight Systolic And Diastolic Provider Name and Address Organization Details Last Updated DateTime 05/06/2025 102 /min 98.4 [degF] 27.6 kg/m2 98200.4 5 g 149/80 mm[Hg] Julee JONAS MD [facility] 15:16:22 Date Recorded Body height Respiratory rate Heart rate Body temperature Body mass index (BMI) Body weight Oxygen saturation Systolic And Diastolic Provider Name and Address Organization Details Last Updated DateTime 157.48 cm 14 /min 100 /min 98.6 [degF] 28.5 kg/m2 84278.4 1 g 98 % 132/78 mm[Hg] Julee JONAS MD [facility] 14:55:28 Social History Question Answer Notes LastModified by Organizat ion Details LastModified Time Tobacco Smoking Status Former Smoker TERRI Rene MD [facility] 04/08/2023 15:32:14 What Type Of Diet Are You Following? REGULAR [email or web address] Information not available 04/08/2023 What Is Your Current Pack Years? 10packyears [email or web address] Information not available 04/08/2023 What Is Your Relationship Status? [email or web address] Information not available 04/08/2023 At What Age Did You Start Smoking Tobacco? 30 [email or web address] Information not available 04/08/2023 Have You Recently Traveled Abroad? No [email or web address] Information not available 04/08/2023 Do You Have Any Dietary Restrictions? No [email or web address] Information not available 04/08/2023 Sex: Female Functional Status None recorded. Mental Status None recorded. Family History Nothing Reported Notes:Diabetes, Response Pro perty: Yes; , Heart disease (CAD), Response Property: Yes; , Hypertension, Response Property: Yes; Medical History Condition Response Coronary Artery Disease N Other N Gout N Kidney Stones N Blood Diseases N Hyperthyroidism N Breast Cancer N Blood Transfusion N Hypothyroidism N Lung Disease N COPD N Depression N Defects or Inherited Disease N Developmental [...] Hep B, adult 8 completed Not Available [facility] 09/21/2023 06:54:25 Influenza, split virus, quadrivalent, preservative 8 completed Not Available [facility] 09/21/2023 06:54:25 Influenza, split virus, quadrivalent, preservative 0 completed Not Available [facility] 09/21/2023 06:54:25 Influenza, split virus, quadrivalent, preservative 9 completed Not Available [facility] 09/21/2023 06:54:25 Past Encounters Encounter ID Performer Location Encounter Start Date Encounter Closed Date Diagnosis/Indication Diagnosis SNOMED-CT Code Diagnosis ICD10 Code Diagnosis IMO Codes Diagnosis Note [id number] Roshni Jonas MD Main Office [address] [place] [address] 04/08/2023 15:28:55 04/21/2023 06:02:12 Human immunodeficiency virus infection 22458121 B20 HIV Continue Triumeq 1 tab po [...] reviewed. question and concerns reviewed Candidal vulvovaginitis 87711690 B37.31 episodic. fluconazol e 150mg po x1 PRN. if recurrent, she could consider suppressio n tx with qw fluconazol e 100mg. DM control reviewed. [id number] Roshni Jonas MD Main Office [address] [place] [address] 07/08/2023 14:05:08 07/08/2023 15:12:28 Human immunodeficiency virus infection 31034309 B20 HIV Continue Triumeq 1 tab po [...] reviewed. question and concerns reviewed Candidal vulvovaginitis 94855091 B37.31 episodic. fluconazol e 100 mg po x3-7 days prn for active infection. suppressio n tx with qw fluconazol e 150DM control reviewed.a void ETOH [id number] Roshni Jonas MD Main Office [address] [place] [address] 10/06/2023 11:57:48 10/06/2023 12:44:33 Human immunodeficiency virus infection 47255241 B20 HIVContinu e Triumeq 1 tab po qd. compliance reviewed to keep viral suppressio n, prevent viral resistance and prevent transmissi on. will keep same regimen.Co ntinue Bactrim DS TIW for OI prophylaxi s in setting of low CD4.labspl an of care reviewed. question and concerns reviewed Spasm of back muscles 20 6944853 M62.830 hydrationt izanidine 4mg 1/2 tab po qidwatch for sedation.w arm compresses sf/[place] [id number] Roshni Jonas MD Main Office [address] [place] [address], [place] [address] 01/19/2024 11:49:26 01/19/2024 12:29:42 Human immunodeficiency virus infection 00774461 B20 HIVContinu e Triumeq 1 tab po qd. compliance reviewed to keep viral suppressio n, prevent viral resistance and prevent transmissi on. will keep same regimen.Co ntinue Bactrim DS TIW for OI prophylaxi s in setting of low CD4. will discontinu e if it goes above 200.labs done 12/2023; awaiting resultspla n of care reviewed. question and concerns reviewed Costal chondritis 623287 04 M94.0 costochond ritis.hydr ationtylen ol or NSAIDStiza nidine prnwatch for sedation.w arm compresses sf/[place] [id number] Roshni Jonas MD Main Office [address] [place] [address], [place] [address] 07/04/2024 14:42:15 07/04/2024 15:35:28 Human immunodeficiency virus infection 54808864 B20 HIVContinu e Triumeq 1 tab po [...] appointmen tdeclines COVID19 vaccine. Dry skin dermatitis 2600 75537 L85.3 skin hydrationl ubriderm [id number] Roshni Jonas MD Main Office [address] [place] [address], [place] [address] 10/31/2024 14:27:00 10/31/2024 15:00:49 Human immunodeficiency virus infection 42570884 B20 HIVContinu e Triumeq 1 tab po qd. compliance reviewed to keep viral suppressio n, prevent viral resistance and prevent transmissi on. will keep same regimen for now.she will keep same regimen now; willing to consider clinical trials; Cabenuva reviewed as an option.daniel thapa order and await archive resistance test prior to ordering/s witching regimen.Co ntinue Bactrim DS TIW for OI prophylaxi s in setting of low CD4. will discontinu e if it goes above 200.labs Gastroesop hageal reflux disease 824375789 K21.9 Omperazole qd prn reviewedRe glan 1/2 to 1 tab po qd PRN for n/v. avoid overuse in setting of Ozempic and other medication suse short term. 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 Bacterial vaginosis 4197 17347 N76.0 metronidaz ole bid x 7 days. tolerates welldeclin es creams [id number] Roshni Jonas MD Main Office [address] [place] [address] 01/30/2025 14:00:04 01/30/2025 14:47:49 Human immunodeficiency virus infection 26270824 B20 HIVContinu e Triumeq 1 tab po qd. compliance reviewedCa benuva will be ordered; pt will start once medication s is approved and delivered; QM x2, then QOM.reason for switch: tolerabili ty/nausea/ gastropare sis/pt preference . pt prefers Cabenuva. WIll have to follow VL in setting of cabotegrav ir resistance mutation on Archive resistance test. pt is aware if resistance results and importance of compliance with on time injection within the 14 day window period.she will stiop the Triumeq that day that she gets Cabenuva administer ed in office.pt reports sh eis able to come in within the window period.oth er options reviewed such as clinical trial options and Sunlencapo tential side effects reviewed w pt: injection site reactions, n/v/d.goal sof tc to keep viral suppressio n, prevent viral resistance and prevent transmissi on.CD4 below 200; latest CD4= 320. Will D/c Bactrim if repeat CD4 is above 200.Contin ue Bactrim DS TIW for OI prophylaxi s in setting of low CD4. will discontinu e if it goes above 200.labsla bs Gastroesop hageal reflux disease 493656104 K21.9 Omperazole qd prn reviewedpt off reglan for a month; she will call if she needs a refill Human genie lloma virus infection 769866400 B97.7 She will undergo for rectal warts. goal of vaccinatio n reviewed; and education provided. [id number] Roshni Jonas MD Main Office [address] [place] [address] 04/10/2025 14:22:17 04/10/2025 15:24:17 Human immunodeficiency virus infection 98158889 B20 HIVContinu e Triumeq 1 tab po [...] goes above 200.labs Gastroesop hageal reflux disease 905716938 K21.9 Omeprazole qd prn reviewedpt off reglan for a month; she will call if she needs a refill Human genie lloma virus infection 136922535 B97.7 will ask on next appointmen t whether she already had surgery for rectal warts.savage asil prescribed to try to minimize new infection, and slow progressio ngoal of vaccinatio n reviewed; and education provided.i [place] [id number] Roshni Jonas MD Main Office [address] [place] [address] 05/06/2025 15:08:43 05/06/2025 17:05:36 Human immunodeficiency virus infection 43578151 B20 HIVContinu e Cabenuva 900/600 IM, getting [...] testing; uses condoms Gastroesop hageal reflux disease 133268226 K21.9 Omeprazole qd prn reviewedpt off reglan for a month; she will call if she needs a refillHear tburn improved. Human genie lloma virus infection 559197056 B97.7 Had surgery to remove condyloma in [...] Member ID James Member ID Guarantor Name 07/08/2023 1 [facility] (HMO) [id number] Maame I Kev [id number] Maame I Kev 04/08/2023 1 [facility] (HMO) [id number] Maame I Kev [id number] Maame I Kev 07/08/2023 2 [facility] (MEDICAID HMO) [id number] Maame I Kev [id number] Maame I Kev 05/03/2025 1 [facility] (MEDICAID REPLACEMENT - HMO) [id number] Maame I Kev [id number] Maame I Kev 05/03/2025 2 [place]: [facility] Maame I Kev [id number] Maame Kei Angulo Notes Date Note Type Note Provider Name and Address Organization Details Recorded Time 07/04/2024 text/html ROS as noted in the HPI F/u HIV.on Triumeq 1 tab po qdcompliant.no concerns. denies missing doses.no hx of NE nor CAD. HBP.lab drawn yesterday; labs pending.med list [id number] HBV s ag neg; AST/ALT wnl ; creatinine04/2023 HIV VL nondetceted. AST/aLt wnl. HCV neg06/2022 HIV LV=018 while she was taking a MTV which she stopped.11/2022 HIV VL 89 [id number] n/v/d w triumeq.on Bactrim DS tiw for OI prophylaxis which has been below 200; CD4 220 (5%)med list reviewedon ozempic for DM; followed by EndocrinologyCostochon ditis improved on tx.off steroid since November 2023had COVID19 last month: had vomiting/ diarrhea. she was tx.had flu and shingles vaccineskin itchiness. has had before when it gets cold. scratching. benadryl has helped in the past; she has been using a cream which is not working; she cannot remember the cream's name Roshni Jonas MD [address] [place] [address], [phone], TERRI JONAS MD [facility] 07/04/2024 18:28:18 10/31/2024 text/html ROS as noted in the HPI F/u HIV.on Triumeq 1 tab po qdwilling to consider injectables or clinical trialscompliant.no concerns. denies missing doses.chronic nausea/vomiting; on/off; she thinks she ate something that she did not tolerate well.has been on reglan in the past for n/v, and has tolerated well; takes PRN rarely when needed. needs refillGERD. needs omeprazole refill which she uses when gets GERDno hx of NE nor CAD. HBP.med list reviewedBV flareup; declines creams; prevers metronidazole PO which has worked before and she tolerates welll.on Bactrim DS tiw for OI prophylaxis which has been below 200; CD4 220 (5%)med list reviewedon ozempic for DM; followed by EndocrinologyHAs Had HPV on anal/rectal area in the past.07/2024 HBV s ag neg; AST/ALT wnl ; creatinine12/2023 HIV nondetected; RPR NR04/2023 HIV VL nondetceted. AST/aLt wnl. HCV neg Roshni Jonas MD [address] [place] [address], [phone], TERRI JONAS MD [facility] 10/31/2024 15:53:37 01/30/2025 text/html ROS as noted in the HPI F/u HIV.on Triumeq 1 tab po qdwilling to switch regimen to avoid taking tables,covenience, vomiting hx.compliant.no concerns. denies missing doses.over last month- not taking the reglan to help with the gastroparesis- feels that the metformin was also contributed to the nauseahas been on reglan in the past for n/v, and has tolerated well; takes PRN rarely when needed. needs refillmed list reviewed on Bactrim DS tiw for OI prophylaxis which has been below 200; CD4 220 (5%)med list reviewedon ozempic for DM; followed by EndocrinologyHAs Had HPV on anal/rectal area in the past and she will undergo surgery for condylamata at rectumdiscussed possible switch to cabenuva inections- 2 in buttocks then in aug another booster and then every 2 months afterwards-discussed side effects10/2024 ALT 44; AST 37; RPR nr; eGFR=97; HIV VL nondetected; NH4=23325/2024 HBV s ag neg; AST/ALT wnl ; creatinine12/2023 HIV nondetected; RPR NR04/2023 HIV VL nondetceted. AST/aLt wnl. HCV neg Roshni Jonas MD [address] [place] [address], [phone], [facility] - ROSHNI JONAS MD [facility] 01/30/2025 16:49:05 04/10/2025 text/html ROS as noted in the [...] 37; RPR nr; eGFR=97; HIV VL nondetected; IM1=585 07/2024 HBV s ag neg; AST/ALT wnl [...] 37; RPR nr; eGFR=97; HIV VL nondetected; KF7=544 07/2024 HBV s ag neg; AST/ALT wnl ; creatinine 12/2023 HIV nondetected; RPR NR 04/2023 HIV VL nondetceted. AST/aLt wnl. HCV neg Roshni Jonas MD [address] [place], [address], [place] - ROSHNI JONAS MD [facility] 04/10/2025 17:57:52 05/06/2025 text/html ROS as noted in the [...] insulin and metformin; will see PCP in [place] and inform them of insurance issue; may need Rx for alternative medication if PCP can't get them to cover it still. States diabetes is good. Hx asthma; using Proventil/ProAir MDI Q4-6 hrs PRN, also has BreoElipta, uses daily. Recent increase in wheezing d/t change in weather. Has called [employer]; waiting for call back; thinks may need [...] 37; RPR nr; eGFR=97; HIV VL nondetected; HP6=638 07/2024 HBV s ag neg; AST/ALT wnl [...] 37; RPR nr; eGFR=97; HIV VL nondetected; FX4=695 07/2024 HBV s ag neg; AST/ALT wnl ; creatinine 12/2023 HIV nondetected; RPR NR 04/2023 HIV VL nondetceted. AST/aLt wnl. HCV neg Roshni Jonas MD [address] [place] [address], [phone], TERRI - ROSHNI JONAS MD [facility] 05/06/2025 17:28:34 OBGyn Episode No OBEpisode recorded.
== END 2025-06-21 10:19 | disposition home or self-care (01) ==
LOC: HO.HPS 09:35
PROVIDERS: PCP Internal Medicine; Visit Provider Hospitalist
DX: J45.41 Moderate persistent asthma with (acute) exacerbation (principal); R05.3 Chronic cough; J40 Bronchitis, not specified as acute or chronic
CPT/HCPCS: 99214

== ENCOUNTER → 2025-06-21 09:34 | Outpatient (BNVA) | payer OTHER, SELFPAY | PROVIDERS: PCP Internal Medicine; Visit Provider Hospitalist | DX: J45.41 Moderate persistent asthma with (acute) exacerbation (principal); R05.3 Chronic cough; J40 Bronchitis, not specified as acute or chronic | CPT/HCPCS: 99212 ==